=== PATIENT | female | born 1940 | race Caucasian/White ===

== ENCOUNTER 2019-08-31 16:30 | Emergency (ER) | payer MEDICARE, BC ==
[2019-08-31 16:39] VITALS: RESP 18
--- NOTE | 2019-08-31 17:15 | ED ---
General Adult HPI - General Chief complaint: Psychiatric Symptoms Stated complaint: Mental Health Time Seen by Provider: 08/31/19 16:44 Source: patient, family Mode of arrival: ambulatory Limitations: no limitations - History of Present Illness Initial comments: Patient presents the ED with her daughter for evaluation. Patient states that she has been having increasing problems with anxiety and depression of the past 2-3 months. Per daughter, the patient's primary care provider has been adjusting the patient's psychiatric medications and doses recently. Per daughter, the patient's primary care provider advised that the patient see a psychiatrist, but daughter states that "it takes too long to see a psychiatrist", so she has but the patient to the ED today. Patient denies suicidal ideations, homicidal ideations, hallucinations, medication or drug abuse, EtOH abuse, any pain, fever or chills, cough or cold symptoms, urinary symptoms, dyspnea, dizziness, nausea/vomiting/diarrhea, or any other symptoms or complaints. - Related Data Home Medications Medication Instructions Recorded Confirmed ARIPiprazole [Abilify] 2.5 mg PO HS 10/09/14 05/17/15 Aspirin 81 mg PO DAILY 10/09/14 05/17/15 LORazepam [Ativan] 2 mg PO DAILY@1400 10/09/14 05/17/15 Levothyroxine Sodium [Synthroid] 37.5 mcg PO HS 10/09/14 05/17/15 Metoprolol Tartrate 25 mg PO BID 10/09/14 05/17/15 Pentosan Polysulfate Sodium 100 mg PO MOWEFR 10/09/14 05/17/15 [Elmiron] Pravastatin Sodium [Pravachol] 80 mg PO HS 10/09/14 05/17/15 Sertraline [Zoloft] 100 mg PO BID 10/09/14 05/17/15 Calcium Carbonate/Vitamin D3 1 tab PO DAILY 10/19/14 05/17/15 [Calcium 600-Vit D3 400 Tablet] Multivitamins, Thera [Multivitamin 1 tab PO DAILY 10/19/14 05/17/15 (formulary)] [place]-3 Fatty Acids/Fish Oil [Fish 1 tab PO BID 10/19/14 05/17/15 Oil 1,000 mg Softgel] ALPRAZolam [Xanax] 1.5 mg PO HS 05/05/15 05/17/15 Clearlax 1 applicate PO HS 05/05/15 05/17/15 Cyanocobalamin [Vitamin B-12] 500 mcg PO DAILY 05/05/15 05/17/15 Previous Rx's Medication Instructions Recorded Rivaroxaban [Xarelto] 10 mg PO DAILY #12 tab 05/18/15 Acetaminophen-Codeine 300-30mg 1 tab PO Q6H PRN #60 tablet 05/19/15 [Tylenol w/codeine #3] Allergies Allergy/AdvReac Type Severity Reaction Status Date / Time cisapride monohydrate Allergy nasal Verified 08/31/19 16:39 [From Propulsid] congestion and cough methylphenidate HCl Allergy joint pain Verified 08/31/19 16:39 [From Ritalin] Sulfa (Sulfonamide Allergy Unknown Verified 08/31/19 16:39 Antibiotics) amitriptyline AdvReac causes Verified 08/31/19 16:39 nervousness and sleepiness amylase [From Viokase] AdvReac jim Verified 08/31/19 16:39 bladder aspirin AdvReac jim Verified 08/31/19 16:39 bladder but able to tolerate low dose asa atenolol [From Tenoretic 50] AdvReac dry Verified 08/31/19 16:39 burning eyes bupropion HCl AdvReac jim Verified 08/31/19 16:39 [From Wellbutrin] bladder chlordiazepoxide AdvReac bladder Verified 08/31/19 16:39 [From Librax (with jim clidinium)] chlordiazepoxide HCl AdvReac bladder Verified 08/31/19 16:39 [From Librax (with jim methscopolamine)] chlorthalidone AdvReac dry Verified 08/31/19 16:39 [From Tenoretic 50] burning eyes clidinium bromide AdvReac bladder Verified 08/31/19 16:39 [From Librax (with jim clidinium)] cyclobenzaprine HCl AdvReac causes Verified 08/31/19 16:39 [From Flexeril] sleepiness and nervousness dextroamphetamine sulfate AdvReac jim Verified 08/31/19 16:39 [From Dexedrine] stomach and bladder dicyclomine HCl [From Bentyl] AdvReac dry Verified 08/31/19 16:39 mouth,constipation,jim bladder fluoxetine HCl [From Prozac] AdvReac stays awake Verified 08/31/19 16:39 gabapentin [From Neurontin] AdvReac jim Verified 08/31/19 16:39 bladder hydrocodone AdvReac jim Verified 08/31/19 16:39 bladder hyoscyamine sulfate AdvReac mades eyes Verified 08/31/19 16:39 [From Levsinex] and mouth dry lipase [From Viokase] AdvReac jim Verified 08/31/19 16:39 bladder lithium AdvReac jim Verified 08/31/19 16:39 bladder loratadine [From Claritin] AdvReac jim Verified 08/31/19 16:39 stomach and bladder methylprednisolone AdvReac jim Verified 08/31/19 16:39 bladder methylscopolamine nitrate AdvReac bladder Verified 08/31/19 16:39 [From Librax (with jim methscopolamine)] metoclopramide HCl AdvReac causes Verified 08/31/19 16:39 [From Reglan] sleepiness and nervousness nortriptyline HCl AdvReac severe Verified 08/31/19 16:39 [From Pamelor] sleepiness pemoline [From Cylert] AdvReac jim Verified 08/31/19 16:39 stomach and bladder prednisone AdvReac jim Verified 08/31/19 16:39 bladder protease [From Viokase] AdvReac jim Verified 08/31/19 16:39 bladder sucralfate AdvReac constipatio Verified 08/31/19 16:39 n tolmetin sodium AdvReac Nausea & Verified 08/31/19 16:39 [From Tolectin] Vomiting tramadol HCl [From Ultram] AdvReac jim Verified 08/31/19 16:39 bladder venlafaxine HCl AdvReac jim Verified 08/31/19 16:39 [From Effexor] bladder clescin AdvReac Nausea & Uncoded 08/31/19 16:39 Vomiting ruepar AdvReac jim Uncoded 08/31/19 16:39 bladder Review of Systems ROS Statement: Those systems with pertinent positive or pertinent negative responses have been documented in the HPI. ROS Other: All systems not noted in ROS Statement are negative. Past Medical History Past Medical History: Hyperlipidemia, Hypertension, Osteoarthritis (OA), Thyroid Disorder Additional Past Medical History / Comment(s): interstitial cystitis,"borderline diabetes"- diet controlled NOT ON ANY MEDS AND MK [facility] WILL CHECK HER BS., constipation History of Any Multi-Drug Resistant Organisms: None Reported Past Surgical History: Heart Catheterization With Stent, Hysterectomy, Joint Replacement, Orthopedic Surgery Additional Past Surgical History / Comment(s): 10/19/14 Total L hip arthroplasty anterior approach. bladder suspension, cataracts, 05-17-15 TOTAL RT KNEE REPLACEMENT Past Anesthesia/Blood Transfusion Reactions: No Reported Reaction Date of Last Stent Placement:: 2010 Past Psychological History: Depression Smoking Status: Never smoker Past Alcohol Use History: None Reported Past Drug Use History: None Reported - Past Family History Mother Family Medical History: Cancer Additional Family Medical History / Comment(s): colon Father Family Medical History: Coronary Artery Disease (CAD), Musculoskeletal Disorder Additional Family Medical History / Comment(s): PARKINSONS AND HEART TROUBLE General Exam Limitations: no limitations General appearance: alert, in no apparent distress Head exam: Present: atraumatic, normocephalic Eye exam: Present: normal appearance, PERRL, EOMI ENT exam: Present: mucous membranes moist Neck exam: Present: other (Trachea is in midline). Absent: tenderness, meningismus Respiratory exam: Present: normal lung sounds bilaterally. Absent: respiratory distress, wheezes, rales, rhonchi Cardiovascular Exam: Present: regular rate, normal rhythm, normal heart sounds, other (Normal radial pulses bilaterally) GI/Abdominal exam: Present: soft. Absent: distended, tenderness, guarding Extremities exam: Absent: tenderness, pedal edema, calf tenderness Neurological exam: Present: alert, oriented X3, CN II-XII intact. Absent: motor sensory deficit Psychiatric exam: Present: depressed, anxious Skin exam: Present: warm, dry, intact, normal color Course Vital Signs 08/31/19 16:35 Temperature 98.4 F Pulse Rate 88 Respiratory 18 Rate Blood Pressure 142/84 O2 Sat by Pulse 99 Oximetry Medical Decision Making - Medical Decision Making Patient was evaluated by EPS nurse in the ED. EPS nurse states the patient will be discharged home with her daughter, and she has provided the patient with outpatient psychiatric referral information. Patient and daughter were counseled about depression and anxiety, and they feel comfortable with this plan. Patient was instructed to follow up closely with her primary care provider. Patient was instructed to return to the ED should she develop new or worsening symptoms. Disposition Clinical Impression: Anxiety, Depression Disposition: HOME SELF-CARE Condition: Stable Instructions (If sedation given, give patient instructions): Depression (ED), Anxiety (ED) Additional Instructions: Return to the ER immediately should you develop thoughts of hurting herself or others, hearing voices or seeing things, any significant pain, shortness of breath, feeling dizzy or faint, or new or worsening symptoms. Follow up closely with your primary care provider. Is patient prescribed a controlled substance at d/c from ED?: No Referrals: Nidia Angulo MD [Primary Care Provider] - 1-2 days Time of Disposition: 19:07
[2019-08-31 19:13] VITALS: BP 140/80; PULSE 85; TEMP 98.2
== END 2019-08-31 19:10 | disposition home or self-care (01) ==
LOC: EC 16:30
DX: F32.9 Major depressive disorder, single episode, unspecified (principal); F41.9 Anxiety disorder, unspecified; E78.5 Hyperlipidemia, unspecified; I10 Essential (primary) hypertension; M19.90 Unspecified osteoarthritis, unspecified site; E07.9 Disorder of thyroid, unspecified; N30.10 Interstitial cystitis (chronic) without hematuria; K59.00 Constipation, unspecified; Z88.1 Allergy status to other antibiotic agents; Z88.2 Allergy status to sulfonamides; Z88.5 Allergy status to narcotic agent; Z88.6 Allergy status to analgesic agent; Z88.8 Allergy status to other drugs, medicaments and biological substances; Z91.048 Other nonmedicinal substance allergy status; Z79.82 Long term (current) use of aspirin; Z79.890 Hormone replacement therapy; Z79.899 Other long term (current) drug therapy
CPT/HCPCS: 82075; 99284

== ENCOUNTER → 2020-06-21 | Outpatient (CLI) | payer MEDICARE, BC | END | disposition home or self-care (01) | LOC: LABPAT 11:37 | PROVIDERS: ATTEND Orthopaedic Surgery | DX: Z22.322 Carrier or suspected carrier of Methicillin resistant Staphylococcus aureus (principal) | CPT/HCPCS: 86850; 86900; 86901; 87070 ==

== ENCOUNTER 2020-06-28 06:28 | Day surgery (SDC) | payer MEDICARE, BC ==
[2020-06-23 14:58] VITALS: BMI 32.2
--- NOTE | 2020-06-27 11:22 | HP ---
HISTORY AND PHYSICAL REASON FOR ADMISSION: Surgery 06/28/2020. HISTORY OF PRESENT ILLNESS: Deepika Sharma is a 80-year-old patient seen with symptomatic right hip osteoarthritis. We discussed options. She elected to proceed with direct anterior right total hip arthroplasty. Consent was obtained. Medical clearance provided by Dr. Angulo. PAST MEDICAL HISTORY: [id number] diabetes, hypertension, hypothyroidism. PAST SURGICAL HISTORY: Right total knee arthroplasty, left total hip arthroplasty. MEDICATIONS: Abilify, aspirin, Elmiron. ALLERGIES: SULFA. SOCIAL HISTORY: She denies current tobacco use. PHYSICAL EXAMINATION: Evaluation of the right hip: there is limited range of motion with severe pain. Diffuse tenderness about the hip girdle. Positive hip impingement sign. Straight leg raise negative. Distal neurovascular exam intact. RADIOGRAPHS: Radiographs of the right hip reveals severe osteoarthritic changes. IMPRESSION: 1. Right hip osteoarthritis. 2. Hypertension. 3. Hypothyroidism. 4. Bqo-rgsbyyo-qsgtrxder diabetes. PLAN: Direct anterior right total hip arthroplasty. Surgery 06/28/2020. MMODL / IJN: [id number] /
[~2020-06-28 06:28] MED LIST: ACETAMINOPHEN TAB 500 MG TAB PO ONE; MELOXICAM 7.5 MG TAB PO ONE; MIDAZOLAM 2 MG/2 ML VIAL IV PRN; ONDANSETRON 4 MG/2 ML VIAL IVP ONE; ROPIVACAINE 246.25 MG, EPINEPHrine 0.5 MG, KETOROLAC 30 MG, cloNIDine HCL/PF 80 MCG, WA... MISCELLANE ONE; TRANEXAMIC ACID 1,000 MG in SODIUM CHLORIDE 0.9% 100 ML IVPB ONE; fentaNYL (PF) 50 MCG/ML 2 ML AMP IV PRN
[2020-06-28] MEDS ORDERED: LIDOCAINE 1% (10MG/ML) FOR IV START INTRADERMA ONE (07:00)
[2020-06-28] MEDS: LACTATED RINGERS 1,000 ML IV SCH (07:00)
[2020-06-28 07:22] LABS: Glucose,Whole Blood 112 mg/dL (75-99)
[2020-06-28] MEDS ORDERED: ROCURONIUM 10 MG/ML (10 ML VIAL) IV ONE (07:29)
[2020-06-28] MEDS ORDERED: PROPOFOL 10 MG/ML 20 ML VIAL IV ONE (07:29)
[2020-06-28] MEDS ORDERED: GLYCOPYRROLATE 0.2 MG/ML 2 ML VIAL ONE (07:29)
[2020-06-28] MEDS ORDERED: LIDOCAINE 1% INJ 10MG/ML (20 ML MDV) ONE (07:29)
[2020-06-28] MEDS ORDERED: fentaNYL (PF) 50 MCG/ML 2 ML AMP ONE (07:29)
[2020-06-28] MEDS ORDERED: NEOSTIGMINE 1 MG/ML 10 ML VIAL ONE (07:29)
[2020-06-28] MEDS ORDERED: SODIUM CHLORIDE 0.9% 100 ML BAG ONE (07:29)
[2020-06-28] MEDS ORDERED: TRANEXAMIC ACID 1,000 MG/10 ML VIAL ONE (07:29)
[2020-06-28] MEDS ORDERED: SUCCINYLCHOLINE CHLORIDE 100 MG/5 ML SYR IV ONE (07:29)
[2020-06-28] MEDS ORDERED: ePHEDrine SULFATE/0.9% NACL/PF 50 MG/5 ML SYRINGE IV ONE (07:29)
[2020-06-28] MEDS ORDERED: ceFAZolin 1,000 MG in SODIUM CHLORIDE 0.9% 1,000 ML IRRIGATION ONE (08:09)
--- NOTE | 2020-06-28 09:03 | XR ---
Fluoroscopy History: RIGHT HIP ARTHROPLASTY fluoro time 22 seconds, 1 film scanned.
[2020-06-28] MEDS ORDERED: HYDROcodone/APAP 5-325MG 1 EACH TAB PO PRN (09:09)
[2020-06-28] MEDS ORDERED: ONDANSETRON 4 MG/2 ML VIAL IVP PRN (09:09)
[2020-06-28] MEDS ORDERED: HYDROmorphone 0.5 MG/0.5 ML SYRINGE IVP PRN ×3 (09:09)
[2020-06-28] MEDS ORDERED: NALOXONE 0.4 MG/ML 1 ML VIAL IV PRN (09:09)
--- NOTE | 2020-06-28 09:09 | P.OP ---
Date of Procedure: 06/28/20 Preoperative Diagnosis: Right hip osteoarthritis Postoperative Diagnosis: Right hip osteoarthritis Procedure(s) Performed: Direct anterior right total hip arthroplasty Implants: 1. Depuy Corail KA size 13 with collar press-fit femoral stem 2. Depuy pinnacle 52 mm multi hole press-fit acetabular shell 3. Depuy pinnacle neutral polyethylene acetabular liner 36 mm ID 52 mm OD 4. Biolox delta ceramic femoral head +1.5 36 mm Anesthesia: GETA, local, spinal Surgeon: Chidi Parry Gate Shear Operator #1: Corbin Smith Estimated Blood Loss (ml): 100 Pathology: other (Femoral head) Condition: stable Disposition: PACU Indications for Procedure: 80-year-old patient seen with symptomatic right hip osteoarthritis. After treatment options were discussed, she elected to proceed with direct anterior right total hip arthroplasty. Operative Findings: see description of procedure Description of Procedure: The patient was taken to the operative suite. Patient underwent a spinal anesthetic by the department of anesthesia. Patient was then transferred to the [place] table. Patient was given preoperative IV antibiotics and TXA. Both lower extremities were placed in standard leg spars. At point did not appear that the spinal anesthetic was working and the department of anesthesia converted her to a general anesthetic. The hip was then prepped and draped in the normal sterile orthopedic fashion. A standard anterior incision was made beginning 3 cm lateral and 1 cm distal to the ASIS extending 10 cm. Dissection was then carried down through the subcutaneous soft tissues down to the fascia overlying the tensor fascia kirstin. An incision was now made through the fascia. Careful dissection was taken down exposing the tensor fascia kirstin muscle. A Cobra retractor was now placed along the medial femoral neck and a second one along the lateral femoral neck. The venous circumflex vessels were now identified, cauterized and clipped. We identified the anterior hip capsule. An incision was made through the hip capsule along the lateral border. I performed a partial anterior capsulectomy. Retractors were now placed around the femoral neck itself. A femoral neck cut was now made with a sagittal saw. It was completed with an osteotome at the lateral neck area. The femoral head was now removed without difficulty. The extremity was now rotated to 45 of external rotation. It was locked in position. Residual labrum was now debrided out. Serial reaming was performed of the acetabulum while Glenn ARAYA assisted holding an anterior retractor for exposure. Once we reached the appropriate size and a trial was position and fit nicely. The appropriate size was now chosen opened and made available. It was introduced into the acetabulum without difficulty. The C-arm/fluoroscopy was now brought into the operative field. We made sure we had a true AP pelvic view. We now under direct C-arm/fluoroscopy introduced into the acetabular component with appropriate version and inclination. I held the cup in appropriate position well Glenn ARAYA used a mallet to seat the acetabular component. I noted the component now to be well seated and stable. Acetabular cup introduce her was removed. The C-arm was pulled back. An appropriate liner was introduced and clicked into position. It was felt to be stable. At this point retractors were removed. The extremity was now placed into 120 external rotation with no traction. The leg was now dropped to the ground and adducted. Appropriate retractors were now positioned along the proximal femur. We also placed our femoral look into position. Additional capsular releasing was performed to gain access to the proximal femur. We now used a box osteotome. A canal finder was now utilized. Serial broaching was now performed with the assistance of Glenn RAAYA tapping the broaches down with a mallet while held the broach in appropriate rotation and position. This was done until we reached the appropriate size with good overall rotational stability. Appropriate calcar planing was performed. A trial head/neck was placed into position. The hip was now reduced. The C-arm/fluoroscopy was brought back into the operative field. I obtained an AP pelvis demonstrating reasonable alignment of the leg lengths. The trial components appeared well positioned. The C-arm/fluoroscopy was pulled back. Retractors were repositioned and the hip was dislocated. The leg was again taken down to the ground and adducted. Appropriate retractors were repositioned as well as the femoral hook. All trial components were removed. The femoral implant was opened along with the femoral head. The femoral implant was introduced on the appropriate handle into our pre-broached area. I held the c omponent position well Glenn ARAYA used a mallet to seat the femoral component. The femoral component was now noted to be well seated and stable.. The femoral head was introduced with good positioning and fixation noted. Retractors were now removed. The hip was now reduced. There appeared be good positioning of the hip confirmed on intraoperative fluoroscopy. Spot films were obtained to document this. A second gram of TXA was given. The deep and superficial soft tissues were infiltrated with local analgesic. Bipolar cautery had been utilized intermittently through the procedure for hemostasis. The wound was irrigated copiously with pulse lavage mechanical irrigation. The fascia was repaired with Vicryl suture. The subcutaneous soft tissues were repaired in layers with Vicryl suture. The skin was approximated with pernio/Dermabond. Sterile dressings were applied. Patient was then awakened, transferred to a bed and taken to recovery in stable condition. Glenn ARAYA assisted with the complex procedure.
[2020-06-28] MEDS ORDERED: LACTATED RINGERS 1,000 ML IV ONE (09:13)
[2020-06-28] MEDS ORDERED: HYDROmorphone 0.5 MG/0.5 ML SYRINGE IVP ONE (09:50)
[2020-06-28] MEDS: SODIUM CHLORIDE 0.9% 1,000 ML IV SCH (10:16)
[2020-06-28] MEDS: HYDROcodone/APAP 5-325MG 1 EACH TAB PO PRN ×2 (16:00→21:51)
[2020-06-28] MEDS ORDERED: SENNOSIDES-DOCUSATE SODIUM 1 EACH TAB PO SCH (21:00)
[2020-06-28] MEDS ORDERED: PRAVASTATIN SODIUM 40 MG TAB PO SCH (22:15)
[2020-06-28] MEDS ORDERED: ARIPiprazole 5 MG TAB PO SCH (22:15)
[2020-06-28] MEDS ORDERED: MIRTAZAPINE 45 MG TABLET PO SCH (22:15)
[2020-06-28] MEDS: METOPROLOL TARTRATE 25 MG TAB PO SCH (22:30)
[2020-06-29] MEDS: LACTATED RINGERS 1,000 ML IV SCH (01:54)
[2020-06-29] MEDS: SODIUM CHLORIDE 0.9% 1,000 ML IV SCH (01:54)
[2020-06-29] MEDS: HYDROcodone/APAP 5-325MG 1 EACH TAB PO PRN ×2 (06:16→13:33)
[2020-06-29 07:44] VITALS: BP 132/69; PULSE 80; RESP 12; TEMP 98.3
[2020-06-29 07:47] LABS: Basophils % (A) 0 %; Eosinophils # (A) 0.1 k/uL (0-0.7); Eosinophils % (A) 1 %; HCT 29.3 % (34.0-46.0); HGB 10.1 gm/dL (11.4-16.0); Lymphocytes # (A) 1.2 k/uL (1.0-4.8); Lymphocytes % (A) 16 %; MCH 32.8 pg (25.0-35.0); MCHC 34.5 g/dL (31.0-37.0); Monocytes # (A) 0.4 k/uL (0-1.0); Monocytes % (A) 6 %; Neutrophils # (A) 5.5 k/uL (1.3-7.7); Neutrophils % (A) 76 %; Platelet Count 114 k/uL (150-450); RBC 3.08 m/uL (3.80-5.40); RDW 12.7 % (11.5-15.5); WBC 7.2 k/uL (3.8-10.6)
[2020-06-29] MEDS ORDERED: ENOXAPARIN 40 MG/0.4 ML SYRINGE SQ SCH (09:00)
[2020-06-29] MEDS ORDERED: lisinopriL 10 MG TAB PO SCH (09:00)
[2020-06-29] MEDS ORDERED: SERTRALINE 100 MG TAB PO SCH (09:00)
[2020-06-29] MEDS ORDERED: NIFEdipine XL 30 MG TAB.ER.24 PO SCH (09:00)
[2020-06-29] MEDS ORDERED: FAMOTIDINE 20 MG TAB PO SCH (09:00)
[2020-06-29] MEDS ORDERED: LEVOTHYROXINE 75 MCG TAB PO SCH (09:00)
[2020-06-29] MEDS: SIMETHICONE 80 MG CHEWABLE PO SCH ×2 (10:08→13:22)
[2020-06-29] MEDS: METOPROLOL TARTRATE 25 MG TAB PO SCH (10:09)
--- NOTE | 2020-06-29 11:36 | P.PN ---
Subjective Progress Note Date: 06/29/20 Principal diagnosis: Status post direct anterior right total hip arthroplasty Patient is examined today at bedside, she is resting comfortably. She's having minimal pain at this time. She did very well physical therapy. She denies any headaches, lightheadedness, chest pain, shortness of breath. Objective - Vital Signs Vital signs: Vital Signs Temp 98.3 F 06/29/20 07:00 Pulse 80 06/29/20 07:00 Resp 12 06/29/20 07:00 BP 132/69 06/29/20 07:00 Pulse Ox 95 06/29/20 07:00 Intake & Output 06/28/20 06/29/20 06/29/20 18:59 06:59 18:59 Intake Total 2090 300 100 Output Total 100 Balance 1990 300 100 Weight 72.6 kg Intake: IV 1251 Intake, IV Titration 240 Amount Sodium Chloride 0.9% 1, 240 000 ml @ 60 mls/hr IV . [id number] CASTRO Rx#:[id number] Oral 600 300 100 Output: Estimated Blood Loss 100 Other: Voiding Method Toilet Toilet # Voids 2 - Exam Right lower extremity: Incision is clean, dry, and intact. The foam dressing is in good condition. There is minimal soft tissue swelling and ecchymosis surrounding the medial and lateral aspects of the incision. Calf is soft, no tenderness with palpation. Plantar flexion, dorsiflexion, EHL, FHL are intact. Sensory exam to light touch throughout the extremity is intact, dorsal pedis pulses 2+. - Labs CBC & Chem 7: 06/29/20 07:08 Labs: Abnormal Lab Results - Last 24 Hours (Table) 06/29/20 Range/Units 07:08 RBC 3.08 L (3.80-5.40) m/uL Hgb 10.1 L (11.4-16.0) gm/dL Hct 29.3 L (34.0-46.0) % Plt Count 114 L (150-450) k/uL Assessment and Plan Assessment: Status post direct anterior right total hip arthroplasty Plan: Pain control, plan for discharge home on Onward 5 mg/25 mg. Discussed with patient if she notices any bladder symptoms contact office and we will try a different medication DVT prophylaxis, Xarelto 10 mg Wound care instructions discussed Icing and elevating techniques discussed Home health care after discharge Plan for discharge home today Time with Patient: Less than 30
--- NOTE | 2020-06-29 11:39 | P.DS ---
Providers Date of admission: 06/28/2020 Expected date of discharge: 06/29/20 Attending physician: Chidi Parry Consults: 06/28/20 09:09 Consult Physician Routine Consulting Provider: Navjot Loja Reason/Comments: Medical management Do you want consulting provider notified?: Already Contacted Primary care physician: Nidia Angulo [facility] Course: Date of admission: 06/28/2020 Date of discharge: 06/29/2020 Admission diagnosis: Status post direct anterior right total hip arthroplasty Discharge diagnosis: Same Attending physician: Dr. Parry Surgical procedures: Direct anterior right total hip arthroplasty Brief history: Patient is a 80-year-old female with a history of progressive primary right hip osteoarthritis. At this point patient has failed conservative treatment measures and has opted to proceed with a elective direct anterior right total hip arthroplasty. Hospital course: Details of patient's surgery can be found in operative report. Patient tolerated the procedure well and was subsequently transported to orthopedic floor. Patient's orthopeidc and medical care was provided daily. Patient had daily laboratory tests performed for evaluation of overall blood counts. Patient had daily physical therapy to include strengthening range of motion as well as education with walker ambulation. Patient was treated with Lovenox for their postoperative DVT prophylaxis during their inpatient stay. Patient was noted to have a relatively uneventful postoperative course. Patient reported satisfactory pain control with oral pain medications by postoperative day 0. Patient showed satisfactory progress with physical therapy. Patient moved steadily through the program and had no difficulty meeting the goals by postoperative day 1. Given patient's otherwise satisfactory course and having met physical therapy goals, plan is to discharge patient home on postoperative day 1. Discharge condition/disposition: Patient will be discharged home in stable condition. Discharge medications: Instructions are given on resumption of patient's normal daily medications per primary care recommendation, in addition patient will be prescribed Foster 5 mg/225 mg, Xarelto 10 mg. Discharge instructions: 1. Wound care and infection precautions, keep incision dry and covered while showering, no lotions, creams, moisturizers. No soaking, tubs, pools, hottubs. Do not scrub over the incision. 2. Weight-bear as tolerated with walker / cane until follow-up. 3. Ice and elevate when necessary. Do not exceed 20 minutes per hour with ice pack. 4. Utilize compression sleeve until seen at first follow up appointment. 5. Visiting nursing care. 6. Home physical therapy. 7. Pain meds and anticoagulants per prescription. 8. Pain medication has potential to cause constipation. Increase oral fluid and fiber intake. Contact primary care provider if you have not had a bowel movement within 48 hours after discharge 9. No anti-inflammatory medication until discussed at first post operative visit, this including Motrin, Aleve, Mobic, Diclofenac. 10. Follow up in office at 2 weeks postop with Glenn Smith PA-C 11. Follow up with your primary care doctor 7-10 days after discharge. 12. Contact [facility] with any questions, . Procedures: direct anterior right total hip arthroplasty Patient Condition at Discharge: Good Plan - Discharge Summary Discharge Rx Participant: Yes New Discharge Prescriptions: New Hydrocodone/Acetaminophen [Foster 5-325] 1 - 2 each PO Q6HR PRN #40 tab PRN Reason: Pain Rivaroxaban [Xarelto] 10 mg PO DAILY #28 tab No Action Levothyroxine Sodium [Synthroid] 75 mcg PO DAILY Pravastatin Sodium [Pravachol] 40 mg PO HS ARIPiprazole [Abilify] 5 mg PO HS Metoprolol Tartrate 25 mg PO BID Sertraline [Zoloft] 200 mg PO DAILY Pentosan Polysulfate Sodium [Elmiron] 100 mg PO DAILY Aspirin 81 mg PO DAILY [place]-3 Fatty Acids/Fish Oil [Fish Oil 1,000 mg Softgel] 1 tab PO DAILY Cyanocobalamin [Vitamin B-12] 500 mcg PO DAILY polyethylene glycoL 3350 [Miralax] 17 gm PO DAILY Lisinopril [Zestril] 10 mg PO DAILY Famotidine [Pepcid] 40 mg PO BID PRN PRN Reason: Heartburn NIFEdipine [Procardia XL] 30 mg PO DAILY Diclofenac Sodium Gel [Voltaren Gel] 2 gm TOPICAL QID PRN PRN Reason: Pain Cholecalciferol [Vitamin D3 (25 Mcg = 1000 Iu)] 2,000 unit PO DAILY Mirtazapine [Remeron] 45 mg PO HS Calcium Carbonate [Calcium] 600 mg PO DAILY Discharge Medication List ARIPiprazole [Abilify] 5 mg PO HS 10/09/14 [History] Aspirin 81 mg PO DAILY 10/09/14 [History] Levothyroxine Sodium [Synthroid] 75 mcg PO DAILY 10/09/14 [History] Metoprolol Tartrate 25 mg PO BID 10/09/14 [History] Pentosan Polysulfate Sodium [Elmiron] 100 mg PO DAILY 10/09/14 [History] Pravastatin Sodium [Pravachol] 40 mg PO HS 10/09/14 [History] Sertraline [Zoloft] 200 mg PO DAILY 10/09/14 [History] [place]-3 Fatty Acids/Fish Oil [Fish Oil 1,000 mg Softgel] 1 tab PO DAILY 10/19/14 [History] Cyanocobalamin [Vitamin B-12] 500 mcg PO DAILY 05/05/15 [History] Calcium Carbonate [Calcium] 600 mg PO DAILY 06/23/20 [History] Cholecalciferol [Vitamin D3 (25 Mcg = 1000 Iu)] 2,000 unit PO DAILY 06/23/20 [ History] Diclofenac Sodium Gel [Voltaren Gel] 2 gm TOPICAL QID PRN 06/23/20 [History] Famotidine [Pepcid] 40 mg PO BID PRN 06/23/20 [History] Lisinopril [Zestril] 10 mg PO DAILY 06/23/20 [History] Mirtazapine [Remeron] 45 mg PO HS 06/23/20 [History] NIFEdipine [Procardia XL] 30 mg PO DAILY 06/23/20 [History] polyethylene glycoL 3350 [Miralax] 17 gm PO DAILY 06/23/20 [History] Hydrocodone/Acetaminophen [Foster 5-325] 1 - 2 each PO Q6HR PRN #40 tab 06/29/20 [Rx] Rivaroxaban [Xarelto] 10 mg PO DAILY #28 tab 06/29/20 [Rx] Follow up Appointment(s)/Referral(s): Corbin Smith PAC [PHYSICIAN [employer]] - 2 Weeks [facility] Visiting Nurse, [NON-STAFF] - As Needed Activity/Diet/Wound Care/Special Instructions: Orthopedic Discharge Instructions: 1. Wound care and infection precautions, keep incision dry and covered while showering, no lotions, creams, moisturizers. No soaking, pools, hot tubs. Do not scrub over incision. 2. Weight-bear as tolerated with walker / cane until follow-up. 3. Ice and elevate when necessary. Do not exceed 20 minutes per hour with ice pack. 4. Utilize compression sleeve until seen at first follow up appointment. 5. Pain meds and anticoagulants per prescription. 6. Pain medication has potential to cause constipation. Increase oral fluid and fiber intake. Contact primary care provider if you have not had a bowel movement within 48 hours after discharge. 7. No anti-inflammatory medication until discussed at first post operative visit, this including Motrin, Aleve, Mobic, Diclofenac. 8. Follow up in office at 2 weeks postop with Glenn Smith PA-C 9. Follow up with your primary care doctor 7-10 days after discharge. 10. Contact [facility] with any questions, . Discharge Disposition: HOME WITH HOME HEALTH SERVICES
== END 2020-06-29 13:37 | disposition home health service (06) ==
LOC: OR 06:28 → 4SSUR 09:35 → OR 06-29 13:37
PROVIDERS: ATTEND Orthopaedic Surgery
DX: M16.11 Unilateral primary osteoarthritis, right hip (principal); I10 Essential (primary) hypertension; E11.9 Type 2 diabetes mellitus without complications; E78.2 Mixed hyperlipidemia; E03.9 Hypothyroidism, unspecified; F32.9 Major depressive disorder, single episode, unspecified; K21.9 Gastro-esophageal reflux disease without esophagitis; F41.9 Anxiety disorder, unspecified; I25.10 Atherosclerotic heart disease of native coronary artery without angina pectoris; N30.10 Interstitial cystitis (chronic) without hematuria; Z96.642 Presence of left artificial hip joint; Z96.651 Presence of right artificial knee joint; Z88.2 Allergy status to sulfonamides; Z79.82 Long term (current) use of aspirin; Z95.5 Presence of coronary angioplasty implant and graft; Z79.899 Other long term (current) drug therapy; Z79.01 Long term (current) use of anticoagulants; Z79.84 Long term (current) use of oral hypoglycemic drugs; Z87.891 Personal history of nicotine dependence; Z88.0 Allergy status to penicillin; Z88.1 Allergy status to other antibiotic agents; Z88.6 Allergy status to analgesic agent; Z88.5 Allergy status to narcotic agent; Z88.8 Allergy status to other drugs, medicaments and biological substances; Z90.710 Acquired absence of both cervix and uterus; Z98.890 Other specified postprocedural states
CPT/HCPCS: 97116; 97110; 97161; 97535; 97166; 85025; 88300; 73501; 27130; C1776; J0171; J2710; J0690 ×3; J2405; J2001; J1650; J3010; J1885; J2795; J0330; J2704; J0735; J1170; 86850; 86900; 86901

== ENCOUNTER 2020-07-27 14:22 | Inpatient (IN) | payer MEDICARE, BC ==
[2020-07-27] MEDS ORDERED: SODIUM CHLORIDE 0.9% 500 ML 500 ML IV ONE (14:37)
[2020-07-27] MEDS ORDERED: VANCOMYCIN IV PER PHARMACY 1 EACH MISC MISCELLANE PRN (14:40)
--- NOTE | 2020-07-27 14:40 | ED ---
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 Patient states that she had a total hip replacement performed on June [address] Jamison. Patient states that she had some pain initially after. She states approximately a week later she noticed some redness to the area. Patient states the redness and swelling increased and worsened. Patient states she had an appointment today where the physician thought that the prosthesis was infected he aspirated the joint and sent patient was stable to the emergency department for admission for IV antibiotics. Patient denies fevers. She admits to chills. She denies any chest pain shortness of breath, calf pain or swelling. Patient denies additional complaints. Upon arrival pt ambulatory but appears uncomfortable with movement of right leg. She does not appear toxic nor in distress - Related Data Home Medications Medication Instructions Recorded Confirmed ARIPiprazole [Abilify] 5 mg PO HS 10/09/14 06/23/20 Aspirin 81 mg PO DAILY 10/09/14 06/23/20 Levothyroxine Sodium [Synthroid] 75 mcg PO DAILY 10/09/14 06/23/20 Metoprolol Tartrate 25 mg PO BID 10/09/14 06/23/20 Pentosan Polysulfate Sodium 100 mg PO DAILY 10/09/14 06/23/20 [Elmiron] Pravastatin Sodium [Pravachol] 40 mg PO HS 10/09/14 06/23/20 Sertraline [Zoloft] 200 mg PO DAILY 10/09/14 06/23/20 [place]-3 Fatty Acids/Fish Oil [Fish 1 tab PO DAILY 10/19/14 06/23/20 Oil 1,000 mg Softgel] Cyanocobalamin [Vitamin B-12] 500 mcg PO DAILY 05/05/15 06/23/20 Calcium Carbonate [Calcium] 600 mg PO DAILY 06/23/20 06/23/20 Cholecalciferol [Vitamin D3 (25 2,000 unit PO DAILY 06/23/20 06/23/20 Mcg = 1000 Iu)] Diclofenac Sodium Gel [Voltaren 2 gm TOPICAL QID PRN 06/23/20 06/23/20 Gel] Famotidine [Pepcid] 40 mg PO BID PRN 06/23/20 06/23/20 Lisinopril [Zestril] 10 mg PO DAILY 06/23/20 06/23/20 Mirtazapine [Remeron] 45 mg PO HS 06/23/20 06/23/20 NIFEdipine [Procardia XL] 30 mg PO DAILY 06/23/20 06/23/20 polyethylene glycoL 3350 [Miralax] 17 gm PO DAILY 06/23/20 06/23/20 Previous Rx's Medication Instructions Recorded Apixaban [Eliquis] 2.5 mg PO BID #60 tab 06/29/20 Hydrocodone/Acetaminophen [[place] 1 - 2 each PO Q6HR PRN #40 tab 06/29/20 5-325] Allergies Allergy/AdvReac Type Severity Reaction Status Date / Time cisapride monohydrate Allergy nasal Verified 07/27/20 14:30 [From Propulsid] congestion and cough methylphenidate HCl Allergy joint pain Verified 07/27/20 14:30 [From Ritalin] Sulfa (Sulfonamide Allergy Unknown Verified 07/27/20 14:30 Antibiotics) amitriptyline AdvReac causes Verified 07/27/20 14:30 nervousness and sleepiness amylase [From Viokase] AdvReac jim Verified 07/27/20 14:30 bladder aspirin AdvReac jim Verified 07/27/20 14:30 bladder but able to tolerate low dose asa atenolol [From Tenoretic 50] AdvReac dry Verified 07/27/20 14:30 burning eyes bupropion HCl AdvReac jim Verified 07/27/20 14:30 [From Wellbutrin] bladder chlordiazepoxide AdvReac bladder Verified 07/27/20 14:30 [From Librax (with jim clidinium)] chlordiazepoxide HCl AdvReac bladder Verified 07/27/20 14:30 [From Librax (with jim methscopolamine)] chlorthalidone AdvReac dry Verified 07/27/20 14:30 [From Tenoretic 50] burning eyes clidinium bromide AdvReac bladder Verified 07/27/20 14:30 [From Librax (with jim clidinium)] cyclobenzaprine HCl AdvReac causes Verified 07/27/20 14:30 [From Flexeril] sleepiness and nervousness dextroamphetamine sulfate AdvReac jim Verified 07/27/20 14:30 [From Dexedrine] stomach and bladder dicyclomine HCl [From Bentyl] AdvReac dry Verified 07/27/20 14:30 mouth,constipation,jim bladder fluoxetine HCl [From Prozac] AdvReac stays awake Verified 07/27/20 14:30 gabapentin [From Neurontin] AdvReac jim Verified 07/27/20 14:30 bladder hydrocodone AdvReac jim Verified 07/27/20 14:30 bladder hyoscyamine sulfate AdvReac mades eyes Verified 07/27/20 14:30 [From Levsinex] and mouth dry lipase [From Viokase] AdvReac jim Verified 07/27/20 14:30 bladder lithium AdvReac jim Verified 07/27/20 14:30 bladder loratadine [From Claritin] AdvReac jim Verified 07/27/20 14:30 stomach and bladder methylprednisolone AdvReac jim Verified 07/27/20 14:30 bladder methylscopolamine nitrate AdvReac bladder Verified 07/27/20 14:30 [From Librax (with jim methscopolamine)] metoclopramide HCl AdvReac causes Verified 07/27/20 14:30 [From Reglan] sleepiness and nervousness nortriptyline HCl AdvReac severe Verified 07/27/20 14:30 [From Pamelor] sleepiness pemoline [From Cylert] AdvReac jim Verified 07/27/20 14:30 stomach and bladder prednisone AdvReac jim Verified 07/27/20 14:30 bladder protease [From Viokase] AdvReac jim Verified 07/27/20 14:30 bladder sucralfate AdvReac constipatio Verified 07/27/20 14:30 n tolmetin sodium AdvReac Nausea & Verified 07/27/20 14:30 [From Tolectin] Vomiting tramadol HCl [From Ultram] AdvReac jim Verified 07/27/20 14:30 bladder venlafaxine HCl AdvReac jim Verified 07/27/20 14:30 [From Effexor] bladder clescin AdvReac Nausea & Uncoded 07/27/20 14:30 Vomiting ruepar AdvReac jim Uncoded 07/27/20 14:30 bladder Review of Systems ROS Statement: Those systems with pertinent positive or pertinent negative responses have been documented in the HPI. ROS Other: All systems not noted in ROS Statement are negative. Past Medical History Past Medical History: Hyperlipidemia, Hypertension, Osteoarthritis (OA), Thyroid Disorder Additional Past Medical History / Comment(s): interstitial cystitis,"borderline diabetes"- diet controlled NOT ON ANY MEDS AND MK [facility] WILL CHECK HER BS., constipation History of Any Multi-Drug Resistant Organisms: None Reported Past Surgical History: Heart Catheterization With Stent, Hysterectomy, Joint Replacement, Orthopedic Surgery Additional Past Surgical History / Comment(s): 10/19/14 Total L hip arthroplasty anterior approach. bladder suspension, cataracts, 05-17-15 TOTAL RT KNEE REPLACEMENT Past Anesthesia/Blood Transfusion Reactions: No Reported Reaction Date of Last Stent Placement:: 2010 Past Psychological History: Depression Smoking Status: Never smoker Past Alcohol Use History: None Reported Past Drug Use History: None Reported - Past Family History Mother Family Medical History: Cancer Additional Family Medical History / Comment(s): colon Father Family Medical History: Coronary Artery Disease (CAD), Musculoskeletal Disorder Additional Family Medical History / Comment(s): PARKINSONS AND HEART TROUBLE General Exam - General Exam Comments Initial Comments: General: The patient is awake and alert, in no distress Eye: Pupils are equal, round and reactive to light, extra-ocular movements are intact. No nystagmus. There is normal conjunctiva bilaterally. No signs of icterus. Ears, nose, mouth and throat: There are moist mucous membranes and no oral lesions. Neck: The neck is supple, there is no tenderness or JVD. Cardiovascular: There is a regular rate and rhythm. No murmur, rub or gallop is appreciated. Respiratory: Lungs are clear to auscultation, respirations are non-labored, breath sounds are equal. No wheezes, stridor, rales, or rhonchi. Musculoskeletal: Normal ROM of the hips b/l but right limited with significant pain. Strength 5/5. Sensation intact. Pulses equal bilaterally 2+. No calf pain or swelling. Neurological: A&O x 3. CN II-XII intact, There are no obvious motor or sensory deficits. Coordination appears grossly intact. Speech is normal. Skin: Skin is warm and dry and no rashes. Redness swelling at the right anterior thigh incision site. tenderness with any movement of the right hip. Psychiatric: Cooperative, appropriate mood & affect, normal judgment. Limitations: no limitations Course Vital Signs 07/27/20 14:27 Temperature 99.3 F Pulse Rate 83 Respiratory 20 Rate Blood Pressure 121/75 O2 Sat by Pulse 98 Oximetry Medical Decision Making - Medical Decision Making 80yo female presenting today for cc of right hip pain. outpatient arthrocentesis was performed. Pending studies. Patient has no leukocytosis. Lactic acid within normal limits patient does not appear toxic. Vital signs within acceptable limits. Patient is a by orthopedic and Hospital who recommended vancomycin. Patient was given broad-spectrum antibiotic as well as IV fluids. Patient given extra strength Tylenol which she states helps the pain. Patient agreeable to admission. Dr Singleton agreeable to care plan. Glenn Smith wanted infectious disease and IM on consult. - Lab Data Result diagrams: 07/27/20 15:09 07/27/20 15:09 Lab Results 07/27/20 07/27/20 07/27/20 Range/Units 15:09 15:09 15:09 WBC 9.4 (3.8-10.6) k/uL RBC 4.13 (3.80-5.40) m/uL Hgb 12.3 (11.4-16.0) gm/dL Hct 38.1 (34.0-46.0) % MCV 92.1 (80.0-100.0) fL MCH 29.9 (25.0-35.0) pg MCHC 32.4 (31.0-37.0) g/dL RDW 13.3 (11.5-15.5) % Plt Count 289 D (150-450) k/uL MPV 7.1 Neutrophils % 78 % Lymphocytes % 14 % Monocytes % 6 % Eosinophils % 1 % Basophils % 0 % Neutrophils # 7.3 (1.3-7.7) k/uL Lymphocytes # 1.3 (1.0-4.8) k/uL Monocytes # 0.5 (0-1.0) k/uL Eosinophils # 0.1 (0-0.7) k/uL Basophils # 0.0 (0-0.2) k/uL Sodium 137 (137-145) mmol/L Potassium 4.3 (3.5-5.1) mmol/L Chloride 105 (98-107) mmol/L Carbon Dioxide 25 (22-30) mmol/L Anion Gap 7 mmol/L BUN 18 H (7-17) mg/dL Creatinine 0.86 (0.52-1.04) mg/dL Est GFR (CKD-EPI)AfAm 75 (>60 ml/min/1.73 sqM) Est GFR (CKD-EPI)NonAf 65 (>60 ml/min/1.73 sqM) Glucose 105 H (74-99) mg/dL Plasma Lactic Acid Ariel 0.9 (0.7-2.0) mmol/L Calcium 8.8 (8.4-10.2) mg/dL Total Bilirubin 0.3 (0.2-1.3) mg/dL AST 24 (14-36) U/L ALT 19 (4-34) U/L Alkaline Phosphatase 120 (38-126) U/L Total Protein 6.8 (6.3-8.2) g/dL Albumin 3.4 L (3.5-5.0) g/dL Disposition Clinical Impression: Right hip pain, Surgical site infection Disposition: ADMITTED IP TO THIS [facility] Condition: Stable Is patient prescribed a controlled substance at d/c from ED?: No Referrals: Nidia Angulo MD [Primary Care Provider] - 1-2 days Time of Disposition: 16:20 Decision to Admit Reason: Admit from EC Decision Date: 07/27/20 Decision Time: 16:20
[2020-07-27] MEDS: SODIUM CHLORIDE 0.9% 1,000 ML IV SCH (15:24)
[2020-07-27] MEDS ORDERED: NALOXONE 0.4 MG/ML 1 ML VIAL IV PRN (15:26)
[2020-07-27] MEDS ORDERED: VANCOMYCIN 1,500 MG in SODIUM CHLORIDE 0.9% 250 ML IVPB ONE (15:30)
[2020-07-27 15:45] LABS: Basophils % (A) 0 %; Eosinophils # (A) 0.1 k/uL (0-0.7); Eosinophils % (A) 1 %; HCT 38.1 % (34.0-46.0); HGB 12.3 gm/dL (11.4-16.0); Lymphocytes # (A) 1.3 k/uL (1.0-4.8); Lymphocytes % (A) 14 %; MCH 29.9 pg (25.0-35.0); MCHC 32.4 g/dL (31.0-37.0); MCV 92.1 fL (80.0-100.0); Mean Platelet Volume 7.1; Monocytes # (A) 0.5 k/uL (0-1.0); Monocytes % (A) 6 %; Neutrophils # (A) 7.3 k/uL (1.3-7.7); Neutrophils % (A) 78 %; RBC 4.13 m/uL (3.80-5.40); RDW 13.3 % (11.5-15.5); WBC 9.4 k/uL (3.8-10.6)
[2020-07-27 15:50] LABS: Platelet Count 289 k/uL (150-450)
[2020-07-27 15:57] LABS: Albumin 3.4 g/dL (3.5-5.0); Calcium 8.8 mg/dL (8.4-10.2); Potassium 4.3 mmol/L (3.5-5.1); Total Bilirubin 0.3 mg/dL (0.2-1.3); Total Protein 6.8 g/dL (6.3-8.2)
--- NOTE | 2020-07-27 16:02 | P.HPOR ---
History of Present Illness H&P Date: 07/27/20 Chief Complaint: Right periprosthetic hip infection Patient is a 72-year-old female who was initially evaluated in the outpatient setting today by Dr. Parry with regards to her right hip. She initially underwent a direct anterior right total hip arthroplasty on 06/28/2020, she had been doing very well with that. I had actually seen the patient in the outpatient setting for her first follow-up 2 weeks ago when she was doing very well, there were no signs of infection. Patient presented to the office today with regards to pain, swelling and redness over the anterior thigh that has been present for about 5 days. She been evaluated by her primary care doctor and began on oral antibiotics. In the office, an aspiration was done by Dr. Parry which did reveal purulent material. He then directed the patient to come right to the emergency room with plan for direct admission to include IV antibiotics and workup for surgery. Patient was evaluated today in the emergency room by myself, she was resting comfortably. She notes discomfort in the right anterior hip region, this is mainly with movement. She denies any pain in the left lower extremity, bilater al upper extremities, cervical, thoracic or lumbar spine. She denies any fevers or chills at this time, she denies any headaches, lightheadedness, chest pain or shortness of breath. Review of Systems Constitutional: Reports as per HPI Past Medical History Past Medical History: Hyperlipidemia, Hypertension, Osteoarthritis (OA), Thyroid Disorder Additional Past Medical History / Comment(s): interstitial cystitis,"borderline diabetes"- diet controlled NOT ON ANY MEDS AND MK ACC WILL CHECK HER BS., constipation History of Any Multi-Drug Resistant Organisms: None Reported Past Surgical History: Heart Catheterization With Stent, Hysterectomy, Joint Replacement, Orthopedic Surgery Additional Past Surgical History / Comment(s): 10/19/14 Total L hip arthroplasty anterior approach. bladder suspension, cataracts, 05-17-15 TOTAL RT KNEE REPLACEMENT Past Anesthesia/Blood Transfusion Reactions: No Reported Reaction Date of Last Stent Placement:: 2010 Past Psychological History: Depression Smoking Status: Never smoker Past Alcohol Use History: None Reported Past Drug Use History: None Reported - Past Family History Mother Family Medical History: Cancer Additional Family Medical History / Comment(s): colon Father Family Medical History: Coronary Artery Disease (CAD), Musculoskeletal Disorder Additional Family Medical History / Comment(s): PARKINSONS AND HEART TROUBLE Medications and Allergies Home Medications Medication Instructions Recorded Confirmed Type ARIPiprazole [Abilify] 5 mg PO HS 10/09/14 06/23/20 History Aspirin 81 mg PO DAILY 10/09/14 06/23/20 History Levothyroxine Sodium [Synthroid] 75 mcg PO DAILY 10/09/14 06/23/20 History Metoprolol Tartrate 25 mg PO BID 10/09/14 06/23/20 History Pentosan Polysulfate Sodium 100 mg PO DAILY 10/09/14 06/23/20 History [Elmiron] Pravastatin Sodium [Pravachol] 40 mg PO HS 10/09/14 06/23/20 History Sertraline [Zoloft] 200 mg PO DAILY 10/09/14 06/23/20 History [place]-3 Fatty Acids/Fish Oil [Fish 1 tab PO DAILY 10/19/14 06/23/20 History Oil 1,000 mg Softgel] Cyanocobalamin [Vitamin B-12] 500 mcg PO DAILY 05/05/15 06/23/20 History Calcium Carbonate [Calcium] 600 mg PO DAILY 06/23/20 06/23/20 History Cholecalciferol [Vitamin D3 (25 2,000 unit PO DAILY 06/23/20 06/23/20 History Mcg = 1000 Iu)] Diclofenac Sodium Gel [Voltaren 2 gm TOPICAL QID PRN 06/23/20 06/23/20 History Gel] Famotidine [Pepcid] 40 mg PO BID PRN 06/23/20 06/23/20 History Lisinopril [Zestril] 10 mg PO DAILY 06/23/20 06/23/20 History Mirtazapine [Remeron] 45 mg PO HS 06/23/20 06/23/20 History NIFEdipine [Procardia XL] 30 mg PO DAILY 06/23/20 06/23/20 History polyethylene glycoL 3350 [Miralax] 17 gm PO DAILY 06/23/20 06/23/20 History Apixaban [Eliquis] 2.5 mg PO BID #60 tab 06/29/20 Rx Hydrocodone/Acetaminophen [[place] 1 - 2 each PO Q6HR PRN #40 tab 06/29/20 Rx 5-325] Allergies Allergy/AdvReac Type Severity Reaction Status Date / Time cisapride monohydrate Allergy nasal Verified 07/27/20 14:30 [From Propulsid] congestion and cough methylphenidate HCl Allergy joint pain Verified 07/27/20 14:30 [From Ritalin] Sulfa (Sulfonamide Allergy Unknown Verified 07/27/20 14:30 Antibiotics) amitriptyline AdvReac causes Verified 07/27/20 14:30 nervousness and sleepiness amylase [From Viokase] AdvReac jim Verified 07/27/20 14:30 bladder aspirin AdvReac jim Verified 07/27/20 14:30 bladder but able to tolerate low dose asa atenolol [From Tenoretic 50] AdvReac dry Verified 07/27/20 14:30 burning eyes bupropion HCl AdvReac jim Verified 07/27/20 14:30 [From Wellbutrin] bladder chlordiazepoxide AdvReac bladder Verified 07/27/20 14:30 [From Librax (with jim clidinium)] chlordiazepoxide HCl AdvReac bladder Verified 07/27/20 14:30 [From Librax (with jim methscopolamine)] chlorthalidone AdvReac dry Verified 07/27/20 14:30 [From Tenoretic 50] burning eyes clidinium bromide AdvReac bladder Verified 07/27/20 14:30 [From Librax (with jim clidinium)] cyclobenzaprine HCl AdvReac causes Verified 07/27/20 14:30 [From Flexeril] sleepiness and nervousness dextroamphetamine sulfate AdvReac jim Verified 07/27/20 14:30 [From Dexedrine] stomach and bladder dicyclomine HCl [From Bentyl] AdvReac dry Verified 07/27/20 14:30 mouth,constipation,jim bladder fluoxetine HCl [From Prozac] AdvReac stays awake Verified 07/27/20 14:30 gabapentin [From Neurontin] AdvReac jim Verified 07/27/20 14:30 bladder hydrocodone AdvReac jim Verified 07/27/20 14:30 bladder hyoscyamine sulfate AdvReac mades eyes Verified 07/27/20 14:30 [From Levsinex] and mouth dry lipase [From Viokase] AdvReac jim Verified 07/27/20 14:30 bladder lithium AdvReac jim Verified 07/27/20 14:30 bladder loratadine [From Claritin] AdvReac jim Verified 07/27/20 14:30 stomach and bladder methylprednisolone AdvReac jim Verified 07/27/20 14:30 bladder methylscopolamine nitrate AdvReac bladder Verified 07/27/20 14:30 [From Librax (with jim methscopolamine)] metoclopramide HCl AdvReac causes Verified 07/27/20 14:30 [From Reglan] sleepiness and nervousness nortriptyline HCl AdvReac severe Verified 07/27/20 14:30 [From Pamelor] sleepiness pemoline [From Cylert] AdvReac jim Verified 07/27/20 14:30 stomach and bladder prednisone AdvReac jim Verified 07/27/20 14:30 bladder protease [From Viokase] AdvReac jim Verified 07/27/20 14:30 bladder sucralfate AdvReac constipatio Verified 07/27/20 14:30 n tolmetin sodium AdvReac Nausea & Verified 07/27/20 14:30 [From Tolectin] Vomiting tramadol HCl [From Ultram] AdvReac jim Verified 07/27/20 14:30 bladder venlafaxine HCl AdvReac jim Verified 07/27/20 14:30 [From Effexor] bladder clescin AdvReac Nausea & Uncoded 07/27/20 14:30 Vomiting ruepar AdvReac jim Uncoded 07/27/20 14:30 bladder Physical Examination Right lower extremity: Well-healed incision over the anterior aspect of the upper thigh. There is obvious erythema and soft tissue swelling present midline to distal aspect of the incision. There is no obvious drainage appreciated. The erythema does trend down the leg. She's tender with palpation over the anterior thigh. Logroll maneuver does reproduce discomfort in the groin. She does have a difficult time with straight leg raise. There is no effusion present around the knee, there is no tenderness with palpation surrounding the knee. She is nontender distal to the knee, this including the foot and ankle. Plantar flexion, dorsiflexion, EHL, FHL are intact. The calf is soft, there is no tenderness with palpation. Dorsalis pedis pulses 2+. Results - Labs Labs: H & H 07/27/20 Range/Units 15:09 Hgb 12.3 (11.4-16.0) gm/dL Hct 38.1 (34.0-46.0) % Result Diagrams: 07/27/20 15:09 Assessment and Plan Assessment: Right hip periprosthetic infection Status post recent direct anterior right total hip arthroplasty Other medical comorbidities Plan: Patient will be directly admitted to [facility] with plan for IV antibiotics, she will be admitted under orthopedic group Consults we placed for both internal medicine and infectious disease Consent will be obtained for an incision and drainage with irrigation and debridement, polyethylene liner and femoral head exchange, antibiotic bead placement of the right hip Nothing by mouth after midnight We'll discuss with infectious disease possibility of patient received a PICC line before procedure tomorrow, surgery is scheduled for 5:00pm on 07/28/2020 Weight-bear as tolerated CRP and sed rate have been ordered to trend Pain control DVT prophylaxis, will likely begin subcu medication after surgery Further recommendations to follow Time with Patient: Less than 30
[2020-07-27] MEDS ORDERED: ACETAMINOPHEN TAB 325 MG TAB PO STA (16:17)
[2020-07-28] MEDS: MELATONIN 5 MG TABLET PO PRN ×2 (01:40→19:26)
[2020-07-28] MEDS: LORazepam 0.5 MG TAB PO SCH ×3 (01:40→19:27)
[2020-07-28] MEDS: ACETAMINOPHEN TAB 325 MG TAB PO PRN ×2 (01:53→15:54)
[2020-07-28] MEDS: SODIUM CHLORIDE 0.9% 1,000 ML IV SCH ×4 (01:54→17:16)
[2020-07-28] MEDS: VANCOMYCIN 1,250 MG in SODIUM CHLORIDE 0.9% 250 ML IVPB SCH ×2 (05:29→18:48)
[2020-07-28] MEDS ORDERED: PROPOFOL 10 MG/ML 20 ML VIAL IV ONE (11:52)
[2020-07-28] MEDS ORDERED: MIDAZOLAM 2 MG/2 ML VIAL ONE (11:52)
[2020-07-28] MEDS ORDERED: fentaNYL (PF) 50 MCG/ML 2 ML AMP ONE (11:52)
[2020-07-28] MEDS ORDERED: KETAMINE 10 MG/ML 20 ML VIAL ONE (11:52)
[2020-07-28] MEDS ORDERED: IV FLUID CONTINUATION 100 ML IV ONE (11:58)
[2020-07-28] MEDS ORDERED: VANCOMYCIN 1,000 MG VIAL MISCELLANE ONE (12:30)
[2020-07-28] MEDS ORDERED: LACTATED RINGERS 1,000 ML IV ONE (12:30)
[2020-07-28] MEDS ORDERED: ceFAZolin 3,000 MG in SODIUM CHLORIDE 0.9% IRRIGATIO 3,000 ML IRRIGATION ONE (12:30)
[2020-07-28] MEDS ORDERED: TOBRAMYCIN SULFATE 1.2 GM VIAL MISCELLANE ONE (12:30)
[2020-07-28] MEDS ORDERED: ONDANSETRON 4 MG/2 ML VIAL IVP PRN (13:30)
[2020-07-28] MEDS ORDERED: NALOXONE 0.4 MG/ML 1 ML VIAL IV PRN (13:30)
[2020-07-28] MEDS ORDERED: HYDROmorphone 0.2 MG/1 ML SYRINGE IVP PRN (13:30)
[2020-07-28] MEDS ORDERED: HYDROmorphone 0.5 MG/0.5 ML SYRINGE IVP PRN (13:30)
--- NOTE | 2020-07-28 13:30 | P.OP ---
Date of Procedure: 07/28/20 Preoperative Diagnosis: Infected right total hip arthroplasty Postoperative Diagnosis: Deep infection right total hip arthroplasty Procedure(s) Performed: Right hip open irrigation with polyethylene exchange, femoral head exchange and insertion dissolvable antibiotic beads Implants: Depuy pinnacle polyethylene acetabular liner neutral 36 mm ID 52 mm OD and Biolox delta ceramic femoral head revision 36 mm Anesthesia: spinal Surgeon: Chidi Parry Sr. Director Product Management #1: Corbin Smith Estimated Blood Loss (ml): 30 Pathology: other (Cultures) Condition: stable Disposition: PACU Indications for Procedure: 80-year-old patient seen with probable infected right total hip arthroplasty. I discussed irrigation with polyethylene and femoral head exchange as well as antibiotic bead placement. She was agreeable and consent was obtained. Operative Findings: See description of procedure Description of Procedure: Patient was taken to the operative suite. Patient underwent a spinal anesthetic by the department of anesthesia. She was transferred to the [place] table. Both legs were placed in a the right hip was prepped and draped in normal sterile orthopedic fashion. An incision was made over the previous cicatrix. Once we got subcutaneously there was an area of purulence. I obtained cultures this. The fascial repaired appeared intact. I incised the fascia. I dissected down to the hip. I again noted purulence deep in the actual hip joint. Cultures were obtained there. Retractors were positioned. The hip was placed into traction. I now removed the head without difficulty. The acetabular liner came out without difficulty. We removed any abnormal-appearing tissue. The components were well-seated appeared stable. We now irrigated the wound copiously with pulse lavage mechanical irrigation totaling 9000 mL. I now placed Irresept in the wound. I left the solution in the wound for greater than 23 minutes. I now irrigated the wound out again. All the remaining tissue appeared stable and normal. I now reinserted a acetabular liner interrupted into place in nature was secure. I now inserted a new ceramic femoral head in nature was stable. I now reduce the hip. The hip appeared stable. I now irrigated the wound again. I now placed the antibiotic beads deep in the wound. The fascia was repaired with #1 Vicryl. The subcu soft tissues were repaired in layers with 2-0 Vicryl. The skin is proximal skin malka. I applied sterile dressings. The patient was now awakened and transferred to recovery stable condition. Glenn ARAYA assisted with the procedure.
[2020-07-28 14:21] LABS: Glucose,Whole Blood 93 mg/dL (75-99)
[2020-07-28] MEDS: METOPROLOL TARTRATE 25 MG TAB PO SCH (19:25)
[2020-07-28] MEDS: SERTRALINE 100 MG TAB PO SCH (19:26)
[2020-07-28] MEDS: PRAVASTATIN SODIUM 40 MG TAB PO SCH (19:26)
[2020-07-28] MEDS: HYDROcodone/APAP 5-325MG 1 EACH TAB PO PRN (19:26)
[2020-07-28] MEDS: MIRTAZAPINE 45 MG TABLET PO SCH (19:26)
[2020-07-28] MEDS: ARIPiprazole 5 MG TAB PO SCH (19:26)
[2020-07-28] MEDS: HYDROmorphone 0.5 MG/0.5 ML SYRINGE IVP PRN (21:47)
--- NOTE | 2020-07-28 21:54 | P.CONS ---
History of Present Illness - Reason for Consult Consult date: 07/28/20 medical eval Requesting physician: Chidi Parry - Chief Complaint hip pain - History of Present Illness Deepika Sharma is a 80 yo F who recently had a R KIM 1 month ago and began to notice redness and swelling around the hip joint within the last week. She was seen by her surgeon in clinic and recommended to come to the ED with concern for septic joint. She denies any fever, chills or skin abrasions or cuts. She initially did well after her surgery and had been mobilizing more but in the past week had not been able to move as much due to pain. She additionally complains of poor sleep. On presentation vitals stable, Temp 99.3, WBC 9.4k, CRP 250. Review of Systems All systems: negative Constitutional: Denies chills, Denies fever Eyes: denies blurred vision, denies pain Ears, nose, mouth and throat: Denies headache, Denies sore throat Cardiovascular: Denies chest pain, Denies shortness of breath Respiratory: Denies cough Gastrointestinal: Denies abdominal pain, Denies diarrhea, Denies nausea, Denies vomiting Genitourinary: Denies dysuria, Denies hematuria Musculoskeletal: Reports as per HPI, Reports hot joints, Reports myalgias Musculoskeletal: left: hip pain Integumentary: Reports as per HPI, Reports color changes, Denies pruritus, Denies rash Neurological: Denies numbness, Denies weakness Psychiatric: Denies anxiety, Denies depression Endocrine: Denies fatigue, Denies weight change Past Medical History Past Medical History: Hyperlipidemia, Hypertension, Osteoarthritis (OA), Thyroid Disorder Additional Past Medical History / Comment(s): interstitial cystitis,"borderline diabetes"- diet controlled NOT ON ANY MEDS AND MK ACC WILL CHECK HER BS., constipation, bladder leakage uses pads History of Any Multi-Drug Resistant Organisms: None Reported Past Surgical History: Heart Catheterization With Stent, Hysterectomy, Joint Replacement, Orthopedic Surgery Additional Past Surgical History / Comment(s): 10/19/14 Total L hip arthroplasty anterior approach. bladder suspension, cataracts, 05-17-15 TOTAL RT KNEE REPLACEMENT 06/28/20 Past Anesthesia/Blood Transfusion Reactions: No Reported Reaction Date of Last Stent Placement:: 2010 Past Psychological History: Depression Additional Psychological History / Comment(s): lives athome by self Smoking Status: Never smoker Past Alcohol Use History: None Reported Past Drug Use History: None Reported - Past Family History Mother Family Medical History: Cancer Additional Family Medical History / Comment(s): colon Father Family Medical History: Coronary Artery Disease (CAD), Musculoskeletal Disorder Additional Family Medical History / Comment(s): PARKINSONS AND HEART TROUBLE Medications and Allergies Home Medications Medication Instructions Recorded Confirmed Type ARIPiprazole [Abilify] 5 mg PO HS 10/09/14 07/27/20 History Levothyroxine Sodium [Synthroid] 75 mcg PO DAILY 10/09/14 07/27/20 History Metoprolol Tartrate 25 mg PO BID 10/09/14 07/27/20 History Pentosan Polysulfate Sodium 100 mg PO Q48H 10/09/14 07/27/20 History [Elmiron] Sertraline [Zoloft] 100 mg PO BID 10/09/14 07/27/20 History [place]-3 Fatty Acids/Fish Oil [Fish 1 tab PO DAILY 10/19/14 07/27/20 History Oil 1,000 mg Softgel] Cyanocobalamin [Vitamin B-12] 500 mcg PO DAILY 05/05/15 07/27/20 History Calcium Carbonate [Calcium] 600 mg PO DAILY 06/23/20 07/27/20 History Cholecalciferol [Vitamin D3 (25 2,000 unit PO DAILY 06/23/20 07/27/20 History Mcg = 1000 Iu)] Famotidine [Pepcid] 40 mg PO DAILY 06/23/20 07/27/20 History Lisinopril [Zestril] 10 mg PO BID 06/23/20 07/27/20 History Mirtazapine [Remeron] 45 mg PO HS 06/23/20 07/27/20 History NIFEdipine [Procardia XL] 30 mg PO DAILY 06/23/20 07/27/20 History Apixaban [Eliquis] 2.5 mg PO BID #60 tab 06/29/20 07/27/20 Rx Amoxicillin 500 mg PO TID 07/27/20 07/27/20 History LORazepam [Ativan] 0.5 mg PO BID 07/27/20 07/27/20 History Loratadine [Claritin] 10 mg PO DAILY 07/27/20 07/27/20 History Oxybutynin Chloride 5 mg PO BID 07/27/20 07/27/20 History Pravastatin Sodium [Pravachol] 40 mg PO HS 07/27/20 07/27/20 History Allergies Allergy/AdvReac Type Severity Reaction Status Date / Time cisapride monohydrate Allergy nasal Verified 07/27/20 16:20 [From Propulsid] congestion and cough methylphenidate HCl Allergy joint pain Verified 07/27/20 16:20 [From Ritalin] Sulfa (Sulfonamide Allergy Unknown Verified 07/27/20 16:20 Antibiotics) amitriptyline AdvReac causes Verified 07/27/20 16:20 nervousness and sleepiness amylase [From Viokase] AdvReac jim Verified 07/27/20 16:20 bladder aspirin AdvReac jim Verified 07/27/20 16:20 bladder but able to tolerate low dose asa atenolol [From Tenoretic 50] AdvReac dry Verified 07/27/20 16:20 burning eyes bupropion HCl AdvReac jim Verified 07/27/20 16:20 [From Wellbutrin] bladder chlordiazepoxide AdvReac bladder Verified 07/27/20 16:20 [From Librax (with jim clidinium)] chlordiazepoxide HCl AdvReac bladder Verified 07/27/20 16:20 [From Librax (with jim methscopolamine)] chlorthalidone AdvReac dry Verified 07/27/20 16:20 [From Tenoretic 50] burning eyes clidinium bromide AdvReac bladder Verified 07/27/20 16:20 [From Librax (with jim clidinium)] cyclobenzaprine HCl AdvReac causes Verified 07/27/20 16:20 [From Flexeril] sleepiness and nervousness dextroamphetamine sulfate AdvReac jim Verified 07/27/20 16:20 [From Dexedrine] stomach and bladder dicyclomine HCl [From Bentyl] AdvReac dry Verified 07/27/20 16:20 mouth,constipation,jim bladder fluoxetine HCl [From Prozac] AdvReac stays awake Verified 07/27/20 16:20 gabapentin [From Neurontin] AdvReac jim Verified 07/27/20 16:20 bladder hydrocodone AdvReac jim Verified 07/27/20 16:20 bladder hyoscyamine sulfate AdvReac mades eyes Verified 07/27/20 16:20 [From Levsinex] and mouth dry lipase [From Viokase] AdvReac jim Verified 07/27/20 16:20 bladder lithium AdvReac jim Verified 07/27/20 16:20 bladder loratadine [From Claritin] AdvReac jim Verified 07/27/20 16:20 stomach and bladder methylprednisolone AdvReac jim Verified 07/27/20 16:20 bladder methylscopolamine nitrate AdvReac bladder Verified 07/27/20 16:20 [From Librax (with jim methscopolamine)] metoclopramide HCl AdvReac causes Verified 07/27/20 16:20 [From Reglan] sleepiness and nervousness nortriptyline HCl AdvReac severe Verified 07/27/20 16:20 [From Pamelor] sleepiness pemoline [From Cylert] AdvReac jim Verified 07/27/20 16:20 stomach and bladder prednisone AdvReac jim Verified 07/27/20 16:20 bladder protease [From Viokase] AdvReac jim Verified 07/27/20 16:20 bladder sucralfate AdvReac constipatio Verified 07/27/20 16:20 n tolmetin sodium AdvReac Nausea & Verified 07/27/20 16:20 [From Tolectin] Vomiting tramadol HCl [From Ultram] AdvReac jim Verified 07/27/20 16:20 bladder venlafaxine HCl AdvReac jim Verified 07/27/20 16:20 [From Effexor] bladder clescin AdvReac Nausea & Uncoded 07/27/20 14:30 Vomiting ruepar AdvReac jim Uncoded 07/27/20 14:30 bladder Physical Exam Vitals: Vital Signs Temp Pulse Pulse Pulse Pulse Resp BP 07/28/20 20:01 97.9 F 110 H 17 07/28/20 15:36 98.6 F 104 H 16 07/28/20 14:18 81 16 07/28/20 14:07 83 16 07/28/20 13:52 82 16 07/28/20 13:37 97.8 F 87 12 07/28/20 11:34 99 F 90 18 07/28/20 08:00 18 07/28/20 07:21 98.0 F 90 18 07/28/20 01:45 100.2 F H 103 H 18 07/28/20 00:27 98.7 F 101 H 20 07/27/20 22:15 99.2 F 99 18 155/72 BP Pulse Ox 07/28/20 20:01 123/60 98 07/28/20 15:36 150/71 100 07/28/20 14:18 141/63 97 07/28/20 14:07 145/61 97 07/28/20 13:52 119/55 100 07/28/20 13:37 110/53 100 07/28/20 11:34 158/71 97 07/28/20 08:00 07/28/20 07:21 157/69 97 07/28/20 01:45 131/68 95 07/28/20 00:27 157/73 98 07/27/20 22:15 96 Intake and Output 07/28/20 07/28/20 07/28/20 06:59 14:59 22:59 Intake Total 601 Output Total 30 Balance 571 Intake: IV 601 Output: Estimated Blood Loss 30 Other: Voiding Method Toilet # Voids 1 1 # Bowel Movements 1 Weight 73.482 kg 73.482 kg General: well nourished, well developed, NAD. Vitals reviewed Eyes: PERRL, EOMI, conjunctiva normal HENT: normocephalic, mucus membranes moist Neck: supple, no JVD Lungs: normal respiratory effort, no wheezes or rales CV: Regular rate and rhythm, no murmur. Peripheral pulses 2+ Abdomen: soft, nondistended, no organomegaly Lymph: no cervical or axillary LAD Skin: warm and dry. R hip incision with surrounding erythema and fluctuance Neuro: A&Ox3, normal mood and affect Results CBC & Chem 7: 07/27/20 15:09 07/27/20 15:09 Labs: Abnormal Lab Results - Last 24 Hours (Table) 07/27/20 Range/Units 15:09 C-Reactive Protein 263.8 H (<10.0) mg/L Microbiology - Last 24 Hours (Table) 07/27/20 15:09 Blood Culture - Preliminary Blood No Growth after 24 hours Assessment and Plan (1) Septic arthritis Current Visit: Yes Status: Acute Code(s): M00.9 - PYOGENIC ARTHRITIS, UNSPECIFIED SNOMED Code(s): 544392362 (2) Surgical site infection Current Visit: Yes Status: Acute Code(s): T81.49XA - INFECTION FOLLOWING A PROCEDURE, OTHER SURGICAL SITE, INIT SNOMED Code(s): 99651985 (3) Major depression Current Visit: Yes Status: Acute Code(s): F32.9 - MAJOR DEPRESSIVE DISORDER, SINGLE EPISODE, UNSPECIFIED SNOMED Code(s): 970995404 (4) Insomnia Current Visit: Yes Status: Acute Code(s): G47.00 - INSOMNIA, UNSPECIFIED SNOMED Code(s): 554076653 (5) Hyperlipidemia Current Visit: No Status: Acute Code(s): E78.5 - HYPERLIPIDEMIA, UNSPECIFIED SNOMED Code(s): 96642942 (6) Hypertension Current Visit: No Status: Acute Code(s): I10 - ESSENTIAL (PRIMARY) HYPERTENSION SNOMED Code(s): 91238358 Plan: 1. Septic arthritis of R hip. ID consulted, continue vancomycin. Plan for operative washout and deep culture. Pain control 2. Major depression. Continue zoloft and abilify. Continue ativan 3. Primary insomnia. Continue with remeron 4. HTN. Continue metoprolol DVT prophylaxis lovenox
--- NOTE | 2020-07-29 00:09 | P.CONS ---
History of Present Illness - Reason for Consult Consult date: 07/28/20 right hip infection Requesting physician: Chidi Parry - Chief Complaint right hip pain , sweling and redness x 5 days - History of Present Illness Patient is 80-year female in this patient who is status post right hip arthroplasty on June 28, 2020 patient was doing well however over the last 5 days patient has developed increasing pain swelling and redness over the right anterior thigh area patient denies having any history of any trauma patient has been evaluated in the outpatient setting by her surgeon and apparently the patient did have aspirate of this area with evidence of purulence patient subsequently has been advised to go to the hospital for admission surgery and IV antibiotic therapy patient on presentation to the hospital did have low-grade fever 100.2 F patient was tachycardic did have a normal white count kidney function has been normal CRP of 273 patient culture done in the outpatient setting on July 27 presumptive MRSA patient has been started on vancomycin infectious was consulted for further management patient be complaining of pain to the right hip area throbbing and aching with intensity almost 7-8 out of 10 no radiation with associated swelling redness but no drainage did have some chills and low-grade fever Review of Systems Positive point has been mentioned in HPI rest of the systems are negative Past Medical History Past Medical History: Hyperlipidemia, Hypertension, Osteoarthritis (OA), Thyroid Disorder Additional Past Medical History / Comment(s): interstitial cystitis,"borderline diabetes"- diet controlled NOT ON ANY MEDS AND MK [facility] WILL CHECK HER BS., constipation, bladder leakage uses pads History of Any Multi-Drug Resistant Organisms: None Reported Past Surgical History: Heart Catheterization With Stent, Hysterectomy, Joint Replacement, Orthopedic Surgery Additional Past Surgical History / Comment(s): 10/19/14 Total L hip arthroplasty anterior approach. bladder suspension, cataracts, 05-17-15 TOTAL RT KNEE REPLACEMENT 06/28/20 Past Anesthesia/Blood Transfusion Reactions: No Reported Reaction Date of Last Stent Placement:: 2010 Past Psychological History: Depression Additional Psychological History / Comment(s): lives athome by self Smoking Status: Never smoker Past Alcohol Use History: None Reported Past Drug Use History: None Reported - Past Family History Mother Family Medical History: Cancer Additional Family Medical History / Comment(s): colon Father Family Medical History: Coronary Artery Disease (CAD), Musculoskeletal Disorder Additional Family Medical History / Comment(s): PARKINSONS AND HEART TROUBLE Medications and Allergies Home Medications Medication Instructions Recorded Confirmed Type ARIPiprazole [Abilify] 5 mg PO HS 10/09/14 07/27/20 History Levothyroxine Sodium [Synthroid] 75 mcg PO DAILY 10/09/14 07/27/20 History Metoprolol Tartrate 25 mg PO BID 10/09/14 07/27/20 History Pentosan Polysulfate Sodium 100 mg PO Q48H 10/09/14 07/27/20 History [Elmiron] Sertraline [Zoloft] 100 mg PO BID 10/09/14 07/27/20 History [place]-3 Fatty Acids/Fish Oil [Fish 1 tab PO DAILY 10/19/14 07/27/20 History Oil 1,000 mg Softgel] Cyanocobalamin [Vitamin B-12] 500 mcg PO DAILY 05/05/15 07/27/20 History Calcium Carbonate [Calcium] 600 mg PO DAILY 06/23/20 07/27/20 History Cholecalciferol [Vitamin D3 (25 2,000 unit PO DAILY 06/23/20 07/27/20 History Mcg = 1000 Iu)] Famotidine [Pepcid] 40 mg PO DAILY 06/23/20 07/27/20 History Lisinopril [Zestril] 10 mg PO BID 06/23/20 07/27/20 History Mirtazapine [Remeron] 45 mg PO HS 06/23/20 07/27/20 History NIFEdipine [Procardia XL] 30 mg PO DAILY 06/23/20 07/27/20 History Apixaban [Eliquis] 2.5 mg PO BID #60 tab 06/29/20 07/27/20 Rx Amoxicillin 500 mg PO TID 07/27/20 07/27/20 History LORazepam [Ativan] 0.5 mg PO BID 07/27/20 07/27/20 History Loratadine [Claritin] 10 mg PO DAILY 07/27/20 07/27/20 History Oxybutynin Chloride 5 mg PO BID 07/27/20 07/27/20 History Pravastatin Sodium [Pravachol] 40 mg PO HS 07/27/20 07/27/20 History Allergies Allergy/AdvReac Type Severity Reaction Status Date / Time cisapride monohydrate Allergy nasal Verified 07/27/20 16:20 [From Propulsid] congestion and cough methylphenidate HCl Allergy joint pain Verified 07/27/20 16:20 [From Ritalin] Sulfa (Sulfonamide Allergy Unknown Verified 07/27/20 16:20 Antibiotics) amitriptyline AdvReac causes Verified 07/27/20 16:20 nervousness and sleepiness amylase [From Viokase] AdvReac jim Verified 07/27/20 16:20 bladder aspirin AdvReac jim Verified 07/27/20 16:20 bladder but able to tolerate low dose asa atenolol [From Tenoretic 50] AdvReac dry Verified 07/27/20 16:20 burning eyes bupropion HCl AdvReac jim Verified 07/27/20 16:20 [From Wellbutrin] bladder chlordiazepoxide AdvReac bladder Verified 07/27/20 16:20 [From Librax (with jim clidinium)] chlordiazepoxide HCl AdvReac bladder Verified 07/27/20 16:20 [From Librax (with jim methscopolamine)] chlorthalidone AdvReac dry Verified 07/27/20 16:20 [From Tenoretic 50] burning eyes clidinium bromide AdvReac bladder Verified 07/27/20 16:20 [From Librax (with jim clidinium)] cyclobenzaprine HCl AdvReac causes Verified 07/27/20 16:20 [From Flexeril] sleepiness and nervousness dextroamphetamine sulfate AdvReac jim Verified 07/27/20 16:20 [From Dexedrine] stomach and bladder dicyclomine HCl [From Bentyl] AdvReac dry Verified 07/27/20 16:20 mouth,constipation,jim bladder fluoxetine HCl [From Prozac] AdvReac stays awake Verified 07/27/20 16:20 gabapentin [From Neurontin] AdvReac jim Verified 07/27/20 16:20 bladder hydrocodone AdvReac jim Verified 07/27/20 16:20 bladder hyoscyamine sulfate AdvReac mades eyes Verified 07/27/20 16:20 [From Levsinex] and mouth dry lipase [From Viokase] AdvReac jim Verified 07/27/20 16:20 bladder lithium AdvReac jim Verified 07/27/20 16:20 bladder loratadine [From Claritin] AdvReac jim Verified 07/27/20 16:20 stomach and bladder methylprednisolone AdvReac jim Verified 07/27/20 16:20 bladder methylscopolamine nitrate AdvReac bladder Verified 07/27/20 16:20 [From Librax (with jim methscopolamine)] metoclopramide HCl AdvReac causes Verified 07/27/20 16:20 [From Reglan] sleepiness and nervousness nortriptyline HCl AdvReac severe Verified 07/27/20 16:20 [From Pamelor] sleepiness pemoline [From Cylert] AdvReac jim Verified 07/27/20 16:20 stomach and bladder prednisone AdvReac jim Verified 07/27/20 16:20 bladder protease [From Viokase] AdvReac jim Verified 07/27/20 16:20 bladder sucralfate AdvReac constipatio Verified 07/27/20 16:20 n tolmetin sodium AdvReac Nausea & Verified 07/27/20 16:20 [From Tolectin] Vomiting tramadol HCl [From Ultram] AdvReac jim Verified 07/27/20 16:20 bladder venlafaxine HCl AdvReac jim Verified 07/27/20 16:20 [From Effexor] bladder clescin AdvReac Nausea & Uncoded 07/27/20 14:30 Vomiting ruepar AdvReac jim Uncoded 07/27/20 14:30 bladder Physical Exam Vitals: Vital Signs Temp Pulse Pulse Pulse Resp BP Pulse Ox 07/28/20 20:01 97.9 F 110 H 17 123/60 98 07/28/20 15:36 98.6 F 104 H 16 150/71 100 07/28/20 14:18 81 16 141/63 97 07/28/20 14:07 83 16 145/61 97 07/28/20 13:52 82 16 119/55 100 07/28/20 13:37 97.8 F 87 12 110/53 100 07/28/20 11:34 99 F 90 18 158/71 97 07/28/20 08:00 18 07/28/20 07:21 98.0 F 90 18 157/69 97 07/28/20 01:45 100.2 F H 103 H 18 131/68 95 07/28/20 00:27 98.7 F 101 H 20 157/73 98 Intake and Output 07/28/20 07/28/20 07/29/20 14:59 22:59 06:59 Intake Total 601 Output Total 30 Balance 571 Intake: IV 601 Output: Estimated Blood Loss 30 Other: Voiding Method Toilet # Voids 1 1 # Bowel Movements 1 Weight 73.482 kg GENERAL DESCRIPTION: Elderly female lying in bed, no distress. No tachypnea or accessory muscle of respiration use. HEENT: Shows Pallor , no scleral icterus. Oral mucous membrane is dry. NECK: Trachea central, no thyromegaly. LUNGS: Unlabored breathing. Clear to auscultation anteriorly. No wheeze or crackle. HEART: S1, S2, regular rate and rhythm. ABDOMEN: Soft, no tenderness , guarding or rigidity EXTREMITIES: Right anterior thigh did have swelling redness mild fluctuance no drainage SKIN: No rash, no masses palpable. NEUROLOGICAL: The patient is awake, alert, oriented x3, mood and affect normal. Results CBC & Chem 7: 07/27/20 15:09 07/27/20 15:09 Labs: Microbiology - Last 24 Hours (Table) 07/28/20 12:57 Wound Culture - Preliminary Hip - Right 07/28/20 12:00 Wound Culture - Preliminary Hip - Right 07/28/20 12:00 Anaerobic Culture - Preliminary Hip - Right 07/28/20 12:57 Anaerobic Culture - Preliminary Hip - Right 07/27/20 15:09 Blood Culture - Preliminary Blood No Growth after 24 hours Assessment and Plan Assessment: -patient admitted to the hospital with her right knee infection in this patient who is status post right knee arthroplasty completed on 06/28/2020 subsequent developing swelling redness and drainage in the outpatient culture has been positive for presumptive MRSA likely infecting pathogen (1) Surgical site infection Current Visit: Yes Status: Acute Code(s): T81.49XA - INFECTION FOLLOWING A PROCEDURE, OTHER SURGICAL SITE, INIT SNOMED Code(s): 98295381 Plan: 1-blood cultures were requested to make sure patient was not bacteremic if blood culture negative patient should be able to go for PICC line placement 2-await surgical debridement and deep cultures 3-vancomycin pharmacy to dose her with a target trough of 15 while watching her kidney function and Vanco trough closely. We will follow on clinical condition and cultures to further adjust medication if needed Thank you for this consultation we will follow the patient along with you Time with Patient: Greater than 30
[2020-07-29] MEDS: HYDROmorphone 0.5 MG/0.5 ML SYRINGE IVP PRN (02:26)
[2020-07-29] MEDS: VANCOMYCIN 1,250 MG in SODIUM CHLORIDE 0.9% 250 ML IVPB SCH ×2 (05:33→17:36)
[2020-07-29 06:17] LABS: Basophils % (A) 0 %; Eosinophils # (A) 0.1 k/uL (0-0.7); Eosinophils % (A) 1 %; HCT 22.4 % (34.0-46.0); Lymphocytes # (A) 1.3 k/uL (1.0-4.8); Lymphocytes % (A) 12 %; MCH 30.4 pg (25.0-35.0); MCHC 32.5 g/dL (31.0-37.0); MCV 93.6 fL (80.0-100.0); Monocytes # (A) 0.5 k/uL (0-1.0); Monocytes % (A) 5 %; Neutrophils # (A) 8.4 k/uL (1.3-7.7); Neutrophils % (A) 81 %; Platelet Count 305 k/uL (150-450); RDW 13.6 % (11.5-15.5); WBC 10.3 k/uL (3.8-10.6)
[2020-07-29 06:38] LABS: HGB 7.3 gm/dL (11.4-16.0)
[2020-07-29] MEDS: HYDROcodone/APAP 5-325MG 1 EACH TAB PO PRN ×3 (08:51→23:23)
[2020-07-29] MEDS: LORazepam 0.5 MG TAB PO SCH ×2 (10:00→20:42)
[2020-07-29] MEDS: SODIUM CHLORIDE 0.9% 1,000 ML IV SCH (10:03)
[2020-07-29] MEDS: LEVOTHYROXINE 75 MCG TAB PO SCH (10:10)
[2020-07-29] MEDS: METOPROLOL TARTRATE 25 MG TAB PO SCH ×2 (10:10→20:42)
[2020-07-29] MEDS: SERTRALINE 100 MG TAB PO SCH ×2 (10:11→20:42)
[2020-07-29] MEDS: NIFEdipine XL 30 MG TAB.ER.24 PO SCH (10:11)
[2020-07-29] MEDS: ENOXAPARIN 40 MG/0.4 ML SYRINGE SQ SCH (10:12)
[2020-07-29 10:52] LABS: African American GFR (CKD) 81.8 (60.0-200.0); Non-African American GFR(CKD) 70.6 (60.0-200.0)
--- NOTE | 2020-07-29 13:17 | P.PN ---
Subjective Progress Note Date: 07/29/20 Principal diagnosis: Status post incision and drainage with irrigation and debridement, polyethylene liner and femoral head exchange, antibiotic bead placement right hip Patient was evaluated at bedside, she is resting in her hospital chair. She has been up ambulating. She has general discomfort of the right lower extremity. She denies any headaches, lightheadedness, chest pain, shortness of breath, fever chills, nausea or vomiting. Objective - Vital Signs Vital signs: Vital Signs Temp 98.8 F 07/29/20 10:58 Pulse 88 07/29/20 10:58 Resp 18 07/29/20 10:58 BP 114/64 07/29/20 10:58 Pulse Ox 97 07/29/20 10:58 Intake & Output 07/28/20 07/29/20 07/29/20 18:59 06:59 18:59 Intake Total 601 Output Total 30 Balance 571 Weight 73.482 kg Intake: IV 601 Output: Estimated Blood Loss 30 Other: Voiding Method Toilet Bedside Commode # Voids 1 1 # Bowel Movements 1 - Exam Right lower extremity: General swelling is appreciated throughout the right lower extremity, there is a mild amount of erythema at the distal and the incision. The operative foam dressing is in good position and condition, is no obvious drainage. Calf soft, no tenderness with palpation. Plantar flexion, dorsiflexion, EHL, FHL are intact. Sensory exam to light touch throughout the extremity is intact, dorsalis pedis pulses 2+ - Labs CBC & Chem 7: 07/29/20 05:26 07/29/20 05:26 Labs: Abnormal Lab Results - Last 24 Hours (Table) 07/29/20 Range/Units 05:26 RBC 2.40 L (3.80-5.40) m/uL Hgb 7.3 L D (11.4-16.0) gm/dL Hct 22.4 L (34.0-46.0) % Neutrophils # 8.4 H (1.3-7.7) k/uL Microbiology - Last 24 Hours (Table) 07/28/20 12:57 Gram Stain - Preliminary Hip - Right Wound Culture - Preliminary 07/28/20 12:00 Gram Stain - Preliminary Hip - Right Wound Culture - Preliminary 07/28/20 12:00 Anaerobic Culture - Preliminary Hip - Right 07/28/20 12:57 Anaerobic Culture - Preliminary Hip - Right 07/27/20 15:09 Blood Culture - Preliminary Blood No Growth after 24 hours Assessment and Plan Assessment: Status post incision and drainage with irrigation and debridement, polyethylene liner and femoral head exchange, antibiotic bead placement right hip Acute blood loss anemia expected surgical outcome Plan: Pain control, continue current medication regimen DVT prophylaxis, continue current medication regimen Dressing change tomorrow Continue icing and elevation of the right lower extremity Awaiting final cultures of both aspiration that was done in office on 07/27/2020 along with cultures were taken at surgery on 07/28/2020 Anticipate PICC line placement soon 2 units of packed RBCs has been ordered due to hemoglobin of 7.3 Other medical specialty recommendations Patient may need subacute rehab with the assistance of ADLs Will continue to follow during inpatient stay Time with Patient: Less than 30
[2020-07-29] MEDS ORDERED: VANCOMYCIN TROUGH DUE 1 EACH MISC MISCELLANE ONE (17:00)
[2020-07-29] MEDS: PRAVASTATIN SODIUM 40 MG TAB PO SCH (20:42)
[2020-07-29] MEDS: MIRTAZAPINE 45 MG TABLET PO SCH (20:42)
[2020-07-29] MEDS: ACETAMINOPHEN TAB 325 MG TAB PO PRN (20:42)
[2020-07-29] MEDS: ARIPiprazole 5 MG TAB PO SCH (20:42)
[2020-07-29] MEDS: MELATONIN 5 MG TABLET PO PRN (20:42)
--- NOTE | 2020-07-29 22:46 | P.PN ---
Subjective On-call hospitalist covering for Dr. Lozada starting from 07/29 this is a pleasant 80 years old female who was recently underwent right hip arthroplasty, presents with signs and symptoms of right hip arthroplasty prosthesis infection with swelling, redness and tenderness. She underwent hip open irrigation and femoral head exchange with insertion of dissolvable antibiotic beads on 07/28, culture is growing MRSA and she is being covered with IV vancomycin. Also patient with significant drop of hemoglobin down to 7 and she is receiving blood transfusion, mostly related to her surgery no other complaints. Objective - Vital Signs Vital signs: Vital Signs Temp 98.6 F 07/29/20 17:37 Pulse 86 07/29/20 17:37 Resp 16 07/29/20 17:37 BP 129/61 07/29/20 17:37 Pulse Ox 95 07/29/20 17:37 Intake & Output 07/28/20 07/29/20 07/29/20 18:59 06:59 18:59 Intake Total 601 0 Output Total 30 Balance 571 0 Weight 73.482 kg Intake: IV 601 Blood Product 0 Rc As-1 Unit 0 [id number] Output: Estimated Blood Loss 30 Other: Voiding Method Toilet Bedside Commode # Voids 1 1 2 # Bowel Movements 1 - Exam GENERAL: The patient is alert and oriented x3, not in any acute distress. Well developed, well nourished. HEENT: Pupils are round and equally reacting to light. EOMI. No scleral icterus. No conjunctival pallor. Normocephalic, atraumatic. No pharyngeal erythema. No thyromegaly. CARDIOVASCULAR: S1 and S2 present. No murmurs, rubs, or gallops. PULMONARY: Chest is clear to auscultation, no wheezing or crackles. ABDOMEN: Soft, nontender, nondistended, normoactive bowel sounds. No palpable organomegaly. MUSCULOSKELETAL: No joint swelling or deformity. -EXTREMITIES: No cyanosis, clubbing, or pedal edema. Right hip is with anterior wound which is swollen, tender and draped and painful to movement NEUROLOGICAL: Gross neurological examination did not reveal any focal deficits. SKIN: No rashes. no petechiae. - Labs CBC & Chem 7: 07/29/20 05:26 07/29/20 05:26 Labs: Abnormal Lab Results - Last 24 Hours (Table) 07/29/20 07/29/20 Range/Units 05:26 13:47 RBC 2.40 L (3.80-5.40) m/uL Hgb 7.3 L D (11.4-16.0) gm/dL Hct 22.4 L (34.0-46.0) % Neutrophils # 8.4 H (1.3-7.7) k/uL Crossmatch See Detail Microbiology - Last 24 Hours (Table) 07/27/20 15:09 Blood Culture - Preliminary Blood No Growth after 48 hours 07/28/20 12:57 Gram Stain - Preliminary Hip - Right Wound Culture - Preliminary 07/28/20 12:00 Gram Stain - Preliminary Hip - Right Wound Culture - Preliminary 07/28/20 12:00 Anaerobic Culture - Preliminary Hip - Right 07/28/20 12:57 Anaerobic Culture - Preliminary Hip - Right Assessment and Plan Assessment: Right hip arthroplasty infection status post right hip open irrigation and femoral head exchange on . CULTURE is growing MRSA Acute blood loss anemia related to surgery, status post 2 units of blood transfusion Plan: This is a pleasant 80 years old female who presents with right hip infected prosthesis, secondary to MRSA. Continue with IV vancomycin and based on her culture results Patient will need a PICC line and prolonged antibiotics as per ID team recommendation Labs and medication were reviewed.. Continue same treatment. Continue with s ymptomatic treatment. Resume home medication. Monitor lytes and vitals. DVT and GI prophylaxis. Further recommendationsas per clinical course of the patient DVT prophylaxis: Subcutaneous Lovenox PT/OT: Pending
--- NOTE | 2020-07-29 23:01 | PN ---
PROGRESS NOTE DATE OF SERVICE: 07/29/2020 REASON FOR FOLLOWUP: Right hip septic arthritis. INTERVAL HISTORY: The patient is currently afebrile. The patient is breathing comfortably. Complaining of pain to the right hip area. No chest pain, shortness of breath or cough. No abdominal pain or diarrhea. PHYSICAL EXAMINATION: Blood pressure 129/88 with a pulse of 90, temperature 98.9. She is 95% on room air. General description is an elderly female lying in bed in no distress. Respiratory system: Unlabored breathing, clear to auscultation anteriorly. Heart S1, S2. Regular rate and rhythm. Abdomen soft, no tenderness. Right hip wound is currently dressed. No obvious drainage on the dressing. LABS: Hemoglobin 7.3, white count 10.3. DIAGNOSTIC IMPRESSION AND PLAN: Patient with right hip septic arthritis. Culture positive for MRSA. Blood culture has been negative. The patient is status post I and D and change. PICC line will be ordered for outpatient antibiotic therapy for at least 6 weeks. Continue supportive care. MMODL / RADHAN: [id number] /
[2020-07-30] MEDS: SODIUM CHLORIDE 0.9% 1,000 ML IV SCH (05:38)
[2020-07-30] MEDS: LEVOTHYROXINE 75 MCG TAB PO SCH (05:44)
[2020-07-30] MEDS: VANCOMYCIN 1,250 MG in SODIUM CHLORIDE 0.9% 250 ML IVPB SCH ×2 (05:44→18:10)
[2020-07-30 08:33] LABS: Basophils % (A) 0 %; Eosinophils # (A) 0.2 k/uL (0-0.7); Eosinophils % (A) 2 %; HCT 29.3 % (34.0-46.0); Lymphocytes # (A) 1.2 k/uL (1.0-4.8); Lymphocytes % (A) 13 %; MCH 30.3 pg (25.0-35.0); MCHC 32.6 g/dL (31.0-37.0); Mean Platelet Volume 7.4; Monocytes # (A) 0.6 k/uL (0-1.0); Monocytes % (A) 7 %; Neutrophils # (A) 7.6 k/uL (1.3-7.7); Neutrophils % (A) 78 %; Platelet Count 309 k/uL (150-450); RBC 3.15 m/uL (3.80-5.40); RDW 13.7 % (11.5-15.5); WBC 9.7 k/uL (3.8-10.6)
[2020-07-30 08:36] LABS: HGB 9.5 gm/dL (11.4-16.0)
[2020-07-30] MEDS: ENOXAPARIN 40 MG/0.4 ML SYRINGE SQ SCH (08:47)
[2020-07-30] MEDS: LORazepam 0.5 MG TAB PO SCH ×2 (08:48→20:28)
[2020-07-30] MEDS: METOPROLOL TARTRATE 25 MG TAB PO SCH ×2 (08:48→20:29)
[2020-07-30] MEDS: NIFEdipine XL 30 MG TAB.ER.24 PO SCH (08:49)
[2020-07-30] MEDS: SERTRALINE 100 MG TAB PO SCH ×2 (08:49→20:28)
[2020-07-30] MEDS: HYDROcodone/APAP 5-325MG 1 EACH TAB PO PRN ×2 (08:57→18:10)
[2020-07-30 10:00] LABS: African American GFR (CKD) 96.2 (60.0-200.0)
--- NOTE | 2020-07-30 10:30 | P.PN ---
Subjective Progress Note Date: 07/30/20 Principal diagnosis: Status post incision and drainage with irrigation and debridement, polyethylene liner and femoral head exchange, antibiotic bead placement right hip Patient was evaluated at bedside, she is resting in her hospital chair. She has been up ambulating. She has general discomfort of the right lower extremity. She denies any headaches, lightheadedness, chest pain, shortness of breath, fever chills, nausea or vomiting. Objective - Vital Signs Vital signs: Vital Signs Temp 98.9 F 07/30/20 02:45 Pulse 84 07/30/20 02:45 Resp 16 07/30/20 02:45 BP 157/71 07/30/20 02:45 Pulse Ox 95 07/30/20 02:45 Intake & Output 07/29/20 07/30/20 07/30/20 18:59 06:59 18:59 Intake Total 0 620 Balance 0 620 Intake: Blood Product 0 620 Rc As-1 Unit 310 [id number] Rc As-1 Unit 0 310 [id number] Other: Voiding Method Bedside Commode Bedside Commode Toilet # Voids 2 1 - Exam Right lower extremity: General swelling is appreciated throughout the right lower extremity, there is a mild amount of erythema at the distal and the incision. The operative foam dressing is in good position and condition, is no obvious drainage. Calf soft, no tenderness with palpation. Plantar flexion, dorsiflexion, EHL, FHL are intact. Sensory exam to light touch throughout the extremity is intact, dorsalis pedis pulses 2+ - Labs CBC & Chem 7: 07/30/20 06:25 07/30/20 06:25 Labs: Abnormal Lab Results - Last 24 Hours (Table) 07/29/20 07/30/20 Range/Units 13:47 06:25 RBC 3.15 L (3.80-5.40) m/uL Hgb 9.5 L D (11.4-16.0) gm/dL Hct 29.3 L (34.0-46.0) % Crossmatch See Detail Microbiology - Last 24 Hours (Table) 07/28/20 12:00 Gram Stain - Preliminary Hip - Right Wound Culture - Preliminary Presumptive MRSA 07/28/20 12:57 Gram Stain - Preliminary Hip - Right Wound Culture - Preliminary Presumptive MRSA 07/27/20 15:09 Blood Culture - Preliminary Blood No Growth after 48 hours Assessment and Plan Assessment: Status post incision and drainage with irrigation and debridement, polyethylene liner and femoral head exchange, antibiotic bead placement right hip Acute blood loss anemia expected surgical outcome Plan: Pain control, continue current medication regimen DVT prophylaxis, continue current medication regimen New foam dressing was placed today, malka were all in good position. There is no obvious drainage. Continue icing and elevation of the right lower extremity Cultures from in office aspiration are showing MRSA, awaiting final cultures that were taken at surgery Anticipate PICC line placement today Hemoglobin is much improved after transfusion of 2 units, continue to monitor Other medical specialty recommendations Patient is intending to go home, we'll discuss this with case management to see if we can set up transportation and other needs for IV antibiotics. Time with Patient: Less than 30
--- NOTE | 2020-07-30 13:43 | P.PN ---
Subjective On-call hospitalist covering for Dr. Lozada starting from 07/29 this is a pleasant 80 years old female who was recently underwent right hip arthroplasty, presents with signs and symptoms of right hip arthroplasty prosthesis infection with swelling, redness and tenderness. She underwent hip open irrigation and femoral head exchange with insertion of dissolvable antibiotic beads on 07/28, culture is growing MRSA and she is being covered with IV vancomycin. Also patient with significant drop of hemoglobin down to 7 and she is receiving blood transfusion, mostly related to her surgery no other complaints. 07/30/2020 Patient is still complaining from pain, swelling and tenderness in his right hip area, dressing of the incision site is in place. Vitals are stable and patient is afebrile. Hemoglobin went up to 9.5 after 2 units of blood transfusion. Her creatinine is stable at 0.7. Wound culture is growing MRSA. Patient remains on IV vancomycin. Probably patient will need a PICC line and IV antibiotics upon discharge however infect ious disease team on the case Objective - Vital Signs Vital signs: Vital Signs Temp 98.8 F 07/30/20 10:51 Pulse 87 07/30/20 10:51 Resp 20 07/30/20 10:51 BP 136/73 07/30/20 10:51 Pulse Ox 95 07/30/20 10:51 Intake & Output 07/29/20 07/30/20 07/30/20 18:59 06:59 18:59 Intake Total 0 620 Balance 0 620 Intake: Blood Product 0 620 Rc As-1 Unit 310 [id number] Rc As-1 Unit 0 310 [id number] Other: Voiding Method Bedside Commode Bedside Commode Toilet # Voids 2 1 - Exam GENERAL: The patient is alert and oriented x3, not in any acute distress. Well developed, well nourished. HEENT: Pupils are round and equally reacting to light. EOMI. No scleral icterus. No conjunctival pallor. Normocephalic, atraumatic. No pharyngeal erythema. No thyromegaly. CARDIOVASCULAR: S1 and S2 present. No murmurs, rubs, or gallops. PULMONARY: Chest is clear to auscultation, no wheezing or crackles. ABDOMEN: Soft, nontender, nondistended, normoactive bowel sounds. No palpable organomegaly. MUSCULOSKELETAL: No joint swelling or deformity. -EXTREMITIES: No cyanosis, clubbing, or pedal edema. Right hip is with anterior wound which is swollen, tender and draped and painful to movement NEUROLOGICAL: Gross neurological examination did not reveal any focal deficits. SKIN: No rashes. no petechiae. - Labs CBC & Chem 7: 07/30/20 06:25 07/30/20 06:25 Labs: Abnormal Lab Results - Last 24 Hours (Table) 07/29/20 07/30/20 Range/Units 13:47 06:25 RBC 3.15 L (3.80-5.40) m/uL Hgb 9.5 L D (11.4-16.0) gm/dL Hct 29.3 L (34.0-46.0) % Crossmatch See Detail Microbiology - Last 24 Hours (Table) 07/28/20 12:00 Gram Stain - Preliminary Hip - Right Wound Culture - Preliminary Presumptive MRSA 07/28/20 12:57 Gram Stain - Preliminary Hip - Right Wound Culture - Preliminary Presumptive MRSA 07/27/20 15:09 Blood Culture - Preliminary Blood No Growth after 48 hours Assessment and Plan Assessment: Right hip arthroplasty infection status post right hip open irrigation and femoral head exchange on . CULTURE is growing MRSA Acute blood loss anemia related to surgery, status post 2 units of blood transfusion Plan: This is a pleasant 80 years old female who presents with right hip infected prosthesis, secondary to MRSA. Continue with IV vancomycin and based on her culture results Patient will need a PICC line and prolonged antibiotics as per ID team recommen dation Labs and medication were reviewed.. Continue same treatment. Continue with symptomatic treatment. Resume home medication. Monitor lytes and vitals. DVT and GI prophylaxis. Further recommendationsas per clinical course of the patient DVT prophylaxis: Subcutaneous Lovenox PT/OT: Pending
[2020-07-30] MEDS: FERROUS SULFATE 325 MG TAB PO SCH (18:10)
[2020-07-30] MEDS: ACETAMINOPHEN TAB 325 MG TAB PO PRN (20:26)
[2020-07-30] MEDS: ARIPiprazole 5 MG TAB PO SCH (20:27)
[2020-07-30] MEDS: MIRTAZAPINE 45 MG TABLET PO SCH (20:27)
[2020-07-30] MEDS: PRAVASTATIN SODIUM 40 MG TAB PO SCH (20:28)
[2020-07-31] MEDS: HYDROcodone/APAP 5-325MG 1 EACH TAB PO PRN ×4 (00:29→22:21)
--- NOTE | 2020-07-31 01:00 | PN ---
PROGRESS NOTE DATE OF SERVICE: 07/30/2020 REASON FOR FOLLOWUP: Right hip abscess MRSA. INTERVAL HISTORY: The patient is currently afebrile, has been breathing comfortably. Pain to the right hip is currently controlled. The patient denies having any chest pain or shortness of breath or cough. No abdominal pain or diarrhea. PHYSICAL EXAMINATION: Blood pressure 126/68 with a pulse of 82, temperature 97.7. She is 97% on room air. General description: The patient is an elderly female lying in bed in no distress. Respiratory system: Unlabored breathing. Clear to auscultation anteriorly. No wheeze or crackles. Heart S1, S2. Regular rate and rhythm. ABDOMEN: Soft, no tenderness. Right leg is currently dressed up. No obvious drainage on the dressing. LABS: Hemoglobin 9.5, white count 9.7, BUN of 8, creatinine 0.7. DIAGNOSTIC IMPRESSION AND PLAN: Patient with right hip septic arthritis and MRSA in this patient status post I and D and exchange. Patient is covered with vancomycin. Family was initially saying they wanted to go to the office and we did arrange for the daptomycin in the office. However, this is currently put on hold for placement of the PICC line and possible home antibiotic arrangement. Continue supportive care. MMODL / IJN: [id number] /
[2020-07-31] MEDS: SODIUM CHLORIDE 0.9% 1,000 ML IV SCH (02:38)
[2020-07-31] MEDS: VANCOMYCIN 1,250 MG in SODIUM CHLORIDE 0.9% 250 ML IVPB SCH ×2 (06:02→19:10)
[2020-07-31 07:25] LABS: Basophils % (A) 0 %; Eosinophils # (A) 0.2 k/uL (0-0.7); Eosinophils % (A) 2 %; HGB 9.8 gm/dL (11.4-16.0); Lymphocytes # (A) 1.1 k/uL (1.0-4.8); Lymphocytes % (A) 14 %; MCH 31.1 pg (25.0-35.0); MCHC 33.8 g/dL (31.0-37.0); MCV 91.9 fL (80.0-100.0); Mean Platelet Volume 7.1; Monocytes # (A) 0.5 k/uL (0-1.0); Monocytes % (A) 6 %; Neutrophils # (A) 6.3 k/uL (1.3-7.7); Neutrophils % (A) 77 %; Platelet Count 310 k/uL (150-450); RBC 3.15 m/uL (3.80-5.40); WBC 8.2 k/uL (3.8-10.6)
[2020-07-31] MEDS: LEVOTHYROXINE 75 MCG TAB PO SCH (08:41)
[2020-07-31] MEDS: METOPROLOL TARTRATE 25 MG TAB PO SCH ×2 (08:42→21:09)
[2020-07-31] MEDS: NIFEdipine XL 30 MG TAB.ER.24 PO SCH (08:42)
[2020-07-31] MEDS: LORazepam 0.5 MG TAB PO SCH ×2 (08:42→21:10)
[2020-07-31] MEDS: FERROUS SULFATE 325 MG TAB PO SCH ×2 (08:42→19:10)
[2020-07-31] MEDS: ENOXAPARIN 40 MG/0.4 ML SYRINGE SQ SCH (08:42)
[2020-07-31] MEDS: SERTRALINE 100 MG TAB PO SCH ×2 (08:43→21:08)
--- NOTE | 2020-07-31 09:51 | P.PN ---
Subjective Progress Note Date: 07/31/20 Principal diagnosis: Status post right anterior total hip arthroplasty, infection status post washout Patient was seen and examined this morning on coverage for Dr. Parry She is doing fairly well as morning. She finds the pain in her right hip. She complains of swelling as well as redness. This seems to be getting better however with ice at this time. She has been up to the bathroom several times and walking she states minimal pain when she is up and walking. She denies a numbness or tingling. She denies any fevers chills shortness of breath or chest pain at this time. Objective - Vital Signs Vital signs: Vital Signs Temp 98.2 F 07/31/20 08:00 Pulse 84 07/31/20 08:00 Resp 18 07/31/20 08:00 BP 149/70 07/31/20 08:00 Pulse Ox 96 07/31/20 08:00 Intake & Output 07/30/20 07/31/20 07/31/20 18:59 06:59 18:59 Intake Total 296 600 Balance 296 600 Intake: Intake, IV Titration 600 Amount Sodium Chloride 0.9% 1, 600 000 ml @ 50 mls/hr IV . Q20H [facility] Rx#:[id number] Oral 296 Other: Voiding Method Toilet Toilet Bedside Commode # Voids 1 6 # Bowel Movements 0 - Exam GEN: AOX3, NAD VSS Inspection: Erythema surrounding the incision of the right anterior thigh Palpation: Pain to palpation along with swelling of the anterior right total hip incision Motor: 5/5 shoulder abd/EF/EE/WF/intrinsics 5/5 DF/PF/EHL/FHL/HF/KE/KF Reflexes: 2/4 DTR all upper and LE Sensation intact to light touch in C5-T1 as well as L2-S1 distribution 2/4 distal pulses DP and PT all Incision: Clean dry and intact dressing intact no shadowing Dressing: Dry and intact Drain: no Drain - Labs CBC & Chem 7: 07/31/20 06:50 07/30/20 06:25 Labs: Abnormal Lab Results - Last 24 Hours (Table) 07/31/20 Range/Units 06:50 RBC 3.15 L (3.80-5.40) m/uL Hgb 9.8 L (11.4-16.0) gm/dL Hct 29.0 L (34.0-46.0) % Microbiology - Last 24 Hours (Table) 07/28/20 12:00 Gram Stain - Final Hip - Right Wound Culture - Final Methicillin resist S. aureus 07/28/20 12:57 Gram Stain - Final Hip - Right Wound Culture - Final Methicillin resist S. aureus 07/27/20 15:09 Blood Culture - Preliminary Blood No Growth after 72 hours Assessment and Plan Assessment: Status post incision and drainage with irrigation and debridement, polyethylene liner and femoral head exchange, antibiotic bead placement right hip Acute blood loss anemia expected surgical outcome Plan: Plan: Pain control, continue current medication regimen DVT prophylaxis, continue current medication regimen New foam dressing was placed today, malka were all in good position. There is no obvious drainage. Continue icing and elevation of the right lower extremity Cultures from in office aspiration are showing MRSA, awaiting final cultures that were taken at surgery Anticipate PICC line placement today Hemoglobin is much improved after transfusion of 2 units, continue to monitor Other medical specialty recommendations Patient is intending to go home, we'll discuss this with case management to see if we can set up transportation and other needs for IV antibiotics.
[2020-07-31 12:39] LABS: African American GFR (CKD) 96.2 (60.0-200.0)
[2020-07-31 14:54] LABS: Erythrocyte Sedimentation Rate 111 mm/hr (0-20)
--- NOTE | 2020-07-31 16:59 | P.PN ---
Subjective On-call hospitalist covering for Dr. Lozada starting from 07/29 this is a pleasant 80 years old female who was recently underwent right hip arthroplasty, presents with signs and symptoms of right hip arthroplasty prosthesis infection with swelling, redness and tenderness. She underwent hip open irrigation and femoral head exchange with insertion of dissolvable antibiotic beads on 07/28, culture is growing MRSA and she is being covered with IV vancomycin. Also patient with significant drop of hemoglobin down to 7 and she is receiving blood transfusion, mostly related to her surgery no other complaints. 07/30/2020 Patient is still complaining from pain, swelling and tenderness in his right hip area, dressing of the incision site is in place. Vitals are stable and patient is afebrile. Hemoglobin went up to 9.5 after 2 units of blood transfusion. Her creatinine is stable at 0.7. Wound culture is growing MRSA. Patient remains on IV vancomycin. Probably patient will need a PICC line and IV antibiotics upon discharge however infect ious disease team on the case 07/31/2020 Patient with persistent pain and swelling and tenderness in her right hip area with probably slight improvement. Patient hemodynamically is stable. Labs including hemoglobin is a stable, hemoglobin at 9.8 today. Creatinine is normal at 0.7 while patient is on IV Vanco Patient had low-grade temperature at 200.6 yesterday I discussed with the patient the recommendation of PT/OT regarding subacute rehab versus home health care, she wants to go home with home health care when she is medically ready Objective - Vital Signs Vital signs: Vital Signs Temp 98.8 F 07/31/20 14:10 Pulse 85 07/31/20 14:10 Resp 18 07/31/20 14:10 BP 162/72 07/31/20 14:10 Pulse Ox 98 07/31/20 14:10 Intake & Output 07/30/20 07/31/20 07/31/20 18:59 06:59 18:59 Intake Total 296 600 Balance 296 600 Intake: Intake, IV Titration 600 Amount Sodium Chloride 0.9% 1, 600 000 ml @ 50 mls/hr IV . Q20H [facility] Rx#:[id number] Oral 296 Other: Voiding Method Toilet Toilet Bedside Commode # Voids 1 6 # Bowel Movements 0 - Exam GENERAL: The patient is alert and oriented x3, not in any acute distress. Well developed, well nourished. HEENT: Pupils are round and equally reacting to light. EOMI. No scleral icterus. No conjunctival pallor. Normocephalic, atraumatic. No pharyngeal erythema. No thyromegaly. CARDIOVASCULAR: S1 and S2 present. No murmurs, rubs, or gallops. PULMONARY: Chest is clear to auscultation, no wheezing or crackles. ABDOMEN: Soft, nontender, nondistended, normoactive bowel sounds. No palpable organomegaly. MUSCULOSKELETAL: No joint swelling or deformity. -EXTREMITIES: No cyanosis, clubbing, or pedal edema. Right hip is with anterior wound which is swollen, tender and draped and painful to movement NEUROLOGICAL: Gross neurological examination did not reveal any focal deficits. SKIN: No rashes. no petechiae. - Labs CBC & Chem 7: 07/31/20 06:50 07/31/20 06:50 Labs: Abnormal Lab Results - Last 24 Hours (Table) 07/31/20 Range/Units 06:50 RBC 3.15 L (3.80-5.40) m/uL Hgb 9.8 L (11.4-16.0) gm/dL Hct 29.0 L (34.0-46.0) % ESR 111 H (0-20) mm/hr Microbiology - Last 24 Hours (Table) 07/28/20 12:00 Gram Stain - Final Hip - Right Wound Culture - Final Methicillin resist S. aureus 07/28/20 12:57 Gram Stain - Final Hip - Right Wound Culture - Final Methicillin resist S. aureus 07/27/20 15:09 Blood Culture - Preliminary Blood No Growth after 72 hours Assessment and Plan Assessment: Right hip arthroplasty infection status post right hip open irrigation and femoral head exchange on . CULTURE is growing MRSA Acute blood loss anemia related to surgery, status post 2 units of blood transfusion Plan: This is a pleasant 80 years old female who presents with right hip infected prosthesis, secondary to MRSA. Continue with IV vancomycin and based on her culture results Patient will need a PICC line and prolonged antibiotics as per ID team recommendation Labs and medication were reviewed.. Continue same treatment. Continue with symptomatic treatment. Resume home medication. Monitor lytes and vitals. DVT and GI prophylaxis. Further recommendationsas per clinical course of the patient DVT prophylaxis: Subcutaneous Lovenox PT/OT: Pending
[2020-07-31] MEDS: ARIPiprazole 5 MG TAB PO SCH (21:08)
[2020-07-31] MEDS: MIRTAZAPINE 45 MG TABLET PO SCH (21:09)
[2020-07-31] MEDS: PRAVASTATIN SODIUM 40 MG TAB PO SCH (21:09)
[2020-07-31] MEDS: polyethylene glycoL 3350 17 GM POWD.PACK PO SCH (21:10)
[2020-07-31] MEDS: ACETAMINOPHEN TAB 325 MG TAB PO PRN (23:35)
--- NOTE | 2020-07-31 23:54 | PN ---
PROGRESS NOTE DATE OF SERVICE: 07/31/2020 REASON FOR FOLLOWUP: Right hip septic arthritis and MRSA. INTERVAL COURSE: The patient is currently afebrile. The patient discharged put on hold as PICC line could not be placed on Sunday. The patient currently denies having any chest pain. No shortness of breath or cough. No nausea, vomiting, abdominal pain or diarrhea. PHYSICAL EXAMINATION: Blood pressure 149/78 with a pulse of 90, temperature is 10.9. She is 97% on room air. General description: The patient is an elderly female lying in bed in no distress. Respiratory system: Unlabored breathing, clear to auscultation anteriorly. Heart S1, S2. Regular rate and rhythm. Abdomen soft, no tenderness. LABS: Hemoglobin is 9.8, white count 8.2. DIAGNOSTIC IMPRESSION AND PLAN: Patient with right hip septic arthritis, status post I and D and exchange. Culture positive for MRSA. Blood culture has been negative. Patient is covered with vancomycin. Waiting for the PICC line placement for outpatient antibiotics. Continue supportive care. MMODL / IJN: [id number] /
[2020-08-01] MEDS: MELATONIN 5 MG TABLET PO PRN (02:04)
[2020-08-01] MEDS: SODIUM CHLORIDE 0.9% 1,000 ML IV SCH ×2 (02:37→17:53)
[2020-08-01] MEDS ORDERED: VANCOMYCIN TROUGH DUE 1 EACH MISC MISCELLANE ONE (05:00)
[2020-08-01] MEDS: VANCOMYCIN 1,250 MG in SODIUM CHLORIDE 0.9% 250 ML IVPB SCH (05:55)
[2020-08-01] MEDS: LEVOTHYROXINE 75 MCG TAB PO SCH (07:19)
[2020-08-01] MEDS: HYDROcodone/APAP 5-325MG 1 EACH TAB PO PRN ×2 (07:19→16:36)
[2020-08-01] MEDS: FERROUS SULFATE 325 MG TAB PO SCH ×2 (07:19→17:46)
[2020-08-01] MEDS: METOPROLOL TARTRATE 25 MG TAB PO SCH ×2 (08:53→21:38)
[2020-08-01] MEDS: ENOXAPARIN 40 MG/0.4 ML SYRINGE SQ SCH (08:53)
[2020-08-01] MEDS: LORazepam 0.5 MG TAB PO SCH ×2 (08:53→21:38)
[2020-08-01] MEDS: SERTRALINE 100 MG TAB PO SCH ×2 (08:54→21:39)
[2020-08-01] MEDS: NIFEdipine XL 30 MG TAB.ER.24 PO SCH (08:54)
--- NOTE | 2020-08-01 08:54 | P.PN ---
Subjective Progress Note Date: 08/01/20 Principal diagnosis: Status post right anterior total hip arthroplasty, infection status post washout Patient was seen and examined this morning on coverage for Dr. Parry She is doing better today. She does complain of some swelling over the anterior portion of her right thigh which is getting better. She denies any fevers chills foot breath or chest pain at this time. She denies any numbness or tingling she has been up to the bathroom to the hallway and walking around the room. She does state she slightly unsteady when she gets up but she is otherwise doing okay. Objective - Vital Signs Vital signs: Vital Signs Temp 98.7 F 08/01/20 08:00 Pulse 62 08/01/20 08:00 Resp 16 08/01/20 08:00 BP 156/73 08/01/20 08:00 Pulse Ox 94 L 08/01/20 08:00 Intake & Output 07/31/20 08/01/20 08/01/20 18:59 06:59 18:59 Intake Total 600 Balance 600 Intake: Intake, IV Titration 500 Amount Sodium Chloride 0.9% 1, 500 000 ml @ 50 mls/hr IV . Q20H [facility] Rx#:[id number] Oral 100 Other: Voiding Method Toilet # Voids 4 8 # Bowel Movements 0 - Exam Exam is stable today GEN: AOX3, NAD VSS Inspection: Erythema surrounding the incision of the right anterior thigh Palpation: Pain to palpation along with swelling of the anterior right total hip incision Motor: 5/5 shoulder abd/EF/EE/WF/intrinsics 5/5 DF/PF/EHL/FHL/HF/KE/KF Reflexes: 2/4 DTR all upper and LE Sensation intact to light touch in C5-T1 as well as L2-S1 distribution 2/4 distal pulses DP and PT all Incision: Clean dry and intact dressing intact no shadowing Dressing: Dry and intact Drain: no Drain - Labs CBC & Chem 7: 07/31/20 06:50 07/31/20 06:50 Labs: Abnormal Lab Results - Last 24 Hours (Table) 07/31/20 Range/Units 06:50 ESR 111 H (0-20) mm/hr Microbiology - Last 24 Hours (Table) 07/27/20 15:09 Blood Culture - Preliminary Blood No Growth after 96 hours Assessment and Plan Assessment: Status post incision and drainage with irrigation and debridement, polyethylene liner and femoral head exchange, antibiotic bead placement right hip Acute blood loss anemia expected surgical outcome Plan: Plan: Pain control, continue current medication regimen DVT prophylaxis, continue current medication regimen New foam dressing was placed today, malka were all in good position. There is no obvious drainage. Continue icing and elevation of the right lower extremity Cultures from in office aspiration are showing MRSA, awaiting final cultures that were taken at surgery Anticipate PICC line placement today Hemoglobin is much improved after transfusion of 2 units, continue to monitor Other medical specialty recommendations Patient is intending to go home tomorrow, we'll discuss this with case management to see if we can set up transportation and other needs for IV anti biotics.
[2020-08-01 09:49] LABS: African American GFR (CKD) 81.8 (60.0-200.0); Non-African American GFR(CKD) 70.6 (60.0-200.0)
--- NOTE | 2020-08-01 13:30 | US ---
EXAMINATION TYPE: US extremity nonvasc mass RT DATE OF EXAM: 08/01/2020 COMPARISON: NONE CLINICAL HISTORY: swelling to r hip area post surgical . Lump right hip post surgical. No fluid or abscess visualized. IMPRESSION: 1. No discrete abscess
[2020-08-01] MEDS: VANCOMYCIN 1,000 MG in SODIUM CHLORIDE 0.9% 250 ML IVPB SCH (17:51)
--- NOTE | 2020-08-01 20:55 | P.PN ---
Subjective On-call hospitalist covering for Dr. Lozada starting from 07/29 this is a pleasant 80 years old female who was recently underwent right hip arthroplasty, presents with signs and symptoms of right hip arthroplasty prosthesis infection with swelling, redness and tenderness. She underwent hip open irrigation and femoral head exchange with insertion of dissolvable antibiotic beads on 07/28, culture is growing MRSA and she is being covered with IV vancomycin. Also patient with significant drop of hemoglobin down to 7 and she is receiving blood transfusion, mostly related to her surgery no other complaints. 07/30/2020 Patient is still complaining from pain, swelling and tenderness in his right hip area, dressing of the incision site is in place. Vitals are stable and patient is afebrile. Hemoglobin went up to 9.5 after 2 units of blood transfusion. Her creatinine is stable at 0.7. Wound culture is growing MRSA. Patient remains on IV vancomycin. Probably patient will need a PICC line and IV antibiotics upon discharge however infect ious disease team on the case 07/31/2020 Patient with persistent pain and swelling and tenderness in her right hip area with probably slight improvement. Patient hemodynamically is stable. Labs including hemoglobin is a stable, hemoglobin at 9.8 today. Creatinine is normal at 0.7 while patient is on IV Vanco Patient had low-grade temperature at 200.6 yesterday I discussed with the patient the recommendation of PT/OT regarding subacute rehab versus home health care, she wants to go home with home health care when she is medically ready 08/01/2020 Patient right hip wound is more puffy and swollen today even the patient concerned it looks more lumpy. Soft tissue ultrasound showing no abscess. Her right lower extremity is significantly larger compared to the left side, most likely this is from inflammation and infection, patient is already on DVT prophylaxis however we can check also ultrasound to rule out DVT. Creatinine normal, hemodynamically stable Patient remains on IV vancomycin for MRSA septic right hip joint and infected prosthesis. Infectious disease input is appreciated, patient may need PICC line upon discharge per their recommendation Objective - Vital Signs Vital signs: Vital Signs Temp 99.4 F 08/01/20 14:00 Pulse 68 08/01/20 14:00 Resp 16 08/01/20 14:00 BP 111/69 08/01/20 14:00 Pulse Ox 97 08/01/20 14:00 Intake & Output 1208/01/20 08/01/20 18:59 06:59 18:59 Intake Total 600 Balance 600 Intake: Intake, IV Titration 500 Amount Sodium Chloride 0.9% 1, 500 000 ml @ 50 mls/hr IV . Q20H [facility] Rx#:[id number] Oral 100 Other: Voiding Method Toilet # Voids 4 8 # Bowel Movements 0 - Exam GENERAL: The patient is alert and oriented x3, not in any acute distress. Well developed, well nourished. HEENT: Pupils are round and equally reacting to light. EOMI. No scleral icterus. No conjunctival pallor. Normocephalic, atraumatic. No pharyngeal erythema. No thyromegaly. CARDIOVASCULAR: S1 and S2 present. No murmurs, rubs, or gallops. PULMONARY: Chest is clear to auscultation, no wheezing or crackles. ABDOMEN: Soft, nontender, nondistended, normoactive bowel sounds. No palpable organomegaly. MUSCULOSKELETAL: No joint swelling or deformity. -EXTREMITIES: No cyanosis, clubbing, or pedal edema. Right hip is with anterior wound which is swollen, tender and draped and painful to movement NEUROLOGICAL: Gross neurological examination did not reveal any focal deficits. SKIN: No rashes. no petechiae. - Labs CBC & Chem 7: 07/31/20 06:50 08/01/20 05:31 Labs: Microbiology - Last 24 Hours (Table) 07/27/20 15:09 Blood Culture - Preliminary Blood No Growth after 96 hours Assessment and Plan Assessment: Right hip arthroplasty infection status post right hip open irrigation and femoral head exchange on . CULTURE is growing MRSA Acute blood loss anemia related to surgery, status post 2 units of blood transfusion Plan: This is a pleasant 80 years old female who presents with right hip infected prosthesis, secondary to MRSA. Continue with IV vancomycin and based on her culture results Patient will need a PICC line and prolonged antibiotics as per ID team recommend ation Labs and medication were reviewed.. Continue same treatment. Continue with symptomatic treatment. Resume home medication. Monitor lytes and vitals. DVT and GI prophylaxis. Further recommendations as per clinical course of the patient DVT prophylaxis: Subcutaneous Lovenox PT/OT: Recommended subacute rehab versus home health care, patient is willing to go home with home care Dr. Loja will resume the care of the patient tomorrow
[2020-08-01] MEDS: ARIPiprazole 5 MG TAB PO SCH (21:38)
[2020-08-01] MEDS: PRAVASTATIN SODIUM 40 MG TAB PO SCH (21:38)
[2020-08-01] MEDS: MIRTAZAPINE 45 MG TABLET PO SCH (21:38)
[2020-08-01] MEDS: polyethylene glycoL 3350 17 GM POWD.PACK PO SCH (21:39)
--- NOTE | 2020-08-01 22:18 | US ---
EXAMINATION TYPE: US venous doppler duplex LE RT DATE OF EXAM: 08/01/2020 8:51 PM COMPARISON: NONE CLINICAL HISTORY: r/o dvt. Recent right hip replacement, patient on blood thinners. SIDE PERFORMED: Right TECHNIQUE: The lower extremity deep venous system is examined utilizing real time linear array sonog allison with graded compression, doppler sonography and color-flow sonography. VESSELS IMAGED: Common Femoral Vein Deep Femoral Vein Greater Saphenous Vein * Femoral Vein Popliteal Vein Small Saphenous Vein * Proximal Calf Veins (* superficial vessels) Right Leg: Appears negative for DVT IMPRESSION: No evidence of deep vein thrombosis in the right leg.
--- NOTE | 2020-08-02 01:18 | PN ---
PROGRESS NOTE DATE OF SERVICE: 08/01/2020 REASON FOR FOLLOWUP: Right hip MRSA septic arthritis. INTERVAL HISTORY: The patient is currently afebrile. Still complaining of pain to the right hip area especially with and weightbearing. No significant chest pain, shortness of breath or cough. No abdominal pain or diarrhea. PHYSICAL EXAMINATION: Blood pressure 119/73 with a pulse of 82, temperature 98.5. She is 97% on room air. General description is an elderly female up in the chair in no distress. RESPIRATORY SYSTEM: Unlabored breathing, clear to auscultation anteriorly. HEART: S1, S2. Regular rate and rhythm. ABDOMEN: Soft, no tenderness. Right hip is currently dressed up. EXTREMITIES: No edema of the feet. LABS: Creatinine 0.9. Vanco trough was 20.2. DIAGNOSTIC IMPRESSION AND PLAN: Patient with a right hip MRSA septic arthritis, status post I and D and polyethylene exchange. Blood culture negative. Vancomycin dose needs to be cut back to keep the trough around 15. Waiting for a PICC line placed for outpatient IV antibiotics. Continue supportive care. MMODL / IJN: [id number] /
[2020-08-02] MEDS: HYDROmorphone 0.5 MG/0.5 ML SYRINGE IVP PRN (03:11)
[2020-08-02 04:07] VITALS: RESP 16
[2020-08-02 05:11] LABS: Basophils % (A) 0 %; Eosinophils # (A) 0.3 k/uL (0-0.7); Eosinophils % (A) 2 %; HCT 29.9 % (34.0-46.0); HGB 10.1 gm/dL (11.4-16.0); Lymphocytes # (A) 1.6 k/uL (1.0-4.8); Lymphocytes % (A) 15 %; MCH 31.6 pg (25.0-35.0); MCHC 33.7 g/dL (31.0-37.0); MCV 93.6 fL (80.0-100.0); Mean Platelet Volume 7.5; Monocytes # (A) 0.9 k/uL (0-1.0); Monocytes % (A) 9 %; Neutrophils # (A) 7.6 k/uL (1.3-7.7); Neutrophils % (A) 72 %; Platelet Count 359 k/uL (150-450); RBC 3.19 m/uL (3.80-5.40); RDW 13.2 % (11.5-15.5); WBC 10.5 k/uL (3.8-10.6)
[2020-08-02] MEDS: VANCOMYCIN 1,000 MG in SODIUM CHLORIDE 0.9% 250 ML IVPB SCH (05:41)
[2020-08-02] MEDS: LEVOTHYROXINE 75 MCG TAB PO SCH (05:41)
[2020-08-02] MEDS: FERROUS SULFATE 325 MG TAB PO SCH (08:01)
[2020-08-02] MEDS: NIFEdipine XL 30 MG TAB.ER.24 PO SCH (08:02)
[2020-08-02] MEDS: LORazepam 0.5 MG TAB PO SCH (08:02)
[2020-08-02] MEDS: METOPROLOL TARTRATE 25 MG TAB PO SCH (08:03)
[2020-08-02] MEDS: SERTRALINE 100 MG TAB PO SCH (08:04)
[2020-08-02] MEDS: HYDROcodone/APAP 5-325MG 1 EACH TAB PO PRN ×2 (08:13→14:54)
[2020-08-02] MEDS: ENOXAPARIN 40 MG/0.4 ML SYRINGE SQ SCH (08:46)
[2020-08-02] MEDS ORDERED: LIDOCAINE 1% INJ 10MG/ML (20 ML MDV) SQ ONE (09:50)
--- NOTE | 2020-08-02 10:07 | IR ---
PICC LINE PLACEMENT: HISTORY: Infection requiring long-term antibiotic therapy PROCEDURE: Ultrasound and fluoroscopic guidance of PICC line placement. COMPLICATIONS: None ANESTHESIA: 1. 1% Lidocaine locally. FINDINGS/TECHNIQUE: The procedure was explained to the patient. The risks, complications, benefits and alternatives were discussed and any questions were answered. Informed consent was obtained. The patient was placed supine on the fluoroscopic table and prepped and draped in the usual sterile fash ion. Utilizing a 21 gauge needle and sonographic and fluoroscopic guidance, access in the left basi lic vein was achieved and there is placement of a 0.018 guidewire. The vein is patent. A 4-F sheath was placed over the guidewire. The guidewire and dilator were removed and a 4-F. PICC line was plac ed through the sheath with the tip at the level of the SVC. The sheath was removed, the catheter was flushed and sutured into position. The patient was stable throughout the procedure and remained sta ble upon discharge from the Department of Radiology. The vein puncture was patent under ultrasound. A ross scale image was obtained to document patency of the vein punctured. All elements of the maximal barrier technique were utilized. FLUOROSCOPY TIME: 0.1 minute and one image submitted IMPRESSION: Successful PICC line placement under ultrasound and fluoroscopic guidance.
[2020-08-02] MEDS ORDERED: DAPTOmycin 500 MG in SODIUM CHLORIDE 0.9% 50 ML IVPB SCH (12:00)
[2020-08-02 12:21] VITALS: BMI 26.9
--- NOTE | 2020-08-02 13:08 | P.PN ---
Subjective Progress Note Date: 08/02/20 Principal diagnosis: Status post incision and drainage with irrigation and debridement, polyethylene liner and femoral head exchange, antibiotic bead placement right hip Patient was evaluated at bedside, she is resting in her hospital chair. She has been up ambulating. She denies any headaches, lightheadedness, chest pain, shortness of breath, fever chills, nausea or vomiting. Objective - Vital Signs Vital signs: Vital Signs Temp 98.5 F 08/02/20 08:00 Pulse 16 L 08/02/20 08:00 Resp 16 08/02/20 08:00 BP 158/76 08/02/20 08:00 Pulse Ox 94 L 08/02/20 02:10 Intake & Output 08/01/20 08/02/20 08/02/20 18:59 06:59 18:59 Intake Total 400 Balance 400 Weight 73.482 kg Intake: Oral 400 Other: Voiding Method Toilet # Voids 3 - Exam Right lower extremity: General swelling is appreciated throughout the right lower extremity. The operative foam dressing is in good position and condition, is no obvious drain age. Calf soft, no tenderness with palpation. Plantar flexion, dorsiflexion, EHL, FHL are intact. Sensory exam to light touch throughout the extremity is intact, dorsalis pedis pulses 2+ - Labs CBC & Chem 7: 08/02/20 04:56 08/01/20 05:31 Labs: Abnormal Lab Results - Last 24 Hours (Table) 08/02/20 Range/Units 04:56 RBC 3.19 L (3.80-5.40) m/uL Hgb 10.1 L (11.4-16.0) gm/dL Hct 29.9 L (34.0-46.0) % Microbiology - Last 24 Hours (Table) 07/28/20 12:00 Anaerobic Culture - Final Hip - Right 07/28/20 12:57 Anaerobic Culture - Final Hip - Right 07/27/20 15:09 Blood Culture - Preliminary Blood No Growth after 120 hours Assessment and Plan Assessment: Status post incision and drainage with irrigation and debridement, polyethylene liner and femoral head exchange, antibiotic bead placement right hip Acute blood loss anemia expected surgical outcome Plan: Pain control, plan for discharge home on oral medication New foam dressing was placed today, malka were all in good position. There is no obvious drainage. Continue icing and elevation of the right lower extremity PICC line has been placed, case management has been working with setting up the antibiotics for the outpatient setting Other medical specialty recommendations Plan for discharge home today, follow-up in the outpatient setting Time with Patient: Less than 30
--- NOTE | 2020-08-02 13:12 | P.DS ---
Providers Date of admission: 07/27/20 15:26 Expected date of discharge: 08/02/20 Attending physician: Chidi Parry Consults: 07/27/20 15:27 Consult Physician Routine Consulting Provider: Navjot Loja Consult Reason/Comments: consult per branch, septic joint Do you want consulting provider notified?: Yes Consult Physician Routine Consulting Provider: Toby Goodman Consult Reason/Comments: septic joint, s/p total hip Do you want consulting provider notified?: Yes Primary care physician: Nidia [facility] Course: Date of admission: 07/27/2020 Date of discharge: 08/02/2020 Admission diagnosis: Periprosthetic right hip infection Discharge diagnosis: Status post incision and drainage with irrigation and debridement right hip, polyethylene liner and femoral head exchange, dissolvable antibiotic beads placement Attending physician: Dr. Parry Surgical procedures: Incision and drainage with irrigation and debridement right hip, polyethylene liner and femoral head exchange, dissolvable antibiotic bead placement Brief history: Patient is a 80-year-old female who had recently undergone a right total hip arthroplasty by Dr. Parry, she had been doing very well initially. She presented for second postop visit due to increasing redness, swelling and pain. It was determined that she had a periprosthetic infection involving her right hip. She was directly admitted to [facility] with plans for surgical intervention on 07/28/2020. Hospital course: Details of patient's surgery can be found in operative report. Patient tolerated the procedure well and was subsequently transported to orthopedic floor. Patient's orthopeidc and medical care was provided daily. Patient had daily laboratory tests performed for evaluation of overall blood counts. Patient had daily physical therapy to include strengthening range of motion as well as education with walker ambulation. Patient was treated with Lovenox for their postoperative DVT prophylaxis during their inpatient stay. Patient was noted to have a relatively uneventful postoperative course. Patient reported satisfactory pain control with oral pain medications by postoperative day 0. Patient showed satisfactory progress with physical therapy. Patient moved steadily through the program and had no difficulty meeting the goals by postoperative day 5. Given patient's otherwise satisfactory course and having met physical therapy goals, plan is to discharge patient home on postoperative day 5. Discharge condition/disposition: Patient will be discharged home in stable c ondition. Discharge medications: Instructions are given on resumption of patient's normal daily medications per primary care recommendation, in addition patient will be prescribed [place] 7.5 mg/325 mg, Colace 100 mg, MiraLAX 17 g. Discharge instructions: 1. Wound care and infection precautions, keep incision dry and covered while showering, no lotions, creams, moisturizers. No soaking, tubs, pools, hottubs. Do not scrub over the incision. 2. Weight-bear as tolerated with walker / cane until follow-up. 3. Ice and elevate when necessary. Do not exceed 20 minutes per hour with ice pack. 4. Utilize compression sleeve until seen at first follow up appointment. 5. Visiting nursing care. 6. Home physical therapy. 7. Pain meds and anticoagulants per prescription. 8. Pain medication has potential to cause constipation. Increase oral fluid and fiber intake. Contact primary care provider if you have not had a bowel movement within 48 hours after discharge 9. No anti-inflammatory medication until discussed at first post operative visit, this including Motrin, Aleve, Mobic, Diclofenac. 10. Follow up in office at 2 weeks postop with Glenn Smith PA-C 11. Follow up with your primary care doctor 7-10 days after discharge. 12. Contact [facility] with any questions, . Procedures: Incision and drainage with irrigation and debridement right hip, polyethylene liner and femoral head exchange, dissolvable antibiotic beads placement Patient Condition at Discharge: Stable Plan - Discharge Summary Discharge Rx Participant: Yes New Discharge Prescriptions: New Docusate [Colace] 100 mg PO DAILY #30 capsule polyethylene glycoL 3350 [Miralax] 17 gm PO DAILY PRN #20 packet PRN Reason: Constipation HYDROcodone/APAP 7.5-325MG [[place] 7.5] 1 each PO Q6HR PRN #28 tab PRN Reason: Pain No Action Levothyroxine Sodium [Synthroid] 75 mcg PO DAILY ARIPiprazole [Abilify] 5 mg PO HS Metoprolol Tartrate 25 mg PO BID Sertraline [Zoloft] 100 mg PO BID Pentosan Polysulfate Sodium [Elmiron] 100 mg PO Q48H [place]-3 Fatty Acids/Fish Oil [Fish Oil 1,000 mg Softgel] 1 tab PO DAILY Cyanocobalamin [Vitamin B-12] 500 mcg PO DAILY Lisinopril [Zestril] 10 mg PO BID Famotidine [Pepcid] 40 mg PO DAILY NIFEdipine [Procardia XL] 30 mg PO DAILY Cholecalciferol [Vitamin D3 (25 Mcg = 1000 Iu)] 2,000 unit PO DAILY Mirtazapine [Remeron] 45 mg PO HS Calcium Carbonate [Calcium] 600 mg PO DAILY Apixaban [Eliquis] 2.5 mg PO BID #60 tab Pravastatin Sodium [Pravachol] 40 mg PO HS Loratadine [Claritin] 10 mg PO DAILY Amoxicillin 500 mg PO TID Oxybutynin Chloride 5 mg PO BID LORazepam [Ativan] 0.5 mg PO BID Discharge Medication List ARIPiprazole [Abilify] 5 mg PO HS 10/09/14 [History] Levothyroxine Sodium [Synthroid] 75 mcg PO DAILY 10/09/14 [History] Metoprolol Tartrate 25 mg PO BID 10/09/14 [History] Pentosan Polysulfate Sodium [Elmiron] 100 mg PO Q48H 10/09/14 [History] Sertraline [Zoloft] 100 mg PO BID 10/09/14 [History] [place]-3 Fatty Acids/Fish Oil [Fish Oil 1,000 mg Softgel] 1 tab PO DAILY 10/19/14 [History] Cyanocobalamin [Vitamin B-12] 500 mcg PO DAILY 05/05/15 [History] Calcium Carbonate [Calcium] 600 mg PO DAILY 06/23/20 [History] Cholecalciferol [Vitamin D3 (25 Mcg = 1000 Iu)] 2,000 unit PO DAILY 06/23/20 [History] Famotidine [Pepcid] 40 mg PO DAILY 06/23/20 [History] Lisinopril [Zestril] 10 mg PO BID 06/23/20 [History] Mirtazapine [Remeron] 45 mg PO HS 06/23/20 [History] NIFEdipine [Procardia XL] 30 mg PO DAILY 06/23/20 [History] Apixaban [Eliquis] 2.5 mg PO BID #60 tab 06/29/20 [Rx] Amoxicillin 500 mg PO TID 07/27/20 [History] LORazepam [Ativan] 0.5 mg PO BID 07/27/20 [History] Loratadine [Claritin] 10 mg PO DAILY 07/27/20 [History] Oxybutynin Chloride 5 mg PO BID 07/27/20 [History] Pravastatin Sodium [Pravachol] 40 mg PO HS 07/27/20 [History] Docusate [Colace] 100 mg PO DAILY #30 capsule 08/02/20 [Rx] HYDROcodone/APAP 7.5-325MG [[place] 7.5] 1 each PO Q6HR PRN #28 tab 08/02/20 [Rx] polyethylene glycoL 3350 [Miralax] 17 gm PO DAILY PRN #20 packet 08/02/20 [Rx] Follow up Appointment(s)/Referral(s): [facility]Infusion [NON-STAFF] - Corbin Smith PAC [PHYSICIAN TEMPLATE REPRODUCTION TECHNICIAN] - 2 Weeks Nidia Angulo MD [Primary Care Provider] - 1-2 days [facility] Visiting Nurse, [NON-STAFF] - 1-2 Days Activity/Diet/Wound Care/Special Instructions: Orthopedic Discharge Instructions: 1. Wound care and infection precautions, keep incision dry and covered while showering, no lotions, creams, moisturizers. No soaking, pools, hot tubs. Do not scrub over incision. 2. Weight-bear as tolerated with walker / cane until follow-up. 3. Ice and elevate when necessary. Do not exceed 20 minutes per hour with ice pack. 4. Utilize compression sleeve until seen at first follow up appointment. 5. Pain meds and anticoagulants per prescription. 6. Pain medication has potential to cause constipation. Increase oral fluid and fiber intake. Contact primary care provider if you have not had a bowel movement within 48 hours after discharge. 7. No anti-inflammatory medication until discussed at first post operative visit, this including Motrin, Aleve, Mobic, Diclofenac. 8. Follow up in office at 2 weeks postop with Glenn Smith PA-C 9. Follow up with your primary care doctor 7-10 days after discharge. 10. Contact [facility] with any questions, . Discharge Disposition: HOME WITH HOME HEALTH SERVICES
--- NOTE | 2020-08-02 14:24 | P.PN ---
Subjective Progress Note Date: 08/02/20 HISTORY OF PRESENT ILLNESS This is a 80-year-old female who presented to the hospital due to rig ht hip MRSA septic arthritis. She has been receiving vancomycin and 1 dose of daptomycin will be ordered for today. She has had a PICC line placed and plan is to continue daptomycin in the outpatient setting. Patient has pain to the right hip area especially with weightbearing. She denies chest pain, shortness of breath or cough. No abdominal pain or diarrhea. PHYSICAL EXAMINATION Gen: This is a 80-year-old female. She is resting bed and appears to be comfortable and in no acute distress. HEENT: Head is atraumatic, normocephalic. Pupils equal, round. Sclerae is anicteric. NECK: Supple. No JVD. No lymphadenopathy. LUNGS: Clear to auscultation. No wheezes or rhonchi. No intercostal retractions. HEART: Regular rate and rhythm. No murmur. ABDOMEN: Soft. Bowel sounds are present. No masses. No tenderness. EXTREMITIES: No pedal edema. No calf tenderness. Dressing in place to the right hip. NEUROLOGICAL: Patient is awake, alert and oriented x3. ASSESSMENT Right hip MRSA septic arthritis, status post I&D and polyethylene exchange PLAN PICC line has been inserted Daptomycin 6 mg/kg for 1 dose today Continue daptomycin in the outpatient setting The above dictated assessment and findings were discussed with Dr. Goodman. The impression and plan of care have been directed as dictated. Cee Prieto nurse practitioner acting as scribe for Dr. Goodman. Objective - Vital Signs Vital signs: Vital Signs Temp 98.5 F 08/02/20 08:00 Pulse 16 L 08/02/20 08:00 Resp 16 08/02/20 08:00 BP 158/76 08/02/20 08:00 Pulse Ox 94 L 08/02/20 02:10 Intake & Output 08/01/20 08/02/20 08/02/20 18:59 06:59 18:59 Intake Total 400 Balance 400 Intake: Oral 400 Other: Voiding Method Toilet # Voids 3 - Labs CBC & Chem 7: 08/02/20 04:56 08/01/20 05:31 Labs: Abnormal Lab Results - Last 24 Hours (Table) 08/02/20 Range/Units 04:56 RBC 3.19 L (3.80-5.40) m/uL Hgb 10.1 L (11.4-16.0) gm/dL Hct 29.9 L (34.0-46.0) % Microbiology - Last 24 Hours (Table) 07/28/20 12:00 Anaerobic Culture - Final Hip - Right 07/28/20 12:57 Anaerobic Culture - Final Hip - Right 07/27/20 15:09 Blood Culture - Preliminary Blood No Growth after 120 hours
[2020-08-02] MEDS: SODIUM CHLORIDE 0.9% 1,000 ML IV SCH (14:41)
--- NOTE | 2020-08-02 15:05 | P.PN ---
Subjective Progress Note Date: 08/02/20 Deepika hSarma is a 80 yo F who recently had a R KIM 1 month ago and began to notice redness and swelling around the hip joint within the last week. She was seen by her surgeon in clinic and recommended to come to the ED with concern for septic joint. She denies any fever, chills or skin abrasions or cuts. She initially did well after her surgery and had been mobilizing more but in the past week had not been able to move as much due to pain. She additionally complains of poor sleep. On presentation vitals stable, Temp 99.3, WBC 9.4k, CRP 250. Status post I&D,receiving antibiotics as per infectious disease for MRSA septic arthritis. Scheduled for PICC line placement today. Complains of heat hip pain with exertion. Denies chest pain, palpitations or increasing shortness of breath. Objective - Vital Signs Vital signs: Vital Signs Temp 98.5 F 08/02/20 08:00 Pulse 16 L 08/02/20 08:00 Resp 16 08/02/20 08:00 BP 158/76 08/02/20 08:00 Pulse Ox 94 L 08/02/20 02:10 Intake & Output 08/01/20 08/02/20 08/02/20 18:59 06:59 18:59 Intake Total 400 Balance 400 Weight 73.482 kg Intake: Oral 400 Other: Voiding Method Toilet # Voids 3 - Exam General: Sitting up in chair, NAD. Vitals reviewed Eyes: PERRL, EOMI, conjunctiva normal HENT: normocephalic, mucus membranes moist Neck: supple, no JVD Lungs: normal respiratory effort, no wheezes or rales CV: Regular rate and rhythm, no murmur. Peripheral pulses 2+ Abdomen: soft, nondistended, no organomegaly Lymph: no cervical or axillary LAD Skin: warm and dry. R hip incision with mild tenderness ,mild redness. Neuro: A&Ox3, normal mood and affect - Labs CBC & Chem 7: 08/02/20 04:56 08/01/20 05:31 Labs: Abnormal Lab Results - Last 24 Hours (Table) 08/02/20 Range/Units 04:56 RBC 3.19 L (3.80-5.40) m/uL Hgb 10.1 L (11.4-16.0) gm/dL Hct 29.9 L (34.0-46.0) % Microbiology - Last 24 Hours (Table) 07/28/20 12:00 Anaerobic Culture - Final Hip - Right 07/28/20 12:57 Anaerobic Culture - Final Hip - Right 07/27/20 15:09 Blood Culture - Preliminary Blood No Growth after 120 hours Assessment and Plan Assessment: (1) Septic arthritis, MRSA Current Visit: Yes Status: Acute Code(s): M00.9 - PYOGENIC ARTHRITIS, UNSPECIFIED SNOMED Code(s): 793345395 (2) Surgical site infection, MRSA right hip Current Visit: Yes Status: Acute Code(s): T81.49XA - INFECTION FOLLOWING A PROCEDURE, OTHER SURGICAL SITE, INIT SNOMED Code(s): 43356348 (3) Major depression Current Visit: Yes Status: Acute Code(s): F32.9 - MAJOR DEPRESSIVE DISORDER, SINGLE EPISODE, UNSPECIFIED SNOMED Code(s): 839481089 (4) Insomnia Current Visit: Yes Status: Acute Code(s): G47.00 - INSOMNIA, UNSPECIFIED SNOMED Code(s): 369614442 (5) Hyperlipidemia Current Visit: No Status: Acute Code(s): E78.5 - HYPERLIPIDEMIA, UNSPECIFIED SNOMED Code(s): 52653097 (6) Hypertension Current Visit: No Status: Acute Code(s): I10 - ESSENTIAL (PRIMARY) HY PERTENSION SNOMED Code(s): 19839033 Plan: Continue on current medication regime ,monitoring and symptomatic treatment. Discharge planning in progress as per orthopedic surgery for today pending placement of PICC line. Antibiotics as per ID. aggressive pulmonary myriam leting with incentive spirometer reinforced .follow-up with PCP in 3 days. The impression and plan of care has been dictated as directed. : I performed a history and examination of this patient, discussed the same with the dictator. I agree with the dictator's note ,documented as a scribe. Any additional findings or plans will be noted.
[2020-08-02 15:12] VITALS: BP 154/67; PULSE 81; TEMP 98.1
== END 2020-08-02 15:55 | disposition home health service (06) | DRG 467 ==
LOC: EC 14:22 → 4SSUR 15:26 → 5NMEDONC 23:24
PROVIDERS: ADMIT Orthopaedic Surgery; ATTEND Orthopaedic Surgery
PROC: 30233N1 Transfusion of Nonautologous Red Blood Cells into Peripheral Vein, Percutaneous Approach (ICD-10-PCS; 2020-07-28)
PROC: 0SPR0JZ Removal of Synthetic Substitute from Right Hip Joint, Femoral Surface, Open Approach (ICD-10-PCS; principal; 2020-07-28 07:30)
PROC: 0SP909Z Removal of Liner from Right Hip Joint, Open Approach (ICD-10-PCS; principal; 2020-07-28 07:30)
PROC: 0SRR0JZ Replacement of Right Hip Joint, Femoral Surface with Synthetic Substitute, Open Approach (ICD-10-PCS; principal; 2020-07-28 07:30)
PROC: 3E0U029 Introduction of Other Anti-infective into Joints, Open Approach (ICD-10-PCS; principal; 2020-07-28 07:30)
PROC: 0SUA09Z Supplement Right Hip Joint, Acetabular Surface with Liner, Open Approach (ICD-10-PCS; principal; 2020-07-28 07:30)
PROC: 02HV33Z Insertion of Infusion Device into Superior Vena Cava, Percutaneous Approach (ICD-10-PCS; 2020-08-02)
DX: T84.51XA Infection and inflammatory reaction due to internal right hip prosthesis, initial encounter (principal); D62 Acute posthemorrhagic anemia; Y83.1 Surgical operation with implant of artificial internal device as the cause of abnormal reaction of the patient, or of later complication, without mention of misadventure at the time of the procedure; M19.90 Unspecified osteoarthritis, unspecified site; B95.62 Methicillin resistant Staphylococcus aureus infection as the cause of diseases classified elsewhere; E78.5 Hyperlipidemia, unspecified; I10 Essential (primary) hypertension; R73.03 Prediabetes; I25.10 Atherosclerotic heart disease of native coronary artery without angina pectoris; G47.00 Insomnia, unspecified; Z90.710 Acquired absence of both cervix and uterus; F32.9 Major depressive disorder, single episode, unspecified; Z96.643 Presence of artificial hip joint, bilateral; Z96.651 Presence of right artificial knee joint; Z95.5 Presence of coronary angioplasty implant and graft; Z98.49 Cataract extraction status, unspecified eye; Z88.6 Allergy status to analgesic agent; Z88.2 Allergy status to sulfonamides; Z88.8 Allergy status to other drugs, medicaments and biological substances; Z79.82 Long term (current) use of aspirin; Z79.890 Hormone replacement therapy; Z79.899 Other long term (current) drug therapy; Z79.01 Long term (current) use of anticoagulants; Z80.9 Family history of malignant neoplasm, unspecified; Z82.49 Family history of ischemic heart disease and other diseases of the circulatory system; Z82.0 Family history of epilepsy and other diseases of the nervous system
CPT/HCPCS: 36415; 36573; 80053; 80202; 82565; 83605; 85025; 85652; 86140; 86850; 86900; 86901; 86920; 87040; 87070; 87075; 87077; 87186; 87205; 94760

== ENCOUNTER 2020-08-09 17:28 | Emergency (ER) | payer MEDICARE, BC ==
[2020-08-09] MEDS ORDERED: HYDROcodone/APAP 7.5-325MG 1 EACH TAB PO ONE (17:54)
--- NOTE | 2020-08-09 18:08 | ED ---
Fall HPI - General Chief Complaint: Fall Stated Complaint: Fall Time Seen by Provider: 08/09/20 17:50 Source: patient Mode of arrival: wheelchair - History of Present Illness Initial Comments: Patient is a 80-year-old female presenting to the emergency Department with complaints of right hip pain 2 days. Patient easily undergone a right hip joint washout secondary to a septic joint a week and a half ago, she was discharged one week ago. Patient is currently on IV antibiotics. She had initial KIM performed on 06/28/20. She states 2 days ago she went to sit back on a chair which was not there and she without falling onto her butt, landing mostly on her right hip. Patient states she has had increased pain in her right groin ever since. Patient states she has been having a hard time walking on it since the fall as well. She denies any fever, chills, nausea or vomiting. The patient feels like the wound itself is been healing well. She has no further complaints at this time. - Related Data Home Medications Medication Instructions Recorded Confirmed ARIPiprazole [Abilify] 5 mg PO HS 10/09/14 07/27/20 Levothyroxine Sodium [Synthroid] 75 mcg PO DAILY 10/09/14 07/27/20 Metoprolol Tartrate 25 mg PO BID 10/09/14 07/27/20 Pentosan Polysulfate Sodium 100 mg PO Q48H 10/09/14 07/27/20 [Elmiron] Sertraline [Zoloft] 100 mg PO BID 10/09/14 07/27/20 [place]-3 Fatty Acids/Fish Oil [Fish 1 tab PO DAILY 10/19/14 07/27/20 Oil 1,000 mg Softgel] Cyanocobalamin [Vitamin B-12] 500 mcg PO DAILY 05/05/15 07/27/20 Calcium Carbonate [Calcium] 600 mg PO DAILY 06/23/20 07/27/20 Cholecalciferol [Vitamin D3 (25 2,000 unit PO DAILY 06/23/20 07/27/20 Mcg = 1000 Iu)] Famotidine [Pepcid] 40 mg PO DAILY 06/23/20 07/27/20 Lisinopril [Zestril] 10 mg PO BID 06/23/20 07/27/20 Mirtazapine [Remeron] 45 mg PO HS 06/23/20 07/27/20 NIFEdipine [Procardia XL] 30 mg PO DAILY 06/23/20 07/27/20 Amoxicillin 500 mg PO TID 07/27/20 07/27/20 LORazepam [Ativan] 0.5 mg PO BID 07/27/20 07/27/20 Loratadine [Claritin] 10 mg PO DAILY 07/27/20 07/27/20 Oxybutynin Chloride 5 mg PO BID 07/27/20 07/27/20 Pravastatin Sodium [Pravachol] 40 mg PO HS 07/27/20 07/27/20 Previous Rx's Medication Instructions Recorded Apixaban [Eliquis] 2.5 mg PO BID #60 tab 06/29/20 Docusate [Colace] 100 mg PO DAILY #30 capsule 08/02/20 HYDROcodone/APAP 7.5-325MG [[place] 1 each PO Q6HR PRN #28 tab 08/02/20 7.5] polyethylene glycoL 3350 [Miralax] 17 gm PO DAILY PRN #20 packet 08/02/20 HYDROcodone/APAP 7.5-325MG [[place] 1 tab PO Q6HR PRN 3 Days #12 tab 08/09/20 7.5-325] Allergies Allergy/AdvReac Type Severity Reaction Status Date / Time cisapride monohydrate Allergy nasal Verified 08/09/20 17:38 [From Propulsid] congestion and cough methylphenidate HCl Allergy joint pain Verified 08/09/20 17:38 [From Ritalin] Sulfa (Sulfonamide Allergy Unknown Verified 08/09/20 17:38 Antibiotics) amitriptyline AdvReac causes Verified 08/09/20 17:38 nervousness and sleepiness amylase [From Viokase] AdvReac jim Verified 08/09/20 17:38 bladder aspirin AdvReac jim Verified 08/09/20 17:38 bladder but able to tolerate low dose asa atenolol [From Tenoretic 50] AdvReac dry Verified 08/09/20 17:38 burning eyes bupropion HCl AdvReac jim Verified 08/09/20 17:38 [From Wellbutrin] bladder chlordiazepoxide AdvReac bladder Verified 08/09/20 17:38 [From Librax (with jim clidinium)] chlordiazepoxide HCl AdvReac bladder Verified 08/09/20 17:38 [From Librax (with jim methscopolamine)] chlorthalidone AdvReac dry Verified 08/09/20 17:38 [From Tenoretic 50] burning eyes clidinium bromide AdvReac bladder Verified 08/09/20 17:38 [From Librax (with jim clidinium)] cyclobenzaprine HCl AdvReac causes Verified 08/09/20 17:38 [From Flexeril] sleepiness and nervousness dextroamphetamine sulfate AdvReac jim Verified 08/09/20 17:38 [From Dexedrine] stomach and bladder dicyclomine HCl [From Bentyl] AdvReac dry Verified 08/09/20 17:38 mouth,constipation,jim bladder fluoxetine HCl [From Prozac] AdvReac stays awake Verified 08/09/20 17:38 gabapentin [From Neurontin] AdvReac jim Verified 08/09/20 17:38 bladder hydrocodone AdvReac jim Verified 08/09/20 17:38 bladder hyoscyamine sulfate AdvReac mades eyes Verified 08/09/20 17:38 [From Levsinex] and mouth dry lipase [From Viokase] AdvReac jim Verified 08/09/20 17:38 bladder lithium AdvReac jim Verified 08/09/20 17:38 bladder loratadine [From Claritin] AdvReac jim Verified 08/09/20 17:38 stomach and bladder methylprednisolone AdvReac jim Verified 08/09/20 17:38 bladder methylscopolamine nitrate AdvReac bladder Verified 08/09/20 17:38 [From Librax (with jim methscopolamine)] metoclopramide HCl AdvReac causes Verified 08/09/20 17:38 [From Reglan] sleepiness and nervousness nortriptyline HCl AdvReac severe Verified 08/09/20 17:38 [From Pamelor] sleepiness pemoline [From Cylert] AdvReac jim Verified 08/09/20 17:38 stomach and bladder prednisone AdvReac jim Verified 08/09/20 17:38 bladder protease [From Viokase] AdvReac jim Verified 08/09/20 17:38 bladder sucralfate AdvReac constipatio Verified 08/09/20 17:38 n tolmetin sodium AdvReac Nausea & Verified 08/09/20 17:38 [From Tolectin] Vomiting tramadol HCl [From Ultram] AdvReac jim Verified 08/09/20 17:38 bladder venlafaxine HCl AdvReac jim Verified 08/09/20 17:38 [From Effexor] bladder clescin AdvReac Nausea & Uncoded 08/09/20 17:38 Vomiting ruepar AdvReac jim Uncoded 08/09/20 17:38 bladder Review of Systems ROS Statement: Those systems with pertinent positive or pertinent negative responses have been documented in the HPI. ROS Other: All systems not noted in ROS Statement are negative. Past Medical History Past Medical History: Hyperlipidemia, Hypertension, Osteoarthritis (OA), Thyroid Disorder Additional Past Medical History / Comment(s): interstitial cystitis,"borderline diabetes"- diet controlled NOT ON ANY MEDS AND MK [facility] WILL CHECK HER BS., constipation History of Any Multi-Drug Resistant Organisms: None Reported Date of last positivie culture/infection: 07/28/20 MDRO Source:: Right Hip Past Surgical History: Heart Catheterization With Stent, Hysterectomy, Joint Replacement, Orthopedic Surgery Additional Past Surgical History / Comment(s): 10/19/14 Total L hip arthroplasty anterior approach. bladder suspension, cataracts, 05-17-15 TOTAL RT KNEE REPLACEMENT Past Anesthesia/Blood Transfusion Reactions: No Reported Reaction Date of Last Stent Placement:: 2010 Past Psychological History: Depression Smoking Status: Never smoker Past Alcohol Use History: None Reported Past Drug Use History: None Reported - Past Family History Mother Family Medical History: Cancer Additional Family Medical History / Comment(s): colon Father Family Medical History: Coronary Artery Disease (CAD), Musculoskeletal Disorder Additional Family Medical History / Comment(s): PARKINSONS AND HEART TROUBLE General Exam - General Exam Comments Initial Comments: GENERAL: Patient is well-developed and well-nourished. Patient is nontoxic and in mild distress. HEAD: Atraumatic, normocephalic. EYES: Pupils equal round and reactive to light, extraocular movements intact, sclera anicteric, conjunctiva are normal. Eyelids were unremarkable. ENT: TMs normal, nares patent, oropharynx clear without exudates. Moist mucous membranes. NECK: Normal range of motion, supple without lymphadenopathy or JVD. LUNGS: Unlabored respirations. Breath sounds clear to auscultation bilaterally and equal. No wheezes rales or rhonchi. HEART: Regular rate and rhythm without murmurs, rubs or gallops. ABDOMEN: Soft, nontender, normoactive bowel sounds. No guarding, no rebound. No masses appreciated. : Deferred MUSCULOSKELETAL: She has limited right hip range of motion secondary to pain and recent surgery. She is neurovascular intact, pain with palpation of the anterior right hip as well as into the groin. Rest of extremities have adequate strength and normal range of motion, no pitting or edema. No clubbing or cyanosis. NEUROLOGICAL: Patient is alert and oriented x 3. Motor and sensory are also intact. Cranial nerves II through XII grossly intact. Symmetrical smile. Normal speech. PSYCH: Normal mood, normal affect. SKIN: Warm, Dry, normal turgor. Patient has a healing incision on the anterior portion of the right hip with malka present, there is some erythema present which they state has been improving. Limitations: no limitations Course Vital Signs 08/09/20 08/09/20 17:39 19:05 Temperature 99.6 F 99.0 F Pulse Rate 85 81 Respiratory 18 16 Rate Blood Pressure 156/73 148/77 O2 Sat by Pulse 98 98 Oximetry Medical Decision Making - Medical Decision Making Patient is a 80-year-old female presenting for right hip pain after falling backwards onto her right hip 2 days ago. She's had recent right IKM with clean out 2 weeks ago, is currently on IV antibiotics. X-rays reveals no new fractures or dislocations. Patient states she is out of her prescribed [place] medications. We did give her 1 tablet here in the ER. I did recommend foll owing up with her surgeon in the next few days. I will also give her a short prescription for additional [place]'s. Patient is in agreement with this plan of care. She stable for discharge. Return parameters were discussed the patient's verbalized understanding. Case discussed Dr. Raygoza. Disposition Clinical Impression: Fall, Right hip pain Disposition: HOME SELF-CARE Condition: Stable Instructions (If sedation given, give patient instructions): Fall Prevention (ED) Additional Instructions: Please return to the Emergency Department if symptoms worsen or any other concerns. Walk with the walker. Follow-up with your orthopedic doctor as discussed. Prescriptions: HYDROcodone/APAP 7.5-325MG [[place] 7.5-325] 1 tab PO Q6HR PRN 3 Days #12 tab PRN Reason: Pain Is patient prescribed a controlled substance at d/c from ED?: Yes When asked, does pt state using other controlled substances?: No If prescribed controlled substance>3 days was MAPS reviewed?: Prescribed <3 Days If opioid is for acute pain is fill amount 7 days or less?: Yes If Rx opioid, was Start Talking consent form obtained?: Yes Referrals: Nidia Angulo MD [Primary Care Provider] - 1-2 days Chidi Parry DO [Doctor of Osteopathic Medicine] - 1-2 days
--- NOTE | 2020-08-09 18:39 | XR ---
EXAMINATION TYPE: XR Hip Complete RT DATE OF EXAM: 08/09/2020 COMPARISON: 07/27/2020 HISTORY: Pain. Fall. Recent hip surgery. TECHNIQUE: 2 views FINDINGS: There are lateral skin malka. There is right hip prosthesis. Components appear in anatomi c position. IMPRESSION: Hip prosthesis not changed in position compared to old exam. No fracture seen. There are new small densities around the prosthesis that could be calcifications or particles of bone cement th at appear new compared to old exam.
[2020-08-09 19:06] VITALS: BP 148/77; PULSE 81; RESP 16; TEMP 99
== END 2020-08-09 19:22 | disposition home or self-care (01) ==
LOC: EC 17:28
DX: M25.551 Pain in right hip (principal); I10 Essential (primary) hypertension; E07.9 Disorder of thyroid, unspecified; N30.10 Interstitial cystitis (chronic) without hematuria; E78.5 Hyperlipidemia, unspecified; F32.9 Major depressive disorder, single episode, unspecified; Z79.899 Other long term (current) drug therapy; Z79.890 Hormone replacement therapy; Z88.8 Allergy status to other drugs, medicaments and biological substances; Z88.2 Allergy status to sulfonamides; Z91.09 Other allergy status, other than to drugs and biological substances; Z88.6 Allergy status to analgesic agent; Z88.5 Allergy status to narcotic agent; Z91.048 Other nonmedicinal substance allergy status; Z96.651 Presence of right artificial knee joint; Z96.643 Presence of artificial hip joint, bilateral; Z90.710 Acquired absence of both cervix and uterus
CPT/HCPCS: 73502; 99283

== ENCOUNTER 2022-03-11 13:03 | Inpatient (IN) | payer MEDICARE, BC ==
[2022-03-11] MEDS ORDERED: SODIUM CHLORIDE 0.9% 1,000 ML IV STA (13:34)
[2022-03-11] MEDS ORDERED: MORPHINE SULFATE 2 MG/ML SYRINGE IVP STA (13:37)
[2022-03-11 13:59] LABS: Anisocytosis Moderate; MCH 39.9 pg (25.0-35.0); MCV 117.4 fL (80.0-100.0); Macrocytosis Marked; Mean Platelet Volume 10.3; Platelet Count 74 k/uL (150-450); RBC 1.35 m/uL (3.80-5.40); RDW 22.8 % (11.5-15.5)
[2022-03-11 14:06] LABS: HCT 15.8 % (34.0-46.0); HGB 5.4 gm/dL (11.4-16.0)
[2022-03-11 14:17] LABS: Albumin 3.3 g/dL (3.5-5.0); Calcium 8.1 mg/dL (8.4-10.2); INR 1.1 (<1.2); Magnesium 1.9 mg/dL (1.6-2.3); Potassium 4.1 mmol/L (3.5-5.1); Prothrombin Time 11.4 sec (9.0-12.0); Total Bilirubin 0.7 mg/dL (0.2-1.3); Total Protein 5.4 g/dL (6.3-8.2)
[2022-03-11 14:27] LABS: Band Neutrophils % 1 %; Eosinophils # (M) 0.15 k/uL (0-0.7); Neutrophils % (M) 73 %; Nucleated Red Blood Cells 3 /100 WBC (0-0); Total Cells Counted 200
[2022-03-11 14:28] LABS: Lymphocytes # (M) 1.26 k/uL (1.0-4.8); Monocytes # (M) 0.59 k/uL (0-1.0); WBC 7.4 k/uL (3.8-10.6)
[2022-03-11 14:29] LABS: Poikilocytosis (M) Present; Polychromasia Present
[2022-03-11 14:30] LABS: Tear Drop Cells Present
--- NOTE | 2022-03-11 15:27 | ED ---
ENT HPI - General Chief complaint: ENT Stated complaint: mouth pain, weakness Time Seen by Provider: 03/11/22 13:16 Source: patient, family Mode of arrival: ambulatory Limitations: no limitations - History of Present Illness Initial comments: Patient is a 81-year-old female presenting with chief complaint of "there are sores in my mouth". Patient states that for the last 8 weeks she has been dealing with painful ulcers to the inside of her lips, under the tongue, and now at the back of her throat. Patient states that she has been eating and drinkin g. Little secondary to the pain. Her ENT specialist has been treating her with steroids, antibiotics, and Magic mouthwash, however patient states that the source only been getting worse. Family at bedside states that over the last week or 2 she has had increased weakness, they're concerned because she has not been eating or drinking very much. At this time patient denies any chest pain, shortness of breath, fever, chills, nausea, vomiting, abdominal pain, melena, hematochezia, diarrhea, dysuria, hematuria, headache, vision or hearing changes, numbness, tingling. - Related Data Home Medications Medication Instructions Recorded Confirmed Levothyroxine Sodium [Synthroid] 37.5 mcg PO DAILY 10/09/14 03/11/22 Metoprolol Tartrate 25 mg PO BID 10/09/14 03/11/22 Pentosan Polysulfate Sodium 100 mg PO Q48H 10/09/14 03/11/22 [Elmiron] [place]-3 Fatty Acids/Fish Oil [Fish 1 cap PO DAILY 10/19/14 03/11/22 Oil 1,000 mg Softgel] Cyanocobalamin [Vitamin B-12] 500 mcg PO DAILY 05/05/15 03/11/22 Calcium Carbonate [Calcium] 600 mg PO DAILY 06/23/20 03/11/22 Cholecalciferol [Vitamin D3 (25 50 mcg PO DAILY 06/23/20 03/11/22 Mcg = 1000 Iu)] Pravastatin Sodium [Pravachol] 40 mg PO HS 07/27/20 03/11/22 ARIPiprazole [Abilify] 10 mg PO DAILY 03/11/22 03/11/22 Alpha Lipoic Acid 600 mg PO BID 03/11/22 03/11/22 Aspirin EC [Ecotrin Low Dose] 81 mg PO DAILY 03/11/22 03/11/22 LORazepam [Ativan] 1 mg PO BID 03/11/22 03/11/22 Magic 5 ml PO TID 03/11/22 03/11/22 Mouthwash(Lidocaine/Maalox/Benadryl) Melatonin 5 mg PO HS 03/11/22 03/11/22 Multivitamins, Thera [Multivitamin 1 tab PO DAILY 03/11/22 03/11/22 (formulary)] Omeprazole [PriLOSEC] 20 mg PO BID 03/11/22 03/11/22 Triamcinolone 0.1% Paste [Oralone 1 applic MUCOUS MEM DAILY 03/11/22 03/11/22 0.1% Paste] Vortioxetine Hydrobromide 10 mg PO DIRECTED@0900 03/11/22 03/11/22 [Trintellix] amLODIPine [Norvasc] 5 mg PO DAILY 03/11/22 03/11/22 traMADol HCL 50 mg PO HS PRN 03/11/22 03/11/22 Allergies Allergy/AdvReac Type Severity Reaction Status Date / Time cephalexin [From Keflex] Allergy Rash/Hives Verified 03/11/22 18:35 cisapride monohydrate Allergy nasal Verified 03/11/22 18:35 [From Propulsid] congestion and cough Sulfa (Sulfonamide Allergy Unknown Verified 03/11/22 18:35 Antibiotics) amitriptyline AdvReac causes Verified 03/11/22 18:35 nervousness and sleepiness amylase [From Viokase] AdvReac jim Verified 03/11/22 18:35 bladder aspirin AdvReac jim Verified 03/11/22 18:35 bladder but able to tolerate low dose asa atenolol [From Tenoretic 50] AdvReac dry Verified 03/11/22 18:35 burning eyes bupropion HCl AdvReac jim Verified 03/11/22 18:35 [From Wellbutrin] bladder chlordiazepoxide AdvReac bladder Verified 03/11/22 18:35 [From Librax (with jim clidinium)] chlordiazepoxide HCl AdvReac bladder Verified 03/11/22 18:35 [From Librax (with jim methscopolamine)] chlorthalidone AdvReac dry Verified 03/11/22 18:35 [From Tenoretic 50] burning eyes clidinium bromide AdvReac bladder Verified 03/11/22 18:35 [From Librax (with jim clidinium)] cyclobenzaprine HCl AdvReac causes Verified 03/11/22 18:35 [From Flexeril] sleepiness and nervousness dextroamphetamine sulfate AdvReac jim Verified 03/11/22 18:35 [From Dexedrine] stomach and bladder dicyclomine HCl [From Bentyl] AdvReac dry Verified 03/11/22 18:35 mouth,constipation,jim bladder fluoxetine HCl [From Prozac] AdvReac stays awake Verified 03/11/22 18:35 gabapentin [From Neurontin] AdvReac jim Verified 03/11/22 18:35 bladder hydrocodone AdvReac jim Verified 03/11/22 18:35 bladder hyoscyamine sulfate AdvReac mades eyes Verified 03/11/22 18:35 [From Levsinex] and mouth dry lipase [From Viokase] AdvReac jim Verified 03/11/22 18:35 bladder lithium AdvReac jim Verified 03/11/22 18:35 bladder loratadine [From Claritin] AdvReac jim Verified 03/11/22 18:35 stomach and bladder methylphenidate HCl AdvReac joint pain Verified 03/11/22 18:35 [From Ritalin] methylprednisolone AdvReac jim Verified 03/11/22 18:35 bladder methylscopolamine nitrate AdvReac bladder Verified 03/11/22 18:35 [From Librax (with jim methscopolamine)] metoclopramide HCl AdvReac causes Verified 03/11/22 18:35 [From Reglan] sleepiness and nervousness nortriptyline HCl AdvReac severe Verified 03/11/22 18:35 [From Pamelor] sleepiness pemoline [From Cylert] AdvReac jim Verified 03/11/22 18:35 stomach and bladder prednisone AdvReac jim Verified 03/11/22 18:35 bladder protease [From Viokase] AdvReac jim Verified 03/11/22 18:35 bladder sucralfate AdvReac constipatio Verified 03/11/22 18:35 n tolmetin sodium AdvReac Nausea & Verified 03/11/22 18:35 [From Tolectin] Vomiting tramadol HCl [From Ultram] AdvReac jim Verified 03/11/22 18:35 bladder venlafaxine HCl AdvReac jim Verified 03/11/22 18:35 [From Effexor] bladder clescin AdvReac Nausea & Uncoded 03/11/22 18:35 Vomiting ruepar AdvReac jim Uncoded 03/11/22 18:35 bladder Review of Systems ROS Statement: Those systems with pertinent positive or pertinent negative responses have been documented in the HPI. ROS Other: All systems not noted in ROS Statement are negative. Past Medical History Past Medical History: Hyperlipidemia, Hypertension, Osteoarthritis (OA), Thyroid Disorder Additional Past Medical History / Comment(s): interstitial cystitis,"borderline diabetes"- diet controlled NOT ON ANY MEDS AND MK [facility] WILL CHECK HER BS., constipation History of Any Multi-Drug Resistant Organisms: None Reported Date of last positivie culture/infection: 07/28/20 MDRO Source:: Right Hip Past Surgical History: Heart Catheterization With Stent, Hysterectomy, Joint Replacement, Orthopedic Surgery Additional Past Surgical History / Comment(s): 10/19/14 Total L hip arthroplasty anterior approach. bladder suspension, cataracts, 05-17-15 TOTAL RT KNEE REPLACEMENT Past Anesthesia/Blood Transfusion Reactions: No Reported Reaction Date of Last Stent Placement:: 2010 Past Psychological History: Depression Smoking Status: Never smoker Past Alcohol Use History: None Reported Past Drug Use History: None Reported - Past Family History Mother Family Medical History: Cancer Additional Family Medical History / Comment(s): colon Father Family Medical History: Coronary Artery Disease (CAD), Musculoskeletal Disorder Additional Family Medical History / Comment(s): PARKINSONS AND HEART TROUBLE General Exam Limitations: no limitations General appearance: alert, in no apparent distress Head exam: Present: atraumatic, normocephalic, normal inspection Eye exam: Present: normal appearance, EOMI. Absent: scleral icterus, periorbital swelling ENT exam: Present: mucous membranes moist Expanded Mouth exam: Present: tongue normal, other (Multiple aphthous ulcers, patient has a scab-like wound to the lower lip that she states is from biting it several weeks ago). Absent: drooling, trismus Neck exam: Present: normal inspection Respiratory exam: Present: normal lung sounds bilaterally. Absent: respiratory distress, wheezes, rales, rhonchi, stridor Cardiovascular Exam: Present: regular rate, normal rhythm, normal heart sounds. Absent: systolic murmur, diastolic murmur, rubs, gallop, clicks GI/Abdominal exam: Present: soft. Absent: distended, tenderness, guarding, rebound, rigid Rectal exam: Present: normal inspection, normal rectal tone, heme (-) stool. Absent: fecal impaction Neurological exam: Present: alert, oriented X3, CN II-XII intact Psychiatric exam: Present: normal affect, normal mood Skin exam: Present: warm, dry, intact, normal color. Absent: rash Course Vital Signs 03/11/22 03/11/22 03/11/22 13:05 15:00 17:03 Temperature 97.9 F Pulse Rate 82 91 85 Respiratory 18 16 18 Rate Blood Pressure 121/51 121/51 128/58 O2 Sat by Pulse 100 95 95 Oximetry 03/11/22 03/11/22 03/11/22 17:10 17:20 17:50 Temperature 98.4 F 98.3 F 98.2 F Pulse Rate 86 87 89 Respiratory 16 18 18 Rate Blood Pressure 122/62 130/55 119/57 O2 Sat by Pulse 98 96 96 Oximetry Medical Decision Making - Medical Decision Making Patient is a 81-year-old female presenting with chief complaint of sores to the mouth for the last 8 weeks. Patient has failed treatment with steroids, antibiotics, and viscous lidocaine. Patient has struggled to eat and drink over the last few weeks. On physical exam there are multiple aphthous ulcers on the inside of the lips, there is a scab-like wound to the lower lip the patient states is from biting her lip just prior to the ulcers starting. Patient has hemoglobin of 5.4, type and screen and 2 units of red blood cells were ordered. Occult blood stool was sent down for testing. Patient is currently on Eliquis. Stool occult blood is negative. Urine is pending at this time. While GI bleed is unlikely due to negative occult blood and lack of abdominal pain and other GI symptoms, patient is given 40 mg Protonix for prophylaxis. I spoke with Dr. Barker who agreed to admit the patient. Patient will be admitted for further evaluation and management of anemia. I educated the patient and her daughter on these findings and the plan, they conveyed verbal understanding and were agreeable. I discussed this case with my attending Dr. Vargas. - Lab Data Result diagrams: 03/11/22 13:40 03/11/22 13:40 Lab Results 03/11/22 03/11/22 03/11/22 Range/Units 13:40 13:40 13:40 WBC 7.4 (3.8-10.6) k/uL RBC 1.35 L (3.80-5.40) m/uL Hgb 5.4 L* (11.4-16.0) gm/dL Hct 15.8 L* (34.0-46.0) % MCV 117.4 H (80.0-100.0) fL MCH 39.9 H (25.0-35.0) pg MCHC 34.0 (31.0-37.0) g/dL RDW 22.8 H (11.5-15.5) % Plt Count 74 L (150-450) k/uL MPV 10.3 Neutrophils % (Manual) 73 % Band Neuts % (Manual) 1 % Lymphocytes % (Manual) 17 % Monocytes % (Manual) 8 % Eosinophils % (Manual) 2 % Other Cells % % Neutrophils # (Manual) 5.40 (1.3-7.7) k/uL Lymphocytes # (Manual) 1.26 (1.0-4.8) k/uL Monocytes # (Manual) 0.59 (0-1.0) k/uL Eosinophils # (Manual) 0.15 (0-0.7) k/uL Nucleated RBCs 3 H (0-0) /100 WBC Manual Slide Review Performed Polychromasia Present Poikilocytosis (manual Present Anisocytosis Moderate Macrocytosis Marked A Tear Drop Cells Present PT 11.4 (9.0-12.0) sec INR 1.1 (<1.2) Sodium 131 L (137-145) mmol/L Potassium 4.1 (3.5-5.1) mmol/L Chloride 104 (98-107) mmol/L Carbon Dioxide 23 (22-30) mmol/L Anion Gap 4 mmol/L BUN 17 (7-17) mg/dL Creatinine 0.79 (0.52-1.04) mg/dL Est GFR (CKD-EPI)AfAm 83 (>60 ml/min/1.73 sqM) Est GFR (CKD-EPI)NonAf 72 (>60 ml/min/1.73 sqM) Glucose 107 H (74-99) mg/dL Plasma Lactic Acid Ariel (0.7-2.0) mmol/L Calcium 8.1 L (8.4-10.2) mg/dL Phosphorus 3.0 (2.5-4.5) mg/dL Magnesium 1.9 (1.6-2.3) mg/dL Total Bilirubin 0.7 (0.2-1.3) mg/dL AST 23 (14-36) U/L ALT 30 (4-34) U/L Alkaline Phosphatase 62 (38-126) U/L Total Protein 5.4 L (6.3-8.2) g/dL Albumin 3.3 L (3.5-5.0) g/dL Urine Color Urine Appearance (Clear) Urine pH (5.0-8.0) Ur Specific [place] (1.001-1.035) Urine Protein (Negative) Urine Glucose (UA) (Negative) Urine Ketones (Negative) Urine Blood (Negative) Urine Nitrite (Negative) Urine Bilirubin (Negative) Urine Urobilinogen (<2.0) mg/dL Ur Leukocyte Esterase (Negative) Urine RBC (0-5) /hpf Urine WBC (0-5) /hpf Stool Occult Blood (Negative) Blood Type Blood Type Recheck Bld Type Recheck Status Antibody Screen Crossmatch Spec Expiration Date 03/11/22 03/11/22 03/11/22 Range/Units 14:20 14:20 16:17 WBC (3.8-10.6) k/uL RBC (3.80-5.40) m/uL Hgb (11.4-16.0) gm/dL Hct (34.0-46.0) % MCV (80.0-100.0) fL MCH (25.0-35.0) pg MCHC (31.0-37.0) g/dL RDW (11.5-15.5) % Plt Count (150-450) k/uL MPV Neutrophils % (Manual) % Band Neuts % (Manual) % Lymphocytes % (Manual) % Monocytes % (Manual) % Eosinophils % (Manual) % Other Cells % % Neutrophils # (Manual) (1.3-7.7) k/uL Lymphocytes # (Manual) (1.0-4.8) k/uL Monocytes # (Manual) (0-1.0) k/uL Eosinophils # (Manual) (0-0.7) k/uL Nucleated RBCs (0-0) /100 WBC Manual Slide Review Polychromasia Poikilocytosis (manual Anisocytosis Macrocytosis Tear Drop Cells PT (9.0-12.0) sec INR (<1.2) Sodium (137-145) mmol/L Potassium (3.5-5.1) mmol/L Chloride (98-107) mmol/L Carbon Dioxide (22-30) mmol/L Anion Gap mmol/L BUN (7-17) mg/dL Creatinine (0.52-1.04) mg/dL Est GFR (CKD-EPI)AfAm (>60 ml/min/1.73 sqM) Est GFR (CKD-EPI)NonAf (>60 ml/min/1.73 sqM) Glucose (74-99) mg/dL Plasma Lactic Acid Ariel 0.7 (0.7-2.0) mmol/L Calcium (8.4-10.2) mg/dL Phosphorus (2.5-4.5) mg/dL Magnesium (1.6-2.3) mg/dL Total Bilirubin (0.2-1.3) mg/dL AST (14-36) U/L ALT (4-34) U/L Alkaline Phosphatase (38-126) U/L Total Protein (6.3-8.2) g/dL Albumin (3.5-5.0) g/dL Urine Color Light Yellow Urine Appearance Clear (Clear) Urine pH 7.0 (5.0-8.0) Ur Specific [place] 1.006 (1.001-1.035) Urine Protein Negative (Negative) Urine Glucose (UA) Negative (Negative) Urine Ketones Negative (Negative) Urine Blood Negative (Negative) Urine Nitrite Negative (Negative) Urine Bilirubin Negative (Negative) Urine Urobilinogen <2.0 (<2.0) mg/dL Ur Leukocyte Esterase Large H (Negative) Urine RBC 1 (0-5) /hpf Urine WBC 38 H (0-5) /hpf Stool Occult Blood (Negative) Blood Type A Negative Blood Type Recheck A Neg Bld Type Recheck Status No Antibody Screen NEGATIVE Crossmatch See Detail Spec Expiration Date 03/14/2022 - 231903/11/22 Range/Units 16:17 WBC (3.8-10.6) k/uL RBC (3.80-5.40) m/uL Hgb (11.4-16.0) gm/dL Hct (34.0-46.0) % MCV (80.0-100.0) fL MCH (25.0-35.0) pg MCHC (31.0-37.0) g/dL RDW (11.5-15.5) % Plt Count (150-450) k/uL MPV Neutrophils % (Manual) % Band Neuts % (Manual) % Lymphocytes % (Manual) % Monocytes % (Manual) % Eosinophils % (Manual) % Other Cells % % Neutrophils # (Manual) (1.3-7.7) k/uL Lymphocytes # (Manual) (1.0-4.8) k/uL Monocytes # (Manual) (0-1.0) k/uL Eosinophils # (Manual) (0-0.7) k/uL Nucleated RBCs (0-0) /100 WBC Manual Slide Review Polychromasia Poikilocytosis (manual Anisocytosis Macrocytosis Tear Drop Cells PT (9.0-12.0) sec INR (<1.2) Sodium (137-145) mmol/L Potassium (3.5-5.1) mmol/L Chloride (98-107) mmol/L Carbon Dioxide (22-30) mmol/L Anion Gap mmol/L BUN (7-17) mg/dL Creatinine (0.52-1.04) mg/dL Est GFR (CKD-EPI)AfAm (>60 ml/min/1.73 sqM) Est GFR (CKD-EPI)NonAf (>60 ml/min/1.73 sqM) Glucose (74-99) mg/dL Plasma Lactic Acid Ariel (0.7-2.0) mmol/L Calcium (8.4-10.2) mg/dL Phosphorus (2.5-4.5) mg/dL Magnesium (1.6-2.3) mg/dL Total Bilirubin (0.2-1.3) mg/dL AST (14-36) U/L ALT (4-34) U/L Alkaline Phosphatase (38-126) U/L Total Protein (6.3-8.2) g/dL Albumin (3.5-5.0) g/dL Urine Color Urine Appearance (Clear) Urine pH (5.0-8.0) Ur Specific [place] (1.001-1.035) Urine Protein (Negative) Urine Glucose (UA) (Negative) Urine Ketones (Negative) Urine Blood (Negative) Urine Nitrite (Negative) Urine Bilirubin (Negative) Urine Urobilinogen (<2.0) mg/dL Ur Leukocyte Esterase (Negative) Urine RBC (0-5) /hpf Urine WBC (0-5) /hpf Stool Occult Blood Negative (Negative) Blood Type Blood Type Recheck Bld Type Recheck Status Antibody Screen Crossmatch Spec Expiration Date Disposition Clinical Impression: Anemia, Stomatitis Disposition: ADMITTED IP TO THIS [facility] Condition: Serious Time of Disposition: 17:52 Decision to Admit Reason: Admit from EC Decision Date: 03/11/22 Decision Time: 17:52
[2022-03-11 16:48] LABS: Appearance,Urine Clear (Clear); Bilirubin,Urine Negative (Negative); Blood,Urine Negative (Negative); Color,Urine Light Yellow; Glucose,Urine (UA) Negative (Negative); Ketones,Urine Negative (Negative); Leukocyte Esterase,Urine Large (Negative); Nitrite,Urine Negative (Negative); Protein,Urine Negative (Negative); RBC,Urine 1 /hpf (0-5); Specific Gravity,Urine 1.006 (1.001-1.035); Urobilinogen,Urine <2.0 mg/dL (<2.0); WBC,Urine 38 /hpf (0-5)
[2022-03-11] MEDS ORDERED: PANTOPRAZOLE 40 MG/10 ML VIAL IVP STA (17:46)
[2022-03-11] MEDS ORDERED: NALOXONE 0.4 MG/ML 1 ML VIAL IV PRN (17:52)
[2022-03-11] MEDS ORDERED: MAGIC MOUTHWASH PO SCH (22:00)
[2022-03-11] MEDS ORDERED: traMADol 50 MG TAB PO PRN (22:00)
[2022-03-11] MEDS: PRAVASTATIN SODIUM 40 MG TAB PO SCH (23:14)
[2022-03-11] MEDS: MAG HYDROX/AL HYDROX/SIMETH 30 ML, diphenhydrAMINE ELIXIR 75 MG, LIDOCAINE VISCOUS 2% 3... PO SCH ×3 (23:15)
[2022-03-11] MEDS: LORazepam 1 MG TAB PO PRN (23:23)
[2022-03-11] MEDS: MELATONIN 5 MG TABLET PO SCH (23:23)
[2022-03-11] MEDS: PANTOPRAZOLE 40 MG TABLET PO SCH (23:33)
[2022-03-11] MEDS: NON FORMULARY DRUG (Pentosan Polysulfate Sodium [Elmiron] 100 MG Capsule) PO SCH (23:54)
[2022-03-12] MEDS: SODIUM CHLORIDE 0.9% 1,000 ML IV SCH ×3 (04:00→19:00)
[2022-03-12] MEDS: LEVOTHYROXINE 25 MCG TAB PO SCH (06:22)
[2022-03-12] MEDS ORDERED: NON FORMULARY DRUG (Alpha Lipoic Acid [Alpha Lipoic Acid] 600 MG Tablet) PO SCH (09:00)
[2022-03-12] MEDS ORDERED: NON FORMULARY DRUG (Omega-3 Fatty Acids/Fish Oil [Fish Oil 1,000 Mg Softgel] 1 EACH Capsul PO SCH (09:00)
[2022-03-12 09:44] LABS: African American GFR (CKD) 86.3 (60.0-200.0); Albumin 3.5 g/dL (3.8-4.9); Albumin/Globulin Ratio 2.36 (1.60-3.17); Anion Gap 8.2 mmol/L (10.00-18.00); BUN/Creat Ratio 17.08 Ratio (12.00-20.00); Calcium 8.3 mg/dL (8.7-10.3); Carbon Dioxide 23.7 mmol/L (20.0-27.5); Globulin 1.5 g/dL (1.6-3.3); Non-African American GFR(CKD) 74.5 (60.0-200.0); Potassium 3.9 mmol/L (3.5-5.5)
[2022-03-12] MEDS: CYANOCOBALAMIN 500 MCG TAB PO SCH (10:23)
[2022-03-12] MEDS: CHOLECALCIFEROL 25 MCG (1000 IU) TABLET PO SCH (10:23)
[2022-03-12] MEDS: CALCIUM CARBONATE 500 MG CHEWABLE PO SCH (10:23)
[2022-03-12] MEDS: METOPROLOL TARTRATE 25 MG TAB PO SCH ×2 (10:23→20:11)
[2022-03-12] MEDS: amLODIPine 5 MG TAB PO SCH (10:24)
[2022-03-12] MEDS: PANTOPRAZOLE 40 MG TABLET PO SCH ×2 (10:24→20:10)
[2022-03-12] MEDS: MAG HYDROX/AL HYDROX/SIMETH 30 ML, diphenhydrAMINE ELIXIR 75 MG, LIDOCAINE VISCOUS 2% 3... PO SCH ×9 (10:24→21:31)
[2022-03-12] MEDS: MULTIVITAMINS, THERA 1 EACH TAB PO SCH (10:24)
[2022-03-12 10:27] LABS: Anisocytosis (M) 2+; Basophils # (A) 0.01 X 10*3/uL (0.00-0.10); Basophils % (A) 0.2 %; Eosinophils # (A) 0.38 X 10*3/uL (0.04-0.35); Eosinophils % (A) 6.3 %; HCT 23.5 % (37.2-46.3); HGB 7.6 g/dL (12.0-15.0); Immature Grans, Automated 1.8 %; Lymphocytes # (A) 0.81 X 10*3/uL (0.90-5.00); Lymphocytes % (A) 13.3 %; MCHC 32.3 g/dL (32.0-37.0); MCV 102.2 fL (80.0-97.0); Mean Platelet Volume 13.9 fL (9.5-12.2); Monocytes # (A) 0.51 X 10*3/uL (0.20-1.00); Monocytes % (A) 8.4 %; NRBC Per 100 WBC 1.8 /100 WBCS (0.0-0.0); Neutrophils # (A) 4.26 X 10*3/uL (1.80-7.70); Platelet Count 44 X 10*3/uL (140-440); RDW 25.3 % (11.5-14.5); WBC 6.08 X 10*3/uL (4.50-10.00)
[2022-03-12] MEDS: TRIAMCINOLONE ACET 0.1% ORAL PASTE 5 GM TUBE MUCOUS MEM SCH (10:28)
[2022-03-12] MEDS: ARIPiprazole 10 MG TAB PO SCH (12:20)
[2022-03-12] MEDS: VORTIOXETINE HYDROBROMIDE 10 MG TABLET PO SCH (12:20)
[2022-03-12] MEDS: traMADol 50 MG TAB PO PRN (16:58)
[2022-03-12] MEDS: MELATONIN 5 MG TABLET PO SCH (20:10)
[2022-03-12] MEDS: LORazepam 1 MG TAB PO PRN (20:11)
[2022-03-12] MEDS: PRAVASTATIN SODIUM 40 MG TAB PO SCH (20:11)
[2022-03-12 20:32] VITALS: RESP 16
--- NOTE | 2022-03-12 23:19 | P.HPIM ---
History of Present Illness H&P Date: 03/12/22 Chief Complaint: Chappell pain/weakness 81-year-old female presenting with chief complaint of "there are sores in my mouth". Patient states that for the last 8 weeks she has been dealing with painful ulcers to the inside of her lips, under the tongue, and now at the back of her throat. Patient states that she has been eating and drinking. Little secondary to the pain. Her ENT specialist has been treating her with steroids, antibiotics, and Magic mouthwash, however patient states that the source only been getting worse. Family at bedside states that over the last week or 2 she has had increased weakness, they're concerned because she has not been eating or drinking very much. At this time patient denies any chest pain, shortness of breath, fever, chills, nausea, vomiting, abdominal pain, melena, hematochezia, diarrhea, dysuria, hematuria, headache, vision or hearing changes, numbness, tingling. Workup in ED reveals WBC of 7.4, hemoglobin 5.4 and platelet count of 74; sodium 131, potassium 4.1, BUN/creatinine of 17/0.79 Patient received 2 units of packed RBCs in ED; stool occult blood was negative; patient is placed on Protonix and is admitted to hospital for further hematology evaluation Review of Systems REVIEW OF SYSTEMS: CONSTITUTIONAL: No fever, no malaise, no fatigue. HEENT: No recent visual problems or hearing problems. Denied any sore throat. CARDIOVASCULAR: No chest pain, orthopnea, PND, no palpitations, no syncope. PULMONARY: No shortness of breath, no cough, no hemoptysis. GASTROINTESTINAL: No diarrhea, no nausea, no vomiting, no abdominal pain. NEUROLOGICAL: No headaches, no weakness, no numbness. HEMATOLOGICAL: Denies any bleeding or petechiae. GENITOURINARY: Denies any burning micturition, frequency, or urgency. MUSCULOSKELETAL/RHEUMATOLOGICAL: Denies any joint pain, swelling, or any muscle pain. ENDOCRINE: Denies any polyuria or polydipsia. The rest of the 14-point review of systems is negative. Past Medical History Past Medical History: Hyperlipidemia, Hypertension, Osteoarthritis (OA), Thyroid Disorder Additional Past Medical History / Comment(s): interstitial cystitis,"borderline diabetes"- diet controlled NOT ON ANY MEDS AND MK ACC WILL CHECK HER BS., constipation History of Any Multi-Drug Resistant Organisms: None Reported Date of last positivie culture/infection: 07/28/20 MDRO Source:: Right Hip Past Surgical History: Heart Catheterization With Stent, Hysterectomy, Joint Replacement, Orthopedic Surgery Additional Past Surgical History / Comment(s): 10/19/14 Total L hip arthroplasty anterior approach. bladder suspension, cataracts, 05-17-15 TOTAL RT KNEE REPLACEMENT Past Anesthesia/Blood Transfusion Reactions: No Reported Reaction Date of Last Stent Placement:: 2010 Past Psychological History: Depression Smoking Status: Never smoker Past Alcohol Use History: None Reported Past Drug Use History: None Reported - Past Family History Mother Family Medical History: Cancer Additional Family Medical History / Comment(s): colon Father Family Medical History: Coronary Artery Disease (CAD), Musculoskeletal Disorder Additional Family Medical History / Comment(s): PARKINSONS AND HEART TROUBLE Medications and Allergies Home Medications Medication Instructions Recorded Confirmed Type Levothyroxine Sodium [Synthroid] 37.5 mcg PO DAILY 10/09/14 03/11/22 History Metoprolol Tartrate 25 mg PO BID 10/09/14 03/11/22 History Pentosan Polysulfate Sodium 100 mg PO Q48H 10/09/14 03/11/22 History [Elmiron] [place]-3 Fatty Acids/Fish Oil [Fish 1 cap PO DAILY 10/19/14 03/11/22 History Oil 1,000 mg Softgel] Cyanocobalamin [Vitamin B-12] 500 mcg PO DAILY 05/05/15 03/11/22 History Calcium Carbonate [Calcium] 600 mg PO DAILY 06/23/20 03/11/22 History Cholecalciferol [Vitamin D3 (25 50 mcg PO DAILY 06/23/20 03/11/22 History Mcg = 1000 Iu)] Pravastatin Sodium [Pravachol] 40 mg PO HS 07/27/20 03/11/22 History ARIPiprazole [Abilify] 10 mg PO DAILY 03/11/22 03/11/22 History Alpha Lipoic Acid 600 mg PO BID 03/11/22 03/11/22 History Aspirin EC [Ecotrin Low Dose] 81 mg PO DAILY 03/11/22 03/11/22 History LORazepam [Ativan] 1 mg PO BID 03/11/22 03/11/22 History Magic 5 ml PO TID 03/11/22 03/11/22 History Mouthwash(Lidocaine/Maalox/Benadryl) Melatonin 5 mg PO HS 03/11/22 03/11/22 History Multivitamins, Thera [Multivitamin 1 tab PO DAILY 03/11/22 03/11/22 History (formulary)] Omeprazole [PriLOSEC] 20 mg PO BID 03/11/22 03/11/22 History Triamcinolone 0.1% Paste [Oralone 1 applic MUCOUS MEM DAILY 03/11/22 03/11/22 History 0.1% Paste] Vortioxetine Hydrobromide 10 mg PO DIRECTED@0900 03/11/22 03/11/22 History [Trintellix] amLODIPine [Norvasc] 5 mg PO DAILY 03/11/22 03/11/22 History traMADol HCL 50 mg PO HS PRN 03/11/22 03/11/22 History Allergies Allergy/AdvReac Type Severity Reaction Status Date / Time cephalexin [From Keflex] Allergy Rash/Hives Verified 03/11/22 18:35 cisapride monohydrate Allergy nasal Verified 03/11/22 18:35 [From Propulsid] congestion and cough Sulfa (Sulfonamide Allergy Unknown Verified 03/11/22 18:35 Antibiotics) amitriptyline AdvReac causes Verified 03/11/22 18:35 nervousness and sleepiness amylase [From Viokase] AdvReac jim Verified 03/11/22 18:35 bladder aspirin AdvReac jim Verified 03/11/22 18:35 bladder but able to tolerate low dose asa atenolol [From Tenoretic 50] AdvReac dry Verified 03/11/22 18:35 burning eyes bupropion HCl AdvReac jim Verified 03/11/22 18:35 [From Wellbutrin] bladder chlordiazepoxide AdvReac bladder Verified 03/11/22 18:35 [From Librax (with jim clidinium)] chlordiazepoxide HCl AdvReac bladder Verified 03/11/22 18:35 [From Librax (with jim methscopolamine)] chlorthalidone AdvReac dry Verified 03/11/22 18:35 [From Tenoretic 50] burning eyes clidinium bromide AdvReac bladder Verified 03/11/22 18:35 [From Librax (with jim clidinium)] cyclobenzaprine HCl AdvReac causes Verified 03/11/22 18:35 [From Flexeril] sleepiness and nervousness dextroamphetamine sulfate AdvReac jim Verified 03/11/22 18:35 [From Dexedrine] stomach and bladder dicyclomine HCl [From Bentyl] AdvReac dry Verified 03/11/22 18:35 mouth,constipation,jim bladder fluoxetine HCl [From Prozac] AdvReac stays awake Verified 03/11/22 18:35 gabapentin [From Neurontin] AdvReac jim Verified 03/11/22 18:35 bladder hydrocodone AdvReac jim Verified 03/11/22 18:35 bladder hyoscyamine sulfate AdvReac mades eyes Verified 03/11/22 18:35 [From Levsinex] and mouth dry lipase [From Viokase] AdvReac jim Verified 03/11/22 18:35 bladder lithium AdvReac jim Verified 03/11/22 18:35 bladder loratadine [From Claritin] AdvReac jim Verified 03/11/22 18:35 stomach and bladder methylphenidate HCl AdvReac joint pain Verified 03/11/22 18:35 [From Ritalin] methylprednisolone AdvReac jim Verified 03/11/22 18:35 bladder methylscopolamine nitrate AdvReac bladder Verified 03/11/22 18:35 [From Librax (with jim methscopolamine)] metoclopramide HCl AdvReac causes Verified 03/11/22 18:35 [From Reglan] sleepiness and nervousness nortriptyline HCl AdvReac severe Verified 03/11/22 18:35 [From Pamelor] sleepiness pemoline [From Cylert] AdvReac jim Verified 03/11/22 18:35 stomach and bladder prednisone AdvReac jim Verified 03/11/22 18:35 bladder protease [From Viokase] AdvReac jim Verified 03/11/22 18:35 bladder sucralfate AdvReac constipatio Verified 03/11/22 18:35 n tolmetin sodium AdvReac Nausea & Verified 03/11/22 18:35 [From Tolectin] Vomiting tramadol HCl [From Ultram] AdvReac jim Verified 03/11/22 18:35 bladder venlafaxine HCl AdvReac jim Verified 03/11/22 18:35 [From Effexor] bladder clescin AdvReac Nausea & Uncoded 03/11/22 18:35 Vomiting ruepar AdvReac jim Uncoded 03/11/22 18:35 bladder Physical Exam Vitals: Vital Signs Temp Pulse Pulse Resp BP BP Pulse Ox 03/12/22 04:11 98.6 F 91 16 129/65 95 03/12/22 01:45 97.3 F L 92 15 116/61 95 03/12/22 01:03 99.6 F 87 18 124/62 94 L 03/12/22 00:53 98.6 F 92 16 126/61 93 L 03/11/22 20:00 98.9 F 83 18 109/61 98 03/11/22 19:44 98.9 F 83 18 109/61 03/11/22 17:50 98.2 F 89 18 119/57 96 03/11/22 17:20 98.3 F 87 18 130/55 96 03/11/22 17:10 98.4 F 86 16 122/62 98 03/11/22 17:03 85 18 128/58 95 03/11/22 15:00 91 16 121/51 95 03/11/22 13:05 97.9 F 82 18 121/51 100 Intake and Output 03/11/22 03/12/22 03/12/22 22:59 06:59 14:59 Intake Total 310 810 Balance 310 810 Intake: Oral 500 Blood Product 310 310 As-1 Unit 310 [id number] As-1 Unit 310 [id number] Other: Voiding Method Bedside Commode # Voids 3 Weight 70.307 kg General appearance: alert, in no apparent distress Head exam: Present: atraumatic, normocephalic, normal inspection Eye exam: Present: normal appearance, EOMI. Absent: scleral icterus, periorbital swelling ENT exam: Present: mucous membranes moist Mouth exam: Present: tongue normal, other (Multiple aphthous ulcers, patient has a scab-like wound to the lower lip that she states is from biting it several weeks ago). Absent: drooling, trismus Neck exam: Present: normal inspection Respiratory exam: Present: normal lung sounds bilaterally. Absent: respiratory distress, wheezes, rales, rhonchi, stridor Cardiovascular Exam: Present: regular rate, normal rhythm, normal heart sounds. Absent: systolic murmur, diastolic murmur, rubs, gallop, clicks GI/Abdominal exam: Present: soft. Absent: distended, tenderness, guarding, rebound, rigid Rectal exam: Present: normal inspection, normal rectal tone, heme (-) stool. Absent: fecal impaction Neurological exam: Present: alert, oriented X3, CN II-XII intact Psychiatric exam: Present: normal affect, normal mood Skin exam: Present: warm, dry, intact, normal color. Absent: rash Results CBC & Chem 7: 03/12/22 05:10 03/12/22 05:10 Labs: Abnormal Lab Results - Last 24 Hours (Table) 03/11/22 03/11/22 03/11/22 Range/Units 13:40 13:40 14:20 RBC 1.35 L (3.80-5.40) m/uL Hgb 5.4 L* (11.4-16.0) gm/dL Hct 15.8 L* (34.0-46.0) % MCV 117.4 H (80.0-100.0) fL MCH 39.9 H (25.0-35.0) pg RDW 22.8 H (11.5-15.5) % Plt Count 74 L (150-450) k/uL Plt Count Comment MPV (9.5-12.2) fL Absolute Nucleated RBC (0.00-0.00) X 10*3/uL Immature Gran # (0.00-0.04) X 10*3/uL Lymphocytes # (0.90-5.00) X 10*3/uL Eosinophils # (0.04-0.35) X 10*3/uL Nucleated RBCs 3 H (0-0) /100 WBC NRBC/100 WBC Diff (0.0-0.0) /100 WBCS Immature Plt Fraction (1.1-6.1) % Macrocytosis Marked A Sodium 131 L (137-145) mmol/L Anion Gap (10.00-18.00) mmol/L Glucose 107 H (74-99) mg/dL Calcium 8.1 L (8.4-10.2) mg/dL Total Protein 5.4 L (6.3-8.2) g/dL Albumin 3.3 L (3.5-5.0) g/dL Globulin (1.6-3.3) g/dL Ur Leukocyte Esterase (Negative) Urine WBC (0-5) /hpf Crossmatch See Detail 03/11/22 03/12/22 03/12/22 Range/Units 16:17 05:10 05:10 RBC 2.30 L (3.80-5.40) m/uL Hgb 7.6 L (11.4-16.0) gm/dL Hct 23.5 L (34.0-46.0) % MCV 102.2 H (80.0-100.0) fL MCH 33.0 H (25.0-35.0) pg RDW 25.3 H (11.5-15.5) % Plt Count 44 L (150-450) k/uL Plt Count Comment A MPV 13.9 H (9.5-12.2) fL Absolute Nucleated RBC 0.11 H (0.00-0.00) X 10*3/uL Immature Gran # 0.11 H (0.00-0.04) X 10*3/uL Lymphocytes # 0.81 L (0.90-5.00) X 10*3/uL Eosinophils # 0.38 H (0.04-0.35) X 10*3/uL Nucleated RBCs (0-0) /100 WBC NRBC/100 WBC Diff 1.8 H (0.0-0.0) /100 WBCS Immature Plt Fraction 8.0 H (1.1-6.1) % Macrocytosis Sodium (137-145) mmol/L Anion Gap 8.20 L (10.00-18.00) mmol/L Glucose (74-99) mg/dL Calcium 8.3 L (8.4-10.2) mg/dL Total Protein 5.0 L (6.3-8.2) g/dL Albumin 3.5 L (3.5-5.0) g/dL Globulin 1.5 L (1.6-3.3) g/dL Ur Leukocyte Esterase Large H (Negative) Urine WBC 38 H (0-5) /hpf Crossmatch Microbiology - Last 24 Hours (Table) 03/11/22 16:17 Urine Culture - Preliminary Urine,Voided Thrombosis Risk Factor Assmnt - Choose All That Apply Any of the Below Risk Factors Present?: Yes Each Factor Represents 1 point: Obesity (BMI >25), Swollen legs (current) Other Risk Factors: Yes Each Risk Factor Represents 3 Points: Age 75 years or older Thrombosis Risk Factor Assessment Total Risk Factor Score: 5 Thrombosis Risk Factor Assessment Level: High Risk Assessment and Plan Assessment: 1. Severe anemia - Patient received 2 units of packed RBCs in ED; we will monitor H&H closely; continue with Protonix 40 mg IV every 12 hours - We will order iron studies - Consult hematology for further evaluation 2. Severe stomatitis; patient has severe aphthous ulcers; patient has been treated by steroids by ENT; we will plan to continue with IV Solu-Medrol along with Magic mouthwash; consult ENT 3. Hypothyroidism 4. Hyperlipidemia; continue with home statin therapy 5. Hypertension; amlodipine 5 mg daily, metoprolol 25 mg twice a day DVT prophylaxis; SCDs CODE STATUS; full code
[2022-03-12] MEDS ORDERED: MAG HYDROX/AL HYDROX/SIMETH 30 ML, LIDOCAINE VISCOUS 2% 30 ML, diphenhydrAMINE ELIXIR 7... PO SCH ×4 (23:45)
[2022-03-13] MEDS: traMADol 50 MG TAB PO PRN ×2 (03:59→20:25)
[2022-03-13] MEDS: LEVOTHYROXINE 25 MCG TAB PO SCH (05:02)
[2022-03-13] MEDS: SODIUM CHLORIDE 0.9% 1,000 ML IV SCH ×2 (05:02→20:25)
[2022-03-13 09:31] LABS: % Iron Saturation 11.6 (12.00-45.00); African American GFR (CKD) 81.3 (60.0-200.0); Anion Gap 10.4 mmol/L (10.00-18.00); BUN/Creat Ratio 12.13 Ratio (12.00-20.00); Blood Urea Nitrogen 9.7 mg/dL (9.0-27.0); Calcium 8.3 mg/dL (8.7-10.3); Carbon Dioxide 22.6 mmol/L (20.0-27.5); Non-African American GFR(CKD) 70.1 (60.0-200.0); Potassium 3.7 mmol/L (3.5-5.5)
[2022-03-13] MEDS: METOPROLOL TARTRATE 25 MG TAB PO SCH ×2 (10:19→20:25)
[2022-03-13] MEDS: PANTOPRAZOLE 40 MG TABLET PO SCH ×2 (10:19→20:25)
[2022-03-13] MEDS: amLODIPine 5 MG TAB PO SCH (10:19)
[2022-03-13] MEDS: CALCIUM CARBONATE 500 MG CHEWABLE PO SCH (10:19)
[2022-03-13] MEDS: CHOLECALCIFEROL 25 MCG (1000 IU) TABLET PO SCH (10:19)
[2022-03-13] MEDS: MULTIVITAMINS, THERA 1 EACH TAB PO SCH (10:19)
[2022-03-13] MEDS: CYANOCOBALAMIN 500 MCG TAB PO SCH (10:19)
[2022-03-13] MEDS: methylPREDNISolone SOD SUCCI 40 MG/ML 1 ML VIAL IV SCH ×2 (10:20→20:25)
[2022-03-13] MEDS: ARIPiprazole 10 MG TAB PO SCH (10:20)
[2022-03-13] MEDS: VORTIOXETINE HYDROBROMIDE 10 MG TABLET PO SCH (10:21)
[2022-03-13] MEDS: MAG HYDROX/AL HYDROX/SIMETH 30 ML, LIDOCAINE VISCOUS 2% 30 ML, diphenhydrAMINE ELIXIR 7... PO SCH ×12 (10:22→21:09)
[2022-03-13] MEDS: TRIAMCINOLONE ACET 0.1% ORAL PASTE 5 GM TUBE MUCOUS MEM SCH (10:23)
[2022-03-13 10:35] LABS: Anisocytosis (M) 2+; Basophils # (A) 0.01 X 10*3/uL (0.00-0.10); Basophils % (A) 0.2 %; Eosinophils # (A) 0.36 X 10*3/uL (0.04-0.35); Eosinophils % (A) 7.5 %; HCT 26.2 % (37.2-46.3); Immature Grans, Automated 1.9 %; Lymphocytes # (A) 0.85 X 10*3/uL (0.90-5.00); Lymphocytes % (A) 17.7 %; MCH 32.5 pg (27.0-32.0); MCHC 30.5 g/dL (32.0-37.0); MCV 106.5 fL (80.0-97.0); Mean Platelet Volume 11.2 fL (9.5-12.2); Monocytes # (A) 0.61 X 10*3/uL (0.20-1.00); Monocytes % (A) 12.7 %; NRBC Per 100 WBC 0.6 /100 WBCS (0.0-0.0); Neutrophils # (A) 2.89 X 10*3/uL (1.80-7.70); Platelet Count 48 X 10*3/uL (140-440); Polychromasia 2+; RBC 2.46 X 10*6/uL (4.10-5.20); Rouleaux PRESENT; WBC 4.81 X 10*3/uL (4.50-10.00)
[2022-03-13 14:09] LABS: % Iron Saturation 14.83 (12.00-45.00)
--- NOTE | 2022-03-13 15:41 | P.CONS ---
History of Present Illness - Reason for Consult Consult date: 03/13/22 seere anemia Requesting physician: Schuyler Pedersen - Chief Complaint oral irritation - History of Present Illness Ms. Sharma is a very pleasant lady we have been asked to see in regards to severe anemia. Pt denied any history of anemia, no bleeding other then her mouth. Her mouth irritation started about 1mo ago as a canke sore and only progressed and worsened. She cannot tolerate solid oral intake and has been drinking supplemental drinks. Denies fevers, sweats, she is a never smoker, never drinker. No recent N,V, chest pain, SOB, cough, hemoptysis, abd pain, a cute changes in bowel or bladder, hematochezia, melena, hematuria, unusual bruising, rashes, she noted feet swelling for the last 2 weeks. Denies Hx of rheumatoid arthritis or treatment of autoimmune disease. Review of Systems 10 point ROS is neg except as stated in HPI Past Medical History Past Medical History: Hyperlipidemia, Hypertension, Osteoarthritis (OA), Thyroid Disorder Additional Past Medical History / Comment(s): interstitial cystitis,"borderline diabetes"- diet controlled NOT ON ANY MEDS AND MK ACC WILL CHECK HER BS., constipation History of Any Multi-Drug Resistant Organisms: None Reported Year Discovered:: 07/28/20 MDRO Source:: Right Hip Past Surgical History: Heart Catheterization With Stent, Hysterectomy, Joint Replacement, Orthopedic Surgery Additional Past Surgical History / Comment(s): 10/19/14 Total L hip arthroplasty anterior approach. bladder suspension, cataracts, 05-17-15 TOTAL RT KNEE REPLACEMENT Past Anesthesia/Blood Transfusion Reactions: No Reported Reaction Date of Last Stent Placement:: 2010 Past Psychological History: Depression Smoking Status: Never smoker Past Alcohol Use History: None Reported Past Drug Use History: None Reported - Past Family History Mother Family Medical History: Cancer Additional Family Medical History / Comment(s): colon Father Family Medical History: Coronary Artery Disease (CAD), Musculoskeletal Disorder Additional Family Medical History / Comment(s): PARKINSONS AND HEART TROUBLE Medications and Allergies Home Medications Medication Instructions Recorded Confirmed Type Levothyroxine Sodium [Synthroid] 37.5 mcg PO DAILY 10/09/14 03/11/22 History Metoprolol Tartrate 25 mg PO BID 10/09/14 03/11/22 History Pentosan Polysulfate Sodium 100 mg PO Q48H 10/09/14 03/11/22 History [Elmiron] [place]-3 Fatty Acids/Fish Oil [Fish 1 cap PO DAILY 10/19/14 03/11/22 History Oil 1,000 mg Softgel] Cyanocobalamin [Vitamin B-12] 500 mcg PO DAILY 05/05/15 03/11/22 History Calcium Carbonate [Calcium] 600 mg PO DAILY 06/23/20 03/11/22 History Cholecalciferol [Vitamin D3 (25 50 mcg PO DAILY 06/23/20 03/11/22 History Mcg = 1000 Iu)] Pravastatin Sodium [Pravachol] 40 mg PO HS 07/27/20 03/11/22 History ARIPiprazole [Abilify] 10 mg PO DAILY 03/11/22 03/11/22 History Alpha Lipoic Acid 600 mg PO BID 03/11/22 03/11/22 History Aspirin EC [Ecotrin Low Dose] 81 mg PO DAILY 03/11/22 03/11/22 History LORazepam [Ativan] 1 mg PO BID 03/11/22 03/11/22 History Magic 5 ml PO TID 03/11/22 03/11/22 History Mouthwash(Lidocaine/Maalox/Benadryl) Melatonin 5 mg PO HS 03/11/22 03/11/22 History Multivitamins, Thera [Multivitamin 1 tab PO DAILY 03/11/22 03/11/22 History (formulary)] Omeprazole [PriLOSEC] 20 mg PO BID 03/11/22 03/11/22 History Triamcinolone 0.1% Paste [Oralone 1 applic MUCOUS MEM DAILY 03/11/22 03/11/22 History 0.1% Paste] Vortioxetine Hydrobromide 10 mg PO DAILY 03/11/22 03/13/22 History [Trintellix] amLODIPine [Norvasc] 5 mg PO DAILY 03/11/22 03/11/22 History traMADol HCL 50 mg PO HS PRN 03/11/22 03/11/22 History Allergies Allergy/AdvReac Type Severity Reaction Status Date / Time cephalexin [From Keflex] Allergy Rash/Hives Verified 03/11/22 18:35 cisapride monohydrate Allergy nasal Verified 03/11/22 18:35 [From Propulsid] congestion and cough Sulfa (Sulfonamide Allergy Unknown Verified 03/11/22 18:35 Antibiotics) amitriptyline AdvReac causes Verified 03/11/22 18:35 nervousness and sleepiness amylase [From Viokase] AdvReac jim Verified 03/11/22 18:35 bladder aspirin AdvReac jim Verified 03/11/22 18:35 bladder but able to tolerate low dose asa atenolol [From Tenoretic 50] AdvReac dry Verified 03/11/22 18:35 burning eyes bupropion HCl AdvReac jim Verified 03/11/22 18:35 [From Wellbutrin] bladder chlordiazepoxide AdvReac bladder Verified 03/11/22 18:35 [From Librax (with jim clidinium)] chlordiazepoxide HCl AdvReac bladder Verified 03/11/22 18:35 [From Librax (with jim methscopolamine)] chlorthalidone AdvReac dry Verified 03/11/22 18:35 [From Tenoretic 50] burning eyes clidinium bromide AdvReac bladder Verified 03/11/22 18:35 [From Librax (with jim clidinium)] cyclobenzaprine HCl AdvReac causes Verified 03/11/22 18:35 [From Flexeril] sleepiness and nervousness dextroamphetamine sulfate AdvReac jim Verified 03/11/22 18:35 [From Dexedrine] stomach and bladder dicyclomine HCl [From Bentyl] AdvReac dry Verified 03/11/22 18:35 mouth,constipation,jim bladder fluoxetine HCl [From Prozac] AdvReac stays awake Verified 03/11/22 18:35 gabapentin [From Neurontin] AdvReac jim Verified 03/11/22 18:35 bladder hydrocodone AdvReac jim Verified 03/11/22 18:35 bladder hyoscyamine sulfate AdvReac mades eyes Verified 03/11/22 18:35 [From Levsinex] and mouth dry lipase [From Viokase] AdvReac jim Verified 03/11/22 18:35 bladder lithium AdvReac jim Verified 03/11/22 18:35 bladder loratadine [From Claritin] AdvReac jim Verified 03/11/22 18:35 stomach and bladder methylphenidate HCl AdvReac joint pain Verified 03/11/22 18:35 [From Ritalin] methylprednisolone AdvReac jim Verified 03/11/22 18:35 bladder methylscopolamine nitrate AdvReac bladder Verified 03/11/22 18:35 [From Librax (with jim methscopolamine)] metoclopramide HCl AdvReac causes Verified 03/11/22 18:35 [From Reglan] sleepiness and nervousness nortriptyline HCl AdvReac severe Verified 03/11/22 18:35 [From Pamelor] sleepiness pemoline [From Cylert] AdvReac jim Verified 03/11/22 18:35 stomach and bladder prednisone AdvReac jim Verified 03/11/22 18:35 bladder protease [From Viokase] AdvReac jim Verified 03/11/22 18:35 bladder sucralfate AdvReac constipatio Verified 03/11/22 18:35 n tolmetin sodium AdvReac Nausea & Verified 03/11/22 18:35 [From Tolectin] Vomiting tramadol HCl [From Ultram] AdvReac jim Verified 03/11/22 18:35 bladder venlafaxine HCl AdvReac jim Verified 03/11/22 18:35 [From Effexor] bladder clescin AdvReac Nausea & Uncoded 03/11/22 18:35 Vomiting ruepar AdvReac jim Uncoded 03/11/22 18:35 bladder Physical Exam Vitals: Vital Signs Temp Pulse Resp BP Pulse Ox 03/13/22 11:28 99.0 F 77 16 135/72 97 03/13/22 08:00 77 16 03/13/22 05:00 98.2 F 75 16 144/73 95 03/12/22 20:31 98.3 F 86 16 131/69 97 Intake and Output 03/13/22 03/13/22 03/13/22 06:59 14:59 22:59 Other: Voiding Method Bedside Commode # Voids 3 # Bowel Movements 1 - Constitutional General appearance: average body habitus, cooperative, no acute distress - EENT oral mucosa red, irritation, scabs and bleeding from the lips, tenderness Eyes: anicteric sclerae, EOMI ENT: hearing grossly normal - Neck Neck: no lymphadenopathy - Respiratory Respiratory: bilateral: CTA - Cardiovascular Rhythm: regular Heart sounds: normal: S1, S2 Abnormal Heart Sounds: no systolic murmur, no diastolic murmur, no rub, no S3 Gallop, no S4 Gallop, no click, no other leg Peripheral Edema: bilateral: Trace - Gastrointestinal General gastrointestinal: no absent bowel sounds, no decreased bowel sounds, no distended, no hepatomegaly, no hyperactive bowel sounds, normal bowel sounds, no organomegaly, no rigid, no scaphoid, soft, no splenomegaly, no tenderness, no umbilical hernia, no ventral hernia - Integumentary Integumentary: pale - Neurologic Neurologic: CNII-XII intact - Musculoskeletal Musculoskeletal: generalized weakness, strength equal bilaterally - Psychiatric Psychiatric: A&O x's 3, appropriate affect, intact judgment & insight Results CBC & Chem 7: 03/13/22 05:45 03/13/22 05:45 Labs: Abnormal Lab Results - Last 24 Hours (Table) 03/12/22 03/13/22 03/13/22 Range/Units 05:10 05:45 05:45 RBC 2.46 L (4.10-5.20) X 10*6/uL Hgb 8.0 L (12.0-15.0) g/dL Hct 26.2 L (37.2-46.3) % MCV 106.5 H (80.0-97.0) fL MCH 32.5 H (27.0-32.0) pg MCHC 30.5 L (32.0-37.0) g/dL RDW 27.0 H (11.5-14.5) % Plt Count 48 L (140-440) X 10*3/uL Plt Count Comment A Absolute Nucleated RBC 0.03 H (0.00-0.00) X 10*3/uL Immature Gran # 0.09 H (0.00-0.04) X 10*3/uL Lymphocytes # 0.85 L (0.90-5.00) X 10*3/uL Eosinophils # 0.36 H (0.04-0.35) X 10*3/uL NRBC/100 WBC Diff 0.6 H (0.0-0.0) /100 WBCS Immature Plt Fraction 8.0 H (1.1-6.1) % Calcium 8.3 L (8.7-10.3) mg/dL Iron 49 L 38 L (50-170) ug/dL % Saturation 11.60 L (12.00-45.00) Ferritin 330.0 H (10.0-291.0) ng/mL Vitamin B12 961.0 H (200.0-944.0) pg/mL Microbiology - Last 24 Hours (Table) 03/11/22 16:17 Urine Culture - Preliminary Urine,Voided Group D Enterococcus Assessment and Plan (1) Stomatitis Current Visit: Yes Status: Acute Priority: High Code(s): K12.1 - OTHER FORMS OF STOMATITIS SNOMED Code(s): 08344833 (2) Macrocytic anemia Current Visit: Yes Status: Acute Priority: High Code(s): D53.9 - NU TRITIONAL ANEMIA, UNSPECIFIED SNOMED Code(s): 59956065 (3) Thrombocytopenia Current Visit: Yes Status: Acute Priority: High Code(s): D69.6 - THROMBOC YTOPENIA, UNSPECIFIED SNOMED Code(s): 621290507 Plan: Mild anemia noted in chart as far back as 2014, persistent and progressive. Macrocytosis is new onset. Pt is s/p 2 units PRBCs with appropriate increase in Hgb. CBC daily. Transfuse for Hgb<7 unless symptomatic. Anemia work up ordered. Low Plt, down to 48,000, never been this low before. Stable count today, labs daily. Thrombocytopenia work up ordered. Reviewed medication list. Multiple medications have risks of bleeding, possible alterations in blood counts. Asked RN to check start date of elmiron-low dose being used QOD but HIT, low plt and gum bleeding is noted in side effect profile. Occult negative. We will cont to follow up Dr klein: I have seen pt, performed H&P, developed impression and plan of care. Discussed with dictator. Agree with dictation, documented as a scribe. Noted to have bicytopenia with macrocytic anemia and thrombocytopenia. In add ition, she has multiple diffuse ulcers of the buccal mucosa bilaterally of unclear etiology. Anemia and thrombocytopenia workup have been initiated as above. In addition, we will also recommend viral cultures of buccal ulcers.
[2022-03-13 15:44] VITALS: BMI 25.7
[2022-03-13 17:18] LABS: Reticulocyte % 10.3 % (0.5-2.0)
[2022-03-13] MEDS: MELATONIN 5 MG TABLET PO SCH (20:25)
[2022-03-13] MEDS: LORazepam 1 MG TAB PO PRN (20:25)
[2022-03-13] MEDS: NON FORMULARY DRUG (Pentosan Polysulfate Sodium [Elmiron] 100 MG Capsule) PO SCH (20:26)
[2022-03-13] MEDS: PRAVASTATIN SODIUM 40 MG TAB PO SCH (21:09)
--- NOTE | 2022-03-13 22:46 | P.PN ---
Subjective Progress Note Date: 03/13/22 Her Hgb is stable at 8.0 and plt up slightly to 48k. She continues to complain of diffusely bleeding oral sores that have been painful for weeks. No fever, chills. Objective - Vital Signs Vital signs: Vital Signs Temp 98.2 F 03/13/22 19:53 Pulse 85 03/13/22 19:53 Resp 16 03/13/22 19:53 BP 131/67 03/13/22 19:53 Pulse Ox 95 03/13/22 19:53 FiO2 Intake & Output 03/13/22 03/13/22 03/14/22 06:59 18:59 06:59 Intake Total 60 600 Balance 60 600 Weight 70.307 kg Intake: IV 600 Sodium Chloride 0.9% 1, 600 000 ml @ 75 mls/hr IV . [id number] [facility] Rx#:[id number] Oral 60 Other: Voiding Method Bedside Commode Bedside Commode # Voids 3 # Bowel Movements 1 - Exam Gen: elderly female in NAD HEENT: Multiple ulcerations to buccal mucosa and lips, scant blood CV: RRR Skin: warm and dry - Labs CBC & Chem 7: 03/13/22 05:45 03/13/22 05:45 Labs: Abnormal Lab Results - Last 24 Hours (Table) 03/12/22 03/13/22 03/13/22 Range/Units 05:10 05:45 05:45 RBC 2.46 L (4.10-5.20) X 10*6/uL Hgb 8.0 L (12.0-15.0) g/dL Hct 26.2 L (37.2-46.3) % MCV 106.5 H (80.0-97.0) fL MCH 32.5 H (27.0-32.0) pg MCHC 30.5 L (32.0-37.0) g/dL RDW 27.0 H (11.5-14.5) % Plt Count 48 L (140-440) X 10*3/uL Plt Count Comment A Absolute Nucleated RBC 0.03 H (0.00-0.00) X 10*3/uL Immature Gran # 0.09 H (0.00-0.04) X 10*3/uL Lymphocytes # 0.85 L (0.90-5.00) X 10*3/uL Eosinophils # 0.36 H (0.04-0.35) X 10*3/uL NRBC/100 WBC Diff 0.6 H (0.0-0.0) /100 WBCS Immature Plt Fraction 8.0 H (1.1-6.1) % Retic Count (0.5-2.0) % Calcium 8.3 L (8.7-10.3) mg/dL Iron 49 L 38 L (50-170) ug/dL % Saturation 11.60 L (12.00-45.00) Ferritin 330.0 H (10.0-291.0) ng/mL Lactate Dehydrogenase (120-246) U/L Vitamin B12 961.0 H (200.0-944.0) pg/mL 03/13/22 03/13/22 Range/Units 15:31 15:31 RBC (4.10-5.20) X 10*6/uL Hgb (12.0-15.0) g/dL Hct (37.2-46.3) % MCV (80.0-97.0) fL MCH (27.0-32.0) pg MCHC (32.0-37.0) g/dL RDW (11.5-14.5) % Plt Count (140-440) X 10*3/uL Plt Count Comment Absolute Nucleated RBC (0.00-0.00) X 10*3/uL Immature Gran # (0.00-0.04) X 10*3/uL Lymphocytes # (0.90-5.00) X 10*3/uL Eosinophils # (0.04-0.35) X 10*3/uL NRBC/100 WBC Diff (0.0-0.0) /100 WBCS Immature Plt Fraction (1.1-6.1) % Retic Count 10.3 H (0.5-2.0) % Calcium (8.7-10.3) mg/dL Iron (50-170) ug/dL % Saturation (12.00-45.00) Ferritin (10.0-291.0) ng/mL Lactate Dehydrogenase 533 H (120-246) U/L Vitamin B12 (200.0-944.0) pg/mL Microbiology - Last 24 Hours (Table) 03/11/22 16:17 Urine Culture - Preliminary Urine,Voided Group D Enterococcus Assessment and Plan Plan: Continue with IV steroids, continue bicytopenia workup per Hematology. Hold pentosan
[2022-03-14 01:27] LABS: Haptoglobin 10.1 mg/dL (31.2-198.0); Protein, Total 5.7 g/dL (6.2-8.2)
[2022-03-14] MEDS: LEVOTHYROXINE 25 MCG TAB PO SCH (04:38)
[2022-03-14] MEDS: traMADol 50 MG TAB PO PRN ×3 (08:20→20:57)
[2022-03-14] MEDS: CYANOCOBALAMIN 500 MCG TAB PO SCH (08:20)
[2022-03-14] MEDS: amLODIPine 5 MG TAB PO SCH (08:20)
[2022-03-14] MEDS: CALCIUM CARBONATE 500 MG CHEWABLE PO SCH (08:21)
[2022-03-14] MEDS: methylPREDNISolone SOD SUCCI 40 MG/ML 1 ML VIAL IV SCH ×2 (08:21→20:57)
[2022-03-14] MEDS: METOPROLOL TARTRATE 25 MG TAB PO SCH ×2 (08:21→20:57)
[2022-03-14] MEDS: MULTIVITAMINS, THERA 1 EACH TAB PO SCH (08:21)
[2022-03-14] MEDS: PANTOPRAZOLE 40 MG TABLET PO SCH ×2 (08:21→20:57)
[2022-03-14] MEDS: CHOLECALCIFEROL 25 MCG (1000 IU) TABLET PO SCH (08:21)
[2022-03-14] MEDS: ARIPiprazole 10 MG TAB PO SCH (08:24)
[2022-03-14] MEDS: TRIAMCINOLONE ACET 0.1% ORAL PASTE 5 GM TUBE MUCOUS MEM SCH (08:24)
[2022-03-14] MEDS: MAG HYDROX/AL HYDROX/SIMETH 30 ML, LIDOCAINE VISCOUS 2% 30 ML, diphenhydrAMINE ELIXIR 7... PO SCH ×12 (08:24→20:59)
[2022-03-14] MEDS: VORTIOXETINE HYDROBROMIDE 10 MG TABLET PO SCH (08:25)
[2022-03-14] MEDS: LEVOFLOXACIN 500MG-D5W PMX 500 MG in DEXTROSE/WATER 1 100ML.BAG IVPB SCH (10:40)
[2022-03-14] MEDS: SODIUM CHLORIDE 0.9% 1,000 ML IV SCH (12:24)
[2022-03-14] MEDS: LORazepam 1 MG TAB PO PRN ×2 (13:08→22:33)
[2022-03-14 14:05] LABS: Heparin Induced Plt Abs 0.068 OD (<0.4)
[2022-03-14 16:08] LABS: Methylmalonic Acid 0.3 umol/L (<0.40)
--- NOTE | 2022-03-14 18:29 | P.GSCN ---
History of Present Illness Consult date: 03/14/22 Reason for Consult: oral, Painful lesions Requesting physician: Navjot Loja History of present illness: This patient is a 81-year-old white female who complains of several months of persistent oral pain and oral lesions. She was admitted because of her dysphasia. Laboratory evaluation demonstrates severe anemia with other metabolic issues. Hematology has been consult an. She has difficulty eating because of the severe pain and can only drink ensure shakes. She has lost weight because of her dysphasia. She's been placed on mouth rinses another supportive treatment with minimal improvement. Review of Systems - Constitutional Reports as per HPI - EENT Ears, nose, mouth and throat: Reports as per HPI - Cardiovascular Reports as per HPI - Respiratory Reports as per HPI - Gastrointestinal Reports as per HPI - Genitourinary Genitourinary: Reports as per HPI Menstruation: Reports as per HPI - Musculoskeletal Reports as per HPI - Integumentary Reports as per HPI - Neurological Reports as per HPI - Psychiatric Reports as per HPI - Endocrine Reports as per HPI - Hematologic/Lymphatic Reports as per HPI - Allergic/Immunologic Reports as per HPI Past Medical History Past Medical History: Hyperlipidemia, Hypertension, Osteoarthritis (OA), Thyroid Disorder Additional Past Medical History / Comment(s): interstitial cystitis,"borderline diabetes"- diet controlled NOT ON ANY MEDS AND MK [facility] WILL CHECK HER BS., constipation History of Any Multi-Drug Resistant Organisms: None Reported Year Discovered:: 07/28/20 MDRO Source:: Right Hip Past Surgical History: Heart Catheterization With Stent, Hysterectomy, Joint Replacement, Orthopedic Surgery Additional Past Surgical History / Comment(s): 10/19/14 Total L hip arthroplasty anterior approach. bladder suspension, cataracts, 05-17-15 TOTAL RT KNEE RE PLACEMENT Past Anesthesia/Blood Transfusion Reactions: No Reported Reaction Date of Last Stent Placement:: 2010 Past Psychological History: Depression Smoking Status: Never smoker Past Alcohol Use History: None Reported Past Drug Use History: None Reported - Past Family History Mother Family Medical History: Cancer Additional Family Medical History / Comment(s): colon Father Family Medical History: Coronary Artery Disease (CAD), Musculoskeletal Disorder Additional Family Medical History / Comment(s): PARKINSONS AND HEART TROUBLE Medications and Allergies Home Medications Medication Instructions Recorded Confirmed Type Levothyroxine Sodium [Synthroid] 37.5 mcg PO DAILY 10/09/14 03/11/22 History Metoprolol Tartrate 25 mg PO BID 10/09/14 03/11/22 History Pentosan Polysulfate Sodium 100 mg PO Q48H 10/09/14 03/11/22 History [Elmiron] [place]-3 Fatty Acids/Fish Oil [Fish 1 cap PO DAILY 10/19/14 03/11/22 History Oil 1,000 mg Softgel] Cyanocobalamin [Vitamin B-12] 500 mcg PO DAILY 05/05/15 03/11/22 History Calcium Carbonate [Calcium] 600 mg PO DAILY 06/23/20 03/11/22 History Cholecalciferol [Vitamin D3 (25 50 mcg PO DAILY 06/23/20 03/11/22 History Mcg = 1000 Iu)] Pravastatin Sodium [Pravachol] 40 mg PO HS 07/27/20 03/11/22 History ARIPiprazole [Abilify] 10 mg PO DAILY 03/11/22 03/11/22 History Alpha Lipoic Acid 600 mg PO BID 03/11/22 03/11/22 History Aspirin EC [Ecotrin Low Dose] 81 mg PO DAILY 03/11/22 03/11/22 History LORazepam [Ativan] 1 mg PO BID 03/11/22 03/11/22 History Magic 5 ml PO TID 03/11/22 03/11/22 History Mouthwash(Lidocaine/Maalox/Benadryl) Melatonin 5 mg PO HS 03/11/22 03/11/22 History Multivitamins, Thera [Multivitamin 1 tab PO DAILY 03/11/22 03/11/22 History (formulary)] Omeprazole [PriLOSEC] 20 mg PO BID 03/11/22 03/11/22 History Triamcinolone 0.1% Paste [Oralone 1 applic MUCOUS MEM DAILY 03/11/22 03/11/22 History 0.1% Paste] Vortioxetine Hydrobromide 10 mg PO DAILY 03/11/22 03/13/22 History [Trintellix] amLODIPine [Norvasc] 5 mg PO DAILY 03/11/22 03/11/22 History traMADol HCL 50 mg PO HS PRN 03/11/22 03/11/22 History Allergies Allergy/AdvReac Type Severity Reaction Status Date / Time cephalexin [From Keflex] Allergy Rash/Hives Verified 03/11/22 18:35 cisapride monohydrate Allergy nasal Verified 03/11/22 18:35 [From Propulsid] congestion and cough Sulfa (Sulfonamide Allergy Unknown Verified 03/11/22 18:35 Antibiotics) amitriptyline AdvReac causes Verified 03/11/22 18:35 nervousness and sleepiness amylase [From Viokase] AdvReac jim Verified 03/11/22 18:35 bladder aspirin AdvReac jim Verified 03/11/22 18:35 bladder but able to tolerate low dose asa atenolol [From Tenoretic 50] AdvReac dry Verified 03/11/22 18:35 burning eyes bupropion HCl AdvReac jim Verified 03/11/22 18:35 [From Wellbutrin] bladder chlordiazepoxide AdvReac bladder Verified 03/11/22 18:35 [From Librax (with jim clidinium)] chlordiazepoxide HCl AdvReac bladder Verified 03/11/22 18:35 [From Librax (with jim methscopolamine)] chlorthalidone AdvReac dry Verified 03/11/22 18:35 [From Tenoretic 50] burning eyes clidinium bromide AdvReac bladder Verified 03/11/22 18:35 [From Librax (with jim clidinium)] cyclobenzaprine HCl AdvReac causes Verified 03/11/22 18:35 [From Flexeril] sleepiness and nervousness dextroamphetamine sulfate AdvReac jim Verified 03/11/22 18:35 [From Dexedrine] stomach and bladder dicyclomine HCl [From Bentyl] AdvReac dry Verified 03/11/22 18:35 mouth,constipation,jim bladder fluoxetine HCl [From Prozac] AdvReac stays awake Verified 03/11/22 18:35 gabapentin [From Neurontin] AdvReac jim Verified 03/11/22 18:35 bladder hydrocodone AdvReac jim Verified 03/11/22 18:35 bladder hyoscyamine sulfate AdvReac mades eyes Verified 03/11/22 18:35 [From Levsinex] and mouth dry lipase [From Viokase] AdvReac jim Verified 03/11/22 18:35 bladder lithium AdvReac jim Verified 03/11/22 18:35 bladder loratadine [From Claritin] AdvReac jim Verified 03/11/22 18:35 stomach and bladder methylphenidate HCl AdvReac joint pain Verified 03/11/22 18:35 [From Ritalin] methylprednisolone AdvReac jim Verified 03/11/22 18:35 bladder methylscopolamine nitrate AdvReac bladder Verified 03/11/22 18:35 [From Librax (with jim methscopolamine)] metoclopramide HCl AdvReac causes Verified 03/11/22 18:35 [From Reglan] sleepiness and nervousness nortriptyline HCl AdvReac severe Verified 03/11/22 18:35 [From Pamelor] sleepiness pemoline [From Cylert] AdvReac jim Verified 03/11/22 18:35 stomach and bladder prednisone AdvReac jim Verified 03/11/22 18:35 bladder protease [From Viokase] AdvReac jim Verified 03/11/22 18:35 bladder sucralfate AdvReac constipatio Verified 03/11/22 18:35 n tolmetin sodium AdvReac Nausea & Verified 03/11/22 18:35 [From Tolectin] Vomiting tramadol HCl [From Ultram] AdvReac jim Verified 03/11/22 18:35 bladder venlafaxine HCl AdvReac jim Verified 03/11/22 18:35 [From Effexor] bladder clescin AdvReac Nausea & Uncoded 03/11/22 18:35 Vomiting ruepar AdvReac jim Uncoded 03/11/22 18:35 bladder Surgical - Exam Osteopathic Statement: *. No significant issues noted on an osteopathic stru ctural exam other than those noted in the History and Physical/Consult. Vital Signs Temp Pulse Resp BP Pulse Ox 97.9 F 82 18 121/51 100 03/11/22 13:05 03/11/22 13:05 03/11/22 13:05 03/11/22 13:05 03/11/22 13:05 - General well developed, moderate pain, cachectic - Eyes PERRL, normal ocular movement - ENT Oral lesions are noted along the submucosa, vestibule and gingiva normal pinna, normal nares, normal mucosa, no hearing loss, no congestion - Neck no masses, no bruits, trachea midline, no lymphadectomy, no venous distension - Respiratory normal expansion - Integumentary no rash, no growths - Neurologic normal coordination, normal sensation - Musculoskeletal normal gait, normal posture - Psychiatric oriented to time, oriented to person, oriented to place, speech is normal, memory intact Results - Labs 03/13/22 05:45 03/13/22 05:45 Abnormal Lab Results - Last 24 Hours (Table) 03/13/22 03/13/22 Range/Units 15:31 15:31 Haptoglobin 10.1 L (31.2-198.0) mg/dL Lactate Dehydrogenase 533 H (120-246) U/L Total Protein (PEP) 5.7 L (6.2-8.2) g/dL Microbiology - Last 24 Hours (Table) 03/11/22 16:17 Urine Culture - Final Urine,Voided Enterococcus faecalis 03/13/22 16:00 - Preliminary Mouth Assessment and Plan (1) Mucositis Current Visit: Yes Status: Acute Code(s): K12.30 - ORAL MUCOSITIS (ULCERATIVE), UNSPECIFIED SNOMED Code(s): 57382696 Plan: This patient is a grade 3 mucositis and dietary change to pured diet is recommended. Etiology for this patient's mucositis may be from a blood dyscrasia or immunocompromised issue. Hematology has been consult for workup for these issues has been ordered. Medications for localized care is recommended. A low-dose prednisone has been ordered utilizing a 10 mg daily which can be quite helpful for mucositis. I'm recommending that the patient follow up with me in the office after discharge. Awaiting hematology consultation. Time with Patient: Greater than 30
[2022-03-14] MEDS: MELATONIN 5 MG TABLET PO SCH (20:57)
[2022-03-14] MEDS: PRAVASTATIN SODIUM 40 MG TAB PO SCH (21:06)
--- NOTE | 2022-03-14 22:36 | P.PN ---
Subjective Progress Note Date: 03/14/22 Principal diagnosis: bicytopenia In f/u today pt still reporting very sore mouth, bleeding lip, no other bleeding, she is very concerned about holding her elmeron as it help wiht bladder pain for he. She states she adjusted the dose to every other day. She currently denies any dysuria, bladder pain. Objective - Vital Signs Vital signs: Vital Signs Temp 98.3 F 03/14/22 20:23 Pulse 73 03/14/22 20:23 Resp 16 03/14/22 20:23 BP 131/69 03/14/22 20:23 Pulse Ox 97 03/14/22 20:23 FiO2 Intake & Output 03/14/22 03/14/22 03/15/22 06:59 18:59 06:59 Intake Total 120 900 Balance 120 900 Intake: IV 900 Sodium Chloride 0.9% 1, 900 000 ml @ 75 mls/hr IV . [id number] [facility] Rx#:[id number] Oral 120 Other: Voiding Method Bedside Commode Bedside Commode # Voids 3 1 # Bowel Movements 1 - Constitutional General appearance: Present: cooperative, mild distress, obese - EENT EENT Comment(s): buccal ulcerations, lip scabbed and bleeding, sides and tip of tongue have painful nodules on them Eyes: Present: anicteric sclerae, EOMI ENT: Present: hearing grossly normal - Respiratory Respiratory: bilateral: CTA - Cardiovascular Rhythm: regular Heart sounds: normal: S1, S2 - Gastrointestinal General gastrointestinal: Present: normal bowel sounds, soft - Neurologic Neurologic: Present: CNII-XII intact - Musculoskeletal Musculoskeletal: Present: generalized weakness - Psychiatric Psychiatric: Present: A&O x's 3, appropriate affect, intact judgment & insight - Labs CBC & Chem 7: 03/13/22 05:45 03/13/22 05:45 Labs: Abnormal Lab Results - Last 24 Hours (Table) 03/13/22 03/13/22 Range/Units 15:31 15:31 Haptoglobin 10.1 L (31.2-198.0) mg/dL Lactate Dehydrogenase 533 H (120-246) U/L Total Protein (PEP) 5.7 L (6.2-8.2) g/dL Microbiology - Last 24 Hours (Table) 03/11/22 16:17 Urine Culture - Final Urine,Voided Enterococcus faecalis 03/13/22 16:00 - Preliminary Mouth Assessment and Plan (1) Stomatitis Current Visit: Yes Status: Acute Priority: High Code(s): K12.1 - OTHER FORMS OF STOMATITIS SNOMED Code(s): 40787086 (2) Macrocytic anemia Current Visit: Yes Status: Acute Priority: High Code(s): D53.9 - NUTRITIONAL ANEMIA, UNSPECIFIED SNOMED Code(s): 40400119 (3) Thrombocytopenia Current Visit: Yes Status: Acute Priority: High Code(s): D69.6 - THROMBOCYTOPENIA, UNSPECIFIED SNOMED Code(s): 550843712 Plan: Mild anemia noted in chart as far back as 2014, persistent and progressive. Macrocytosis is new onset. Pt is s/p 2 units PRBCs with appropriate increase in Hgb. Transfuse for Hgb<7 unless symptomatic. Reticulocyte % is elevated appropriately in relation to degree of anemia so, bone marrow is functioning. Rouleaux present. Haptoglobin low and LDH high with normal bilirubin-not suspecting hemolysis. Pathologist review no suspicious findings. Low Plt, down to 48,000, never been this low before. Thrombocytopenia work up ordered, pending. Reviewed medication list. Multiple medications have risks of bleeding, possible alterations in blood counts. Some meds have been held. Will see how pt does We will cont to follow up. Oral culture ordered ENT consulted Dr lindsayests: I have seen pt, performed H&P, developed impression and plan of care. Discussed with dictator. Agree with dictation, documented as a scribe.
[2022-03-15] MEDS: SODIUM CHLORIDE 0.9% 1,000 ML IV SCH ×2 (01:19→18:05)
[2022-03-15] MEDS: LEVOTHYROXINE 25 MCG TAB PO SCH (05:23)
[2022-03-15] MEDS: traMADol 50 MG TAB PO PRN (05:24)
[2022-03-15 06:45] LABS: Anisocytosis Moderate; Basophils % (A) 0 %; Eosinophils % (A) 0 %; HCT 29.2 % (34.0-46.0); Hypochromasia Marked; Lymphocytes # (A) 0.8 k/uL (1.0-4.8); Lymphocytes % (A) 12 %; MCH 34.5 pg (25.0-35.0); MCHC 31.2 g/dL (31.0-37.0); Macrocytosis Marked; Mean Platelet Volume 10.2; Monocytes # (A) 0.2 k/uL (0-1.0); Monocytes % (A) 4 %; Neutrophils % (A) 81 %; Poikilocytosis Slight; RBC 2.64 m/uL (3.80-5.40); RDW 22.9 % (11.5-15.5); WBC 6.1 k/uL (3.8-10.6)
[2022-03-15 06:56] LABS: HGB 9.1 gm/dL (11.4-16.0); MCV 110.6 fL (80.0-100.0)
[2022-03-15 06:57] LABS: Platelet Count 154 k/uL (150-450)
[2022-03-15 07:01] LABS: ALT 18 U/L (4-34); AST 30 U/L (14-36); African American GFR (CKD) >90 (>60 ml/min/1.73 sqM); Albumin 3.3 g/dL (3.5-5.0); Albumin/Globulin Ratio 1.5; Alkaline Phosphatase 63 U/L (38-126); Anion Gap 5 mmol/L; Blood Urea Nitrogen 18 mg/dL (7-17); Calcium 8.2 mg/dL (8.4-10.2); Carbon Dioxide 21 mmol/L (22-30); Chloride 110 mmol/L (98-107); Globulin 2.2 g/dL; Glucose 127 mg/dL (74-99); Non-African American GFR(CKD) 84 (>60 ml/min/1.73 sqM); Potassium 4.3 mmol/L (3.5-5.1); Sodium 136 mmol/L (137-145); Total Bilirubin 0.8 mg/dL (0.2-1.3); Total Protein 5.5 g/dL (6.3-8.2)
--- NOTE | 2022-03-15 08:32 | P.PN ---
Subjective Progress Note Date: 03/14/22 She continues to complain of diffusely bleeding oral sores that have been painful for weeks. No real change. No fever, chills. Objective - Vital Signs Vital signs: Vital Signs Temp 98.4 F 03/15/22 05:00 Pulse 73 03/15/22 05:00 Resp 16 03/15/22 05:00 BP 129/67 03/15/22 05:00 Pulse Ox 97 03/15/22 05:00 FiO2 Intake & Output 03/14/22 03/15/22 03/15/22 18:59 06:59 18:59 Intake Total 900 1300 Balance 900 1300 Intake: IV 900 Sodium Chloride 0.9% 1, 900 000 ml @ 75 mls/hr IV . [id number] [facility] Rx#:[id number] Intake, IV Titration 900 Amount Sodium Chloride 0.9% 1, 900 000 ml @ 75 mls/hr IV . [id number] [facility] Rx#:[id number] Oral 400 Other: Voiding Method Bedside Commode Bedside Commode # Voids 1 3 - Exam Gen: elderly female in NAD HEENT: Multiple ulcerations to buccal mucosa and lips, scant blood CV: RRR Skin: warm and dry - Labs CBC & Chem 7: 03/15/22 05:26 03/15/22 05:26 Labs: Abnormal Lab Results - Last 24 Hours (Table) 03/15/22 03/15/22 Range/Units 05:26 05:26 RBC 2.64 L (3.80-5.40) m/uL Hgb 9.1 L D (11.4-16.0) gm/dL Hct 29.2 L (34.0-46.0) % MCV 110.6 H D (80.0-100.0) fL RDW 22.9 H (11.5-15.5) % Lymphocytes # 0.8 L (1.0-4.8) k/uL Macrocytosis Marked A Sodium 136 L (137-145) mmol/L Chloride 110 H (98-107) mmol/L Carbon Dioxide 21 L (22-30) mmol/L BUN 18 H (7-17) mg/dL Glucose 127 H (74-99) mg/dL Calcium 8.2 L (8.4-10.2) mg/dL Total Protein 5.5 L (6.3-8.2) g/dL Albumin 3.3 L (3.5-5.0) g/dL Assessment and Plan Plan: Continue with IV steroids, continue bicytopenia workup per Hematology. Hold pentosan. Start vit A+D ointment
[2022-03-15 09:29] LABS: Free Kappa Lt Chain Qnt, Serum 1.56 mg/dL (0.33-1.94); Free Lambda Lt Chain Qnt, Seru 1.06 mg/dL (0.57-2.63)
[2022-03-15] MEDS: ARIPiprazole 10 MG TAB PO SCH (09:45)
[2022-03-15] MEDS: CALCIUM CARBONATE 500 MG CHEWABLE PO SCH (09:45)
[2022-03-15] MEDS: amLODIPine 5 MG TAB PO SCH (09:45)
[2022-03-15] MEDS: METOPROLOL TARTRATE 25 MG TAB PO SCH ×2 (09:46→21:00)
[2022-03-15] MEDS: PANTOPRAZOLE 40 MG TABLET PO SCH ×2 (09:46→21:00)
[2022-03-15] MEDS: MULTIVITAMINS, THERA 1 EACH TAB PO SCH (09:46)
[2022-03-15] MEDS: predniSONE 10 MG TAB PO SCH (09:46)
[2022-03-15] MEDS: CYANOCOBALAMIN 500 MCG TAB PO SCH (09:46)
[2022-03-15] MEDS: CHOLECALCIFEROL 25 MCG (1000 IU) TABLET PO SCH (09:49)
[2022-03-15] MEDS: VITS A & D-WHITE PET-LANOLIN 5 GM OINT.PACK TOPICAL SCH ×3 (09:50→21:08)
[2022-03-15] MEDS: VORTIOXETINE HYDROBROMIDE 10 MG TABLET PO SCH (09:51)
[2022-03-15] MEDS: MAG HYDROX/AL HYDROX/SIMETH 30 ML, LIDOCAINE VISCOUS 2% 30 ML, diphenhydrAMINE ELIXIR 7... PO SCH ×12 (09:51→21:01)
[2022-03-15] MEDS: LEVOFLOXACIN 500MG-D5W PMX 500 MG in DEXTROSE/WATER 1 100ML.BAG IVPB SCH (09:52)
[2022-03-15] MEDS: TRIAMCINOLONE ACET 0.1% ORAL PASTE 5 GM TUBE MUCOUS MEM SCH (09:56)
[2022-03-15] MEDS: LORazepam 1 MG TAB PO PRN ×2 (10:37→21:06)
[2022-03-15 15:03] LABS: Albumin 3.48 g/dL (3.80-4.90); Gamma Globulin 0.53 g/dL (0.70-1.50)
--- NOTE | 2022-03-15 16:32 | P.PN ---
Subjective Progress Note Date: 03/15/22 Principal diagnosis: bicytopenia In f/u today pt smiling and reporting some improvements! Mouth is sore but better, she is tolerating oral intake, lip is not bleeding as much, denies any dysuria, bladder pain. Objective - Vital Signs Vital signs: Vital Signs Temp 98.0 F 03/15/22 11:45 Pulse 70 03/15/22 11:45 Resp 16 03/15/22 11:45 BP 133/58 03/15/22 11:45 Pulse Ox 97 03/15/22 11:45 FiO2 Intake & Output 03/14/22 03/15/22 03/15/22 18:59 06:59 18:59 Intake Total 900 1300 Balance 900 1300 Intake: IV 900 Sodium Chloride 0.9% 1, 900 000 ml @ 75 mls/hr IV . [id number] [facility] Rx#:[id number] Intake, IV Titration 900 Amount Sodium Chloride 0.9% 1, 900 000 ml @ 75 mls/hr IV . [id number] [facility] Rx#:[id number] Oral 400 Other: Voiding Method Bedside Commode Bedside Commode Bedside Commode # Voids 1 3 - Constitutional General appearance: Present: cooperative, no acute distress - EENT EENT Comment(s): buccal ulcers less red, smaller, painful nodules on tongue are nearly resolved Eyes: Present: anicteric sclerae, EOMI ENT: Present: hearing grossly normal - Respiratory Details: resp even and unlabored - Musculoskeletal Musculoskeletal: Present: generalized weakness - Psychiatric Psychiatric: Present: A&O x's 3, appropriate affect - Labs CBC & Chem 7: 03/15/22 05:26 03/15/22 05:26 Labs: Abnormal Lab Results - Last 24 Hours (Table) 03/13/22 03/15/22 03/15/22 Range/Units 15:31 05:26 05:26 RBC 2.64 L (3.80-5.40) m/uL Hgb 9.1 L D (11.4-16.0) gm/dL Hct 29.2 L (34.0-46.0) % MCV 110.6 H D (80.0-100.0) fL RDW 22.9 H (11.5-15.5) % Lymphocytes # 0.8 L (1.0-4.8) k/uL Macrocytosis Marked A Sodium 136 L (137-145) mmol/L Chloride 110 H (98-107) mmol/L Carbon Dioxide 21 L (22-30) mmol/L BUN 18 H (7-17) mg/dL Glucose 127 H (74-99) mg/dL Calcium 8.2 L (8.4-10.2) mg/dL Total Protein 5.5 L (6.3-8.2) g/dL Albumin 3.3 L (3.5-5.0) g/dL Albumin (PEP) 3.48 L (3.80-4.90) g/dL Gdbdl-9-Xlkqjhcuk 0.42 H (0.10-0.40) g/dL Slmqz-2-Exwzgmqlt 0.52 L (0.60-1.00) g/dL Gamma Globulins 0.53 L (0.70-1.50) g/dL Microbiology - Last 24 Hours (Table) 03/13/22 16:00 - Final Mouth Assessment and Plan (1) Stomatitis Current Visit: Yes Status: Acute Priority: High Code(s): K12.1 - OTHER FORMS OF STOMATITIS SNOMED Code(s): 25348133 (2) Macrocytic anemia Current Visit: Yes Status: Acute Priority: High Code(s): D53.9 - N UTRITIONAL ANEMIA, UNSPECIFIED SNOMED Code(s): 38573019 (3) Thrombocytopenia Current Visit: Yes Status: Acute Priority: High Code(s): D69.6 - THROMBO CYTOPENIA, UNSPECIFIED SNOMED Code(s): 451783733 Plan: Mild anemia noted in chart as far back as 2014, persistent and progressive. Macrocytosis is new onset. Pt is s/p 2 units PRBCs with appropriate increase in Hgb. Transfuse for Hgb<7 unless symptomatic. Ferritin high, iron normal, low saturation, most consistent with inflammation, no significant benefit giving iron at this time. Reticulocyte % is elevated appropriately in relation to degree of anemia so, bone marrow is functioning. Rouleaux present-inflammation. Haptoglobin low and LDH high with normal bilirubin-not suspecting hemolysis. Pathologist review no suspicious findings. Hgb is improved 03/15/22 Plt count normal today!! HIT ab neg. No paraproteinemia Suspect multiple factors contributed to pt condition-medications, infection. Pt is VERY anxious about stopping elmiron. She could be rechallenged with it after her acute condition is improved (counts back to baseline, mucositis resolved, UTI cleared). It would be up to her PCP. She could be monitored closely and see how she does, she did tolerate for "many years" previously. Oral culture pending ENT has seen pt Dr lindsayests: I have seen pt, performed H&P, developed impression and plan of care. Discussed with dictator. Agree with dictation, documented as a scribe.
--- NOTE | 2022-03-15 18:07 | P.PN ---
Subjective Progress Note Date: 03/15/22 Maintained on IV fluids. Denies shakiness, weakness or chills. Hemoglobin increased to 9.1, platelets normalized at 154,MCV 110.6. Renal function stable. Reports increased diet consumption with minimal pain eating. Continues on steroids. A & D ointment to oral lesions initiated yesterday with significant improvement, nearly resolved. Afebrile, normal WBC. Urine culture reporting enterococcus faecalis. Objective - Vital Signs Vital signs: Vital Signs Temp 98.0 F 03/15/22 11:45 Pulse 70 03/15/22 11:45 Resp 16 03/15/22 11:45 BP 133/58 03/15/22 11:45 Pulse Ox 97 03/15/22 11:45 FiO2 Intake & Output 03/14/22 03/15/22 03/15/22 18:59 06:59 18:59 Intake Total 900 1300 Balance 900 1300 Intake: IV 900 Sodium Chloride 0.9% 1, 900 000 ml @ 75 mls/hr IV . [id number] [facility] Rx#:[id number] Intake, IV Titration 900 Amount Sodium Chloride 0.9% 1, 900 000 ml @ 75 mls/hr IV . [id number] [facility] Rx#:[id number] Oral 400 Other: Voiding Method Bedside Commode Bedside Commode Bedside Commode # Voids 1 3 2 - Exam - Exam Gen: elderly female in NAD HEENT: Multiple ulcerations to buccal mucosa and lips significantly improved,crusty CV: RRR Skin: warm and dry - Labs CBC & Chem 7: 03/15/22 05:26 03/15/22 05:26 Labs: Abnormal Lab Results - Last 24 Hours (Table) 03/13/22 03/15/22 03/15/22 Range/Units 15:31 05:26 05:26 RBC 2.64 L (3.80-5.40) m/uL Hgb 9.1 L D (11.4-16.0) gm/dL Hct 29.2 L (34.0-46.0) % MCV 110.6 H D (80.0-100.0) fL RDW 22.9 H (11.5-15.5) % Lymphocytes # 0.8 L (1.0-4.8) k/uL Macrocytosis Marked A Sodium 136 L (137-145) mmol/L Chloride 110 H (98-107) mmol/L Carbon Dioxide 21 L (22-30) mmol/L BUN 18 H (7-17) mg/dL Glucose 127 H (74-99) mg/dL Calcium 8.2 L (8.4-10.2) mg/dL Total Protein 5.5 L (6.3-8.2) g/dL Albumin 3.3 L (3.5-5.0) g/dL Albumin (PEP) 3.48 L (3.80-4.90) g/dL Alojm-3-Irodigwlq 0.42 H (0.10-0.40) g/dL Vemar-2-Fileeebcj 0.52 L (0.60-1.00) g/dL Gamma Globulins 0.53 L (0.70-1.50) g/dL Microbiology - Last 24 Hours (Table) 03/13/22 16:00 - Final Mouth Assessment and Plan Assessment: Severe anemia, etiology unclear, status post 2 unit packed RBCs, hematology following Mucositis with ulcers reported present 1 month post Covid. Thrombocytopenia Acute UTI with enterococcus faecalis Hypertension Hyperlipidemia Hypothyroidism Plan: Continue on current medication regime ,monitoring and symptomatic treatment. Maintain IV fluids, steroids. Oral culture pending. Evaluated by ENT with recommendations noted and appreciated. Continues holding pentason. Discharge planning in progress for tomorrow pending final DC recommendations and clearance per hematology. The impression and plan of care has been dictated as directed. : I performed a history and examination of this patient, discussed the same with the dictator. I agree with the dictator's note ,documented as a scribe. Any additional findings or plans will be noted.
[2022-03-15] MEDS: MELATONIN 5 MG TABLET PO SCH (21:00)
[2022-03-15] MEDS: PRAVASTATIN SODIUM 40 MG TAB PO SCH (21:00)
[2022-03-16] MEDS: LEVOTHYROXINE 25 MCG TAB PO SCH (06:11)
[2022-03-16] MEDS: SODIUM CHLORIDE 0.9% 1,000 ML IV SCH (06:12)
[2022-03-16] MEDS: METOPROLOL TARTRATE 25 MG TAB PO SCH (08:42)
[2022-03-16] MEDS: PANTOPRAZOLE 40 MG TABLET PO SCH (08:42)
[2022-03-16] MEDS: CHOLECALCIFEROL 25 MCG (1000 IU) TABLET PO SCH (08:42)
[2022-03-16] MEDS: amLODIPine 5 MG TAB PO SCH (08:43)
[2022-03-16] MEDS: LEVOFLOXACIN 500MG-D5W PMX 500 MG in DEXTROSE/WATER 1 100ML.BAG IVPB SCH (08:43)
[2022-03-16] MEDS: CYANOCOBALAMIN 500 MCG TAB PO SCH (08:43)
[2022-03-16] MEDS: MULTIVITAMINS, THERA 1 EACH TAB PO SCH (08:43)
[2022-03-16] MEDS: CALCIUM CARBONATE 500 MG CHEWABLE PO SCH (08:43)
[2022-03-16] MEDS: predniSONE 10 MG TAB PO SCH (08:43)
[2022-03-16] MEDS: ARIPiprazole 10 MG TAB PO SCH (08:44)
[2022-03-16] MEDS: VORTIOXETINE HYDROBROMIDE 10 MG TABLET PO SCH (08:44)
[2022-03-16] MEDS: TRIAMCINOLONE ACET 0.1% ORAL PASTE 5 GM TUBE MUCOUS MEM SCH (08:52)
[2022-03-16] MEDS: MAG HYDROX/AL HYDROX/SIMETH 30 ML, LIDOCAINE VISCOUS 2% 30 ML, diphenhydrAMINE ELIXIR 7... PO SCH ×4 (08:53)
[2022-03-16] MEDS: VITS A & D-WHITE PET-LANOLIN 5 GM OINT.PACK TOPICAL SCH (11:21)
[2022-03-16 11:36] LABS: Anisocytosis Moderate; HCT 34.2 % (34.0-46.0); HGB 11.1 gm/dL (11.4-16.0); Hypochromasia Marked; MCH 35.5 pg (25.0-35.0); MCHC 32.4 g/dL (31.0-37.0); MCV 109.3 fL (80.0-100.0); Macrocytosis Marked; Mean Platelet Volume 9.8; Platelet Count 251 k/uL (150-450); Poikilocytosis Slight; RBC 3.13 m/uL (3.80-5.40); WBC 8.8 k/uL (3.8-10.6)
[2022-03-16 12:58] VITALS: BP 130/62; PULSE 74; TEMP 98
[2022-03-16 13:03] LABS: Eosinophils # (M) 0.18 k/uL (0-0.7); Lymphocytes # (M) 2.55 k/uL (1.0-4.8); Monocytes # (M) 0.97 k/uL (0-1.0); Neutrophils % (M) 58 %; Nucleated Red Blood Cells 0 /100 WBC (0-0); Total Cells Counted 100
[2022-03-16 13:04] LABS: Polychromasia Present
--- NOTE | 2022-03-16 13:31 | P.DS ---
Providers Date of admission: 03/11/22 17:03 Expected date of discharge: 03/16/22 Attending physician: Navjot Loja MD Consults: 03/12/22 23:19 Consult Physician Routine Consulting Provider: Edwin Campbell Consult Reason/Comments: Severe stomatitis Do you want consulting provider notified?: Yes, Notify in am 03/12/22 23:21 Consult Physician Routine Consulting Provider: Sergio Muniz Consult Reason/Comments: Severe anemia Do you want consulting provider notified?: Yes, Notify in am Primary care physician: Navjot Loja MD Hospital Course: Severe macrocytic anemia, etiology unclear, status post 2 unit packed RBCs, significantly improved, hematology workup completed-suspect medication and infection-induced. Mucositis with ulcers reported present 1 month post Covid, nearly resolved. Thrombocytopenia, resolved Acute UTI with enterococcus faecalis Hypertension Hyperlipidemia Hypothyroidism Hospital course: This is a pleasant 81-year-old female admitted with severe anemia, mucositis with ulcers 1 month and acute UTI with enterococcus faecalis . Evaluated by hematology, ENT .hematology workup completed -please refer to hematology PN for specifics. Pentason held.Maintained on IV fluids, steroids and antibiotics, with A and D ointment to oral lesions-nearly resolved . Good diet consumption with minimal pain. Denies shakiness, weakness or chills. Denies dysuria or frequency.Hemoglobin increased to 11.1, platelets 251, MCV 109.3 Renal function stable. Afebrile. Significant clinical improvement. Patient will be discharged home today in a stable condition with guarded prognosis pending final DC recommendations and clearance per hematology. Pentason will be resumed at discharge with close monitoring outpatient/weekly levels with PCP. The impression and plan of care has been dictated as directed. : I performed a history and examination of this patient, discussed the same with the dictator. I agree with the dictator's note ,documented as a scribe. Any additional findings or plans will be noted. Patient Condition at Discharge: Stable Plan - Discharge Summary New Discharge Prescriptions: New Nystatin 100,000 Unit/ml Susp [Mycostatin Oral Susp] 3,000,000 unit PO TID ml Mag Hydrox/Al Hydrox/Simeth [Maalox] 30 ml PO TID ml Lidocaine Viscous 2% [Xylocaine Viscous] 30 ml PO TID ml Levofloxacin [Levaquin] 500 mg PO DAILY 3 Days #3 tab predniSONE 10 mg PO DAILY #3 tab Continue Levothyroxine Sodium [Synthroid] 37.5 mcg PO DAILY Metoprolol Tartrate 25 mg PO BID Pentosan Polysulfate Sodium [Elmiron] 100 mg PO Q48H [place]-3 Fatty Acids/Fish Oil [Fish Oil 1,000 mg Softgel] 1 cap PO DAILY Cyanocobalamin [Vitamin B-12] 500 mcg PO DAILY Cholecalciferol [Vitamin D3 (25 Mcg = 1000 Iu)] 50 mcg PO DAILY Calcium Carbonate [Calcium] 600 mg PO DAILY Pravastatin Sodium [Pravachol] 40 mg PO HS LORazepam [Ativan] 1 mg PO BID Triamcinolone 0.1% Paste [Oralone 0.1% Paste] 1 applic MUCOUS MEM DAILY Alpha Lipoic Acid 600 mg PO BID Melatonin 5 mg PO HS amLODIPine [Norvasc] 5 mg PO DAILY Omeprazole [PriLOSEC] 20 mg PO BID Multivitamins, Thera [Multivitamin (formulary)] 1 tab PO DAILY ARIPiprazole [Abilify] 10 mg PO DAILY traMADol HCL 50 mg PO HS PRN PRN Reason: Pain Magic Mouthwash(Lidocaine/Maalox/Benadryl) 5 ml PO TID Vortioxetine Hydrobromide [Trintellix] 10 mg PO DAILY Discontinued Aspirin EC [Ecotrin Low Dose] 81 mg PO DAILY Discharge Medication List Levothyroxine Sodium [Synthroid] 37.5 mcg PO DAILY 10/09/14 [History] Metoprolol Tartrate 25 mg PO BID 10/09/14 [History] Pentosan Polysulfate Sodium [Elmiron] 100 mg PO Q48H 10/09/14 [History] [place]-3 Fatty Acids/Fish Oil [Fish Oil 1,000 mg Softgel] 1 cap PO DAILY 10/19/14 [History] Cyanocobalamin [Vitamin B-12] 500 mcg PO DAILY 05/05/15 [History] Calcium Carbonate [Calcium] 600 mg PO DAILY 06/23/20 [History] Cholecalciferol [Vitamin D3 (25 Mcg = 1000 Iu)] 50 mcg PO DAILY 06/23/20 [History] Pravastatin Sodium [Pravachol] 40 mg PO HS 07/27/20 [History] ARIPiprazole [Abilify] 10 mg PO DAILY 03/11/22 [History] Alpha Lipoic Acid 600 mg PO BID 03/11/22 [History] LORazepam [Ativan] 1 mg PO BID 03/11/22 [History] Magic Mouthwash(Lidocaine/Maalox/Benadryl) 5 ml PO TID 03/11/22 [History] Melatonin 5 mg PO HS 03/11/22 [History] Multivitamins, Thera [Multivitamin (formulary)] 1 tab PO DAILY 03/11/22 [History] Omeprazole [PriLOSEC] 20 mg PO BID 03/11/22 [History] Triamcinolone 0.1% Paste [Oralone 0.1% Paste] 1 applic MUCOUS MEM DAILY 03/11/22 [History] Vortioxetine Hydrobromide [Trintellix] 10 mg PO DAILY 03/11/22 [History] amLODIPine [Norvasc] 5 mg PO DAILY 03/11/22 [History] traMADol HCL 50 mg PO HS PRN 03/11/22 [History] Levofloxacin [Levaquin] 500 mg PO DAILY 3 Days #3 tab 03/16/22 [Rx] Lidocaine Viscous 2% [Xylocaine Viscous] 30 ml PO TID ml 03/16/22 [Rx] Mag Hydrox/Al Hydrox/Simeth [Maalox] 30 ml PO TID ml 03/16/22 [Rx] Nystatin 100,000 Unit/ml Susp [Mycostatin Oral Susp] 3,000,000 unit PO TID ml 03/16/22 [Rx] predniSONE 10 mg PO DAILY #3 tab 03/16/22 [Rx] Follow up Appointment(s)/Referral(s): Navjot Loja MD [Primary Care Provider] - 03/21/22 2:45 pm Yong Treadwell DO [Doctor of Osteopathic Medicine] - 03/24/22 10:00 am Yevgeniy Lopez [NON-STAFF] - 1 Week Activity/Diet/Wound Care/Special Instructions: Close outpatient monitoring with weekly levels of Pentosan. Discharge/Stand Alone Forms: Who Do I Call?, Community Resources, Help In The Home, Personal Wared[employer]er
--- NOTE | 2022-03-16 16:41 | P.PN ---
Subjective Progress Note Date: 03/16/22 Principal diagnosis: bicytopenia In f/u today pt cont to do well, mouth irritation persists and is slow to improve but she can tolerate oral intake. Denies any dysuria, bladder pain. Objective - Vital Signs Vital signs: Vital Signs Temp 98.0 F 03/16/22 11:43 Pulse 74 03/16/22 11:43 Resp 16 03/16/22 11:43 BP 130/62 03/16/22 11:43 Pulse Ox 97 03/16/22 11:43 FiO2 Intake & Output 03/15/22 03/16/22 03/16/22 18:59 06:59 18:59 Intake Total 360 Balance 360 Intake: Oral 360 Other: Voiding Method Bedside Commode Bedside Commode Bedside Commode # Voids 3 5 # Bowel Movements 5 2 - Constitutional General appearance: Present: no acute distress, obese - EENT EENT Comment(s): Oral mucosal redness, buccal ulcerations healing but persist, lower lip is healing as well. Eyes: Present: anicteric sclerae, EOMI ENT: Present: hearing grossly normal - Respiratory Details: resp even and unlabored - Neurologic Neurologic: Present: CNII-XII intact - Musculoskeletal Musculoskeletal: Present: generalized weakness - Psychiatric Psychiatric: Present: A&O x's 3, appropriate affect, intact judgment & insight - Labs CBC & Chem 7: 03/16/22 10:14 03/15/22 05:26 Labs: Abnormal Lab Results - Last 24 Hours (Table) 03/16/22 Range/Units 10:14 RBC 3.13 L (3.80-5.40) m/uL Hgb 11.1 L (11.4-16.0) gm/dL MCV 109.3 H (80.0-100.0) fL MCH 35.5 H (25.0-35.0) pg RDW 22.0 H (11.5-15.5) % Macrocytosis Marked A Assessment and Plan (1) Stomatitis Status: Acute Priority: High Code(s): K12.1 - OTHER FORMS OF STOMATITIS SNOMED Code(s): 18177710 (2) Macrocytic anemia Status: Acute Priority: High Code(s): D53.9 - NUTRITIONAL ANEMIA, UNSPECIFIED SNOMED Code(s): 75580034 (3) Thrombocytopenia Status: Acute Priority: High Code(s): D69.6 - THROMBOCYTOPENIA, UNSPECIFIED SNOMED Code(s): 295123487 Plan: Mild anemia noted in chart as far back as 2014, persistent and progressive. Significant improvement this admit. ? if medication related-exacerbated because of acute illness. PCP following closely. Iron studies most consistent with inflammation, no significant benefit giving iron. Plt count normal. HIT ab neg. No paraproteinemia Oral culture neg ENT has seen pt
[2022-03-17] MEDS ORDERED: LEVOFLOXACIN 500 MG TAB PO SCH (09:00)
--- NOTE | 2022-03-18 14:38 | CDI ---
Documentation Clarification Form Date: 03/18/2022 02:26:24 PM From: Melany Murray Phone: Admit Date: 03/11/2022 05:03:00 PM Patient Name: Deepika Sharma Visit Number: [id number] Discharge Date: 03/16/2022 02:51:00 PM ATTENTION: The Clinical Documentation Specialists (CDI) and [facility] Coding Staff appreciate your assistance in clarifying documentation. Please respond to the clarification below the line at the bottom and electronically sign. The CDI & [facility] Coding staff will review the response and follow-up if needed. Please note: Queries are made part of the Legal Health Record. If you have any questions, please contact the author of this message via ITS. Dr. Navjot Loja There is documentation of Mucositiswithulcersreported present 1 month postCOVID per DC Summary. Additional clarification is requested. History/risk factors: 81yo F, stomatitis, Macrocytic anemia, Thrombocytopenia, Macrocytosis sp 2 unit PRBCs, severe aphthous ulcers, Hypothyroidism, HLD, HTN, UTI w/Enterococcus faecalis Clinical Indicators: for the last 8 weeks she has been dealing withpainfululcersto the inside of her lips, under the tongue, and now at the back of her throat. Patient states that she has been eating and drinking little secondary to thepain. Her ENT specialist has been treating her with steroids, antibiotics, and Magic mouthwash, however patient states that the source only been getting worse. Treatment: Evaluated by hematology, ENT .hematology workup completed -please refer to hematology PN for specifics. Pentason held. Maintained on IV fluids, steroids and antibiotics, with A and D ointment to orallesions-nearlyresolved Please clarify if the Mucositiswithulcersare due to late effect of COVID? [ ] Mucositiswithulcersis due to late effect of COVID [ ] Mucositiswithulcersis not due to late effect of COVID [ ] Other, please specify [ ] unable to determine (Last Form Revision: February 2022) Mucositiswithulcersis due to late effect of COVID MTDD
--- NOTE | 2022-03-23 16:24 | CDI ---
Documentation Clarification Form Date: 03/23/2022 04:05:28 PM From: Melany Murray Phone: Admit Date: 03/11/2022 05:03:00 PM Patient Name: Deepika Sharma Visit Number: [id number] Discharge Date: 03/16/2022 02:51:00 PM ATTENTION: The Clinical Documentation Specialists (CDI) and [facility] Coding Staff appreciate your assistance in clarifying documentation. Please respond to the clarification below the line at the bottom and electronically sign. The CDI & [facility] Coding staff will review the response and follow-up if needed. Please note: Queries are made part of the Legal Health Record. If you have any questions, please contact the author of this message via ITS. Dr. 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 Based on this information and the findings below, is there an additional diagnosis that is clinically appropriate for this patient? History/Risk Factors: 81yo F,stomatitis,Macrocytic anemia,Thrombocytopenia, Macrocytosissp2 unit PRBCs, severeaphthous ulcers,Hypothyroidism,HLD,HTN, UTIw/Enterococcus faecalishe Clinical Indicators: She has difficulty eating because of the severe pain and can only drink ensure shakes Current BMI: 25 Loss of muscle mass: generalized weakness Treatment: This patient is a grade 3mucositisand dietary change to pured diet is recommended. Is there an additional diagnosis that is clinically appropriate for this patient? [ ] Underweight [ ] Mild Protein-Calorie Malnutrition [ ] Moderate Protein-Calorie Malnutrition [ ] Severe Protein-Calorie Malnutrition [ ] Other condition, please specify [ ] Unable to Determine (Template Last Revised: October 2020) Moderate Protein-Calorie Malnutrition MTDD
== END 2022-03-16 14:51 | disposition home health service (06) | DRG 158 ==
LOC: EC 13:03 → 5NMEDONC 17:03
PROVIDERS: ADMIT Family Medicine; ATTEND Family Medicine
PROC: 30233N1 Transfusion of Nonautologous Red Blood Cells into Peripheral Vein, Percutaneous Approach (ICD-10-PCS; principal; 2022-03-11)
DX: K12.30 Oral mucositis (ulcerative), unspecified (principal); E44.0 Moderate protein-calorie malnutrition; N39.0 Urinary tract infection, site not specified; D69.6 Thrombocytopenia, unspecified; D53.9 Nutritional anemia, unspecified; I10 Essential (primary) hypertension; F32.A Depression, unspecified; E66.9 Obesity, unspecified; E03.9 Hypothyroidism, unspecified; S01.551A Open bite of lip, initial encounter; B95.2 Enterococcus as the cause of diseases classified elsewhere; D75.89 Other specified diseases of blood and blood-forming organs; K12.1 Other forms of stomatitis; T50.905A Adverse effect of unspecified drugs, medicaments and biological substances, initial encounter; M19.90 Unspecified osteoarthritis, unspecified site; R73.03 Prediabetes; K12.0 Recurrent oral aphthae; R47.02 Dysphasia; E78.5 Hyperlipidemia, unspecified; R63.30 Feeding difficulties, unspecified; K06.8 Other specified disorders of gingiva and edentulous alveolar ridge; R58 Hemorrhage, not elsewhere classified; U09.9 Post COVID-19 condition, unspecified; Z96.642 Presence of left artificial hip joint; Z96.651 Presence of right artificial knee joint; Z79.890 Hormone replacement therapy; Z79.82 Long term (current) use of aspirin; Z79.01 Long term (current) use of anticoagulants; Z88.1 Allergy status to other antibiotic agents; Z79.899 Other long term (current) drug therapy; Z98.41 Cataract extraction status, right eye; Z98.42 Cataract extraction status, left eye; Z88.8 Allergy status to other drugs, medicaments and biological substances; Z88.2 Allergy status to sulfonamides; Z88.6 Allergy status to analgesic agent; Z88.5 Allergy status to narcotic agent; Z86.19 Personal history of other infectious and parasitic diseases; Z95.5 Presence of coronary angioplasty implant and graft; Z90.710 Acquired absence of both cervix and uterus; Z80.0 Family history of malignant neoplasm of digestive organs; Z82.0 Family history of epilepsy and other diseases of the nervous system; Z82.49 Family history of ischemic heart disease and other diseases of the circulatory system; Z68.25 Body mass index [BMI] 25.0-25.9, adult
CPT/HCPCS: 36415; 80048; 80053; 81001; 82272; 82607; 82728; 82746; 82747; 83010; 83540; 83550; 83605; 83615; 83735; 83883; 83921; 84100; 84165; 85025; 85045; 85610; 86022; 86334; 86850; 86900; 86901; 86920; 87070; 87077; 87086; 87186; 87205; 93005; 96361; 96374; 96375; 99285

== ENCOUNTER 2022-04-21 14:23 | Inpatient (IN) | payer MEDICARE, BC ==
[2022-04-21] MEDS ORDERED: IBUPROFEN 600 MG TAB PO STA (14:34)
[2022-04-21] MEDS ORDERED: ACETAMINOPHEN TAB 500 MG TAB PO STA (14:34)
--- NOTE | 2022-04-21 14:43 | ED ---
General Adult HPI - General Source: patient, EMS, RN notes reviewed, old records reviewed Mode of arrival: EMS Limitations: altered mental status, physical limitation <Oniel Singleton - Last Filed: 04/21/22 14:35> <Peri Jimenez - Last Filed: 04/21/22 17:50> - General Chief complaint: Weakness Stated complaint: Weakness Time Seen by Provider: 04/21/22 14:30 - History of Present Illness Initial comments: This is an 82-year-old female who presents to the emergency department with a past history of anemia. Patient was brought in by EMS because family stated that the patient was much weaker today than normal and she lives on her own. No further history was available no duration of the weakness was indicated and no mention of any fever however the patient had 103 fever orally in the emergency department. Patient herself did not complain of any pain she denied chest pain tonight difficulty breathing or shortness of breath she denied a cough. Patient denied abdominal pain patient states she wasn't having any vomiting or diarrhea. However she did seem somewhat altered and when I asked her why she was in the emergency department she did not know. (Oniel Singleton) - Related Data Home Medications Medication Instructions Recorded Confirmed Levothyroxine Sodium [Synthroid] 37.5 mcg PO DAILY 10/09/14 04/21/22 Metoprolol Tartrate 25 mg PO BID 10/09/14 04/21/22 Pentosan Polysulfate Sodium 100 mg PO Q48H 10/09/14 04/21/22 [Elmiron] [place]-3 Fatty Acids/Fish Oil [Fish 1 cap PO DAILY 10/19/14 04/21/22 Oil 1,000 mg Softgel] Cyanocobalamin [Vitamin B-12] 500 mcg PO DAILY 05/05/15 04/21/22 Calcium Carbonate [Calcium] 600 mg PO DAILY 06/23/20 04/21/22 Cholecalciferol [Vitamin D3 (25 50 mcg PO DAILY 06/23/20 04/21/22 Mcg = 1000 Iu)] Pravastatin Sodium [Pravachol] 40 mg PO HS 07/27/20 04/21/22 ARIPiprazole [Abilify] 10 mg PO DAILY 03/11/22 04/21/22 Alpha Lipoic Acid 600 mg PO BID 03/11/22 04/21/22 LORazepam [Ativan] 1 mg PO BID 03/11/22 04/21/22 Melatonin 5 mg PO HS 03/11/22 04/21/22 Multivitamins, Thera [Multivitamin 1 tab PO DAILY 03/11/22 04/21/22 (formulary)] Omeprazole [PriLOSEC] 20 mg PO BID 03/11/22 04/21/22 Triamcinolone 0.1% Paste [Oralone 1 applic MUCOUS MEM DAILY 03/11/22 04/21/22 0.1% Paste] Vortioxetine Hydrobromide 10 mg PO DAILY 03/11/22 04/21/22 [Trintellix] amLODIPine [Norvasc] 5 mg PO DAILY 03/11/22 04/21/22 traMADol HCL 50 mg PO HS PRN 03/11/22 04/21/22 Furosemide [Lasix] 20 mg PO DAILY 04/21/22 04/21/22 hydrOXYzine pamoate [hydrOXYzine 25 mg PO BID PRN 04/21/22 04/21/22 PAMOATE] Allergies Allergy/AdvReac Type Severity Reaction Status Date / Time cephalexin [From Keflex] Allergy Rash/Hives Verified 04/21/22 17:17 cisapride monohydrate Allergy nasal Verified 04/21/22 17:17 [From Propulsid] congestion and cough Sulfa (Sulfonamide Allergy Unknown Verified 04/21/22 17:17 Antibiotics) amitriptyline AdvReac causes Verified 04/21/22 17:17 nervousness and sleepiness amylase [From Viokase] AdvReac jim Verified 04/21/22 17:17 bladder aspirin AdvReac jim Verified 04/21/22 17:17 bladder but able to tolerate low dose asa atenolol [From Tenoretic 50] AdvReac dry Verified 04/21/22 17:17 burning eyes bupropion HCl AdvReac jim Verified 04/21/22 17:17 [From Wellbutrin] bladder chlordiazepoxide AdvReac bladder Verified 04/21/22 17:17 [From Librax (with jim clidinium)] chlordiazepoxide HCl AdvReac bladder Verified 04/21/22 17:17 [From Librax (with jim methscopolamine)] chlorthalidone AdvReac dry Verified 04/21/22 17:17 [From Tenoretic 50] burning eyes clidinium bromide AdvReac bladder Verified 04/21/22 17:17 [From Librax (with jim clidinium)] cyclobenzaprine HCl AdvReac causes Verified 04/21/22 17:17 [From Flexeril] sleepiness and nervousness dextroamphetamine sulfate AdvReac jim Verified 04/21/22 17:17 [From Dexedrine] stomach and bladder dicyclomine HCl [From Bentyl] AdvReac dry Verified 04/21/22 17:17 mouth,constipation,jim bladder fluoxetine HCl [From Prozac] AdvReac stays awake Verified 04/21/22 17:17 gabapentin [From Neurontin] AdvReac jim Verified 04/21/22 17:17 bladder hydrocodone AdvReac jim Verified 04/21/22 17:17 bladder hyoscyamine sulfate AdvReac mades eyes Verified 04/21/22 17:17 [From Levsinex] and mouth dry lipase [From Viokase] AdvReac jim Verified 04/21/22 17:17 bladder lithium AdvReac jim Verified 04/21/22 17:17 bladder loratadine [From Claritin] AdvReac jim Verified 04/21/22 17:17 stomach and bladder methylphenidate HCl AdvReac joint pain Verified 04/21/22 17:17 [From Ritalin] methylprednisolone AdvReac jim Verified 04/21/22 17:17 bladder methylscopolamine nitrate AdvReac bladder Verified 04/21/22 17:17 [From Librax (with jim methscopolamine)] metoclopramide HCl AdvReac causes Verified 04/21/22 17:17 [From Reglan] sleepiness and nervousness nortriptyline HCl AdvReac severe Verified 04/21/22 17:17 [From Pamelor] sleepiness pemoline [From Cylert] AdvReac jim Verified 04/21/22 17:17 stomach and bladder prednisone AdvReac jim Verified 04/21/22 17:17 bladder protease [From Viokase] AdvReac jim Verified 04/21/22 17:17 bladder sucralfate AdvReac constipatio Verified 04/21/22 17:17 n tolmetin sodium AdvReac Nausea & Verified 04/21/22 17:17 [From Tolectin] Vomiting tramadol HCl [From Ultram] AdvReac jim Verified 04/21/22 17:17 bladder venlafaxine HCl AdvReac jim Verified 04/21/22 17:17 [From Effexor] bladder clescin AdvReac Nausea & Uncoded 03/11/22 18:35 Vomiting ruepar AdvReac jim Uncoded 03/11/22 18:35 bladder Review of Systems ROS Other: All systems not noted in ROS Statement are negative. <Oniel Singleton - Last Filed: 04/21/22 14:35> ROS Other: All systems not noted in ROS Statement are negative. <Bijan Jimenezah Tata - Last Filed: 04/21/22 17:50> ROS Statement: Those systems with pertinent positive or pertinent negative responses have been documented in the HPI. Past Medical History Past Medical History: Hyperlipidemia, Hypertension, Osteoarthritis (OA), Thyroid Disorder Additional Past Medical History / Comment(s): interstitial cystitis,"borderline diabetes"- diet controlled NOT ON ANY MEDS AND MK [facility] WILL CHECK HER BS., constipation History of Any Multi-Drug Resistant Organisms: None Reported Date of last positivie culture/infection: 07/28/20 MDRO Source:: Right Hip Past Surgical History: Heart Catheterization With Stent, Hysterectomy, Joint Replacement, Orthopedic Surgery Additional Past Surgical History / Comment(s): 10/19/14 Total L hip arthroplasty anterior approach. bladder suspension, cataracts, 05-17-15 TOTAL RT KNEE REPLACEMENT Past Anesthesia/Blood Transfusion Reactions: No Reported Reaction Date of Last Stent Placement:: 2010 Past Psychological History: Depression Smoking Status: Never smoker Past Alcohol Use History: None Reported Past Drug Use History: None Reported - Past Family History Mother Family Medical History: Cancer Additional Family Medical History / Comment(s): colon Father Family Medical History: Coronary Artery Disease (CAD), Musculoskeletal Disorder Additional Family Medical History / Comment(s): PARKINSONS AND HEART TROUBLE <Oniel Singleton - Last Filed: 04/21/22 14:35> General Exam Limitations: physical limitation <Oniel Singleton - Last Filed: 04/21/22 14:35> - General Exam Comments Initial Comments: GENERAL: Patient is well-developed and well-nourished. Patient is nontoxic and well-hydr ated and is in no acute distress. ENT: Neck is soft and supple. No significant lymphadenopathy is noted. Oropharynx is clear. Moist mucous membranes. Neck has full range of motion without eliciting any pain. EYES: The sclera were anicteric and conjunctiva were pink and moist. Extraocular mov ements were intact and pupils were equal round and reactive to light. Eyelids were unremarkable. PULMONARY: Unlabored respirations. Good breath sounds bilaterally. No audible rales rhonchi or wheezing was noted. CARDIOVASCULAR: There is a regular rate and rhythm without any murmurs gallops or rubs. ABDOMEN: Soft and nontender with normal bowel sounds. SKIN: Skin is clear with no lesions or rashes and otherwise unremarkable. NEUROLOGIC: Patient is alert and oriented 2. Cranial nerves II through XII are grossly intact. Motor and sensory are also intact. Normal speech, volume and content. Symmetrical smile. MUSCULOSKELETAL: Normal extremities with adequate strength and full range of motion. LYMPHATICS: No significant lymphadenopathy is noted PSYCHIATRIC: Unable to assess (Oniel Singleton) Course Vital Signs 04/21/22 04/21/22 14:29 17:30 Temperature 103.4 F H 98.6 F Pulse Rate 98 80 Respiratory 18 18 Rate Blood Pressure 137/70 143/86 O2 Sat by Pulse 97 93 L Oximetry EKG Findings - EKG Comments: EKG Findings:: EKG demonstrates sinus rhythm with a rate of 95. TX interval 153. QRS 80. QTC of 337. No acute ST segment elevations or depressions <Peri Jimenez - Last Filed: 04/21/22 17:50> Medical Decision Making <Oniel Singleotn - Last Filed: 04/21/22 14:35> - Lab Data Result diagrams: 04/21/22 14:56 04/21/22 14:56 <Peri Jimenez - Last Filed: 04/21/22 17:50> - Medical Decision Making will be taking over the care of this patient at 3 PM (Oniel Singleton) I took over care of the patient from Dr. Singleton. I evaluated the patient and her daughter was in the room. Reports that she recently had a hospitalization for anemia and UTI. She finished her antibiotics. Was also placed on steroids for stomatitis and additionally finished these. Patient has been weak and confused over the past couple of days. Was complaining of suprapubic burning therefore concerned that her urinary tract infection was back. The stomatitis has also returned leading to a decrease in the amount that she is eating and drinking. I reviewed the patient's laboratory studies which reveal a hemoglobin of 9.5. Sodium 127. Lactic acid 2.5. Urinalysis was positive for nitrates and moderate bacteria. Review the patient's last sensitivities. She is started on Levaquin. Chest x-ray was performed which demonstrates a possible left lower lobe opacity and therefore I did add on azithromycin recommended admission for which the patient and her daughter were agreeable. Spoke with Dr. Wang who will admit the patient. (Peri Jimenez) - Lab Data Lab Results 04/21/22 04/21/22 04/21/22 Range/Units 14:56 14:56 14:56 WBC 9.8 (3.8-10.6) k/uL RBC 2.73 L (3.80-5.40) m/uL Hgb 9.5 L D (11.4-16.0) gm/dL Hct 28.0 L (34.0-46.0) % MCV 102.6 H D (80.0-100.0) fL MCH 34.9 (25.0-35.0) pg MCHC 34.1 (31.0-37.0) g/dL RDW 21.1 H (11.5-15.5) % Plt Count 85 L D (150-450) k/uL MPV 9.5 Neutrophils % (Manual) 55 % Band Neuts % (Manual) 1 % Lymphocytes % (Manual) 12 % Monocytes % (Manual) 17 % Eosinophils % (Manual) 15 % Neutrophils # (Manual) 5.40 (1.3-7.7) k/uL Lymphocytes # (Manual) 1.18 (1.0-4.8) k/uL Monocytes # (Manual) 1.67 H (0-1.0) k/uL Eosinophils # (Manual) 1.47 H (0-0.7) k/uL Nucleated RBCs 0 (0-0) /100 WBC Manual Slide Review Performed Hypersegmented Neuts Present Polychromasia Present Anisocytosis Moderate Macrocytosis Marked A Stomatocytes Present PT 10.5 (9.0-12.0) sec INR 1.0 (<1.2) APTT 18.0 L (22.0-30.0) sec Sodium 129 L (137-145) mmol/L Potassium 3.6 (3.5-5.1) mmol/L Chloride 92 L (98-107) mmol/L Carbon Dioxide 25 (22-30) mmol/L Anion Gap 12 mmol/L BUN 23 H (7-17) mg/dL Creatinine 0.91 (0.52-1.04) mg/dL Est GFR (CKD-EPI)AfAm 69 (>60 ml/min/1.73 sqM) Est GFR (CKD-EPI)NonAf 60 (>60 ml/min/1.73 sqM) Glucose 93 (74-99) mg/dL Lactic Ac Sepsis Rflx Plasma Lactic Acid Ariel (0.7-2.0) mmol/L Calcium 8.8 (8.4-10.2) mg/dL Total Bilirubin 0.4 (0.2-1.3) mg/dL AST 28 (14-36) U/L ALT 24 (4-34) U/L Alkaline Phosphatase 56 (38-126) U/L Total Protein 5.8 L (6.3-8.2) g/dL Albumin 3.5 (3.5-5.0) g/dL Coronavirus (PCR) (Not Detectd) 04/21/22 04/21/22 04/21/22 Range/Units 14:56 14:56 15:37 WBC (3.8-10.6) k/uL RBC (3.80-5.40) m/uL Hgb (11.4-16.0) gm/dL Hct (34.0-46.0) % MCV (80.0-100.0) fL MCH (25.0-35.0) pg MCHC (31.0-37.0) g/dL RDW (11.5-15.5) % Plt Count (150-450) k/uL MPV Neutrophils % (Manual) % Band Neuts % (Manual) % Lymphocytes % (Manual) % Monocytes % (Manual) % Eosinophils % (Manual) % Neutrophils # (Manual) (1.3-7.7) k/uL Lymphocytes # (Manual) (1.0-4.8) k/uL Monocytes # (Manual) (0-1.0) k/uL Eosinophils # (Manual) (0-0.7) k/uL Nucleated RBCs (0-0) /100 WBC Manual Slide Review Hypersegmented Neuts Polychromasia Anisocytosis Macrocytosis Stomatocytes PT (9.0-12.0) sec INR (<1.2) APTT (22.0-30.0) sec Sodium (137-145) mmol/L Potassium (3.5-5.1) mmol/L Chloride (98-107) mmol/L Carbon Dioxide (22-30) mmol/L Anion Gap mmol/L BUN (7-17) mg/dL Creatinine (0.52-1.04) mg/dL Est GFR (CKD-EPI)AfAm (>60 ml/min/1.73 sqM) Est GFR (CKD-EPI)NonAf (>60 ml/min/1.73 sqM) Glucose (74-99) mg/dL Lactic Ac Sepsis Rflx Y Plasma Lactic Acid Ariel 2.7 H* (0.7-2.0) mmol/L Calcium (8.4-10.2) mg/dL Total Bilirubin (0.2-1.3) mg/dL AST (14-36) U/L ALT (4-34) U/L Alkaline Phosphatase (38-126) U/L Total Protein (6.3-8.2) g/dL Albumin (3.5-5.0) g/dL Coronavirus (PCR) Not Detected (Not Detectd) Disposition <Oniel Singleton - Last Filed: 04/21/22 14:35> Is patient prescribed a controlled substance at d/c from ED?: No Time of Disposition: 16:57 Decision to Admit Reason: Admit from EC Decision Date: 04/21/22 Decision Time: 16:57 <Peri Jimenez - Last Filed: 04/21/22 17:50> Clinical Impression: Sepsis, UTI (urinary tract infection), Macrocytic anemia, Mucositis, Pyrexia, CAP (community acquired pneumonia) Disposition: ADMITTED IP TO THIS HOSP Condition: Stable
[2022-04-21] MEDS: SODIUM CHLORIDE 0.9% 500 ML 500 ML IV SCH ×2 (15:03→15:04)
[2022-04-21 15:23] LABS: Anisocytosis Moderate; MCH 34.9 pg (25.0-35.0); MCHC 34.1 g/dL (31.0-37.0); Macrocytosis Marked; Mean Platelet Volume 9.5; RBC 2.73 m/uL (3.80-5.40); RDW 21.1 % (11.5-15.5); WBC 9.8 k/uL (3.8-10.6)
[2022-04-21 15:27] LABS: Albumin 3.5 g/dL (3.5-5.0); Calcium 8.8 mg/dL (8.4-10.2); HGB 9.5 gm/dL (11.4-16.0); MCV 102.6 fL (80.0-100.0); Potassium 3.6 mmol/L (3.5-5.1); Total Bilirubin 0.4 mg/dL (0.2-1.3); Total Protein 5.8 g/dL (6.3-8.2)
[2022-04-21 15:35] LABS: Prothrombin Time 10.5 sec (9.0-12.0)
--- NOTE | 2022-04-21 15:39 | XR ---
EXAMINATION TYPE: XR chest 2V DATE OF EXAM: 04/21/2022 COMPARISON: NONE HISTORY: Fever and weakness. TECHNIQUE: Frontal and lateral views of the chest are obtained. FINDINGS: There is no focal posterior lateral left basilar opacity. Right lung is clear. No pleural effusion or pneumothorax seen bilaterally. The cardiac silhouette size is mildly enlarged with athero sclerotic change aortic knob. Underlying scoliotic curvature is present. IMPRESSION: Posterior-lateral left basilar acute infiltrate suspected.
[2022-04-21 15:53] LABS: Platelet Count 85 k/uL (150-450)
[2022-04-21 15:59] LABS: Band Neutrophils % 1 %; Eosinophils # (M) 1.47 k/uL (0-0.7); Lymphocytes # (M) 1.18 k/uL (1.0-4.8); Monocytes # (M) 1.67 k/uL (0-1.0); Neutrophils % (M) 55 %; Nucleated Red Blood Cells 0 /100 WBC (0-0); Total Cells Counted 100
[2022-04-21 16:01] LABS: Hypersegmented Neutrophils Present; Polychromasia Present; Stomatocytes Present
[2022-04-21 16:30] LABS: Appearance,Urine Clear (Clear); Bacteria,Urine Moderate /hpf; Bilirubin,Urine Negative (Negative); Blood,Urine Small (Negative); Color,Urine Light Yellow; Glucose,Urine (UA) Negative (Negative); Ketones,Urine Negative (Negative); Leukocyte Esterase,Urine Small (Negative); Mucus,Urine Rare /hpf; Nitrite,Urine Positive (Negative); PH, Urine 6.5 (5.0-8.0); Protein,Urine Negative (Negative); RBC,Urine 3 /hpf (0-5); Specific Gravity,Urine 1.008 (1.001-1.035); Urobilinogen,Urine <2.0 mg/dL (<2.0); WBC,Urine 8 /hpf (0-5)
[2022-04-21] MEDS ORDERED: AZITHROMYCIN 500 MG in SODIUM CHLORIDE 0.9% 250 ML IVPB STA (16:54)
[2022-04-21] MEDS ORDERED: NALOXONE 0.4 MG/ML 1 ML VIAL IV PRN (16:57)
[2022-04-21] MEDS: SODIUM CHLORIDE 0.9% 1,000 ML IV SCH ×2 (17:48→21:05)
[2022-04-21] MEDS ORDERED: MORPHINE SULFATE 4 MG/ML SYRINGE IVP STA (18:07)
--- NOTE | 2022-04-21 19:23 | US ---
EXAMINATION TYPE: US bladder DATE OF EXAM: 04/21/2022 COMPARISON: NONE CLINICAL HISTORY: recurrent uti, fistula?. multiple UTI's TECHNIQUE: Multiple sonographic images of the bladder are obtained. FINDINGS: EXAM MEASUREMENTS: PRODUCT SAFETY COMPLIANCE LEADER NOTES: No obvious signs of a fistula Color Doppler performed to assess ureteral jets. Bilateral Jets seen: yes IMPRESSION: There are bilateral ureteral jets. No evidence of a bladder mass. No sign of a bladder fistula.
[2022-04-22] MEDS: ACETAMINOPHEN TAB 325 MG TAB PO PRN ×2 (00:44→17:43)
[2022-04-22] MEDS: SODIUM CHLORIDE 0.9% 1,000 ML IV SCH ×2 (06:37→11:23)
[2022-04-22] MEDS: LEVOTHYROXINE 75 MCG TAB PO SCH (06:37)
[2022-04-22] MEDS: IBUPROFEN 400 MG TAB PO PRN (08:51)
[2022-04-22] MEDS: METOPROLOL TARTRATE 25 MG TAB PO SCH ×2 (08:51→20:20)
[2022-04-22] MEDS: LORazepam 1 MG TAB PO SCH ×2 (08:52→20:20)
[2022-04-22] MEDS: amLODIPine 5 MG TAB PO SCH (08:52)
[2022-04-22 10:50] LABS: Anisocytosis Slight; Basophils % (A) 0 %; Eosinophils # (A) 0.5 k/uL (0-0.7); Eosinophils % (A) 7 %; HCT 27.4 % (34.0-46.0); HGB 9.1 gm/dL (11.4-16.0); Lymphocytes # (A) 0.8 k/uL (1.0-4.8); Lymphocytes % (A) 10 %; MCH 33.7 pg (25.0-35.0); MCHC 33.2 g/dL (31.0-37.0); MCV 101.7 fL (80.0-100.0); Macrocytosis Moderate; Mean Platelet Volume 8.6; Monocytes # (A) 0.8 k/uL (0-1.0); Monocytes % (A) 11 %; Neutrophils # (A) 5.1 k/uL (1.3-7.7); Neutrophils % (A) 68 %; Platelet Count 117 k/uL (150-450); RBC 2.69 m/uL (3.80-5.40); RDW 19.9 % (11.5-15.5); WBC 7.5 k/uL (3.8-10.6)
[2022-04-22 11:08] LABS: African American GFR (CKD) >90 (>60 ml/min/1.73 sqM); Anion Gap 7 mmol/L; Blood Urea Nitrogen 16 mg/dL (7-17); Calcium 7.8 mg/dL (8.4-10.2); Carbon Dioxide 25 mmol/L (22-30); Chloride 97 mmol/L (98-107); Glucose 120 mg/dL (74-99); Non-African American GFR(CKD) 78 (>60 ml/min/1.73 sqM); Sodium 129 mmol/L (137-145)
[2022-04-22] MEDS: AZTREONAM 2 GM in SODIUM CHLORIDE 0.9% 100 ML IVPB SCH ×2 (11:23→21:03)
--- NOTE | 2022-04-22 12:21 | P.HPIM ---
History of Present Illness H&P Date: 04/21/22 Chief Complaint: Weakness 82-year-old female who presents to the emergency department with a past history of anemia. Patient was brought in by EMS because family stated that the patient was much weaker today than normal and she lives on her own. No further history was available no duration of the weakness was indicated and no mention of any fever however the patient had 103 fever orally in the emergency department. Patient herself did not complain of any pain she denied chest pain tonight difficulty breathing or shortness of breath she denied a cough. Patient denied abdominal pain patient states she wasn't having any vomiting or diarrhea. Patient wasn't able to verbalize her reason for being in the emergency room. Workup completed in the ER reveals EKG Findings:: EKG demonstrates sinus rhythm with a rate of 95. CA interval 153. QRS 80. QTC of 337. No acute ST segment elevations or depressions Patient's laboratory studies which reveal a hemoglobin of 9.5. Sodium 127. Lactic acid 2.5. Urinalysis was positive for nitrates and moderate bacteria. Review the patient's last sensitivities. She is started on Levaquin. Chest x-ray was performed which demonstrates a possible left lower lobe opacity and was started on azithromycin recommended admission for which the patient and her daughter were agreeable. Review of Systems REVIEW OF SYSTEMS: CONSTITUTIONAL: No fever, no malaise, no fatigue. HEENT: No recent visual problems or hearing problems. Denied any sore throat. CARDIOVASCULAR: No chest pain, orthopnea, PND, no palpitations, no syncope. PULMONARY: No shortness of breath, no cough, no hemoptysis. GASTROINTESTINAL: No diarrhea, no nausea, no vomiting, no abdominal pain. NEUROLOGICAL: No headaches, no weakness, no numbness. HEMATOLOGICAL: Denies any bleeding or petechiae. GENITOURINARY: Denies any burning micturition, frequency, or urgency. MUSCULOSKELETAL/RHEUMATOLOGICAL: Denies any joint pain, swelling, or any muscle pain. ENDOCRINE: Denies any polyuria or polydipsia. The rest of the 14-point review of systems is negative. Past Medical History Past Medical History: Hyperlipidemia, Hypertension, Osteoarthritis (OA), Thyroid Disorder Additional Past Medical History / Comment(s): interstitial cystitis,"borderline diabetes"- diet controlled NOT ON ANY MEDS AND MK [facility] WILL CHECK HER BS., constipation History of Any Multi-Drug Resistant Organisms: None Reported Date of last positivie culture/infection: 07/28/20 MDRO Source:: Right Hip Past Surgical History: Heart Catheterization With Stent, Hysterectomy, Joint Replacement, Orthopedic Surgery Additional Past Surgical History / Comment(s): 10/19/14 Total L hip arthroplasty anterior approach. bladder suspension, cataracts, 05-17-15 TOTAL RT KNEE REP LACEMENT Past Anesthesia/Blood Transfusion Reactions: No Reported Reaction Date of Last Stent Placement:: 2010 Past Psychological History: Depression Smoking Status: Never smoker Past Alcohol Use History: None Reported Past Drug Use History: None Reported - Past Family History Mother Family Medical History: Cancer Additional Family Medical History / Comment(s): colon Father Family Medical History: Coronary Artery Disease (CAD), Musculoskeletal Disorder Additional Family Medical History / Comment(s): PARKINSONS AND HEART TROUBLE Medications and Allergies Home Medications Medication Instructions Recorded Confirmed Type Levothyroxine Sodium [Synthroid] 37.5 mcg PO DAILY 10/09/14 04/21/22 History Metoprolol Tartrate 25 mg PO BID 10/09/14 04/21/22 History Pentosan Polysulfate Sodium 100 mg PO Q48H 10/09/14 04/21/22 History [Elmiron] Rampart-3 Fatty Acids/Fish Oil [Fish 1 cap PO DAILY 10/19/14 04/21/22 History Oil 1,000 mg Softgel] Cyanocobalamin [Vitamin B-12] 500 mcg PO DAILY 05/05/15 04/21/22 History Calcium Carbonate [Calcium] 600 mg PO DAILY 06/23/20 04/21/22 History Cholecalciferol [Vitamin D3 (25 50 mcg PO DAILY 06/23/20 04/21/22 History Mcg = 1000 Iu)] Pravastatin Sodium [Pravachol] 40 mg PO HS 07/27/20 04/21/22 History ARIPiprazole [Abilify] 10 mg PO DAILY 03/11/22 04/21/22 History Alpha Lipoic Acid 600 mg PO BID 03/11/22 04/21/22 History LORazepam [Ativan] 1 mg PO BID 03/11/22 04/21/22 History Melatonin 5 mg PO HS 03/11/22 04/21/22 History Multivitamins, Thera [Multivitamin 1 tab PO DAILY 03/11/22 04/21/22 History (formulary)] Omeprazole [PriLOSEC] 20 mg PO BID 03/11/22 04/21/22 History Triamcinolone 0.1% Paste [Oralone 1 applic MUCOUS MEM DAILY 03/11/22 04/21/22 History 0.1% Paste] Vortioxetine Hydrobromide 10 mg PO DAILY 03/11/22 04/21/22 History [Trintellix] amLODIPine [Norvasc] 5 mg PO DAILY 03/11/22 04/21/22 History traMADol HCL 50 mg PO HS PRN 03/11/22 04/21/22 History Furosemide [Lasix] 20 mg PO DAILY 04/21/22 04/21/22 History hydrOXYzine pamoate [hydrOXYzine 25 mg PO BID PRN 04/21/22 04/21/22 History PAMOATE] Allergies Allergy/AdvReac Type Severity Reaction Status Date / Time cephalexin [From Keflex] Allergy Rash/Hives Verified 04/21/22 17:17 cisapride monohydrate Allergy nasal Verified 04/21/22 17:17 [From Propulsid] congestion and cough Sulfa (Sulfonamide Allergy Unknown Verified 04/21/22 17:17 Antibiotics) amitriptyline AdvReac causes Verified 04/21/22 17:17 nervousness and sleepiness amylase [From Viokase] AdvReac jim Verified 04/21/22 17:17 bladder aspirin AdvReac jim Verified 04/21/22 17:17 bladder but able to tolerate low dose asa atenolol [From Tenoretic 50] AdvReac dry Verified 04/21/22 17:17 burning eyes bupropion HCl AdvReac jim Verified 04/21/22 17:17 [From Wellbutrin] bladder chlordiazepoxide AdvReac bladder Verified 04/21/22 17:17 [From Librax (with jim clidinium)] chlordiazepoxide HCl AdvReac bladder Verified 04/21/22 17:17 [From Librax (with jim methscopolamine)] chlorthalidone AdvReac dry Verified 04/21/22 17:17 [From Tenoretic 50] burning eyes clidinium bromide AdvReac bladder Verified 04/21/22 17:17 [From Librax (with jim clidinium)] cyclobenzaprine HCl AdvReac causes Verified 04/21/22 17:17 [From Flexeril] sleepiness and nervousness dextroamphetamine sulfate AdvReac jim Verified 04/21/22 17:17 [From Dexedrine] stomach and bladder dicyclomine HCl [From Bentyl] AdvReac dry Verified 04/21/22 17:17 mouth,constipation,jim bladder fluoxetine HCl [From Prozac] AdvReac stays awake Verified 04/21/22 17:17 gabapentin [From Neurontin] AdvReac jim Verified 04/21/22 17:17 bladder hydrocodone AdvReac jim Verified 04/21/22 17:17 bladder hyoscyamine sulfate AdvReac mades eyes Verified 04/21/22 17:17 [From Levsinex] and mouth dry lipase [From Viokase] AdvReac jim Verified 04/21/22 17:17 bladder lithium AdvReac jim Verified 04/21/22 17:17 bladder loratadine [From Claritin] AdvReac jim Verified 04/21/22 17:17 stomach and bladder methylphenidate HCl AdvReac joint pain Verified 04/21/22 17:17 [From Ritalin] methylprednisolone AdvReac jim Verified 04/21/22 17:17 bladder methylscopolamine nitrate AdvReac bladder Verified 04/21/22 17:17 [From Librax (with jim methscopolamine)] metoclopramide HCl AdvReac causes Verified 04/21/22 17:17 [From Reglan] sleepiness and nervousness nortriptyline HCl AdvReac severe Verified 04/21/22 17:17 [From Pamelor] sleepiness pemoline [From Cylert] AdvReac jim Verified 04/21/22 17:17 stomach and bladder prednisone AdvReac jim Verified 04/21/22 17:17 bladder protease [From Viokase] AdvReac jim Verified 04/21/22 17:17 bladder sucralfate AdvReac constipatio Verified 04/21/22 17:17 n tolmetin sodium AdvReac Nausea & Verified 04/21/22 17:17 [From Tolectin] Vomiting tramadol HCl [From Ultram] AdvReac jim Verified 04/21/22 17:17 bladder venlafaxine HCl AdvReac jim Verified 04/21/22 17:17 [From Effexor] bladder clescin AdvReac Nausea & Uncoded 03/11/22 18:35 Vomiting ruepar AdvReac jim Uncoded 03/11/22 18:35 bladder Physical Exam Vitals: Vital Signs Temp Pulse Resp BP Pulse Ox 04/21/22 17:30 98.6 F 80 18 143/86 93 L 04/21/22 14:29 103.4 F H 98 18 137/70 97 Intake and Output 04/21/22 04/21/22 04/21/22 06:59 14:59 22:59 Other: Weight 104.326 kg GENERAL: Patient is well-developed and well-nourished. Patient is nontoxic and well-hydrated and is in no acute distress. ENT: Neck is soft and supple. No significant lymphadenopathy is noted. O ropharynx is clear. Moist mucous membranes. Neck has full range of motion without eliciting any pain. EYES: The sclera were anicteric and conjunctiva were pink and moist. Extraocular movements were intact and pupils were equal round and reactive to light. Eyelids were unremarkable. PULMONARY: Unlabored respirations. Good breath sounds bilaterally. No audible rales rhonchi or wheezing was noted. CARDIOVASCULAR: There is a regular rate and rhythm without any murmurs gallops or rubs. ABDOMEN: Soft and nontender with normal bowel sounds. SKIN: Skin is clear with no lesions or rashes and otherwise unremarkable. NEUROLOGIC: Patient is alert and oriented 2. Cranial nerves II through XII are grossly intact. Motor and sensory are also intact. Normal speech, volume and content. Symmetrical smile. MUSCULOSKELETAL: Normal extremities with adequate strength and full range of mo tion. LYMPHATICS: No significant lymphadenopathy is noted Results CBC & Chem 7: 04/22/22 09:43 04/22/22 09:43 Labs: Abnormal Lab Results - Last 24 Hours (Table) 04/21/22 04/21/22 04/21/22 Range/Units 14:56 14:56 14:56 RBC 2.73 L (3.80-5.40) m/uL Hgb 9.5 L D (11.4-16.0) gm/dL Hct 28.0 L (34.0-46.0) % MCV 102.6 H D (80.0-100.0) fL RDW 21.1 H (11.5-15.5) % Plt Count 85 L D (150-450) k/uL Monocytes # (Manual) 1.67 H (0-1.0) k/uL Eosinophils # (Manual) 1.47 H (0-0.7) k/uL Macrocytosis Marked A APTT 18.0 L (22.0-30.0) sec Sodium 129 L (137-145) mmol/L Chloride 92 L (98-107) mmol/L BUN 23 H (7-17) mg/dL Plasma Lactic Acid Ariel (0.7-2.0) mmol/L Total Protein 5.8 L (6.3-8.2) g/dL Urine Blood (Negative) Urine Nitrite (Negative) Ur Leukocyte Esterase (Negative) Urine WBC (0-5) /hpf Urine Bacteria (None) /hpf Urine Mucus (None) /hpf 04/21/22 04/21/22 Range/Units 14:56 Unknown RBC (3.80-5.40) m/uL Hgb (11.4-16.0) gm/dL Hct (34.0-46.0) % MCV (80.0-100.0) fL RDW (11.5-15.5) % Plt Count (150-450) k/uL Monocytes # (Manual) (0-1.0) k/uL Eosinophils # (Manual) (0-0.7) k/uL Macrocytosis APTT (22.0-30.0) sec Sodium (137-145) mmol/L Chloride (98-107) mmol/L BUN (7-17) mg/dL Plasma Lactic Acid Ariel 2.7 H* (0.7-2.0) mmol/L Total Protein (6.3-8.2) g/dL Urine Blood Small H (Negative) Urine Nitrite Positive H (Negative) Ur Leukocyte Esterase Small H (Negative) Urine WBC 8 H (0-5) /hpf Urine Bacteria Moderate H (None) /hpf Urine Mucus Rare H (None) /hpf Assessment and Plan Assessment: 1. UTI/sepsis - Patient was found to have a temperature of 103.4, lactic acid is elevated at 2.7 - Based on previous sensitivities, patient was started on IV Levaquin - Blood culture and urine cultures obtained; we will adjust antibiotic therapy once culture results are available 2. Community-acquired pneumonia - Patient has been placed on IV Levaquin to cover UTI and pneumonia; azithromycin is added for atypical coverage - We will monitor blood and sputum cultures; monitor CBC, CRP and pro-calcitonin - Bronchodilator nebulizer treatments as needed 3. Mild AK I; likely related to poor oral intake; patient has been placed on IV fluid hydration; we will monitor strict TRAVIS's, daily weights, renal function and electrolytes; avoid nephrotoxins and hypotension 4. Stomatitis/ mucositis; patient was evaluated by ENT on last admission and was diagnosed with grade 3 mucositis; we will change the diet to pured; mucositis likely related to blood dyscrasia or immunocompromise; patient has been ruled out by hematology; patient was recommended to continue with low-dose prednisone at 10 mg daily; we will resume same and patient will follow-up with ENT as an outpatient 5. Hypertension; continue with amlodipine 5 mg daily; metoprolol 25 mg daily 6. Hyperlipidemia; home statin therapy in form of Pravachol 40 mg 2 daily at bedtime 7. Hypothyroidism; levothyroxine 75 MCG daily DVT prophylaxis; SCDs CODE STATUS; full code
[2022-04-22] MEDS ORDERED: POTASSIUM CHLORIDE 20 MEQ in WATER FOR INJECTION 1 100ML.BAG IVPB STA (12:22)
[2022-04-22] MEDS: NON FORMULARY DRUG (Pentosan Polysulfate Sodium [Elmiron] 100 MG Capsule) PO SCH (13:34)
[2022-04-22] MEDS: predniSONE 10 MG TAB PO SCH (13:39)
[2022-04-22] MEDS: PRAVASTATIN SODIUM 40 MG TAB PO SCH (20:20)
[2022-04-22] MEDS: MELATONIN 5 MG TABLET PO SCH (20:20)
--- NOTE | 2022-04-22 20:48 | P.CONS ---
History of Present Illness - Reason for Consult Consult date: 04/22/22 Bicytopenia - History of Present Illness The patient is an 82-year-old white female with multiple medical problems. She was recently seen in consult in late 03/10, when she was admitted with UTI with sepsis. During that admission her hemoglobin had fallen into the 5 range, and platelets into the 30-40 range. The patient had an extensive workup done, including testing for HIT, which was negative. Patient received 2 units of PRBC. With treatment of the UTI she then had rapid improvement in her hemoglobin into the 11 range, as well as normalization of platelet counts. Her labs had shown low haptoglobin and high reticulocyte count, but as these were done after blood transfusion, the significance was unclear. Patient was also noted to have high MCV. The patient actually had had anemia dating back to 2014. It was therefore felt that she may have some mild intrinsic bone marrow compromise (such as early MDS) and/or medication affect causing the same, with further exacerbation related to acute illness. The patient came back to the hospital because of progressive weakness. Apparently she was complaining of recurrent burning with urine and suprapubic discomfort. She was felt to have some alteration in mental status, and fever of 103, when examined in the ER and was therefore admitted for the management. Urinalysis was abnormal with positive nitrite and leukocyte esterase. CBC showed hemoglobin in the 9 range, and platelets of 85. Consult was therefore placed further evaluation and recommendations. On examination the patient was confused. Her recall appear to be quite poor. She was complaining of some leading from the mouth which appears to be a chronic, intermittent complaint Review of Systems Constitutional: Reports fever, Reports poor appetite, Reports weakness Eyes: denies blurred vision, denies pain Ears: bilateral: decreased hearing Ears, nose, mouth and throat: Denies headache, Denies sore throat Cardiovascular: Reports decreased exercise tolerance Respiratory: Denies cough Gastrointestinal: Denies abdominal pain, Denies diarrhea, Denies nausea, Denies vomiting Genitourinary: Reports as per HPI, Reports dysuria Menstruation: Reports postmenopausal Musculoskeletal: Reports muscle weakness Integumentary: Denies pruritus, Denies rash Neurological: Reports confusion, Reports memory loss, Reports weakness Psychiatric: Reports confusion, Reports memory loss Endocrine: Reports fatigue Hematologic/Lymphatic: Reports as per HPI Past Medical History Past Medical History: Hyperlipidemia, Hypertension, Osteoarthritis (OA), Thyroid Disorder Additional Past Medical History / Comment(s): interstitial cystitis, constipa tion History of Any Multi-Drug Resistant Organisms: None Reported Year Discovered:: 07/28/20 MDRO Source:: Right Hip Past Surgical History: Heart Catheterization With Stent, Hysterectomy, Joint Replacement, Orthopedic Surgery Additional Past Surgical History / Comment(s): bilateral hips replaced, bladder suspension, cataracts, 05-17-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 Pt is independent. Pt drives a car. Smoking Status: Never smoker Past Alcohol Use History: None Reported Past Drug Use History: None Reported - Past Family History Mother Family Medical History: Cancer Additional Family Medical History / Comment(s): colon Father Family Medical History: Coronary Artery Disease (CAD), Musculoskeletal Disorder Additional Family Medical History / Comment(s): PARKINSONS AND HEART TROUBLE Medications and Allergies Home Medications Medication Instructions Recorded Confirmed Type Levothyroxine Sodium [Synthroid] 37.5 mcg PO DAILY 10/09/14 04/21/22 History Metoprolol Tartrate 25 mg PO BID 10/09/14 04/21/22 History Pentosan Polysulfate Sodium 100 mg PO Q48H 10/09/14 04/21/22 History [Elmiron] [place]-3 Fatty Acids/Fish Oil [Fish 1 cap PO DAILY 10/19/14 04/21/22 History Oil 1,000 mg Softgel] Cyanocobalamin [Vitamin B-12] 500 mcg PO DAILY 05/05/15 04/21/22 History Calcium Carbonate [Calcium] 600 mg PO DAILY 06/23/20 04/21/22 History Cholecalciferol [Vitamin D3 (25 50 mcg PO DAILY 06/23/20 04/21/22 History Mcg = 1000 Iu)] Pravastatin Sodium [Pravachol] 40 mg PO HS 07/27/20 04/21/22 History ARIPiprazole [Abilify] 10 mg PO DAILY 03/11/22 04/21/22 History Alpha Lipoic Acid 600 mg PO BID 03/11/22 04/21/22 History LORazepam [Ativan] 1 mg PO BID 03/11/22 04/21/22 History Melatonin 5 mg PO HS 03/11/22 04/21/22 History Multivitamins, Thera [Multivitamin 1 tab PO DAILY 03/11/22 04/21/22 History (formulary)] Omeprazole [PriLOSEC] 20 mg PO BID 03/11/22 04/21/22 History Triamcinolone 0.1% Paste [Oralone 1 applic MUCOUS MEM DAILY 03/11/22 04/21/22 H istory 0.1% Paste] Vortioxetine Hydrobromide 10 mg PO DAILY 03/11/22 04/21/22 History [Trintellix] amLODIPine [Norvasc] 5 mg PO DAILY 03/11/22 04/21/22 History traMADol HCL 50 mg PO HS PRN 03/11/22 04/21/22 History Furosemide [Lasix] 20 mg PO DAILY 04/21/22 04/21/22 History hydrOXYzine pamoate [hydrOXYzine 25 mg PO BID PRN 04/21/22 04/21/22 History PAMOATE] Allergies Allergy/AdvReac Type Severity Reaction Status Date / Time cephalexin [From Keflex] Allergy Rash/Hives Verified 04/21/22 17:17 cisapride monohydrate Allergy nasal Verified 04/21/22 17:17 [From Propulsid] congestion and cough Sulfa (Sulfonamide Allergy Unknown Verified 04/21/22 17:17 Antibiotics) amitriptyline AdvReac causes Verified 04/21/22 17:17 nervousness and sleepiness amylase [From Viokase] AdvReac jim Verified 04/21/22 17:17 bladder aspirin AdvReac jim Verified 04/21/22 17:17 bladder but able to tolerate low dose asa atenolol [From Tenoretic 50] AdvReac dry Verified 04/21/22 17:17 burning eyes bupropion HCl AdvReac jim Verified 04/21/22 17:17 [From Wellbutrin] bladder chlordiazepoxide AdvReac bladder Verified 04/21/22 17:17 [From Librax (with jim clidinium)] chlordiazepoxide HCl AdvReac bladder Verified 04/21/22 17:17 [From Librax (with jim methscopolamine)] chlorthalidone AdvReac dry Verified 04/21/22 17:17 [From Tenoretic 50] burning eyes clidinium bromide AdvReac bladder Verified 04/21/22 17:17 [From Librax (with jim clidinium)] cyclobenzaprine HCl AdvReac causes Verified 04/21/22 17:17 [From Flexeril] sleepiness and nervousness dextroamphetamine sulfate AdvReac jim Verified 04/21/22 17:17 [From Dexedrine] stomach and bladder dicyclomine HCl [From Bentyl] AdvReac dry Verified 04/21/22 17:17 mouth,constipation,jim bladder fluoxetine HCl [From Prozac] AdvReac stays awake Verified 04/21/22 17:17 gabapentin [From Neurontin] AdvReac jim Verified 04/21/22 17:17 bladder hydrocodone AdvReac jim Verified 04/21/22 17:17 bladder hyoscyamine sulfate AdvReac mades eyes Verified 04/21/22 17:17 [From Levsinex] and mouth dry lipase [From Viokase] AdvReac jim Verified 04/21/22 17:17 bladder lithium AdvReac jim Verified 04/21/22 17:17 bladder loratadine [From Claritin] AdvReac jim Verified 04/21/22 17:17 stomach and bladder methylphenidate HCl AdvReac joint pain Verified 04/21/22 17:17 [From Ritalin] methylprednisolone AdvReac jim Verified 04/21/22 17:17 bladder methylscopolamine nitrate AdvReac bladder Verified 04/21/22 17:17 [From Librax (with jim methscopolamine)] metoclopramide HCl AdvReac causes Verified 04/21/22 17:17 [From Reglan] sleepiness and nervousness nortriptyline HCl AdvReac severe Verified 04/21/22 17:17 [From Pamelor] sleepiness pemoline [From Cylert] AdvReac jim Verified 04/21/22 17:17 stomach and bladder prednisone AdvReac jim Verified 04/21/22 17:17 bladder protease [From Viokase] AdvReac jim Verified 04/21/22 17:17 bladder sucralfate AdvReac constipatio Verified 04/21/22 17:17 n tolmetin sodium AdvReac Nausea & Verified 04/21/22 17:17 [From Tolectin] Vomiting tramadol HCl [From Ultram] AdvReac jim Verified 04/21/22 17:17 bladder venlafaxine HCl AdvReac jim Verified 04/21/22 17:17 [From Effexor] bladder clescin AdvReac Nausea & Uncoded 03/11/22 18:35 Vomiting ruepar AdvReac jim Uncoded 03/11/22 18:35 bladder Physical Exam Vitals: Vital Signs Temp Pulse Pulse Resp BP BP Pulse Ox 04/22/22 04:00 99.9 F H 98 16 154/67 96 04/22/22 01:08 108 H 04/22/22 01:05 102.2 F H 112 H 22 121/59 92 L 04/21/22 23:33 98.7 F 108 H 16 149/96 93 L 04/21/22 20:00 98.4 F 82 16 104/62 93 L 04/21/22 17:30 98.6 F 80 18 143/86 93 L 04/21/22 14:29 103.4 F H 98 18 137/70 97 Intake and Output 04/21/22 04/22/22 04/22/22 22:59 06:59 14:59 Intake Total 1350 Output Total 700 Balance 650 Intake: Intake, IV Titration 800 Amount Sodium Chloride 0.9% 1, 800 000 ml @ 130 mls/hr IV . Q7H42M [facility] Rx#:[id number] Oral 550 Output: Urine 700 Other: Voiding Method Bedside Commode External Catheter Weight 79.5 kg 76.5 kg - Constitutional General appearance: no acute distress - EENT Eyes: EOMI, PERRLA ENT: other (small amt of dried blood around lower gums) - Neck Neck: no lymphadenopathy Thyroid: bilateral: normal size - Respiratory Respiratory: bilateral: CTA - Cardiovascular Rhythm: regular Heart sounds: normal: S1, S2 - Gastrointestinal General gastrointestinal: normal bowel sounds, soft - Integumentary Integumentary: normal - Neurologic Neurologic: CNII-XII intact - Musculoskeletal Musculoskeletal: generalized weakness, strength equal bilaterally - Psychiatric confused, poor recall Results CBC & Chem 7: 04/22/22 09:43 04/22/22 09:43 Labs: Abnormal Lab Results - Last 24 Hours (Table) 04/21/22 04/21/22 04/21/22 Range/Units 14:56 14:56 14:56 RBC 2.73 L (3.80-5.40) m/uL Hgb 9.5 L D (11.4-16.0) gm/dL Hct 28.0 L (34.0-46.0) % MCV 102.6 H D (80.0-100.0) fL RDW 21.1 H (11.5-15.5) % Plt Count 85 L D (150-450) k/uL Monocytes # (Manual) 1.67 H (0-1.0) k/uL Eosinophils # (Manual) 1.47 H (0-0.7) k/uL Macrocytosis Marked A APTT 18.0 L (22.0-30.0) sec Sodium 129 L (137-145) mmol/L Chloride 92 L (98-107) mmol/L BUN 23 H (7-17) mg/dL Plasma Lactic Acid Ariel (0.7-2.0) mmol/L Total Protein 5.8 L (6.3-8.2) g/dL Urine Blood (Negative) Urine Nitrite (Negative) Ur Leukocyte Esterase (Negative) Urine WBC (0-5) /hpf Urine Bacteria (None) /hpf Urine Mucus (None) /hpf 22 04/21/22 Range/Units 14:56 Unknown RBC (3.80-5.40) m/uL Hgb (11.4-16.0) gm/dL Hct (34.0-46.0) % MCV (80.0-100.0) fL RDW (11.5-15.5) % Plt Count (150-450) k/uL Monocytes # (Manual) (0-1.0) k/uL Eosinophils # (Manual) (0-0.7) k/uL Macrocytosis APTT (22.0-30.0) sec Sodium (137-145) mmol/L Chloride (98-107) mmol/L BUN (7-17) mg/dL Plasma Lactic Acid Ariel 2.7 H* (0.7-2.0) mmol/L Total Protein (6.3-8.2) g/dL Urine Blood Small H (Negative) Urine Nitrite Positive H (Negative) Ur Leukocyte Esterase Small H (Negative) Urine WBC 8 H (0-5) /hpf Urine Bacteria Moderate H (None) /hpf Urine Mucus Rare H (None) /hpf Comments: EKG image reviewed Chest x-ray: report reviewed US - abdomen: report reviewed Assessment and Plan (1) Bicytopenia Narrative/Plan: the patient was recently seen in consult, when she presented with low platelets, and severe anemia. Workup was essentially negative. The patient had macrocytosis. It was therefore felt that she had an underlying bone marrow hypoproliferative condition , probably fairly mild, as her counts showed significant improvement during her hospitalization in 03/10, within a few days. It is felt that this is likely exacerbated by acute illness. - The patient is preventing with a similar picture with drop in hemoglobin and platelets in association with a febrile illness. The patient's urinalysis was abnormal, and chest x-ray raises the possibility of pneumonia. - Repeat hemolysis labs, as these were abnormal at her last visit. However they were not specific as they had been done posttransfusion. - Monitor counts and transfuse to keep hemoglobin greater than 7, and platelets greater than 10 - If significant cytopenias persist after resolution of acute illness, follow-up in the outpatient setting for further workup such as bone marrow aspiration and biopsy. Current Visit: Yes Status: Acute Code(s): D75.89 - OTHER SPECIFIED DISEASES OF BLOOD AND BLOOD-FORMING ORGANS SNOMED Code(s): 39254010 Plan: defer to the admitting service for management of her other medical problems, including acute febrile illness
[2022-04-22] MEDS ORDERED: NON FORMULARY DRUG (Alpha Lipoic Acid [Alpha Lipoic Acid] 600 MG Tablet) PO SCH (21:00)
[2022-04-23] MEDS: SODIUM CHLORIDE 0.9% 1,000 ML IV SCH ×3 (03:27→14:49)
[2022-04-23] MEDS: PANTOPRAZOLE 40 MG TABLET PO SCH (06:32)
[2022-04-23] MEDS: LEVOTHYROXINE 75 MCG TAB PO SCH (06:32)
[2022-04-23] MEDS: ARIPiprazole 10 MG TAB PO SCH (07:58)
[2022-04-23] MEDS: CYANOCOBALAMIN 500 MCG TAB PO SCH (07:58)
[2022-04-23] MEDS: FUROSEMIDE 20 MG TAB PO SCH (07:58)
[2022-04-23] MEDS: TRIAMCINOLONE ACET 0.1% ORAL PASTE 5 GM TUBE MUCOUS MEM SCH (07:58)
[2022-04-23] MEDS: METOPROLOL TARTRATE 25 MG TAB PO SCH ×2 (07:58→21:32)
[2022-04-23] MEDS: LORazepam 1 MG TAB PO SCH (07:59)
[2022-04-23] MEDS: AZTREONAM 2 GM in SODIUM CHLORIDE 0.9% 100 ML IVPB SCH ×2 (07:59→21:32)
[2022-04-23] MEDS: predniSONE 10 MG TAB PO SCH (07:59)
[2022-04-23] MEDS: VORTIOXETINE HYDROBROMIDE 10 MG TABLET PO SCH (07:59)
[2022-04-23] MEDS: amLODIPine 5 MG TAB PO SCH (07:59)
[2022-04-23 08:17] LABS: Reticulocyte % 7.4 % (0.5-2.0)
--- NOTE | 2022-04-23 08:41 | P.CONS ---
History of Present Illness - Reason for Consult Consult date: 04/22/22 - History of Present Illness Patient is a 82-year-old female with a past medical history significant for right hip MRSA infection back in July 2020 from with the patient seem to have recovered completely and the right hip incision remains to be healed patient also have a history of recurrent UTI and recently has been dealing with a work-up for anemia patient has been brought into the ER yesterday afternoon for evaluation of increased weakness that has been progressively getting worse for the last few days and no clear history of any fall or trauma patient denies having any headache no chest pain no shortness of breath or cough no nausea vomiting no abdominal pain no diarrhea patient on presentation the hospital did have a fever of 103.4 F patient was tachycardic no significant hypoxemia patient did have a normal white count with a left shift creatinine was normal lactic acid was elevated 2 exams are normal patient did have a positive UA COVID testing was negative patient did have a chest x-ray posterior lateral left basilar acute infiltrate suspected bladder ultrasound did not show any bladder mass patient was admitted to the hospital and infectious disease was consulted because of her multiple antibiotic allergies for recurrent UTI Past Medical History Past Medical History: Hyperlipidemia, Hypertension, Osteoarthritis (OA), Thyroid Disorder Additional Past Medical History / Comment(s): interstitial cystitis, constipati on History of Any Multi-Drug Resistant Organisms: None Reported Year Discovered:: 07/28/20 MDRO Source:: Right Hip Past Surgical History: Heart Catheterization With Stent, Hysterectomy, Joint Replacement, Orthopedic Surgery Additional Past Surgical History / Comment(s): bilateral hips replaced, bladder suspension, cataracts, 05-17-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 Pt is independent. Pt drives a car. Smoking Status: Never smoker Past Alcohol Use History: None Reported Past Drug Use History: None Reported - Past Family History Mother Family Medical History: Cancer Additional Family Medical History / Comment(s): colon Father Family Medical History: Coronary Artery Disease (CAD), Musculoskeletal Disorder Additional Family Medical History / Comment(s): PARKINSONS AND HEART TROUBLE Medications and Allergies Home Medications Medication Instructions Recorded Confirmed Type Levothyroxine Sodium [Synthroid] 37.5 mcg PO DAILY 10/09/14 04/21/22 History Metoprolol Tartrate 25 mg PO BID 10/09/14 04/21/22 History Pentosan Polysulfate Sodium 100 mg PO Q48H 10/09/14 04/21/22 History [Elmiron] [place]-3 Fatty Acids/Fish Oil [Fish 1 cap PO DAILY 10/19/14 04/21/22 History Oil 1,000 mg Softgel] Cyanocobalamin [Vitamin B-12] 500 mcg PO DAILY 05/05/15 04/21/22 History Calcium Carbonate [Calcium] 600 mg PO DAILY 06/23/20 04/21/22 History Cholecalciferol [Vitamin D3 (25 50 mcg PO DAILY 06/23/20 04/21/22 History Mcg = 1000 Iu)] Pravastatin Sodium [Pravachol] 40 mg PO HS 07/27/20 04/21/22 History ARIPiprazole [Abilify] 10 mg PO DAILY 03/11/22 04/21/22 History Alpha Lipoic Acid 600 mg PO BID 03/11/22 04/21/22 History LORazepam [Ativan] 1 mg PO BID 03/11/22 04/21/22 History Melatonin 5 mg PO HS 03/11/22 04/21/22 History Multivitamins, Thera [Multivitamin 1 tab PO DAILY 03/11/22 04/21/22 History (formulary)] Omeprazole [PriLOSEC] 20 mg PO BID 03/11/22 04/21/22 History Triamcinolone 0.1% Paste [Oralone 1 applic MUCOUS MEM DAILY 03/11/22 04/21/22 History 0.1% Paste] Vortioxetine Hydrobromide 10 mg PO DAILY 03/11/22 04/21/22 History [Trintellix] amLODIPine [Norvasc] 5 mg PO DAILY 03/11/22 04/21/22 History traMADol HCL 50 mg PO HS PRN 03/11/22 04/21/22 History Furosemide [Lasix] 20 mg PO DAILY 04/21/22 04/21/22 History hydrOXYzine pamoate [hydrOXYzine 25 mg PO BID PRN 04/21/22 04/21/22 History PAMOATE] Allergies Allergy/AdvReac Type Severity Reaction Status Date / Time cephalexin [From Keflex] Allergy Rash/Hives Verified 04/21/22 17:17 cisapride monohydrate Allergy nasal Verified 04/21/22 17:17 [From Propulsid] congestion and cough Sulfa (Sulfonamide Allergy Unknown Verified 04/21/22 17:17 Antibiotics) amitriptyline AdvReac causes Verified 04/21/22 17:17 nervousness and sleepiness amylase [From Viokase] AdvReac jim Verified 04/21/22 17:17 bladder aspirin AdvReac jim Verified 04/21/22 17:17 bladder but able to tolerate low dose asa atenolol [From Tenoretic 50] AdvReac dry Verified 04/21/22 17:17 burning eyes bupropion HCl AdvReac jim Verified 04/21/22 17:17 [From Wellbutrin] bladder chlordiazepoxide AdvReac bladder Verified 04/21/22 17:17 [From Librax (with jim clidinium)] chlordiazepoxide HCl AdvReac bladder Verified 04/21/22 17:17 [From Librax (with jim methscopolamine)] chlorthalidone AdvReac dry Verified 04/21/22 17:17 [From Tenoretic 50] burning eyes clidinium bromide AdvReac bladder Verified 04/21/22 17:17 [From Librax (with jim clidinium)] cyclobenzaprine HCl AdvReac causes Verified 04/21/22 17:17 [From Flexeril] sleepiness and nervousness dextroamphetamine sulfate AdvReac jim Verified 04/21/22 17:17 [From Dexedrine] stomach and bladder dicyclomine HCl [From Bentyl] AdvReac dry Verified 04/21/22 17:17 mouth,constipation,jim bladder fluoxetine HCl [From Prozac] AdvReac stays awake Verified 04/21/22 17:17 gabapentin [From Neurontin] AdvReac jim Verified 04/21/22 17:17 bladder hydrocodone AdvReac jim Verified 04/21/22 17:17 bladder hyoscyamine sulfate AdvReac mades eyes Verified 04/21/22 17:17 [From Levsinex] and mouth dry lipase [From Viokase] AdvReac jim Verified 04/21/22 17:17 bladder lithium AdvReac jim Verified 04/21/22 17:17 bladder loratadine [From Claritin] AdvReac jim Verified 04/21/22 17:17 stomach and bladder methylphenidate HCl AdvReac joint pain Verified 04/21/22 17:17 [From Ritalin] methylprednisolone AdvReac jim Verified 04/21/22 17:17 bladder methylscopolamine nitrate AdvReac bladder Verified 04/21/22 17:17 [From Librax (with jim methscopolamine)] metoclopramide HCl AdvReac causes Verified 04/21/22 17:17 [From Reglan] sleepiness and nervousness nortriptyline HCl AdvReac severe Verified 04/21/22 17:17 [From Pamelor] sleepiness pemoline [From Cylert] AdvReac jim Verified 04/21/22 17:17 stomach and bladder prednisone AdvReac jim Verified 04/21/22 17:17 bladder protease [From Viokase] AdvReac jim Verified 04/21/22 17:17 bladder sucralfate AdvReac constipatio Verified 04/21/22 17:17 n tolmetin sodium AdvReac Nausea & Verified 04/21/22 17:17 [From Tolectin] Vomiting tramadol HCl [From Ultram] AdvReac jim Verified 04/21/22 17:17 bladder venlafaxine HCl AdvReac jim Verified 04/21/22 17:17 [From Effexor] bladder clescin AdvReac Nausea & Uncoded 03/11/22 18:35 Vomiting ruepar AdvReac jim Uncoded 03/11/22 18:35 bladder Physical Exam Vitals: Vital Signs Temp Pulse Pulse Resp BP BP Pulse Ox 04/22/22 08:42 100.5 F H 114 H 20 142/83 96 04/22/22 04:00 99.9 F H 98 16 154/67 96 04/22/22 01:08 108 H 04/22/22 01:05 102.2 F H 112 H 22 121/59 92 L 04/21/22 23:33 98.7 F 108 H 16 149/96 93 L 04/21/22 20:00 98.4 F 82 16 104/62 93 L 04/21/22 17:30 98.6 F 80 18 143/86 93 L 04/21/22 14:29 103.4 F H 98 18 137/70 97 Intake and Output 04/21/22 04/22/22 04/22/22 22:59 06:59 14:59 Intake Total 1350 Output Total 700 700 Balance 650 -700 Intake: Intake, IV Titration 800 Amount Sodium Chloride 0.9% 1, 800 000 ml @ 130 mls/hr IV . Q7H42M [facility] Rx#:[id number] Oral 550 Output: Urine 700 700 Other: Voiding Method Bedside Commode External Catheter Bedside Commode External Catheter # Voids 1 Weight 79.5 kg 76.5 kg Results CBC & Chem 7: 04/22/22 09:43 04/22/22 09:43 Labs: Abnormal Lab Results - Last 24 Hours (Table) 04/21/22 04/21/22 04/21/22 Range/Units 14:56 14:56 14:56 RBC 2.73 L (3.80-5.40) m/uL Hgb 9.5 L D (11.4-16.0) gm/dL Hct 28.0 L (34.0-46.0) % MCV 102.6 H D (80.0-100.0) fL RDW 21.1 H (11.5-15.5) % Plt Count 85 L D (150-450) k/uL Monocytes # (Manual) 1.67 H (0-1.0) k/uL Eosinophils # (Manual) 1.47 H (0-0.7) k/uL Macrocytosis Marked A APTT 18.0 L (22.0-30.0) sec Sodium 129 L (137-145) mmol/L Chloride 92 L (98-107) mmol/L BUN 23 H (7-17) mg/dL Plasma Lactic Acid Ariel (0.7-2.0) mmol/L Total Protein 5.8 L (6.3-8.2) g/dL Urine Blood (Negative) Urine Nitrite (Negative) Ur Leukocyte Esterase (Negative) Urine WBC (0-5) /hpf Urine Bacteria (None) /hpf Urine Mucus (None) /hpf 04/21/22 04/21/22 Range/Units 14:56 Unknown RBC (3.80-5.40) m/uL Hgb (11.4-16.0) gm/dL Hct (34.0-46.0) % MCV (80.0-100.0) fL RDW (11.5-15.5) % Plt Count (150-450) k/uL Monocytes # (Manual) (0-1.0) k/uL Eosinophils # (Manual) (0-0.7) k/uL Macrocytosis APTT (22.0-30.0) sec Sodium (137-145) mmol/L Chloride (98-107) mmol/L BUN (7-17) mg/dL Plasma Lactic Acid Ariel 2.7 H* (0.7-2.0) mmol/L Total Protein (6.3-8.2) g/dL Urine Blood Small H (Negative) Urine Nitrite Positive H (Negative) Ur Leukocyte Esterase Small H (Negative) Urine WBC 8 H (0-5) /hpf Urine Bacteria Moderate H (None) /hpf Urine Mucus Rare H (None) /hpf Assessment and Plan Plan: 1patient presented to hospital with weakness this patient also have evidence of a fever on presentation to the hospital patient did have a positive UA with a history of recurrent UTI possible urinary source, patient also have acute infiltrate on the left lower lobe underlying pneumonia not entirely excluded however the patient was evaluated good historian did not mention any significant respiratory symptoms. 2patient with multiple antibiotic allergies that would limit the number of antibiotics safe to use. 3we will empirically add Azactam 2 g every 12 hours. 4we will check a CRP procalcitonin and wait for the urine cultures to be finalized. We will follow on clinical condition and cultures to further adjust medication if needed Thank you for this consultation will follow this patient along with you Time with Patient: Greater than 30
--- NOTE | 2022-04-23 09:48 | P.GSCN ---
History of Present Illness Consult date: 04/23/22 History of present illness: This is an 82-year-old female who was brought in the hospital by her family because of progressive weakness. Apparently she has been having some significant oral mucosal infections. In the ER she was found to have elevated temperature. She also is anemic. In the ER and on the floor although she seemed to be urinating appropriately a bladder scan identified over 300 mL urine. She is straight cath for over 500 mL of urine. The urine does not look infected although there is a history of infection. Her history is of questionable value as she has a completely positive review of systems. Review of Systems ROS unobtainable: due to mental status Past Medical History Past Medical History: Hyperlipidemia, Hypertension, Osteoarthritis (OA), Thyroid Disorder Additional Past Medical History / Comment(s): interstitial cystitis, cons tipation History of Any Multi-Drug Resistant Organisms: None Reported Year Discovered:: 07/28/20 MDRO Source:: Right Hip Past Surgical History: Heart Catheterization With Stent, Hysterectomy, Joint Rep lacement, Orthopedic Surgery Additional Past Surgical History / Comment(s): bilateral hips replaced, bladder suspension, cataracts, 05-17-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 Pt is independent. Pt drives a car. Smoking Status: Never smoker Past Alcohol Use History: None Reported Past Drug Use History: None Reported - Past Family History Mother Family Medical History: Cancer Additional Family Medical History / Comment(s): colon Father Family Medical History: Coronary Artery Disease (CAD), Musculoskeletal Disorder Additional Family Medical History / Comment(s): PARKINSONS AND HEART TROUBLE Medications and Allergies Home Medications Medication Instructions Recorded Confirmed Type Levothyroxine Sodium [Synthroid] 37.5 mcg PO DAILY 10/09/14 04/21/22 History Metoprolol Tartrate 25 mg PO BID 10/09/14 04/21/22 History Pentosan Polysulfate Sodium 100 mg PO Q48H 10/09/14 04/21/22 History [Elmiron] [place]-3 Fatty Acids/Fish Oil [Fish 1 cap PO DAILY 10/19/14 04/21/22 History Oil 1,000 mg Softgel] Cyanocobalamin [Vitamin B-12] 500 mcg PO DAILY 05/05/15 04/21/22 History Calcium Carbonate [Calcium] 600 mg PO DAILY 06/23/20 04/21/22 History Cholecalciferol [Vitamin D3 (25 50 mcg PO DAILY 06/23/20 04/21/22 History Mcg = 1000 Iu)] Pravastatin Sodium [Pravachol] 40 mg PO HS 07/27/20 04/21/22 History ARIPiprazole [Abilify] 10 mg PO DAILY 03/11/22 04/21/22 History Alpha Lipoic Acid 600 mg PO BID 03/11/22 04/21/22 History LORazepam [Ativan] 1 mg PO BID 03/11/22 04/21/22 History Melatonin 5 mg PO HS 03/11/22 04/21/22 History Multivitamins, Thera [Multivitamin 1 tab PO DAILY 03/11/22 04/21/22 History (formulary)] Omeprazole [PriLOSEC] 20 mg PO BID 03/11/22 04/21/22 History Triamcinolone 0.1% Paste [Oralone 1 applic MUCOUS MEM DAILY 03/11/22 04/21/22 History 0.1% Paste] Vortioxetine Hydrobromide 10 mg PO DAILY 03/11/22 04/21/22 History [Trintellix] amLODIPine [Norvasc] 5 mg PO DAILY 03/11/22 04/21/22 History traMADol HCL 50 mg PO HS PRN 03/11/22 04/21/22 History Furosemide [Lasix] 20 mg PO DAILY 04/21/22 04/21/22 History hydrOXYzine pamoate [hydrOXYzine 25 mg PO BID PRN 04/21/22 04/21/22 History PAMOATE] Allergies Allergy/AdvReac Type Severity Reaction Status Date / Time cephalexin [From Keflex] Allergy Rash/Hives Verified 04/21/22 17:17 cisapride monohydrate Allergy nasal Verified 04/21/22 17:17 [From Propulsid] congestion and cough Sulfa (Sulfonamide Allergy Unknown Verified 04/21/22 17:17 Antibiotics) amitriptyline AdvReac causes Verified 04/21/22 17:17 nervousness and sleepiness amylase [From Viokase] AdvReac jim Verified 04/21/22 17:17 bladder aspirin AdvReac jim Verified 04/21/22 17:17 bladder but able to tolerate low dose asa atenolol [From Tenoretic 50] AdvReac dry Verified 04/21/22 17:17 burning eyes bupropion HCl AdvReac jim Verified 04/21/22 17:17 [From Wellbutrin] bladder chlordiazepoxide AdvReac bladder Verified 04/21/22 17:17 [From Librax (with jim clidinium)] chlordiazepoxide HCl AdvReac bladder Verified 04/21/22 17:17 [From Librax (with jim methscopolamine)] chlorthalidone AdvReac dry Verified 04/21/22 17:17 [From Tenoretic 50] burning eyes clidinium bromide AdvReac bladder Verified 04/21/22 17:17 [From Librax (with jim clidinium)] cyclobenzaprine HCl AdvReac causes Verified 04/21/22 17:17 [From Flexeril] sleepiness and nervousness dextroamphetamine sulfate AdvReac jim Verified 04/21/22 17:17 [From Dexedrine] stomach and bladder dicyclomine HCl [From Bentyl] AdvReac dry Verified 04/21/22 17:17 mouth,constipation,jim bladder fluoxetine HCl [From Prozac] AdvReac stays awake Verified 04/21/22 17:17 gabapentin [From Neurontin] AdvReac jim Verified 04/21/22 17:17 bladder hydrocodone AdvReac jim Verified 04/21/22 17:17 bladder hyoscyamine sulfate AdvReac mades eyes Verified 04/21/22 17:17 [From Levsinex] and mouth dry lipase [From Viokase] AdvReac jim Verified 04/21/22 17:17 bladder lithium AdvReac jim Verified 04/21/22 17:17 bladder loratadine [From Claritin] AdvReac jim Verified 04/21/22 17:17 stomach and bladder methylphenidate HCl AdvReac joint pain Verified 04/21/22 17:17 [From Ritalin] methylprednisolone AdvReac jim Verified 04/21/22 17:17 bladder methylscopolamine nitrate AdvReac bladder Verified 04/21/22 17:17 [From Librax (with jim methscopolamine)] metoclopramide HCl AdvReac causes Verified 04/21/22 17:17 [From Reglan] sleepiness and nervousness nortriptyline HCl AdvReac severe Verified 04/21/22 17:17 [From Pamelor] sleepiness pemoline [From Cylert] AdvReac jim Verified 04/21/22 17:17 stomach and bladder prednisone AdvReac jim Verified 04/21/22 17:17 bladder protease [From Viokase] AdvReac jim Verified 04/21/22 17:17 bladder sucralfate AdvReac constipatio Verified 04/21/22 17:17 n tolmetin sodium AdvReac Nausea & Verified 04/21/22 17:17 [From Tolectin] Vomiting tramadol HCl [From Ultram] AdvReac jim Verified 04/21/22 17:17 bladder venlafaxine HCl AdvReac jim Verified 04/21/22 17:17 [From Effexor] bladder clescin AdvReac Nausea & Uncoded 03/11/22 18:35 Vomiting ruepar AdvReac jim Uncoded 03/11/22 18:35 bladder Surgical - Exam Vital Signs Temp Pulse Resp BP Pulse Ox 103.4 F H 98 18 137/70 97 04/21/22 14:29 04/21/22 14:29 04/21/22 14:29 04/21/22 14:29 04/21/22 14:29 - General Tremulous, frail well nourished - Eyes PERRL - ENT Poor dentition, inflamed mucosa - Respiratory normal respiratory effort - Cardiovascular Rhythm: regular - Abdomen Abdomen: soft, non tender - Genitourinary No obvious cystocele or vaginal mass - Integumentary no growths - Neurologic confused Results - Labs 04/22/22 09:43 04/22/22 09:43 Abnormal Lab Results - Last 24 Hours (Table) 04/22/22 04/22/22 04/23/22 Range/Units 09:43 09:43 07:05 RBC 2.69 L (3.80-5.40) m/uL Hgb 9.1 L (11.4-16.0) gm/dL Hct 27.4 L (34.0-46.0) % MCV 101.7 H (80.0-100.0) fL RDW 19.9 H (11.5-15.5) % Plt Count 117 L (150-450) k/uL Lymphocytes # 0.8 L (1.0-4.8) k/uL Retic Count 7.4 H (0.5-2.0) % Sodium 129 L (137-145) mmol/L Potassium 3.0 L (3.5-5.1) mmol/L Chloride 97 L (98-107) mmol/L Glucose 120 H (74-99) mg/dL Calcium 7.8 L (8.4-10.2) mg/dL C-Reactive Protein (<1.0) mg/dL 04/23/22 Range/Units 07:05 RBC (3.80-5.40) m/uL Hgb (11.4-16.0) gm/dL Hct (34.0-46.0) % MCV (80.0-100.0) fL RDW (11.5-15.5) % Plt Count (150-450) k/uL Lymphocytes # (1.0-4.8) k/uL Retic Count (0.5-2.0) % Sodium (137-145) mmol/L Potassium (3.5-5.1) mmol/L Chloride (98-107) mmol/L Glucose (74-99) mg/dL Calcium (8.4-10.2) mg/dL C-Reactive Protein 16.3 H (<1.0) mg/dL Microbiology - Last 24 Hours (Table) 04/21/22 16:25 Blood Culture - Preliminary Blood No Growth after 24 hours 04/21/22 16:10 Blood Culture - Preliminary Blood No Growth after 24 hours Diabetes panel 04/22/22 Range/Units 09:43 Sodium 129 L (137-145) mmol/L Potassium 3.0 L (3.5-5.1) mmol/L Chloride 97 L (98-107) mmol/L Carbon Dioxide 25 (22-30) mmol/L BUN 16 (7-17) mg/dL Creatinine 0.73 (0.52-1.04) mg/dL Glucose 120 H (74-99) mg/dL Calcium 7.8 L (8.4-10.2) mg/dL Calcium panel 04/22/22 Range/Units 09:43 Calcium 7.8 L (8.4-10.2) mg/dL Pituitary panel 04/22/22 Range/Units 09:43 Sodium 129 L (137-145) mmol/L Potassium 3.0 L (3.5-5.1) mmol/L Chloride 97 L (98-107) mmol/L Carbon Dioxide 25 (22-30) mmol/L BUN 16 (7-17) mg/dL Creatinine 0.73 (0.52-1.04) mg/dL Glucose 120 H (74-99) mg/dL Calcium 7.8 L (8.4-10.2) mg/dL Adrenal panel 04/22/22 Range/Units 09:43 Sodium 129 L (137-145) mmol/L Potassium 3.0 L (3.5-5.1) mmol/L Chloride 97 L (98-107) mmol/L Carbon Dioxide 25 (22-30) mmol/L BUN 16 (7-17) mg/dL Creatinine 0.73 (0.52-1.04) mg/dL Glucose 120 H (74-99) mg/dL Calcium 7.8 L (8.4-10.2) mg/dL Assessment and Plan Assessment: Impression: Fever of unknown origin, incomplete bladder emptying acute versus chronic. Oral stomatitis. Recommendations: Based on her urinalysis the urine does not look infected. Incomplete bladder emptying can be both acute and chronic in this situation. There apparently is a history of recurring infections. This would be consistent with incomplete bladder emptying that is chronic. I recommend leaving the indwelling catheter until she is more stable mentally and physically and then pull it out for a voiding trial. Please contact us if further urologic evaluation is necessary.
--- NOTE | 2022-04-23 10:51 | P.PN ---
Subjective Progress Note Date: 04/22/22 82-year-old female who presents to the emergency department with a past history of anemia. Patient was brought in by EMS because family stated that the patient was much weaker today than normal and she lives on her own. No further history was available no duration of the weakness was indicated and no mention of any fever however the patient had 103 fever orally in the emergency department. Patient herself did not complain of any pain she denied chest pain tonight difficulty breathing or shortness of breath she denied a cough. Patient denied abdominal pain patient states she wasn't having any vomiting or diarrhea. Patient wasn't able to verbalize her reason for being in the emergency room. Workup completed in the ER reveals EKG Findings:: EKG demonstrates sinus rhythm with a rate of 95. IL interval 153. QRS 80. QTC of 337. No acute ST segment elevations or depressions Patient's laboratory studies which reveal a hemoglobin of 9.5. Sodium 127. Lac tic acid 2.5. Urinalysis was positive for nitrates and moderate bacteria. Review the patient's last sensitivities. She is started on Levaquin. Chest x-ray was performed which demonstrates a possible left lower lobe opacity and was started on azithromycin recommended admission for which the patient and her daughter were agreeable. Objective - Vital Signs Vital signs: Vital Signs Temp 99.2 F 04/22/22 11:00 Pulse 84 04/22/22 11:00 Resp 20 04/22/22 11:00 BP 129/59 04/22/22 11:00 Pulse Ox 95 04/22/22 11:00 FiO2 Intake & Output 04/21/22 04/22/22 04/22/22 18:59 06:59 18:59 Intake Total 1350 Output Total 700 700 Balance 650 -700 Weight 104.326 kg 76.5 kg Intake: Intake, IV Titration 800 Amount Sodium Chloride 0.9% 1, 800 000 ml @ 130 mls/hr IV . Q7H42M [facility] Rx#:[id number] Oral 550 Output: Urine 700 700 Other: Voiding Method External Catheter Bedside Commode External Catheter # Voids 1 - Exam GENERAL: Patient is well-developed and well-nourished. Patient is nontoxic and well-hydrated and is in no acute distress. ENT: Neck is soft and supple. No significant lymphadenopathy is noted. Oropharynx is clear. Moist mucous membranes. Neck has full range of motion without eliciting any pain. EYES: The sclera were anicteric and conjunctiva were pink and moist. Extraocular movements were intact and pupils were equal round and reactive to light. Eyelids were unremarkable. PULMONARY: Unlabored respirations. Good breath sounds bilaterally. No audible rales rhonchi or wheezing was noted. CARDIOVASCULAR: There is a regular rate and rhythm without any murmurs gallops or rubs. ABDOMEN: Soft and nontender with normal bowel sounds. SKIN: Skin is clear with no lesions or rashes and otherwise unremarkable. NEUROLOGIC: Patient is alert and oriented 2. Cranial nerves II through XII are grossly intact. Motor and sensory are also intact. Normal speech, volume and content. Symmetrical smile. MUSCULOSKELETAL: Normal extremities with adequate strength and full range of motion. LYMPHATICS: No significant lymphadenopathy is noted - Labs CBC & Chem 7: 04/22/22 09:43 04/22/22 09:43 Labs: Abnormal Lab Results - Last 24 Hours (Table) 04/21/22 04/21/22 04/21/22 Range/Units 14:56 14:56 14:56 RBC 2.73 L (3.80-5.40) m/uL Hgb 9.5 L D (11.4-16.0) gm/dL Hct 28.0 L (34.0-46.0) % MCV 102.6 H D (80.0-100.0) fL RDW 21.1 H (11.5-15.5) % Plt Count 85 L D (150-450) k/uL Lymphocytes # (1.0-4.8) k/uL Monocytes # (Manual) 1.67 H (0-1.0) k/uL Eosinophils # (Manual) 1.47 H (0-0.7) k/uL Macrocytosis Marked A APTT 18.0 L (22.0-30.0) sec Sodium 129 L (137-145) mmol/L Potassium (3.5-5.1) mmol/L Chloride 92 L (98-107) mmol/L BUN 23 H (7-17) mg/dL Glucose (74-99) mg/dL Plasma Lactic Acid Ariel (0.7-2.0) mmol/L Calcium (8.4-10.2) mg/dL Total Protein 5.8 L (6.3-8.2) g/dL Urine Blood (Negative) Urine Nitrite (Negative) Ur Leukocyte Esterase (Negative) Urine WBC (0-5) /hpf Urine Bacteria (None) /hpf Urine Mucus (None) /hpf 04/21/22 04/21/22 04/22/22 Range/Units 14:56 Unknown 09:43 RBC 2.69 L (3.80-5.40) m/uL Hgb 9.1 L (11.4-16.0) gm/dL Hct 27.4 L (34.0-46.0) % MCV 101.7 H (80.0-100.0) fL RDW 19.9 H (11.5-15.5) % Plt Count 117 L (150-450) k/uL Lymphocytes # 0.8 L (1.0-4.8) k/uL Monocytes # (Manual) (0-1.0) k/uL Eosinophils # (Manual) (0-0.7) k/uL Macrocytosis APTT (22.0-30.0) sec Sodium (137-145) mmol/L Potassium (3.5-5.1) mmol/L Chloride (98-107) mmol/L BUN (7-17) mg/dL Glucose (74-99) mg/dL Plasma Lactic Acid Ariel 2.7 H* (0.7-2.0) mmol/L Calcium (8.4-10.2) mg/dL Total Protein (6.3-8.2) g/dL Urine Blood Small H (Negative) Urine Nitrite Positive H (Negative) Ur Leukocyte Esterase Small H (Negative) Urine WBC 8 H (0-5) /hpf Urine Bacteria Moderate H (None) /hpf Urine Mucus Rare H (None) /hpf 04/22/22 Range/Units 09:43 RBC (3.80-5.40) m/uL Hgb (11.4-16.0) gm/dL Hct (34.0-46.0) % MCV (80.0-100.0) fL RDW (11.5-15.5) % Plt Count (150-450) k/uL Lymphocytes # (1.0-4.8) k/uL Monocytes # (Manual) (0-1.0) k/uL Eosinophils # (Manual) (0-0.7) k/uL Macrocytosis APTT (22.0-30.0) sec Sodium 129 L (137-145) mmol/L Potassium 3.0 L (3.5-5.1) mmol/L Chloride 97 L (98-107) mmol/L BUN (7-17) mg/dL Glucose 120 H (74-99) mg/dL Plasma Lactic Acid Ariel (0.7-2.0) mmol/L Calcium 7.8 L (8.4-10.2) mg/dL Total Protein (6.3-8.2) g/dL Urine Blood (Negative) Urine Nitrite (Negative) Ur Leukocyte Esterase (Negative) Urine WBC (0-5) /hpf Urine Bacteria (None) /hpf Urine Mucus (None) /hpf Assessment and Plan Assessment: 1. UTI/sepsis - Patient was found to have a temperature of 103.4, lactic acid is elevated at 2.7 - Based on previous sensitivities, patient was started on IV Levaquin - Blood culture and urine cultures obtained; we will adjust antibiotic therapy once culture results are available 2. Community-acquired pneumonia - Patient has been placed on IV Levaquin to cover UTI and pneumonia; azithromycin is added for atypical coverage - We will monitor blood and sputum cultures; monitor CBC, CRP and pro-calcitonin - Bronchodilator nebulizer treatments as needed 3. Mild AK I; likely related to poor oral intake; patient has been placed on IV fluid hydration; we will monitor strict TRAVIS's, daily weights, renal function and electrolytes; avoid nephrotoxins and hypotension 4. Stomatitis/ mucositis; patient was evaluated by ENT on last admission and was diagnosed with grade 3 mucositis; we will change the diet to pured; mucos itis likely related to blood dyscrasia or immunocompromise; patient has been ruled out by hematology; patient was recommended to continue with low-dose prednisone at 10 mg daily; we will resume same and patient will follow-up with ENT as an outpatient 5. Hypertension; continue with amlodipine 5 mg daily; metoprolol 25 mg daily 6. Hyperlipidemia; home statin therapy in form of Pravachol 40 mg 2 daily at bedtime 7. Hypothyroidism; levothyroxine 75 MCG daily DVT prophylaxis; SCDs CODE STATUS; full code
[2022-04-23] MEDS: ACETAMINOPHEN TAB 325 MG TAB PO PRN (11:13)
--- NOTE | 2022-04-23 13:57 | CT ---
EXAMINATION TYPE: CT brain wo con CT DLP: 1180.4 mGycm, Automated exposure control for dose reduction was used. DATE OF EXAM: 04/23/2022 1:51 PM COMPARISON: None. CLINICAL INDICATION:Female, 82 years old with history of Confusion, choking on food., confusion and c hoking on food TECHNIQUE: Brain: Multiple axial CT images of the brain were obtained without IV contrast. Coronal and sagittal reformats reviewed. FINDINGS: Brain: Extra-axial spaces: No abnormal extra-axial fluid collections. Ventricular system: Within normal limits Cerebral parenchyma: No acute intraparenchymal hemorrhage or mass effect. The ross-white junction is well differentiated. Scattered hypoattenuating areas are seen within the white matter. Cerebral vol ume loss. Cerebellum: Unremarkable. Mass effect: No evidence of midline shift. Intracranial vasculature: Atherosclerotic calcifications of the intracranial vessels. Soft tissues: Normal. Calvarium/osseous structures: No depressed skull fracture. Paranasal sinuses and mastoid air cells: Mild scattered paranasal sinus disease. Visualized orbits: Bilateral aphakia IMPRESSION: 1. No acute intracranial process. 2. Nonspecific white matter changes, likely secondary to chronic small vessel ischemic disease.
[2022-04-23] MEDS ORDERED: VANCOMYCIN IV PER PHARMACY 1 EACH MISC MISCELLANE PRN (15:03)
[2022-04-23] MEDS ORDERED: AMPICILLIN 2,000 MG in SODIUM CHLORIDE 0.9% 100 ML IVPB STA (15:09)
[2022-04-23] MEDS: ACYCLOVIR SODIUM 1,000 MG in SODIUM CHLORIDE 0.9% 250 ML IVPB SCH (16:08)
--- NOTE | 2022-04-23 16:26 | P.PN ---
Subjective Progress Note Date: 04/23/22 Principal diagnosis: Altered mental status Urinary retention Mucositis/stomatitis Sepsis/UTI/community-acquired pneumonia 82-year-old female who presents to the emergency department with a past history of anemia. Patient was brought in by EMS because family stated that the patient was much weaker today than normal and she lives on her own. No further history was available no duration of the weakness was indicated and no mention of any fever however the patient had 103 fever orally in the emergency department. Patient herself did not complain of any pain she denied chest pain tonight difficulty breathing or shortness of breath she denied a cough. Patient denied abdominal pain patient states she wasn't having any vomiting or diarrhea. Luli gunn wasn't able to verbalize her reason for being in the emergency room. Workup completed in the ER reveals EKG Findings:: EKG demonstrates sinus rhythm with a rate of 95. DC interval 153. QRS 80. QTC of 337. No acute ST segment elevations or depressions Patient's laboratory studies which reveal a hemoglobin of 9.5. Sodium 127. Lactic acid 2.5. Urinalysis was positive for nitrates and moderate bacteria. Review the patient's last sensitivities. She is started on Levaquin. Chest x-ray was performed which demonstrates a possible left lower lobe opacity and was started on azithromycin recommended admission for which the patient and her daughter were agreeable. 04/23/2022 Patient is seen and evaluated today In bed with daughter at bedside; daughter is concerned about persistent confusion Vital signs are reviewed and remained stable Patient is currently on IV Levaquin for UTI/pneumonia along with azithromycin added for atypical coverage for pneumonia Altered mental status might be multifactorial related to UTI/pneumonia/renal injury-- toxic/metabolic encephalopathy; we will order CT of the head; consult neurology; decrease prednisone down to 5 mg daily Objective - Vital Signs Vital signs: Vital Signs Temp 100.1 F H 04/23/22 07:52 Pulse 103 H 04/23/22 07:52 Resp 20 04/23/22 07:52 BP 139/78 04/23/22 07:52 Pulse Ox 94 L 04/23/22 07:52 FiO2 Intake & Output 04/22/22 04/23/22 04/23/22 18:59 06:59 18:59 Intake Total 1300 Output Total 1200 2250 Balance -1200 -950 Intake: Intake, IV Titration 1300 Amount Aztreonam 2 gm In Sodium 100 Chloride 0.9% 100 ml @ 33 .3 mls/hr IVPB Q12HR [facility] Rx#:[id number] Sodium Chloride 0.9% 1, 1200 000 ml @ 130 mls/hr IV . Q7H42M [facility] Rx#:[id number] Output: Urine 1200 2250 Other: Voiding Method Bedside Commode Indwelling Catheter Indwelling Catheter External Catheter # Voids 1 - Exam GENERAL: Patient is well-developed and well-nourished. Patient is nontoxic and well-hydrated and is in no acute distress. ENT: Neck is soft and supple. No significant lymphadenopathy is noted. Oropharynx is clear. Moist mucous membranes. Neck has full range of motion without eliciting any pain. EYES: The sclera were anicteric and conjunctiva were pink and moist. Extraocular movements were intact and pupils were equal round and reactive to l ight. Eyelids were unremarkable. PULMONARY: Unlabored respirations. Good breath sounds bilaterally. No audible rales rhonchi or wheezing was noted. CARDIOVASCULAR: There is a regular rate and rhythm without any murmurs gallops or rubs. ABDOMEN: Soft and nontender with normal bowel sounds. SKIN: Skin is clear with no lesions or rashes and otherwise unremarkable. NEUROLOGIC: Patient is alert and oriented 2. Cranial nerves II through XII are grossly intact. Motor and sensory are also intact. Normal speech, volume and content. Symmetrical smile. MUSCULOSKELETAL: Normal extremities with adequate strength and full range of motion. LYMPHATICS: No significant lymphadenopathy is noted - Labs CBC & Chem 7: 04/22/22 09:43 04/22/22 09:43 Labs: Abnormal Lab Results - Last 24 Hours (Table) 04/22/22 04/22/22 04/23/22 Range/Units 09:43 09:43 07:05 RBC 2.69 L (3.80-5.40) m/uL Hgb 9.1 L (11.4-16.0) gm/dL Hct 27.4 L (34.0-46.0) % MCV 101.7 H (80.0-100.0) fL RDW 19.9 H (11.5-15.5) % Plt Count 117 L (150-450) k/uL Lymphocytes # 0.8 L (1.0-4.8) k/uL Retic Count 7.4 H (0.5-2.0) % Sodium 129 L (137-145) mmol/L Potassium 3.0 L (3.5-5.1) mmol/L Chloride 97 L (98-107) mmol/L Glucose 120 H (74-99) mg/dL Calcium 7.8 L (8.4-10.2) mg/dL C-Reactive Protein (<1.0) mg/dL 04/23/22 Range/Units 07:05 RBC (3.80-5.40) m/uL Hgb (11.4-16.0) gm/dL Hct (34.0-46.0) % MCV (80.0-100.0) fL RDW (11.5-15.5) % Plt Count (150-450) k/uL Lymphocytes # (1.0-4.8) k/uL Retic Count (0.5-2.0) % Sodium (137-145) mmol/L Potassium (3.5-5.1) mmol/L Chloride (98-107) mmol/L Glucose (74-99) mg/dL Calcium (8.4-10.2) mg/dL C-Reactive Protein 16.3 H (<1.0) mg/dL Microbiology - Last 24 Hours (Table) 04/21/22 16:25 Blood Culture - Preliminary Blood No Growth after 24 hours 04/21/22 16:10 Blood Culture - Preliminary Blood No Growth after 24 hours Assessment and Plan Assessment: 1. UTI/sepsis - Patient was found to have a temperature of 103.4, lactic acid is elevated at 2.7 - Based on previous sensitivities, patient was started on IV Levaquin - Blood culture and urine cultures obtained; we will adjust antibiotic therapy once culture results are available 2. Community-acquired pneumonia - Patient has been placed on IV Levaquin to cover UTI and pneumonia; azithromycin is added for atypical coverage - We will monitor blood and sputum cultures; monitor CBC, CRP and pro-calcitonin - Bronchodilator nebulizer treatments as needed 3. Mild AK I; likely related to poor oral intake; patient has been placed on IV fluid hydration; we will monitor strict TRAVIS's, daily weights, renal function and electrolytes; avoid nephrotoxins and hypotension 4. Stomatitis/ mucositis; patient was evaluated by ENT on last admission and was diagnosed with grade 3 mucositis; we will change the diet to pured; mucositis likely related to blood dyscrasia or immunocompromise; patient has been ruled out by hematology; patient was recommended to continue with low-dose prednisone at 10 mg daily; we will resume same and patient will follow-up with ENT as an outpatient 5. Hypertension; continue with amlodipine 5 mg daily; metoprolol 25 mg daily 6. Hyperlipidemia; home statin therapy in form of Pravachol 40 mg 2 daily at bedtime 7. Hypothyroidism; levothyroxine 75 MCG daily DVT prophylaxis; SCDs CODE STATUS; full code
[2022-04-23 17:02] LABS: Glucose,Whole Blood 224 mg/dL (70-110)
[2022-04-23] MEDS: VANCOMYCIN 1,500 MG in SODIUM CHLORIDE 0.9% 250 ML IVPB SCH (17:18)
--- NOTE | 2022-04-23 17:21 | P.PN ---
Subjective Progress Note Date: 04/23/22 Principal diagnosis: Fever Patient is a 82-year-old female with a past medical history significant for recurrent urinary tract infection has been brought into the hospital for evaluation of weakness and concern for another episode of UTI on today's evaluation that is 04/23/2022, the patient overall fever pattern has improved and did have a low-grade fever of 100.6 this morning compared to 103 on admission, the patient mentioned she is feeling better patient know that she is at [facility] and denies having any headache. Denies having any chest pain or shortness with occasional cough no abdominal pain and no diarrhea Objective - Vital Signs Vital signs: Vital Signs Temp 100.6 F H 04/23/22 11:10 Pulse 92 04/23/22 13:31 Resp 20 04/23/22 11:10 BP 133/70 04/23/22 11:10 Pulse Ox 95 04/23/22 11:10 FiO2 Intake & Output 04/22/22 04/23/22 04/23/22 18:59 06:59 18:59 Intake Total 1300 Output Total 1200 2250 1500 Balance -1200 -950 -1500 Intake: Intake, IV Titration 1300 Amount Aztreonam 2 gm In Sodium 100 Chloride 0.9% 100 ml @ 33 .3 mls/hr IVPB Q12HR [facility] Rx#:[id number] Sodium Chloride 0.9% 1, 1200 000 ml @ 130 mls/hr IV . Q7H42M [facility] Rx#:[id number] Output: Urine 1200 2250 1500 Other: Voiding Method Bedside Commode Indwelling Catheter Indwelling Catheter External Catheter # Voids 1 - Exam GENERAL DESCRIPTION: An elderly female lying in bed in no distress RESPIRATORY SYSTEM: Unlabored breathing , decreased breath sounds at bases HEART: S1 S2 regular rate and rhythm , ABDOMEN: Soft , no tenderness EXTREMITIES: No edema feet - Labs CBC & Chem 7: 04/22/22 09:43 04/22/22 09:43 Labs: Abnormal Lab Results - Last 24 Hours (Table) 04/23/22 04/23/22 Range/Units 07:05 07:05 Retic Count 7.4 H (0.5-2.0) % C-Reactive Protein 16.3 H (<1.0) mg/dL Microbiology - Last 24 Hours (Table) 04/21/22 16:25 Blood Culture - Preliminary Blood No Growth after 24 hours 04/21/22 16:10 Blood Culture - Preliminary Blood No Growth after 24 hours Assessment and Plan (1) Pyrexia Current Visit: Yes Status: Acute Code(s): R50.9 - FEVER, UNSPECIFIED SNOME D Code(s): 064106070 Plan: 1patient presented to hospital with weakness this patient also have evidence of a fever on presentation to the hospital patient did have a positive UA with a history of recurrent UTI possible urinary source, patient also have acute infiltrate on the left lower lobe underlying pneumonia not entirely excluded however the patient was evaluated good historian did not mention any significant respiratory symptoms. 2patient with multiple antibiotic allergies that would limit the number of antibiotics safe to use. 3patient to continue with Azactam 2 g every 12 hours. 4patient did have elevated CRP however procalcitonin is still not reported We will repeat her UA culture as well as repeat chest x-ray PA and lateral and monitor clinical course closely
[2022-04-23 17:42] LABS: Appearance,Urine Clear (Clear); Bacteria,Urine Rare /hpf; Bilirubin,Urine Negative (Negative); Blood,Urine Negative (Negative); Color,Urine Colorless; Glucose,Urine (UA) Negative (Negative); Ketones,Urine Negative (Negative); Leukocyte Esterase,Urine Moderate (Negative); Nitrite,Urine Negative (Negative); Protein,Urine Negative (Negative); RBC,Urine 1 /hpf (0-5); Specific Gravity,Urine 1.004 (1.001-1.035); Urobilinogen,Urine <2.0 mg/dL (<2.0); WBC,Urine 10 /hpf (0-5)
--- NOTE | 2022-04-23 19:31 | P.PCN ---
Date of Procedure: 04/23/22 Procedure(s) Performed: Preoperative diagnosis: Meningoencephalitis Post operative diagnoses: Meningoencephalitis Procedure= lumbar puncture Anesthesia= local infiltration with lidocaine 1% 2 mL. Condition: Guarded Complication: none. Description of the procedure procedure risk and benefits discussed with the patient and family, consent signed. Patient and the procedure area placed in sitting position, back prepped with chlorhexidine 3 times been local infiltration of the skin and subcutaneous tissue with lidocaine 1% 2 mL for skin and subcu interstitial frustrations at L4 5 levels then 22-gauge Quincke-type needle advanced slowly at L4- 5 interlaminar space there was positive cerebrospinal fluid which was clear, no heme, no paresthesia ,total of 8 ML of clear cerebrospinal fluid collected in 4 different tubes 2 mL in each, then the needle removed and a Band-Aid applied and patient tolerated the procedure well without any complications.
[2022-04-23 19:38] LABS: Appearance,CSF Clear; CSF Tube Number 4; CSF Tube Volume 2.5
[2022-04-23 19:39] LABS: Nucleated Cells, CSF 0 u/L (0-5); Red Blood Cell,CSF 0 u/L (0-10)
[2022-04-23 19:58] LABS: Glucose,CSF 95 mg/dL (40-70); Total Protein,CSF 60 mg/dL (12-60)
[2022-04-23] MEDS: MELATONIN 5 MG TABLET PO SCH (21:33)
[2022-04-23] MEDS: LORazepam 0.5 MG TAB PO SCH (21:33)
[2022-04-23] MEDS: PRAVASTATIN SODIUM 40 MG TAB PO SCH (21:33)
[2022-04-24] MEDS: traMADol 50 MG TAB PO PRN (01:21)
[2022-04-24] MEDS: ACYCLOVIR SODIUM 1,000 MG in SODIUM CHLORIDE 0.9% 250 ML IVPB SCH ×2 (01:21→11:48)
[2022-04-24] MEDS: IBUPROFEN 400 MG TAB PO PRN ×3 (01:44→23:27)
[2022-04-24] MEDS: LEVOTHYROXINE 75 MCG TAB PO SCH (06:32)
[2022-04-24] MEDS: SODIUM CHLORIDE 0.9% 1,000 ML IV SCH ×3 (06:33→20:55)
[2022-04-24] MEDS: PANTOPRAZOLE 40 MG TABLET PO SCH (06:33)
--- NOTE | 2022-04-24 07:26 | XR ---
EXAMINATION TYPE: XR chest 2V DATE OF EXAM: 04/24/2022 6:54 AM COMPARISON: Chest radiographs from 04/21/2022. TECHNIQUE: XR chest 2V Frontal and lateral views of the chest. CLINICAL INDICATION:Female, 82 years old with history of Pneumonia; FINDINGS: Lungs/Pleura: No pneumothorax. Small left pleural effusion. Interval worsening of patchy airspace dis ease throughout the left lung and right lower lung. Pulmonary vascularity: Unremarkable. Heart/mediastinum: Cardiomediastinal silhouette is prominent in size. Atherosclerotic calcifications are seen in the aorta. Musculoskeletal: No acute osseous pathology. IMPRESSION: Worsening of patchy airspace disease throughout the left lung and right lower lung with small left pl eural effusion concerning for pneumonia.
[2022-04-24] MEDS: METOPROLOL TARTRATE 25 MG TAB PO SCH ×2 (08:14→20:55)
[2022-04-24] MEDS: VANCOMYCIN 1,500 MG in SODIUM CHLORIDE 0.9% 250 ML IVPB SCH (08:15)
[2022-04-24] MEDS: LORazepam 0.5 MG TAB PO SCH ×2 (08:15→20:55)
[2022-04-24] MEDS: ARIPiprazole 10 MG TAB PO SCH (08:15)
[2022-04-24] MEDS: amLODIPine 5 MG TAB PO SCH (08:15)
[2022-04-24] MEDS: FUROSEMIDE 20 MG TAB PO SCH (08:15)
[2022-04-24] MEDS: VORTIOXETINE HYDROBROMIDE 10 MG TABLET PO SCH (08:15)
[2022-04-24] MEDS: CYANOCOBALAMIN 500 MCG TAB PO SCH (08:15)
[2022-04-24] MEDS: predniSONE 5 MG TAB PO SCH (08:15)
[2022-04-24 08:21] LABS: African American GFR (CKD) >90 (>60 ml/min/1.73 sqM); Non-African American GFR(CKD) 81 (>60 ml/min/1.73 sqM)
[2022-04-24] MEDS: HYDROcodone/APAP 5-325MG 1 EACH TAB PO PRN ×2 (10:21→22:22)
[2022-04-24 11:15] LABS: Anisocytosis Slight; HCT 26.4 % (34.0-46.0); HGB 8.6 gm/dL (11.4-16.0); Hypochromasia Slight; MCH 33.8 pg (25.0-35.0); MCHC 32.4 g/dL (31.0-37.0); MCV 104.1 fL (80.0-100.0); Macrocytosis Moderate; RBC 2.54 m/uL (3.80-5.40); RDW 19.5 % (11.5-15.5); WBC 8.2 k/uL (3.8-10.6)
[2022-04-24 11:17] LABS: Anion Gap 7 mmol/L; Blood Urea Nitrogen 17 mg/dL (7-17); Carbon Dioxide 25 mmol/L (22-30); Chloride 101 mmol/L (98-107); Glucose 89 mg/dL (74-99); Sodium 133 mmol/L (137-145)
[2022-04-24 11:23] LABS: Platelet Count 187 k/uL (150-450)
[2022-04-24] MEDS ORDERED: Potassium Replacement Protocol 1 EACH MISC MISCELLANE PRN (11:44)
[2022-04-24] MEDS: POTASSIUM CHLORIDE ER 20 MEQ TAB.ER PO SCH ×2 (11:56→13:05)
[2022-04-24] MEDS: NON FORMULARY DRUG (Pentosan Polysulfate Sodium [Elmiron] 100 MG Capsule) PO SCH (11:58)
--- NOTE | 2022-04-24 13:52 | P.CNNES ---
History of Present Illness Consult date: 04/24/22 Requesting physician: Schuyler Pedersen Reason for Consult: Confusion, choking with food. History of Present Illness: Patient is a 82-year-old female came to the hospital by ambulance on 04/21/2022 at 2:23 PM. EMS flow sheet not available in the chart. Patient not able to provide any history. She is complaining of low back hurting, rating 8/10. Patient states that it is because she is in laying in the bed for long time. Patient says that she cannot get out of hospital. Patient's daughter came while I was evaluating the patient, who provided history. Patient lives by herself. Her son lives next door to her. Patient has been going downhill for last 1-2 days prior to arrival. Patient's daughter went to check on her and she was confused, not got out of her pajamas, not taking care of herself. Patient was r ecently admitted to the hospital for mouth pain, mouth ulcers and weakness on 03/11/2022. Patient was diagnosed with severe macrocytic anemia, unclear etiology, status post 2 units of packed RBC transfusion. Hematology saw the patient, and suspected medication and infection related. Patient also had developed mucositis with ulcers for one month post Covid infection which she suffered in December 2021. Patient was placed on steroids burst and taper dose. After she was discharged home, she was getting better, the mouth sores were gone 90%. She even went [place] [facility] [place] her family at her [place] and stayed there for 3-4 days and was doing well. However lately her fevers have reappeared, she has rash/itching all over, and the mouth sores have come back. Therefore patient's daughter called the ambulance. Patient's daughter states that up until 2 days prior to arrival to the hospital, she was able to do everything by herself. The patient's daughter only checks on her medication make sure she takes it regularly. Patient's blood test shows WBC is 7.5 hemoglobin 9.1, platelets 117. MCV is elevated 102.6 PTT PTT is normal. Sodium 129 potassium 3.0, normal renal functions. Lactate was 2.7, which has come down to 1.3. Hepatic panel is normal. UA shows positive nitrite small amount of leukocyte esterase and moderate bacteria. 8 WBC. G[place]a virus PCR negative. Patient's B12 checked last admission was 961, methylmalonic acid 0.30 which is normal. Folate 10.8, RBC folate 283 (280-791). Immunofixation electrophoresis negative for monoclonal proteins. Serum protein electrophoresis negative. Calcium normal to mildly decreased 8.0. No history of diabetes. Patient does have hypertension. No tobacco or alcohol use. Patient's altered mental status was felt to be related to UTI. She has been on treatment. However patient was still confused. This prompted neurology consultation. Dr. Ross Catalan recommended lumbar puncture, which was performed last night. Patient was placed on vancomycin, ampicillin and acyclovir were by Dr. Catalan. CSF is normal shows WBC 0, RBC 0, glucose 95, protein 60. CT head showed no acute intracranial process. Nonspecific white matter changes, likely secondary to chronic small vessel ischemic disease. I personally review CT head , agree with the findings. Mild paranasal sinus disease particularly involving the left maxillary sinus. Patient denies any headache. She is complaining of low back pain "bothering really bad" since this morning. She denies any numbness or tingling in the legs, or any weakness in the legs. She has been retained on Nuñez's catheter since yesterday. Review of Systems Constitutional: Reports fever, Reports poor appetite, Denies chills Eyes: denies blurred vision, denies pain Ears, nose, mouth and throat: Reports mouth pain, Denies headache, Denies vertigo Cardiovascular: Denies chest pain, Denies shortness of breath Respiratory: Denies cough Gastrointestinal: Denies abdominal pain, Denies diarrhea, Denies nausea, Denies vomiting Genitourinary: Denies dysuria, Denies hematuria Musculoskeletal: Reports low back pain, Reports muscle weakness, Denies neck pain Integumentary: Reports rash, Denies pruritus Neurological: Reports as per HPI Psychiatric: Reports anxiety, Denies depression Endocrine: Reports fatigue Hematologic/Lymphatic: Reports easy bleeding Allergic/Immunologic: Denies wheezing Past Medical History Past Medical History: Hyperlipidemia, Hypertension, Osteoarthritis (OA), Thyroid Disorder Additional Past Medical History / Comment(s): interstitial cystitis, constipation History of Any Multi-Drug Resistant Organisms: None Reported Date of last positivie culture/infection: 07/28/20 MDRO Source:: Right Hip Past Surgical History: Heart Catheterization With Stent, Hysterectomy, Joint Replacement, Orthopedic Surgery Additional Past Surgical History / Comment(s): bilateral hips replaced, bladder suspension, cataracts, 05-17-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 Pt is independent. Pt drives a car. Smoking Status: Never smoker Past Alcohol Use History: None Reported Past Drug Use History: None Reported - Past Family History Mother Family Medical History: Cancer Additional Family Medical History / Comment(s): colon Father Family Medical History: Coronary Artery Disease (CAD), Musculoskeletal Disorder Additional Family Medical History / Comment(s): PARKINSONS AND HEART TROUBLE Medications and Allergies Home Medications Medication Instructions Recorded Confirmed Type Levothyroxine Sodium [Synthroid] 37.5 mcg PO DAILY 10/09/14 04/21/22 History Metoprolol Tartrate 25 mg PO BID 10/09/14 04/21/22 History Pentosan Polysulfate Sodium 100 mg PO Q48H 10/09/14 04/21/22 History [Elmiron] [place]-3 Fatty Acids/Fish Oil [Fish 1 cap PO DAILY 10/19/14 04/21/22 History Oil 1,000 mg Softgel] Cyanocobalamin [Vitamin B-12] 500 mcg PO DAILY 05/05/15 04/21/22 History Calcium Carbonate [Calcium] 600 mg PO DAILY 06/23/20 04/21/22 History Cholecalciferol [Vitamin D3 (25 50 mcg PO DAILY 06/23/20 04/21/22 History Mcg = 1000 Iu)] Pravastatin Sodium [Pravachol] 40 mg PO HS 07/27/20 04/21/22 History ARIPiprazole [Abilify] 10 mg PO DAILY 03/11/22 04/21/22 History Alpha Lipoic Acid 600 mg PO BID 03/11/22 04/21/22 History LORazepam [Ativan] 1 mg PO BID 03/11/22 04/21/22 History Melatonin 5 mg PO HS 03/11/22 04/21/22 History Multivitamins, Thera [Multivitamin 1 tab PO DAILY 03/11/22 04/21/22 History (formulary)] Omeprazole [PriLOSEC] 20 mg PO BID 03/11/22 04/21/22 History Triamcinolone 0.1% Paste [Oralone 1 applic MUCOUS MEM DAILY 03/11/22 04/21/22 History 0.1% Paste] Vortioxetine Hydrobromide 10 mg PO DAILY 03/11/22 04/21/22 History [Trintellix] amLODIPine [Norvasc] 5 mg PO DAILY 03/11/22 04/21/22 History traMADol HCL 50 mg PO HS PRN 03/11/22 04/21/22 History Furosemide [Lasix] 20 mg PO DAILY 04/21/22 04/21/22 History hydrOXYzine pamoate [hydrOXYzine 25 mg PO BID PRN 04/21/22 04/21/22 History PAMOATE] Allergies Allergy/AdvReac Type Severity Reaction Status Date / Time cephalexin [From Keflex] Allergy Rash/Hives Verified 04/21/22 17:17 cisapride monohydrate Allergy nasal Verified 04/21/22 17:17 [From Propulsid] congestion and cough Sulfa (Sulfonamide Allergy Unknown Verified 04/21/22 17:17 Antibiotics) amitriptyline AdvReac causes Verified 04/21/22 17:17 nervousness and sleepiness amylase [From Viokase] AdvReac jim Verified 04/21/22 17:17 bladder aspirin AdvReac jim Verified 04/21/22 17:17 bladder but able to tolerate low dose asa atenolol [From Tenoretic 50] AdvReac dry Verified 04/21/22 17:17 burning eyes bupropion HCl AdvReac jim Verified 04/21/22 17:17 [From Wellbutrin] bladder chlordiazepoxide AdvReac bladder Verified 04/21/22 17:17 [From Librax (with jim clidinium)] chlordiazepoxide HCl AdvReac bladder Verified 04/21/22 17:17 [From Librax (with jim methscopolamine)] chlorthalidone AdvReac dry Verified 04/21/22 17:17 [From Tenoretic 50] burning eyes clidinium bromide AdvReac bladder Verified 04/21/22 17:17 [From Librax (with jim clidinium)] cyclobenzaprine HCl AdvReac causes Verified 04/21/22 17:17 [From Flexeril] sleepiness and nervousness dextroamphetamine sulfate AdvReac jmi Verified 04/21/22 17:17 [From Dexedrine] stomach and bladder dicyclomine HCl [From Bentyl] AdvReac dry Verified 04/21/22 17:17 mouth,constipation,jim bladder fluoxetine HCl [From Prozac] AdvReac stays awake Verified 04/21/22 17:17 gabapentin [From Neurontin] AdvReac jim Verified 04/21/22 17:17 bladder hydrocodone AdvReac jim Verified 04/21/22 17:17 bladder hyoscyamine sulfate AdvReac mades eyes Verified 04/21/22 17:17 [From Levsinex] and mouth dry lipase [From Viokase] AdvReac jim Verified 04/21/22 17:17 bladder lithium AdvReac jim Verified 04/21/22 17:17 bladder loratadine [From Claritin] AdvReac jim Verified 04/21/22 17:17 stomach and bladder methylphenidate HCl AdvReac joint pain Verified 04/21/22 17:17 [From Ritalin] methylprednisolone AdvReac jim Verified 04/21/22 17:17 bladder methylscopolamine nitrate AdvReac bladder Verified 04/21/22 17:17 [From Librax (with jim methscopolamine)] metoclopramide HCl AdvReac causes Verified 04/21/22 17:17 [From Reglan] sleepiness and nervousness nortriptyline HCl AdvReac severe Verified 04/21/22 17:17 [From Pamelor] sleepiness pemoline [From Cylert] AdvReac jim Verified 04/21/22 17:17 stomach and bladder prednisone AdvReac jim Verified 04/21/22 17:17 bladder protease [From Viokase] AdvReac jim Verified 04/21/22 17:17 bladder sucralfate AdvReac constipatio Verified 04/21/22 17:17 n tolmetin sodium AdvReac Nausea & Verified 04/21/22 17:17 [From Tolectin] Vomiting tramadol HCl [From Ultram] AdvReac jim Verified 04/21/22 17:17 bladder venlafaxine HCl AdvReac jim Verified 04/21/22 17:17 [From Effexor] bladder clescin AdvReac Nausea & Uncoded 03/11/22 18:35 Vomiting ruepar AdvReac jim Uncoded 03/11/22 18:35 bladder Physical Examination - Vital Signs Vital Signs: Vital Signs Temp Pulse Pulse Resp BP Pulse Ox 04/24/22 08:10 98.9 F 101 H 20 153/72 93 L 04/24/22 04:00 98.6 F 90 16 115/65 94 L 04/24/22 00:00 98.3 F 80 16 139/75 94 L 04/23/22 20:00 97.5 F L 77 21 119/65 95 04/23/22 15:05 98.0 F 75 20 121/56 95 04/23/22 13:31 92 04/23/22 11:10 100.6 F H 92 20 133/70 95 Intake and Output 04/23/22 04/24/22 04/24/22 22:59 06:59 14:59 Intake Total 1650 118 Output Total 1900 1125 225 Balance -1900 525 -107 Intake: Intake, IV Titration 1650 Amount Acyclovir Sodium 1,000 mg 100 In Sodium Chloride 0.9% 250 ml @ 270 mls/hr IVPB Q8HR CASTRO Rx#:[id number] Aztreonam 2 gm In Sodium 100 Chloride 0.9% 100 ml @ 33 .3 mls/hr IVPB Q12HR CASTRO Rx#:[id number] Sodium Chloride 0.9% 1, 1200 000 ml @ 130 mls/hr IV . Q7H42M CASTRO Rx#:[id number] Vancomycin 1,500 mg In 250 Sodium Chloride 0.9% 250 ml @ 125 mls/hr IVPB Q16H CASTRO Rx#:[id number] Oral 118 Output: Urine 1900 1125 225 Other: Voiding Method Indwelling Catheter Indwelling Catheter Patient is an elderly female, in no acute respiratory distress. Patient is alert awake, appears somewhat delirious, confused, trying to call "Karla", her sister although she is not there. She said "my leg is stuck to my leg". Patient knows her name and her date of . She could not tell what building she is in (said was in her home), although later on she said that she is in [facility] in [facility]. She could not tell the name, but when I gave her multiple choices, she did state was Volodymyr. Patient could not tell the current month (June or July) and year she knew . Patient could not tell name of the current president, stating "I cannot think". When I gave her multiple choices, she was able to say Biden. Speech and language functions are normal. No aphasia or dysarthria. Attention, concentration and fund of knowledge is very limited. On cranial nerve examination, pupils are equal, round and reacting to light, visual summers are full on confrontation, with no neglect on double simultaneous depression. Extraocular muscles are intact with no nystagmus. Face is symmetric, tongue protrudes to the midline. Palatal elevation and sensation normal, hearing and shoulder shrug normal, facial sensation normal. On muscle strength testing, there is no pronator drift and the strength is normal in arms and legs distally and proximally except hip flexion which is 4- bilaterally. Deep tendon reflexes are (right/left) biceps 2/2, brachioradialis 2/2, knee 3/2+, ankles 1/1 and plantars downgoing bilaterally Sensory to touch is equal with no neglect on double simultaneous stimulation. Cerebellar function showed no ataxia for [id number] testing. Tone and bulk of muscles normal. Very mild tremors of outstretched hands. Gait deferred.. On general examination, there is no carotid bruit or murmur, S1-S2 audible. Chest is clear on consultation. Abdomen is soft nontender. No organomegaly, bowel sounds present. Peripheral pulses are present. Patient has mild to moderate positive peripheral edema. Results - Laboratory Findings CBC and BMP: 04/24/22 07:00 04/24/22 07:00 Abnormal Lab Findings: Abnormal Labs 04/21/22 04/21/22 04/21/22 14:56 14:56 14:56 RBC 2.73 L Hgb 9.5 L D Hct 28.0 L MCV 102.6 H D RDW 21.1 H Plt Count 85 L D Lymphocytes # Monocytes # (Manual) 1.67 H Eosinophils # (Manual) 1.47 H Macrocytosis Marked A Retic Count APTT 18.0 L Sodium 129 L Potassium Chloride 92 L BUN 23 H Glucose POC Glucose (mg/dL) Plasma Lactic Acid Ariel Calcium C-Reactive Protein Total Protein 5.8 L Procalcitonin Urine Blood Urine Nitrite Ur Leukocyte Esterase Urine WBC Urine Bacteria Urine Mucus CSF Glucose 04/21/22 04/21/22 04/22/22 14:56 Unknown 09:43 RBC 2.69 L Hgb 9.1 L Hct 27.4 L MCV 101.7 H RDW 19.9 H Plt Count 117 L Lymphocytes # 0.8 L Monocytes # (Manual) Eosinophils # (Manual) Macrocytosis Retic Count APTT Sodium Potassium Chloride BUN Glucose POC Glucose (mg/dL) Plasma Lactic Acid Ariel 2.7 H* Calcium C-Reactive Protein Total Protein Procalcitonin Urine Blood Small H Urine Nitrite Positive H Ur Leukocyte Esterase Small H Urine WBC 8 H Urine Bacteria Moderate H Urine Mucus Rare H CSF Glucose 04/22/22 04/23/22 04/23/22 09:43 07:05 07:05 RBC Hgb Hct MCV RDW Plt Count Lymphocytes # Monocytes # (Manual) Eosinophils # (Manual) Macrocytosis Retic Count 7.4 H APTT Sodium 129 L Potassium 3.0 L Chloride 97 L BUN Glucose 120 H POC Glucose (mg/dL) Plasma Lactic Acid Ariel Calcium 7.8 L C-Reactive Protein 16.3 H Total Protein Procalcitonin Urine Blood Urine Nitrite Ur Leukocyte Esterase Urine WBC Urine Bacteria Urine Mucus CSF Glucose 04/23/22 04/23/22 04/23/22 07:05 16:44 17:24 RBC Hgb Hct MCV RDW Plt Count Lymphocytes # Monocytes # (Manual) Eosinophils # (Manual) Macrocytosis Retic Count APTT Sodium Potassium Chloride BUN Glucose POC Glucose (mg/dL) 224 H Plasma Lactic Acid Ariel Calcium C-Reactive Protein Total Protein Procalcitonin 0.25 H Urine Blood Urine Nitrite Ur Leukocyte Esterase Moderate H Urine WBC 10 H Urine Bacteria Rare H Urine Mucus CSF Glucose 04/23/22 19:25 RBC Hgb Hct MCV RDW Plt Count Lymphocytes # Monocytes # (Manual) Eosinophils # (Manual) Macrocytosis Retic Count APTT Sodium Potassium Chloride BUN Glucose POC Glucose (mg/dL) Plasma Lactic Acid Ariel Calcium C-Reactive Protein Total Protein Procalcitonin Urine Blood Urine Nitrite Ur Leukocyte Esterase Urine WBC Urine Bacteria Urine Mucus CSF Glucose 95 H Assessment and Plan Assessment: * Altered mental status, probable acute delirium. * Recurrent high fevers, unclear cause. Possible UTI. Possible pulmonary infiltrate/pneumonia. No evidence of intracranial infection. CSF completely benign. * Mucositis * Folate deficiency * Anemia * Thrombocytopenia Plan: * We will stop acyclovir, as there is no evidence of encephalitis. * Ampicillin has been discontinued. * May discontinue vancomycin, if okay with ID. As per ID note, patient needs to be only on Azactam. We will stop vancomycin (started by Dr. Ross Catalan). * Patient has borderline folate. We will start folate replacement. Continue B12 500 g orally daily. * Patient is complaining of low back pain since this morning. Patient had undergone lumbar puncture yesterday. There is concern for epidural hematoma. After patient was repositioned, her back pain got better. Patient's daughter was informed that if the pain gets worse, or if patient develops any numbness of the legs or any weakness, then patient may need a stat MRI of the lumbar spine rule out epidural hematoma. * Neurology will follow clinically. ID on board. * Thank you for the consult. Time with Patient: Greater than 30
[2022-04-24] MEDS: AZTREONAM 2 GM in SODIUM CHLORIDE 0.9% 100 ML IVPB SCH ×2 (14:07→20:55)
[2022-04-24] MEDS: TRIAMCINOLONE ACET 0.1% ORAL PASTE 5 GM TUBE MUCOUS MEM SCH (16:56)
[2022-04-24] MEDS: FOLIC ACID 1 MG TAB PO SCH (17:18)
[2022-04-24] MEDS: MELATONIN 5 MG TABLET PO SCH (20:55)
[2022-04-24] MEDS: PRAVASTATIN SODIUM 40 MG TAB PO SCH (20:55)
--- NOTE | 2022-04-24 21:47 | P.PN ---
Subjective Progress Note Date: 04/24/22 She is s/p lumbar puncture yesterday, complains of severe low back pain currently. Neurology evaluated pt and started folate supplementation and no evidence of viral meningitis. CSF gram stain and culture without any growth. Objective - Vital Signs Vital signs: Vital Signs Temp 98.0 F 04/24/22 20:00 Pulse 92 04/24/22 20:00 Resp 20 04/24/22 20:00 BP 147/74 04/24/22 20:00 Pulse Ox 93 L 04/24/22 20:00 FiO2 Intake & Output 04/24/22 04/24/22 04/25/22 06:59 18:59 06:59 Intake Total 1650 354 Output Total 1125 825 Balance 525 -471 Intake: Intake, IV Titration 1650 Amount Acyclovir Sodium 1,000 mg 100 In Sodium Chloride 0.9% 250 ml @ 270 mls/hr IVPB Q8HR CASTRO Rx#:[id number] Aztreonam 2 gm In Sodium 100 Chloride 0.9% 100 ml @ 33 .3 mls/hr IVPB Q12HR CASTRO Rx#:[id number] Sodium Chloride 0.9% 1, 1200 000 ml @ 130 mls/hr IV . Q7H42M CASTRO Rx#:[id number] Vancomycin 1,500 mg In 250 Sodium Chloride 0.9% 250 ml @ 125 mls/hr IVPB Q16H CASTRO Rx#:[id number] Oral 354 Output: Urine 1125 825 Other: Voiding Method Indwelling Catheter Indwelling Catheter - Exam gen: elderly female in NAD CV: RRR, no murmur Lungs: normal effort, clear throughout Neuro: alert, oriented to self, place. No focal deficit - Labs CBC & Chem 7: 04/24/22 07:00 04/24/22 07:00 Labs: Abnormal Lab Results - Last 24 Hours (Table) 04/23/22 04/24/22 04/24/22 Range/Units 07:05 07:00 07:00 RBC 2.54 L (3.80-5.40) m/uL Hgb 8.6 L (11.4-16.0) gm/dL Hct 26.4 L (34.0-46.0) % MCV 104.1 H (80.0-100.0) fL RDW 19.5 H (11.5-15.5) % Sodium 133 L (137-145) mmol/L Potassium 3.0 L (3.5-5.1) mmol/L Calcium 8.0 L (8.4-10.2) mg/dL Procalcitonin 0.25 H (0.02-0.09) ng/mL Microbiology - Last 24 Hours (Table) 04/21/22 16:25 Blood Culture - Preliminary Blood No Growth after 72 hours 04/21/22 16:10 Blood Culture - Preliminary Blood No Growth after 72 hours 04/23/22 19:25 CSF Gram Stain - Preliminary Cerebral Spinal Fluid CSF Culture - Preliminary Assessment and Plan Plan: Continue with aztreonam, stop vancomycin and acyclovir per neurology. Pain control. Continue to monitor. daily labs
[2022-04-24] MEDS: ACETAMINOPHEN TAB 325 MG TAB PO PRN (22:22)
[2022-04-24] MEDS ORDERED: QUEtiapine 50 MG TAB PO STA (22:35)
[2022-04-25 06:14] LABS: Glucose,Whole Blood 106 mg/dL (70-110)
[2022-04-25] MEDS: PANTOPRAZOLE 40 MG TABLET PO SCH (06:18)
[2022-04-25] MEDS: LEVOTHYROXINE 75 MCG TAB PO SCH (06:18)
--- NOTE | 2022-04-25 08:19 | P.PN ---
Subjective Progress Note Date: 04/24/22 Principal diagnosis: Fever Patient is a 82-year-old female with a past medical history significant for recurrent urinary tract infection has been brought into the hospital for evaluation of weakness and concern for another episode of UTI on today's evaluation that is 04/24/2022, the patient did spike another fever of 101F this morning, the patient was afebrile this afternoon has been complaining of mostly lower back pain patient denies having any chest pain or sh ortness with occasional cough no vomiting or diarrhea has been reported Objective - Vital Signs Vital signs: Vital Signs Temp 98.0 F 04/24/22 20:00 Pulse 92 04/24/22 20:00 Resp 20 04/24/22 20:00 BP 147/74 04/24/22 20:00 Pulse Ox 93 L 04/24/22 20:00 FiO2 Intake & Output 04/24/22 04/24/22 04/25/22 06:59 18:59 06:59 Intake Total 1650 354 Output Total 1125 825 Balance 525 -471 Intake: Intake, IV Titration 1650 Amount Acyclovir Sodium 1,000 mg 100 In Sodium Chloride 0.9% 250 ml @ 270 mls/hr IVPB Q8HR CASTRO Rx#:[id number] Aztreonam 2 gm In Sodium 100 Chloride 0.9% 100 ml @ 33 .3 mls/hr IVPB Q12HR CASTRO Rx#:[id number] Sodium Chloride 0.9% 1, 1200 000 ml @ 130 mls/hr IV . Q7H42M CASTRO Rx#:[id number] Vancomycin 1,500 mg In 250 Sodium Chloride 0.9% 250 ml @ 125 mls/hr IVPB Q16H CASTRO Rx#:[id number] Oral 354 Output: Urine 1125 825 Other: Voiding Method Indwelling Catheter Indwelling Catheter - Exam GENERAL DESCRIPTION: An elderly female lying in bed in no distress RESPIRATORY SYSTEM: Unlabored breathing , decreased breath sounds at bases HEART: S1 S2 regular rate and rhythm , ABDOMEN: Soft , no tenderness EXTREMITIES: No edema feet - Labs CBC & Chem 7: 04/24/22 07:00 04/24/22 07:00 Labs: Abnormal Lab Results - Last 24 Hours (Table) 04/23/22 04/24/22 04/24/22 Range/Units 07:05 07:00 07:00 RBC 2.54 L (3.80-5.40) m/uL Hgb 8.6 L (11.4-16.0) gm/dL Hct 26.4 L (34.0-46.0) % MCV 104.1 H (80.0-100.0) fL RDW 19.5 H (11.5-15.5) % Sodium 133 L (137-145) mmol/L Potassium 3.0 L (3.5-5.1) mmol/L Calcium 8.0 L (8.4-10.2) mg/dL Procalcitonin 0.25 H (0.02-0.09) ng/mL Microbiology - Last 24 Hours (Table) 04/21/22 16:25 Blood Culture - Preliminary Blood No Growth after 72 hours 04/21/22 16:10 Blood Culture - Preliminary Blood No Growth after 72 hours 04/23/22 19:25 CSF Gram Stain - Preliminary Cerebral Spinal Fluid CSF Culture - Preliminary Assessment and Plan (1) Pyrexia Current Visit: Yes Status: Acute Code(s): R50.9 - FEVER, UNSPECIFIED SNOMED Code(s): 913935742 Plan: 1patient presented to hospital with weakness this patient also have evidence of a fever on presentation to the hospital patient did have a positive UA with a history of recurrent UTI possible urinary source, patient also have acute infiltrate on the left lower lobe underlying pneumonia not entirely excluded however the patient is not good historian did not mention any significant respiratory symptoms. 2patient with multiple antibiotic allergies that would limit the number of antibiotics safe to use. 3patient to continue with Azactam 2 g every 12 hours while waiting for the cultures to finalize and monitor clinical course closely Time with Patient: Less than 30
[2022-04-25 09:15] LABS: African American GFR (CKD) >90 (>60 ml/min/1.73 sqM); Non-African American GFR(CKD) 80 (>60 ml/min/1.73 sqM)
[2022-04-25 09:16] LABS: Anisocytosis Slight; Basophils % (A) 0 %; Eosinophils # (A) 0.3 k/uL (0-0.7); Eosinophils % (A) 3 %; HGB 10.2 gm/dL (11.4-16.0); Hypochromasia Moderate; Lymphocytes # (A) 1.6 k/uL (1.0-4.8); Lymphocytes % (A) 16 %; MCH 33.9 pg (25.0-35.0); MCHC 32.9 g/dL (31.0-37.0); MCV 103.1 fL (80.0-100.0); Macrocytosis Moderate; Mean Platelet Volume 8.2; Monocytes # (A) 0.5 k/uL (0-1.0); Monocytes % (A) 6 %; Neutrophils # (A) 7.2 k/uL (1.3-7.7); Neutrophils % (A) 73 %; Platelet Count 263 k/uL (150-450); Poikilocytosis Slight; RBC 3.01 m/uL (3.80-5.40); RDW 19.2 % (11.5-15.5); WBC 9.8 k/uL (3.8-10.6)
--- NOTE | 2022-04-25 09:30 | XR ---
EXAMINATION TYPE: XR chest 1V portable DATE OF EXAM: 04/25/2022 CLINICAL HISTORY: Difficulty breathing progress study. TECHNIQUE: Single AP portable upright view of the chest is obtained. COMPARISON: Chest x-ray from one day earlier and older studies. FINDINGS: Persistent multifocal left lung opacity. Increasing central right lung multifocal opacity. Cardiac silhouette size stable and within normal limits. Underlying scoliosis is redemonstrated. IMPRESSION: Worsening bilateral opacities consistent with worsening edema and/or infiltrates. Correla te to exclude covid-19 infection.
[2022-04-25 09:33] LABS: C Reactive Protein 15.7 mg/dL (<1.0)
[2022-04-25] MEDS: MEROPENEM 1 GM in SODIUM CHLORIDE 0.9% 100 ML IVPB SCH ×3 (10:02→23:28)
[2022-04-25] MEDS: FUROSEMIDE 10 MG/ML 4 ML VIAL IV SCH (10:02)
[2022-04-25] MEDS: ARIPiprazole 10 MG TAB PO SCH (12:38)
[2022-04-25] MEDS: VORTIOXETINE HYDROBROMIDE 10 MG TABLET PO SCH (12:38)
[2022-04-25] MEDS: amLODIPine 5 MG TAB PO SCH (12:39)
[2022-04-25] MEDS: predniSONE 5 MG TAB PO SCH (12:39)
[2022-04-25] MEDS: HYDROcodone/APAP 5-325MG 1 EACH TAB PO PRN ×2 (12:39→23:44)
[2022-04-25] MEDS: LORazepam 0.5 MG TAB PO SCH ×2 (12:39→21:40)
[2022-04-25] MEDS: CYANOCOBALAMIN 500 MCG TAB PO SCH (12:39)
[2022-04-25] MEDS: FOLIC ACID 1 MG TAB PO SCH (12:39)
[2022-04-25] MEDS: METOPROLOL TARTRATE 25 MG TAB PO SCH ×2 (12:39→21:40)
[2022-04-25] MEDS: SODIUM CHLORIDE 0.9% 1,000 ML IV SCH ×2 (21:10→23:29)
[2022-04-25] MEDS: TRIAMCINOLONE ACET 0.1% ORAL PASTE 5 GM TUBE MUCOUS MEM SCH (21:10)
[2022-04-25] MEDS: PRAVASTATIN SODIUM 40 MG TAB PO SCH (21:40)
[2022-04-25] MEDS: MELATONIN 5 MG TABLET PO SCH (21:40)
--- NOTE | 2022-04-26 01:01 | EEG ---
ELECTROENCEPHALOGRAM REPORT PREAMBLE: This is an 82-year-old female with acute altered mental status. This study is performed to evaluate for any epileptiform activity. EEG FINDINGS: This is a 21-channel digital EEG recorded with video component, utilizing 10/20 international system with referential and bipolar montages. Background consists of moderately well-developed and regulated, mixed frequencies of [id number] amplitude 2-3 hertz delta, intermixed with some moderate amplitude, 4 to 6 hertz theta activity seen in bihemispheric region. Background does not seem to be clearly reactive to eye opening or closing. Photic stimulation was not performed. Some triphasic waves were seen frequently during the study. No focal or generalized epileptiform activity was seen. Different stages of sleep were not seen. IMPRESSION: This is an abnormal EEG due to presence of background slowing of moderate degree and presence of triphasic waves. This is suggestive of generalized cerebral dysfunction as can be seen with toxic metabolic encephalopathy. Clinical correlation recommended. No epileptiform activity was seen. Triphasic waves can be seen in hepatic encephalopathy. Clinical correlation is recommended. MMODL / IJN: [id number] /
[2022-04-26] MEDS: PANTOPRAZOLE 40 MG TABLET PO SCH (04:43)
[2022-04-26] MEDS: traMADol 50 MG TAB PO PRN (04:43)
[2022-04-26] MEDS: LEVOTHYROXINE 75 MCG TAB PO SCH (04:43)
[2022-04-26] MEDS: SODIUM CHLORIDE 0.9% 1,000 ML IV SCH ×3 (04:47→11:17)
[2022-04-26] MEDS ORDERED: FUROSEMIDE 10 MG/ML 4 ML VIAL IV STA (05:07)
--- NOTE | 2022-04-26 07:46 | XR ---
EXAM: XR Chest, 1 View CLINICAL HISTORY: ITS.REASON XR Reason: SOB TECHNIQUE: Frontal view of the chest. COMPARISON: No relevant prior studies available. FINDINGS/IMPRESSION: Patchy bilateral airspace consolidations, consistent with diffuse multifocal pneumonia. This preferentially involves the upper lung field and left lung base. No pneumothorax. Cardiomegaly. Calcified aorta.
--- NOTE | 2022-04-26 08:35 | P.PN ---
Subjective Progress Note Date: 04/25/22 She is requiring NRB O2 this morning, nursing staff reports she became hypoxic early in the morning and has been coughing more. She feels her back pain remains severe. She continues to spike fevers. Remains on aztreonam per ID. Blood cultures with no growth. Blood counts stable. Objective - Vital Signs Vital signs: Vital Signs Temp 101 F H 04/26/22 08:00 Pulse 92 04/26/22 08:00 Resp 20 04/26/22 04:00 BP 167/72 04/26/22 08:00 Pulse Ox 97 04/26/22 08:00 FiO2 94 04/26/22 05:20 Intake & Output 04/25/22 04/26/22 04/26/22 18:59 06:59 18:59 Intake Total 60 100 Output Total 1800 2500 Balance -1740 -2400 Intake: Intake, IV Titration 100 Amount Meropenem 1 gm In Sodium 100 Chloride 0.9% 100 ml @ 33 .3 mls/hr IVPB Q8HR [facility] Rx#:[id number] Oral 60 Output: Urine 1800 2500 Uretheral (Nuñez) 400 Other: Voiding Method Indwelling Catheter - Exam gen: elderly female in NAD CV: RRR, no murmur Lungs: normal effort, clear throughout Neuro: alert, oriented to self, place. No focal deficit - Labs CBC & Chem 7: 04/25/22 08:39 04/25/22 08:39 Labs: Abnormal Lab Results - Last 24 Hours (Table) 04/25/22 04/25/22 04/25/22 Range/Units 08:39 08:39 08:39 RBC 3.01 L (3.80-5.40) m/uL Hgb 10.2 L (11.4-16.0) gm/dL Hct 31.0 L (34.0-46.0) % MCV 103.1 H (80.0-100.0) fL RDW 19.2 H (11.5-15.5) % C-Reactive Protein 15.7 H (<1.0) mg/dL Procalcitonin 0.32 H (0.02-0.09) ng/mL Microbiology - Last 24 Hours (Table) 04/21/22 16:25 Blood Culture - Preliminary Blood No Growth after 96 hours 04/21/22 16:10 Blood Culture - Preliminary Blood No Growth after 96 hours 04/23/22 19:25 CSF Gram Stain - Preliminary Cerebral Spinal Fluid CSF Culture - Preliminary Assessment and Plan Plan: Aztreonam swiched to meropenem per ID. IV lasix one time dose today. Portable CXR. Supplemental O2 as required. Pain control.
[2022-04-26] MEDS: MEROPENEM 1 GM in SODIUM CHLORIDE 0.9% 100 ML IVPB SCH ×2 (08:50→15:53)
[2022-04-26] MEDS: VORTIOXETINE HYDROBROMIDE 10 MG TABLET PO SCH (08:51)
[2022-04-26] MEDS: ARIPiprazole 10 MG TAB PO SCH (08:51)
[2022-04-26] MEDS: FOLIC ACID 1 MG TAB PO SCH (08:51)
[2022-04-26] MEDS: METOPROLOL TARTRATE 25 MG TAB PO SCH ×2 (08:51→21:02)
[2022-04-26] MEDS: CYANOCOBALAMIN 500 MCG TAB PO SCH (08:51)
[2022-04-26] MEDS: predniSONE 5 MG TAB PO SCH (08:51)
[2022-04-26] MEDS: amLODIPine 5 MG TAB PO SCH (08:51)
[2022-04-26] MEDS: LORazepam 0.5 MG TAB PO SCH ×2 (08:51→21:02)
[2022-04-26] MEDS ORDERED: ACETAMINOPHEN IV (For NPO) 1,000 MG in EMPTY BAG 1 BAG IVPB PRN (08:55)
[2022-04-26] MEDS: FUROSEMIDE 10 MG/ML 4 ML VIAL IV SCH (09:06)
[2022-04-26] MEDS: ACETAMINOPHEN TAB 325 MG TAB PO PRN (09:06)
[2022-04-26] MEDS: TRIAMCINOLONE ACET 0.1% ORAL PASTE 5 GM TUBE MUCOUS MEM SCH (09:07)
[2022-04-26] MEDS: FUROSEMIDE 20 MG TAB PO SCH (09:08)
[2022-04-26] MEDS: NON FORMULARY DRUG (Pentosan Polysulfate Sodium [Elmiron] 100 MG Capsule) PO SCH (11:17)
--- NOTE | 2022-04-26 13:54 | P.CNPUL ---
History of Present Illness Consult date: 04/26/22 Requesting physician: Navjot Loja Reason for consult: pneumonia Chief complaint: Weakness and fever. History of present illness: This is an 82-year-old female who was admitted back on 04/21/22, patient is known to have history of anemia, history of COVID-19 pneumonia back in December of 2021, patient was admitted and treated at [facility]. Apparently since she was discharged until now, the patient has had multiple symptoms over the last few months including recurrent episodes of mucositis, weakness, intermittent episodes of confusion and altered mental status. Patient has been on multiple courses of antibiotics on outpatient basis, she also received steroids. And she was seen by ENT for her severe mucositis involving her whole oral mucosa. In February of 2022, patient was admitted to the hospital with UTI and sepsis. During that admission her hemoglobin was down to 5 and platelets were in the range of 50,000. Patient was seen by hematology/oncology on consultation, and she was tested for heparin-induced thrombocytopenia and his testing was negative. Patient received 2 units of packed RBCs, and she was treated for her UTI with rapid improvement of her hemoglobin. And her platelets normalized. Hematology felt that the patient may have had some component of myelodysplastic syndrome with worsening of her pancytopenia from medications. Add from her infections. On 04/21, patient was readmitted to the hospital with progressive weakness suprapubic discomfort, and she had significant mental status changes/confusion with fever as high as 103. Since admission 5 days ago, patient was seen by many consultants including hematology/oncology infectious disease, and neurology. During her initial admission, patient had a temp of 103.4. She was tachycardic, and she had normal white count but she had a left shift. Tested negative for COVID-19 infection. Chest x-ray showed posterior lateral left basilar infiltrate. Patient was seen by infectious disease and was treated for presumptive urinary tract infection and pneumonia. Patient has been receiving medical mostly because of her multiple ALLERGIES to different antibiotics including ALLERGIES to sulfa, cephalexin, and her list of ALLERGY is quite long. Please refer to the chart for list of ALLERGIES. Since admission her chest x-ray has been getting worse and she is now developing bilateral infiltrates consistent with aspiration pneumonia patient was seen by speech therapist for swallow evaluation, and I don't see a final report on the chart at any rate the patient seems to be eating at present without any difficulty however according to her daughter when she came in she was having difficulty wit h swallowing and she was choking on liquids and certain foods. I witnessed the patient eating and she was not choking whatsoever. But remind you the patient's mental status has improved significantly in the last 5 days. And according to the daughter today is her best day, she seems to be more appropriate than she has been in the last 5 days. Review of Systems CONSTITUTIONAL: Fever weakness and malaise on admission, none at present. HEENT: Recent history of mucositis, resolved CARDIOVASCULAR: Negative.. PULMONARY: Denies cough but she is short of breath and she is presently on airvo. GASTROINTESTINAL: Negative.. NEUROLOGICAL: Mental status change on presentation however her mental status change has improved significantly in the last few days. HEMATOLOGICAL: Pancytopenia and possible MDS. GENITOURINARY: Recurrent symptoms of urinary tract infection MUSCULOSKELETAL/RHEUMATOLOGICAL: Negative. ENDOCRINE: Negative Past Medical History Past Medical History: Hyperlipidemia, Hypertension, Osteoarthritis (OA), Thyroid Disorder Additional Past Medical History / Comment(s): interstitial cystitis, constipation History of Any Multi-Drug Resistant Organisms: None Reported Date of last positivie culture/infection: 07/28/20 MDRO Source:: Right Hip Past Surgical History: Heart Catheterization With Stent, Hysterectomy, Joint Replacement, Orthopedic Surgery Additional Past Surgical History / Comment(s): bilateral hips replaced, bladder suspension, cataracts, 05-17-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 Pt is independent. Pt drives a car. Smoking Status: Never smoker Past Alcohol Use History: None Reported Past Drug Use History: None Reported - Past Family History Mother Family Medical History: Cancer Additional Family Medical History / Comment(s): colon Father Family Medical History: Coronary Artery Disease (CAD), Musculoskeletal Disorder Additional Family Medical History / Comment(s): PARKINSONS AND HEART TROUBLE Medications and Allergies Home Medications Medication Instructions Recorded Confirmed Type Levothyroxine Sodium [Synthroid] 37.5 mcg PO DAILY 10/09/14 04/21/22 History Metoprolol Tartrate 25 mg PO BID 10/09/14 04/21/22 History Pentosan Polysulfate Sodium 100 mg PO Q48H 10/09/14 04/21/22 History [Elmiron] [place]-3 Fatty Acids/Fish Oil [Fish 1 cap PO DAILY 10/19/14 04/21/22 History Oil 1,000 mg Softgel] Cyanocobalamin [Vitamin B-12] 500 mcg PO DAILY 05/05/15 04/21/22 History Calcium Carbonate [Calcium] 600 mg PO DAILY 06/23/20 04/21/22 History Cholecalciferol [Vitamin D3 (25 50 mcg PO DAILY 06/23/20 04/21/22 History Mcg = 1000 Iu)] Pravastatin Sodium [Pravachol] 40 mg PO HS 07/27/20 04/21/22 History ARIPiprazole [Abilify] 10 mg PO DAILY 03/11/22 04/21/22 History Alpha Lipoic Acid 600 mg PO BID 03/11/22 04/21/22 History LORazepam [Ativan] 1 mg PO BID 03/11/22 04/21/22 History Melatonin 5 mg PO HS 03/11/22 04/21/22 History Multivitamins, Thera [Multivitamin 1 tab PO DAILY 03/11/22 04/21/22 History (formulary)] Omeprazole [PriLOSEC] 20 mg PO BID 03/11/22 04/21/22 History Triamcinolone 0.1% Paste [Oralone 1 applic MUCOUS MEM DAILY 03/11/22 04/21/22 History 0.1% Paste] Vortioxetine Hydrobromide 10 mg PO DAILY 03/11/22 04/21/22 History [Trintellix] amLODIPine [Norvasc] 5 mg PO DAILY 03/11/22 04/21/22 History traMADol HCL 50 mg PO HS PRN 03/11/22 04/21/22 History Furosemide [Lasix] 20 mg PO DAILY 04/21/22 04/21/22 History hydrOXYzine pamoate [hydrOXYzine 25 mg PO BID PRN 04/21/22 04/21/22 History PAMOATE] Allergies Allergy/AdvReac Type Severity Reaction Status Date / Time cephalexin [From Keflex] Allergy Rash/Hives Verified 04/21/22 17:17 cisapride monohydrate Allergy nasal Verified 04/21/22 17:17 [From Propulsid] congestion and cough Sulfa (Sulfonamide Allergy Unknown Verified 04/21/22 17:17 Antibiotics) amitriptyline AdvReac causes Verified 04/21/22 17:17 nervousness and sleepiness amylase [From Viokase] AdvReac jim Verified 04/21/22 17:17 bladder aspirin AdvReac jim Verified 04/21/22 17:17 bladder but able to tolerate low dose asa atenolol [From Tenoretic 50] AdvReac dry Verified 04/21/22 17:17 burning eyes bupropion HCl AdvReac jim Verified 04/21/22 17:17 [From Wellbutrin] bladder chlordiazepoxide AdvReac bladder Verified 04/21/22 17:17 [From Librax (with jim clidinium)] chlordiazepoxide HCl AdvReac bladder Verified 04/21/22 17:17 [From Librax (with jim methscopolamine)] chlorthalidone AdvReac dry Verified 04/21/22 17:17 [From Tenoretic 50] burning eyes clidinium bromide AdvReac bladder Verified 04/21/22 17:17 [From Librax (with jim clidinium)] cyclobenzaprine HCl AdvReac causes Verified 04/21/22 17:17 [From Flexeril] sleepiness and nervousness dextroamphetamine sulfate AdvReac jim Verified 04/21/22 17:17 [From Dexedrine] stomach and bladder dicyclomine HCl [From Bentyl] AdvReac dry Verified 04/21/22 17:17 mouth,constipation,jim bladder fluoxetine HCl [From Prozac] AdvReac stays awake Verified 04/21/22 17:17 gabapentin [From Neurontin] AdvReac jim Verified 04/21/22 17:17 bladder hydrocodone AdvReac jim Verified 04/21/22 17:17 bladder hyoscyamine sulfate AdvReac mades eyes Verified 04/21/22 17:17 [From Levsinex] and mouth dry lipase [From Viokase] AdvReac jim Verified 04/21/22 17:17 bladder lithium AdvReac jim Verified 04/21/22 17:17 bladder loratadine [From Claritin] AdvReac jim Verified 04/21/22 17:17 stomach and bladder methylphenidate HCl AdvReac joint pain Verified 04/21/22 17:17 [From Ritalin] methylprednisolone AdvReac jim Verified 04/21/22 17:17 bladder methylscopolamine nitrate AdvReac bladder Verified 04/21/22 17:17 [From Librax (with jim methscopolamine)] metoclopramide HCl AdvReac causes Verified 04/21/22 17:17 [From Reglan] sleepiness and nervousness nortriptyline HCl AdvReac severe Verified 04/21/22 17:17 [From Pamelor] sleepiness pemoline [From Cylert] AdvReac jim Verified 04/21/22 17:17 stomach and bladder prednisone AdvReac jim Verified 04/21/22 17:17 bladder protease [From Viokase] AdvReac jim Verified 04/21/22 17:17 bladder sucralfate AdvReac constipatio Verified 04/21/22 17:17 n tolmetin sodium AdvReac Nausea & Verified 04/21/22 17:17 [From Tolectin] Vomiting tramadol HCl [From Ultram] AdvReac jim Verified 04/21/22 17:17 bladder venlafaxine HCl AdvReac jim Verified 04/21/22 17:17 [From Effexor] bladder clescin AdvReac Nausea & Uncoded 03/11/22 18:35 Vomiting ruepar AdvReac jim Uncoded 03/11/22 18:35 bladder Physical Exam Vitals: Vital Signs Temp Pulse Pulse Resp BP Pulse Ox FiO2 04/26/22 13:06 94 L 90 04/26/22 11:25 98.5 F 79 20 131/62 94 L 04/26/22 11:18 20 04/26/22 08:48 98 90 04/26/22 08:00 101 F H 92 20 167/72 97 04/26/22 05:20 93 L 94 04/26/22 04:00 99.8 F H 98 20 189/83 94 L 04/26/22 02:00 82 20 04/26/22 00:00 98.9 F 82 22 156/60 96 04/25/22 20:00 98.3 F 82 87 24 151/68 99 Intake and Output 04/25/22 04/26/22 04/26/22 22:59 06:59 14:59 Intake Total 100 Output Total 800 1700 1950 Balance -700 -1700 -1950 Intake: Intake, IV Titration 100 Amount Meropenem 1 gm In Sodium 100 Chloride 0.9% 100 ml @ 33 .3 mls/hr IVPB Q8HR [facility] Rx#:[id number] Output: Urine 800 1700 1950 Uretheral (Nuñez) 400 400 Other: Voiding Method Indwelling Catheter Indwelling Catheter Indwelling Catheter Physical Exam: Revealed 82-year-old female in no distress, on airvo, high FiO2 and high flow. Head: Atraumatic, normocephalic. HEENT:[Neck is supple.] [No neck masses.] [No thyromegaly.] [No JVD.] Chest: [Symmetrical chest expansion, crackles at the bases no rhonchi and no wheezes] Cardiac Exam: [Normal S1 and S2, no S3 gallop, no murmur.] Abdomen: [Soft, nontender, no megaly, no rebound, no guarding, normal bowel s ounds.] Extremities: [No clubbing, no edema, no cyanosis.] Neurological Exam: Alert and oriented 3. [No focal neurologic deficit.] Psychiatric: Normal mood affect and normal mental status examination. Skin: No rashes. Results - Laboratory Findings CBC and BMP: 04/25/22 08:39 04/25/22 08:39 PT/INR, D-dimer PT 10.5 sec (9.0-12.0) 04/21/22 14:56 INR 1.0 (<1.2) 04/21/22 14:56 Abnormal lab findings: Abnormal Labs 04/21/22 04/21/22 04/21/22 14:56 14:56 14:56 RBC 2.73 L Hgb 9.5 L D Hct 28.0 L MCV 102.6 H D RDW 21.1 H Plt Count 85 L D Lymphocytes # Monocytes # (Manual) 1.67 H Eosinophils # (Manual) 1.47 H Macrocytosis Marked A Retic Count APTT 18.0 L Sodium 129 L Potassium Chloride 92 L BUN 23 H Glucose POC Glucose (mg/dL) Plasma Lactic Acid Ariel Calcium C-Reactive Protein Total Protein 5.8 L Procalcitonin Urine Blood Urine Nitrite Ur Leukocyte Esterase Urine WBC Urine Bacteria Urine Mucus CSF Glucose 04/21/22 04/21/22 04/22/22 14:56 Unknown 09:43 RBC 2.69 L Hgb 9.1 L Hct 27.4 L MCV 101.7 H RDW 19.9 H Plt Count 117 L Lymphocytes # 0.8 L Monocytes # (Manual) Eosinophils # (Manual) Macrocytosis Retic Count APTT Sodium Potassium Chloride BUN Glucose POC Glucose (mg/dL) Plasma Lactic Acid Ariel 2.7 H* Calcium C-Reactive Protein Total Protein Procalcitonin Urine Blood Small H Urine Nitrite Positive H Ur Leukocyte Esterase Small H Urine WBC 8 H Urine Bacteria Moderate H Urine Mucus Rare H CSF Glucose 04/22/22 04/23/22 04/23/22 09:43 07:05 07:05 RBC Hgb Hct MCV RDW Plt Count Lymphocytes # Monocytes # (Manual) Eosinophils # (Manual) Macrocytosis Retic Count 7.4 H APTT Sodium 129 L Potassium 3.0 L Chloride 97 L BUN Glucose 120 H POC Glucose (mg/dL) Plasma Lactic Acid Ariel Calcium 7.8 L C-Reactive Protein 16.3 H Total Protein Procalcitonin Urine Blood Urine Nitrite Ur Leukocyte Esterase Urine WBC Urine Bacteria Urine Mucus CSF Glucose 04/23/22 04/23/22 04/23/22 07:05 16:44 17:24 RBC Hgb Hct MCV RDW Plt Count Lymphocytes # Monocytes # (Manual) Eosinophils # (Manual) Macrocytosis Retic Count APTT Sodium Potassium Chloride BUN Glucose POC Glucose (mg/dL) 224 H Plasma Lactic Acid Ariel Calcium C-Reactive Protein Total Protein Procalcitonin 0.25 H Urine Blood Urine Nitrite Ur Leukocyte Esterase Moderate H Urine WBC 10 H Urine Bacteria Rare H Urine Mucus CSF Glucose 04/23/22 04/24/22 04/24/22 19:25 07:00 07:00 RBC 2.54 L Hgb 8.6 L Hct 26.4 L MCV 104.1 H RDW 19.5 H Plt Count Lymphocytes # Monocytes # (Manual) Eosinophils # (Manual) Macrocytosis Retic Count APTT Sodium 133 L Potassium 3.0 L Chloride BUN Glucose POC Glucose (mg/dL) Plasma Lactic Acid Ariel Calcium 8.0 L C-Reactive Protein Total Protein Procalcitonin Urine Blood Urine Nitrite Ur Leukocyte Esterase Urine WBC Urine Bacteria Urine Mucus CSF Glucose 95 H 04/25/22 04/25/22 04/25/22 08:39 08:39 08:39 RBC 3.01 L Hgb 10.2 L Hct 31.0 L MCV 103.1 H RDW 19.2 H Plt Count Lymphocytes # Monocytes # (Manual) Eosinophils # (Manual) Macrocytosis Retic Count APTT Sodium Potassium Chloride BUN Glucose POC Glucose (mg/dL) Plasma Lactic Acid Ariel Calcium C-Reactive Protein 15.7 H Total Protein Procalcitonin 0.32 H Urine Blood Urine Nitrite Ur Leukocyte Esterase Urine WBC Urine Bacteria Urine Mucus CSF Glucose - Diagnostic Findings Chest x-ray: image reviewed (Chest x-ray from yesterday showed worsening bilateral opacities consistent with bilateral infiltrates or pneumonia even COVID-19 infection is not entirely ruled out) Assessment and Plan Assessment: Impression: Acute hypoxic respiratory failure secondary to pneumonia, I strongly suspect that we may be dealing with aspiration pneumonia. Recent history of COVID-19 pneumonia, patient was diagnosed back in December treated at [facility]. And symptoms have resolved. Recurrent urinary tract infections Hypothyroidism Benign essential hypertension GERD without esophagitis Chronic anemia and thrombocytopenia Recommendation: Continue present course of antibiotics, patient is now on Merrem, and according to the daughter this is the best she has been today, and she seems to be much better compared to her clinical status few days ago. Try to retrieve the swallow evaluation report. Aspiration precautions. Check pro calcitonin level, patient had negative PCR for COVID-19 infection, no need to repeat. Check BNP level Continue airvo and titrate FiO2 accordingly Bronchodilators in the form of DuoNeb 4 times a day and when necessary Incentive spirometry We will continue to follow and repeat chest x-ray in the next 2-3 days. Discussed CODE STATUS with the daughter, wishes DO NOT RESUSCITATE CODE STATUS Time with Patient: Greater than 30
--- NOTE | 2022-04-26 16:10 | P.PN ---
Subjective Progress Note Date: 04/25/22 Patient was seen for a follow-up. Patient denies any headache, any visual disturbance. No dizziness. She feels tired. Patient is hard of hearing. Patient's daughter was also present. Objective - Vital Signs Vital signs: Vital Signs Temp 98.3 F 04/25/22 20:00 Pulse 87 04/25/22 20:00 Resp 24 04/25/22 20:00 BP 151/68 04/25/22 20:00 Pulse Ox 99 04/25/22 20:00 FiO2 Intake & Output 04/25/22 04/25/22 04/26/22 06:59 18:59 06:59 Intake Total 2300 60 100 Output Total 1250 1800 800 Balance 1050 -1740 -700 Intake: Intake, IV Titration 1700 100 Amount Aztreonam 2 gm In Sodium 250 Chloride 0.9% 100 ml @ 33 .3 mls/hr IVPB Q12HR [facility] Rx#:[id number] Meropenem 1 gm In Sodium 100 Chloride 0.9% 100 ml @ 33 .3 mls/hr IVPB Q8HR [facility] Rx#:[id number] Sodium Chloride 0.9% 1, 1200 000 ml @ 130 mls/hr IV . Q7H42M [facility] Rx#:[id number] Vancomycin 1,500 mg In 250 Sodium Chloride 0.9% 250 ml @ 125 mls/hr IVPB Q16H [facility] Rx#:[id number] Oral 600 60 Output: Urine 1250 1800 800 Uretheral (Nuñez) 400 Other: Voiding Method Indwelling Catheter Indwelling Catheter - Exam Patient is alert and awake. Patient is using nonrebreather mask. Patient appears slightly short of breath. She knows that she is in [place]. She states that she lives in [place]. Patient could not tell the current month although she knows it is 2021. She denies any strokelike symptoms. Rest of the examination is unchanged. - Labs CBC & Chem 7: 04/25/22 08:39 04/25/22 08:39 Labs: Abnormal Lab Results - Last 24 Hours (Table) 04/25/22 04/25/22 04/25/22 Range/Units 08:39 08:39 08:39 RBC 3.01 L (3.80-5.40) m/uL Hgb 10.2 L (11.4-16.0) gm/dL Hct 31.0 L (34.0-46.0) % MCV 103.1 H (80.0-100.0) fL RDW 19.2 H (11.5-15.5) % C-Reactive Protein 15.7 H (<1.0) mg/dL Procalcitonin 0.32 H (0.02-0.09) ng/mL Microbiology - Last 24 Hours (Table) 04/21/22 16:25 Blood Culture - Preliminary Blood No Growth after 96 hours 04/21/22 16:10 Blood Culture - Preliminary Blood No Growth after 96 hours 04/23/22 19:25 CSF Gram Stain - Preliminary Cerebral Spinal Fluid CSF Culture - Preliminary Assessment and Plan Assessment: * Altered mental status, probable acute delirium. * Recurrent high fevers, unclear cause. Probable pneumonia. Possible UTI. No evidence of intracranial infection. CSF completely benign. * Mucositis * Folate deficiency * Anemia * Thrombocytopenia Plan: * Patient's mentation has improved. Patient still encephalopathic. * Patient being treated for pneumonia with meropenem. ID following. Pulmonary consulted. * Patient has borderline folate. We will start folate replacement. Continue B12 500 g orally daily. * CSF viral cultures negative. HSV-1 and HSV 2 PCR negative. * Patient denies any low back pain, or neck pain. Patient is moving her legs equally. * Neurologically, no other workup indicated.
[2022-04-26] MEDS: PRAVASTATIN SODIUM 40 MG TAB PO SCH (21:01)
[2022-04-26] MEDS: HYDROcodone/APAP 5-325MG 1 EACH TAB PO PRN (21:01)
[2022-04-26] MEDS: MELATONIN 5 MG TABLET PO SCH (21:02)
--- NOTE | 2022-04-26 22:21 | P.PN ---
Subjective Progress Note Date: 04/26/22 Pt continues to spike fevers overnight and remains on NRB at 15 LPM. She has continued on meropenem and thickened liquids. Objective - Vital Signs Vital signs: Vital Signs Temp 98.2 F 04/26/22 16:00 Pulse 78 04/26/22 16:00 Resp 18 04/26/22 16:00 BP 125/59 04/26/22 16:00 Pulse Ox 95 04/26/22 20:31 FiO2 90 04/26/22 20:31 Intake & Output 04/26/22 04/26/22 04/27/22 06:59 18:59 06:59 Intake Total 100 Output Total 2500 2300 Balance -2400 -2300 Intake: Intake, IV Titration 100 Amount Meropenem 1 gm In Sodium 100 Chloride 0.9% 100 ml @ 33 .3 mls/hr IVPB Q8HR [facility] Rx#:[id number] Output: Urine 2500 2300 Uretheral (Nuñez) 400 400 Other: Voiding Method Indwelling Catheter Indwelling Catheter - Exam gen: elderly female in NAD CV: RRR, no murmur Lungs: increased effort. crackles at bases. no wheezing Neuro: alert, oriented to self, place. No focal deficit - Labs CBC & Chem 7: 04/25/22 08:39 04/25/22 08:39 Labs: Microbiology - Last 24 Hours (Table) 04/21/22 16:25 Blood Culture - Preliminary Blood No Growth after 120 hours 04/21/22 16:10 Blood Culture - Preliminary Blood No Growth after 120 hours Assessment and Plan Plan: Continue with meropenem, suspect aspiration pneumonia. Consult to pulmonology and ID following. Supplemental O2 as required. Pain control.
[2022-04-27] MEDS: MEROPENEM 1 GM in SODIUM CHLORIDE 0.9% 100 ML IVPB SCH ×3 (00:15→17:05)
[2022-04-27] MEDS: traMADol 50 MG TAB PO PRN (02:29)
[2022-04-27] MEDS: PANTOPRAZOLE 40 MG TABLET PO SCH (06:26)
[2022-04-27] MEDS: LEVOTHYROXINE 75 MCG TAB PO SCH (06:27)
[2022-04-27 07:26] LABS: Anisocytosis Slight; Basophils % (A) 0 %; Eosinophils # (A) 0.1 k/uL (0-0.7); Eosinophils % (A) 1 %; HCT 26.8 % (34.0-46.0); HGB 8.8 gm/dL (11.4-16.0); Hypochromasia Slight; Lymphocytes # (A) 1.1 k/uL (1.0-4.8); Lymphocytes % (A) 11 %; MCH 32.8 pg (25.0-35.0); MCHC 32.9 g/dL (31.0-37.0); MCV 99.8 fL (80.0-100.0); Macrocytosis Moderate; Mean Platelet Volume 8.1; Monocytes # (A) 0.6 k/uL (0-1.0); Monocytes % (A) 6 %; Neutrophils # (A) 7.7 k/uL (1.3-7.7); Neutrophils % (A) 81 %; Platelet Count 294 k/uL (150-450); Poikilocytosis Slight; RBC 2.68 m/uL (3.80-5.40); RDW 19.2 % (11.5-15.5); WBC 9.5 k/uL (3.8-10.6)
--- NOTE | 2022-04-27 08:17 | P.PN ---
Subjective Progress Note Date: 04/26/22 Patient was seen for a follow-up. Patient is using nonrebreather mask. She appears in slight respiratory distress. Patient denies any neck pain, no back pain. Patient denies any headache, any visual disturbance. No dizziness. Patient is hard of hearing. Family members were not present. Objective - Vital Signs Vital signs: Vital Signs Temp 98.2 F 04/26/22 16:00 Pulse 78 04/26/22 16:00 Resp 18 04/26/22 16:00 BP 125/59 04/26/22 16:00 Pulse Ox 94 L 04/26/22 16:59 FiO2 90 04/26/22 16:59 Intake & Output 04/25/22 04/26/22 04/26/22 18:59 06:59 18:59 Intake Total 60 100 Output Total 1800 2500 2300 Balance -1740 -2400 -2300 Intake: Intake, IV Titration 100 Amount Meropenem 1 gm In Sodium 100 Chloride 0.9% 100 ml @ 33 .3 mls/hr IVPB Q8HR [facility]–1983 Rx#:[id number] Oral 60 Output: Urine 1800 2500 2300 Uretheral (Nuñez) 400 400 Other: Voiding Method Indwelling Catheter Indwelling Catheter - Exam Patient is alert and awake. Patient is using nonrebreather mask. Patient appears slightly short of breath. She knows that she is in [place]. She states that she lives in [place]. Patient could not tell the current month although she knows it is 2021. Patient's muscle strength appears normal. Straight leg raising test on the right produced no pain at all. Straight leg raising test on the left produced some pain in the left groin region anteriorly. No back pain. Patient denies any numbness of her arms or legs. Neck is supple. - Labs CBC & Chem 7: 04/27/22 06:45 04/25/22 08:39 Labs: Abnormal Lab Results - Last 24 Hours (Table) 04/25/22 Range/Units 08:39 Procalcitonin 0.32 H (0.02-0.09) ng/mL Microbiology - Last 24 Hours (Table) 04/21/22 16:25 Blood Culture - Preliminary Blood No Growth after 120 hours 04/21/22 16:10 Blood Culture - Preliminary Blood No Growth after 120 hours Assessment and Plan Assessment: * Altered mental status, probable acute delirium. * Acute pneumonia. Patient has recurrent high fevers. No evidence of intracranial infection. CSF completely benign. * Mucositis * Folate deficiency * Anemia * Thrombocytopenia Plan: * Patient's mentation has improved. She still has some degree of metabolic encephalopathy due to pneumonia. * Patient being treated for pneumonia with meropenem. ID following. Pulmonary consult report noted. * Patient has borderline folate. We will start folate replacement. Continue B12 500 g orally daily. * CSF viral cultures negative. HSV-1 and HSV 2 PCR negative. * Patient denies any low back pain, or neck pain. Patient is moving her legs equally. * Neurologically, no other workup indicated. Neurology will sign off. Please reconsult neurology if any concerns.
[2022-04-27] MEDS: CYANOCOBALAMIN 500 MCG TAB PO SCH (09:10)
[2022-04-27] MEDS: ARIPiprazole 10 MG TAB PO SCH (09:10)
[2022-04-27] MEDS: FOLIC ACID 1 MG TAB PO SCH (09:10)
[2022-04-27] MEDS: FUROSEMIDE 10 MG/ML 4 ML VIAL IV SCH (09:10)
[2022-04-27] MEDS: VORTIOXETINE HYDROBROMIDE 10 MG TABLET PO SCH (09:10)
[2022-04-27] MEDS: amLODIPine 5 MG TAB PO SCH (09:10)
[2022-04-27] MEDS: predniSONE 5 MG TAB PO SCH (09:10)
[2022-04-27] MEDS: LORazepam 0.5 MG TAB PO SCH ×2 (09:10→21:10)
[2022-04-27] MEDS: SODIUM CHLORIDE 0.9% 1,000 ML IV SCH ×3 (09:11→21:08)
[2022-04-27] MEDS: METOPROLOL TARTRATE 25 MG TAB PO SCH ×2 (09:23→21:10)
[2022-04-27] MEDS ORDERED: VANCOMYCIN IV PER PHARMACY 1 EACH MISC MISCELLANE PRN (10:29)
[2022-04-27] MEDS ORDERED: QUEtiapine 25 MG TAB PO STA (10:59)
--- NOTE | 2022-04-27 11:00 | CA ---
Transthoracic Echo Report Name: Deepika Sharma Age: 82 Gender: F : 1940 Exam Date: 04/27/2022 08:07 Exam Location: [facility] Ht (in): 65 Wt (lb): 168 Ordering Physician: Jacky Hood MD Attending/Referring Phys: Tap Grinder Merly Mendez RDCS Procedure CPT: Indications: chf Cardiac Hx: Technical Quality: Fair Contrast 1: Total Dose (mL): Contrast 2: Total Dose (mL): MEASUREMENTS (Male / Female) Normal Values 2D ECHO LV Diastolic Diameter PLAX 3.7 cm 4.2 - 5.9 / 3.9 - 5.3 cm LV Systolic Diameter PLAX 2.5 cm IVS Diastolic Thickness 1.3 cm 0.6 - 1.0 / 0.6 - 0.9 cm LVPW Diastolic Thickness 1.3 cm 0.6 - 1.0 / 0.6 - 0.9 cm LV Relative Wall Thickness 0.7 RV Internal Dim ED PLAX 2.3 cm LA Volume 45.6 cm??? 18 - 58 / 22 - 52 cm??? M-MODE Aortic Root Diameter MM 2.9 cm LA Systolic Diameter MM 3.4 cm LA Ao Ratio MM 1.2 AV Cusp Separation MM 1.4 cm DOPPLER AV Peak Velocity 154.7 cm/s AV Peak Gradient 9.6 mmHg AI Peak Velocity 324.3 cm/s AI Peak Gradient 42.1 mmHg AI Pressure Half Time 459.8 ms LVOT Peak Velocity 76.6 cm/s LVOT Peak Gradient 2.3 mmHg MV Area PHT 4.2 cm??? Mitral E Point Velocity 56.8 cm/s Mitral A Point Velocity 92.2 cm/s Mitral E to A Ratio 0.6 MV Deceleration Time 181.7 ms TR Peak Velocity 232.4 cm/s TR Peak Gradient 21.6 mmHg Right Ventricular Systolic Press 26.6 mmHg FINDINGS Left Ventricle Mildly increased left ventricular wall thickness. Normal left ventricular systolic function with no obvious regional wall motion abnormalities. Left ventricular ejection fraction is estimated at 55-60 %. Right Ventricle Normal right ventricular size and function. Right ventricular systolic pressure within normal limits. Right Atrium Normal right atrial size. Left Atrium Normal left atrial size. No evidence for an atrial septal defect. Mitral Valve Structurally normal mitral valve. Mitral valve thickened. Moderate mitral annular calcification. Mild mitral regurgitation. Aortic Valve Aortic valve sclerosis. Mild aortic regurgitation. Tricuspid Valve Structurally normal tricuspid valve. Mild tricuspid regurgitation. Pulmonic Valve Trace pulmonic regurgitation. Pericardium Minimal pericardial effusion (normal variant). Probable fat pad Aorta Normal size aortic root and proximal ascending aorta. CONCLUSIONS Normal LV size and systolic function. Mild mitral aortic and tricuspid insufficiency without significant pulmonary hypertension. Small echo free space anteriorly probably a fat pad no significant effusion Previewed by: Dr. Liza Yoon MD (Electronically Signed) Final Date: 27 April 2022 10:59
[2022-04-27] MEDS: TRIAMCINOLONE ACET 0.1% ORAL PASTE 5 GM TUBE MUCOUS MEM SCH (11:15)
[2022-04-27] MEDS: HYDROcodone/APAP 5-325MG 1 EACH TAB PO PRN (12:27)
[2022-04-27] MEDS: VANCOMYCIN 1,500 MG in SODIUM CHLORIDE 0.9% 250 ML IVPB SCH (12:27)
--- NOTE | 2022-04-27 13:18 | P.PN ---
Subjective Progress Note Date: 04/27/22 This is an 82-year-old female who was admitted back on 04/21/22, patient is known to have history of anemia, history of COVID-19 pneumonia back in December of 2021, patient was admitted and treated at [facility]. Apparently since she was discharged until now, the patient has had multiple symptoms over the last few months including recurrent episodes of mucositis, weakness, intermittent episodes of confusion and altered mental status. Patient has been on multiple courses of antibiotics on outpatient basis, she also received steroids. And she was seen by ENT for her severe mucositis involving her whole oral mucosa. In February of 2022, patient was admitted to the hospital with UTI and sepsis. During that admission her hemoglobin was down to 5 and platelets were in the range of 50,000. Patient was seen by hematology/oncology on consultation, and she was tested for heparin-induced thrombocytopenia and his testing was negative. Patient received 2 units of packed RBCs, and she was treated for her UTI with rapid improvement of her hemoglobin. And her platelets normalized. Hematology felt that the patient may have had some component of myelodysplastic syndrome with worsening of her pancytopenia from medications. Add from her infections. On 04/21, patient was readmitted to the hospital with progressive weakness suprapubic discomfort, and she had significant mental status changes/confusion with fever as high as 103. Since admission 5 days ago, patient was seen by many consultants including hematology/oncology infectious disease, and neurology. During her initial admission, patient had a temp of 103.4. She was tachycardic, and she had normal white count but she had a left shift. Tested negative for COVID-19 infection. Chest x-ray showed posterior lateral left basilar infiltrate. Patient was seen by infectious disease and was treated for presumptive urinary tract infection and pneumonia. Patient has been receiving medical mostly because of her multiple ALLERGIES to different antibiotics including ALLERGIES to sulfa, cephalexin, and her list of ALLERGY is quite long. Please refer to the chart for list of ALLERGIES. Since admission her chest x-ray has been getting worse and she is now developing bilateral infiltrates consistent with aspiration pneumonia patient was seen by speech therapist for swallow evaluation, and I don't see a final report on the chart at any rate the patient seems to be eating at present without any difficulty however according to her daughter when she came in she was having difficulty with swallowing and she was choking on liquids and certain foods. I witnessed the patient eating and she was not choking whatsoever. But remind you the patient's mental status has improved significantly in the last 5 days. And according to the daughter today is her best day, she seems to be more appropriate than she has been in the last 5 days. The patient is seen today 04/27/2022 in follow-up on the selective care unit. She is currently resting in bed. Confused at times. Currently on AirVo high flow oxygen at 60 L and 90% FiO2 with O2 saturation 93%. Cerebral spinal fluid is reported as presumptive staph aureus with final culture pending. Possibly contamination. She's been initiated on vancomycin in addition to the Invanz. W ani count 9.5. Hemoglobin 8.8. Platelets 294. Pro-calcitonin 0.38. ProBNP 2017. Remains on Lasix 40 mg IV daily. Currently in a -1.2 L balance. Objective - Vital Signs Vital signs: Vital Signs Temp 98.1 F 04/27/22 08:45 Pulse 89 04/27/22 08:45 Resp 18 04/27/22 08:45 BP 121/56 04/27/22 08:45 Pulse Ox 93 L 04/27/22 09:00 FiO2 90 04/27/22 12:09 Intake & Output 04/26/22 04/27/22 04/27/22 18:59 06:59 18:59 Intake Total 50 Output Total 2300 700 1275 Balance -2300 -700 -1225 Weight 76.5 kg Intake: Oral 50 Output: Urine 2300 700 1275 Uretheral (Nuñez) 400 Other: Voiding Method Indwelling Catheter Indwelling Catheter Indwelling Catheter - Exam GENERAL EXAM: Alert, confused at times, 82-year-old female patient, and AirVo high flow oxygen at 60 L and 90% FiO2, comfortable in no apparent distress. HEAD: Normocephalic. EYES: Normal reaction of pupils, equal size. NOSE: Clear with pink turbinates. THROAT: No erythema or exudates. NECK: No masses, no JVD. CHEST: No chest wall deformity. LUNGS: Equal air entry with bilateral scattered rhonchi. CVS: S1 and S2 normal with no audible murmur, regular rhythm. ABDOMEN: No hepatosplenomegaly, normal bowel sounds, no guarding or rigidity. SPINE: No scoliosis or deformity SKIN: No rashes CENTRAL NERVOUS SYSTEM: No focal deficits, tone is normal in all 4 extremities. EXTREMITIES: There is 1+ peripheral edema. No clubbing, no cyanosis. Peripheral pulses are intact. - Labs CBC & Chem 7: 04/27/22 06:45 04/25/22 08:39 Labs: Abnormal Lab Results - Last 24 Hours (Table) 04/26/22 04/27/22 Range/Units 14:57 06:45 RBC 2.68 L (3.80-5.40) m/uL Hgb 8.8 L (11.4-16.0) gm/dL Hct 26.8 L (34.0-46.0) % RDW 19.2 H (11.5-15.5) % Procalcitonin 0.38 H (0.02-0.09) ng/mL Microbiology - Last 24 Hours (Table) 04/23/22 19:25 CSF Gram Stain - Preliminary Cerebral Spinal Fluid CSF Culture - Preliminary Presumptive Staph aureus 04/21/22 16:25 Blood Culture - Preliminary Blood No Growth after 120 hours 04/21/22 16:10 Blood Culture - Preliminary Blood No Growth after 120 hours Assessment and Plan Assessment: Acute hypoxic respiratory failure secondary to pneumonia, suspect aspiration pneumonia currently on Invanz Altered mental status status post spinal tap 04/23/2022 with cerebrospinal fluid revealing presumptive staph aureus, possible contaminant, vancomycin added to Invanz Recurrent urinary tract infections Recent history of COVID-19 pneumonia diagnosed in December 2021 at [facility] Hypothyroidism Hypertension Gastroesophageal reflux disease. Chronic anemia and thrombocytopenia Plan: The patient was seen and evaluated Labs and medications reviewed Presumptive staph aureus in CSF Suspect contaminant but initiated on vancomycin Continue meropenem Remains on IV diuretics Currently on AirVo high flow oxygen 60 L and 90% FiO2 Titrate down the FiO2 as tolerated Continue bronchodilators Follow-up chest x-ray in a.m. Prognosis is guarded We will continue to follow I have personally seen and examined the patient, performed the documentation and the assessment and plan as written. Number of minutes spent on the visit: 10.
[2022-04-27 14:32] VITALS: BMI 28.0
--- NOTE | 2022-04-27 15:23 | P.PN ---
Subjective Progress Note Date: 04/27/22 Maintained on aspiration precautions, Merrem . Pain controlled .Continues on Lasix IV push, diuresing well with 24-hour I&O reflecting a negative fluid balance .Maintaining O2 sats in the low 90s on 60L/min high flow cannula .vancomycin added to antibiotic regimen in addition to Invanz .T-max 101, WBC 9.5, hemoglobin 8.8, platelets 294. ProBNP 2070, pro-calcitonin 0.38. CSF reporting presumptive staph aureus, benign per neurology review. Denies chest pain, palpitations. Mild agitation, confusion, delirium, received a dose of Seroquel. Objective - Vital Signs Vital signs: Vital Signs Temp 98.1 F 04/27/22 08:45 Pulse 89 04/27/22 08:45 Resp 18 04/27/22 08:45 BP 121/56 04/27/22 08:45 Pulse Ox 93 L 04/27/22 09:00 FiO2 90 04/27/22 09:00 Intake & Output 04/26/22 04/27/22 04/27/22 18:59 06:59 18:59 Output Total 2300 700 Balance -2300 -700 Weight 76.5 kg Output: Urine 2300 700 Uretheral (Nuñez) 400 Other: Voiding Method Indwelling Catheter Indwelling Catheter Indwelling Catheter - Exam gen: Sitting up in bed,NAD, wearing airvo/highflow, confused CV: RRR, no murmur Lungs: increased effort. crackles at bases. scattered rhonchi Neuro: alert, oriented to self, place. No focal deficit Microbiology 04/23/22 19:25 Cerebral Spinal Fluid CSF Gram Stain - Preliminary 04/23/22 19:25 Cerebral Spinal Fluid CSF Culture - Preliminary Presumptive Staph aureus 04/21/22 16:25 Blood Blood Culture - Preliminary No Growth after 120 hours 04/21/22 16:10 Blood Blood Culture - Preliminary No Growth after 120 hours - Labs CBC & Chem 7: 04/27/22 06:45 04/25/22 08:39 Labs: Abnormal Lab Results - Last 24 Hours (Table) 04/26/22 04/27/22 Range/Units 14:57 06:45 RBC 2.68 L (3.80-5.40) m/uL Hgb 8.8 L (11.4-16.0) gm/dL Hct 26.8 L (34.0-46.0) % RDW 19.2 H (11.5-15.5) % Procalcitonin 0.38 H (0.02-0.09) ng/mL Microbiology - Last 24 Hours (Table) 04/23/22 19:25 CSF Gram Stain - Preliminary Cerebral Spinal Fluid CSF Culture - Preliminary Presumptive Staph aureus 04/21/22 16:25 Blood Culture - Preliminary Blood No Growth after 120 hours 04/21/22 16:10 Blood Culture - Preliminary Blood No Growth after 120 hours Assessment and Plan Assessment: Sepsis secondary to Aspiration pneumonia, possible acute UTI Acute hypoxic respiratory failure secondary to the above Acute metabolic encephalopathy, secondary to all the above Recent COVID-19 pneumonia December 2021 Acute renal failure Myeloproliferative disorder, Mucositis prior admission History of Severe macrocytic anemia, hematology workup completed last admission suspecting medication and infection-induced Hypertension Hyperlipidemia Hypothyroidism Plan: Continue on current medication regime ,monitoring and symptomatic treatment. Antibiotics as per infectious disease. Close monitoring of renal function, electrolytes with repeat labs ordered for am. Aggressive pulmonary toileting with nebulized bronchodilators, incentive spirometer reinforced. Aspiration precautions. Yesterday he per pulmonary's discussion regarding CODE STATUS with the daughter, daughter chose no code but per staff, the son was not yet willing to proceed with code status change. The impression and plan of care has been dictated as directed. : I performed a history and examination of this patient, discussed the same with the dictator. I agree with the dictator's note ,documented as a scribe. Any additional findings or plans will be noted.
[2022-04-27] MEDS: IPRATROPIUM-ALBUTEROL 3 ML NEB INHALATION SCH ×2 (15:51→20:20)
--- NOTE | 2022-04-27 17:27 | P.PN ---
Subjective Progress Note Date: 04/25/22 Principal diagnosis: Fever Patient is a 82-year-old female with a past medical history significant for recurrent urinary tract infection has been brought into the hospital for evaluation of weakness and concern for another episode of UTI on today's evaluation that is 04/25/2022, The patient did have a fever of 102 F around midnight, Patient was also noticed to have an worsening of respiratory status and choking on her food patient is currently on a nonrebreather slightly lethargic and unable provide any history no vomiting or diarrhea was reported by the nursing staff Objective - Vital Signs Vital signs: Vital Signs Temp 97.7 F 04/25/22 08:00 Pulse 98 04/25/22 08:00 Resp 26 H 04/25/22 08:00 BP 150/70 04/25/22 08:00 Pulse Ox 97 04/25/22 09:02 FiO2 Intake & Output 04/25/22 04/25/22 04/26/22 06:59 18:59 06:59 Intake Total 2300 60 Output Total 1250 1800 Balance 1050 -1740 Intake: Intake, IV Titration 1700 Amount Aztreonam 2 gm In Sodium 250 Chloride 0.9% 100 ml @ 33 .3 mls/hr IVPB Q12HR [facility] Rx#:[id number] Sodium Chloride 0.9% 1, 1200 000 ml @ 130 mls/hr IV . Q7H42M [facility] Rx#:[id number] Vancomycin 1,500 mg In 250 Sodium Chloride 0.9% 250 ml @ 125 mls/hr IVPB Q16H [facility] Rx#:[id number] Oral 600 60 Output: Urine 1250 1800 Other: Voiding Method Indwelling Catheter - Exam GENERAL DESCRIPTION: An elderly female lying in bed in no distress RESPIRATORY SYSTEM: Unlabored breathing , decreased breath sounds at bases HEART: S1 S2 regular rate and rhythm , ABDOMEN: Soft , no tenderness EXTREMITIES: No edema feet - Labs CBC & Chem 7: 04/27/22 06:45 04/25/22 08:39 Labs: Abnormal Lab Results - Last 24 Hours (Table) 04/25/22 04/25/22 04/25/22 Range/Units 08:39 08:39 08:39 RBC 3.01 L (3.80-5.40) m/uL Hgb 10.2 L (11.4-16.0) gm/dL Hct 31.0 L (34.0-46.0) % MCV 103.1 H (80.0-100.0) fL RDW 19.2 H (11.5-15.5) % C-Reactive Protein 15.7 H (<1.0) mg/dL Procalcitonin 0.32 H (0.02-0.09) ng/mL Microbiology - Last 24 Hours (Table) 04/21/22 16:25 Blood Culture - Preliminary Blood No Growth after 96 hours 04/21/22 16:10 Blood Culture - Preliminary Blood No Growth after 96 hours 04/23/22 19:25 CSF Gram Stain - Preliminary Cerebral Spinal Fluid CSF Culture - Preliminary Assessment and Plan (1) Pyrexia Current Visit: Yes Status: Acute Code(s): R50.9 - FEVER, UNSPECIFIED SNOMED Code(s): 234051723 Plan: 1patient presented to hospital with weakness this patient also have evidence of a fever on presentation to the hospital patient did have a positive UA with a history of recurrent UTI possible urinary source, patient also have acute infiltrate on the left lower lobe underlying pneumonia not entirely excluded however the patient is not good historian did not mention any significant respiratory symptoms. 2patient with multiple antibiotic allergies that would limit the number of antibiotics safe to use. 3Patient with persistent fever and concern for aspiration pneumonia, swallow has been consulted for aspiration precautions antibiotic has been switched to meropenem because of her multiple allergies and will monitor clinical course seamus sely Time with Patient: Less than 30
--- NOTE | 2022-04-27 17:30 | P.PN ---
Subjective Progress Note Date: 04/26/22 Principal diagnosis: Fever Patient is a 82-year-old female with a past medical history significant for recurrent urinary tract infection has been brought into the hospital for evaluation of weakness and concern for another episode of UTI on today's evaluation that is 04/26/2022, The patient did spike another fever this morning of 101 F, the patient however seem to be breathing more comfortably and is off the nonrebreather, patient has been complaining of feeling thirsty would like to drink patient denies having any chest pain she did have a cough not bring up any sputum no vomiting or diarrhea has been reported by the nursing staff Objective - Vital Signs Vital signs: Vital Signs Temp 98.5 F 04/26/22 11:25 Pulse 79 04/26/22 11:25 Resp 20 04/26/22 11:25 BP 131/62 04/26/22 11:25 Pulse Ox 94 L 04/26/22 13:06 FiO2 90 04/26/22 13:06 Intake & Output 04/25/22 04/26/22 04/26/22 18:59 06:59 18:59 Intake Total 60 100 Output Total 1800 2500 1950 Balance -3116 239 Intake: Intake, IV Titration 100 Amount Meropenem 1 gm In Sodium 100 Chloride 0.9% 100 ml @ 33 .3 mls/hr IVPB Q8HR [facility] Rx#:[id number] Oral 60 Output: Urine 1800 2500 1950 Uretheral (Nuñez) 400 400 Other: Voiding Method Indwelling Catheter Indwelling Catheter - Exam GENERAL DESCRIPTION: An elderly female lying in bed in no distress RESPIRATORY SYSTEM: Unlabored breathing , Coarse breath sounds HEART: S1 S2 regular rate and rhythm , ABDOMEN: Soft , no tenderness EXTREMITIES: No edema feet - Labs CBC & Chem 7: 04/27/22 06:45 04/25/22 08:39 Labs: Abnormal Lab Results - Last 24 Hours (Table) 04/25/22 Range/Units 08:39 Procalcitonin 0.32 H (0.02-0.09) ng/mL Microbiology - Last 24 Hours (Table) 04/21/22 16:25 Blood Culture - Preliminary Blood No Growth after 96 hours 04/21/22 16:10 Blood Culture - Preliminary Blood No Growth after 96 hours Assessment and Plan (1) Pyrexia Current Visit: Yes Status: Acute Code(s): R50.9 - FEVER, UNSPECIFIED SNOMED Code(s): 154628869 Plan: 1Patient with persistent fever with initial concern for UTI this patient with a history of recurrent UTIs did have mildly positive UA however culture has been negative patient now with worsening of respiratory status and concern for aspiration pneumonia patient is currently on meropenem will be continued along with aspiration precaution try to obtain a sputum to narrow antibiotics Time with Patient: Less than 30
--- NOTE | 2022-04-27 17:32 | P.PN ---
Subjective Progress Note Date: 04/27/22 Principal diagnosis: Fever Patient is a 82-year-old female with a past medical history significant for recurrent urinary tract infection has been brought into the hospital for evaluation of weakness and concern for another episode of UTI on today's evaluation that is 04/27/2022, The patient is afebrile over the last 24 hours patient seem to be breathing comfortably on a high flow nasal cannula oxygen denies having any chest pain she did have a cough intermittently sputum no abdominal pain and no diarrhea has been reported by the nursing staff, the patient denies having any headache Objective - Vital Signs Vital signs: Vital Signs Temp 99.4 F 04/27/22 12:30 Pulse 91 04/27/22 12:30 Resp 18 04/27/22 12:30 BP 148/65 04/27/22 12:30 Pulse Ox 92 L 04/27/22 12:30 FiO2 90 04/27/22 12:09 Intake & Output 04/26/22 04/27/22 04/27/22 18:59 06:59 18:59 Intake Total 50 Output Total 2300 700 1275 Balance -2300 -700 -1225 Weight 76.5 kg Intake: Oral 50 Output: Urine 2300 700 1275 Uretheral (Nuñez) 400 Other: Voiding Method Indwelling Catheter Indwelling Catheter Indwelling Catheter - Exam GENERAL DESCRIPTION: An elderly female lying in bed in no distress RESPIRATORY SYSTEM: Unlabored breathing , Coarse breath sounds HEART: S1 S2 regular rate and rhythm , ABDOMEN: Soft , no tenderness EXTREMITIES: No edema feet - Labs CBC & Chem 7: 04/27/22 06:45 04/25/22 08:39 Labs: Abnormal Lab Results - Last 24 Hours (Table) 04/26/22 04/27/22 Range/Units 14:57 06:45 RBC 2.68 L (3.80-5.40) m/uL Hgb 8.8 L (11.4-16.0) gm/dL Hct 26.8 L (34.0-46.0) % RDW 19.2 H (11.5-15.5) % Procalcitonin 0.38 H (0.02-0.09) ng/mL Microbiology - Last 24 Hours (Table) 04/23/22 19:25 CSF Gram Stain - Preliminary Cerebral Spinal Fluid CSF Culture - Preliminary Presumptive Staph aureus 04/21/22 16:25 Blood Culture - Preliminary Blood No Growth after 120 hours 04/21/22 16:10 Blood Culture - Preliminary Blood No Growth after 120 hours Assessment and Plan (1) Pyrexia Current Visit: Yes Status: Acute Code(s): R50.9 - FEVER, UNSPECIFIED SNOMED Code(s): 435125380 Plan: 1Patient with persistent fever with initial concern for UTI this patient with a history of recurrent UTIs did have mildly positive UA however culture has been negative patient now with worsening of respiratory status and concern for aspiration pneumonia patient is currently on meropenem will be continued along with aspiration precaution try to obtain a sputum to narrow antibiotics 2patient did have a positive CSF culture with staph aureus in this patient with otherwise normal CSF examination with normal protein and normal white count question of contamination as the patient currently do not have any headache however Staphylococcus usually not a contaminant we will empirically add vancomycin while waiting for the culture to finalize and will ask for repeat cultures on the CSF if the lab still have the sample Time with Patient: Less than 30
[2022-04-27] MEDS: MELATONIN 5 MG TABLET PO SCH (21:10)
[2022-04-27] MEDS: PRAVASTATIN SODIUM 40 MG TAB PO SCH (21:10)
[2022-04-28] MEDS: HYDROcodone/APAP 5-325MG 1 EACH TAB PO PRN ×3 (00:24→22:48)
[2022-04-28] MEDS: MEROPENEM 1 GM in SODIUM CHLORIDE 0.9% 100 ML IVPB SCH ×4 (00:26→23:47)
[2022-04-28] MEDS ORDERED: LORazepam 2 MG/ML INJ IV PRN (01:55)
[2022-04-28] MEDS: SODIUM CHLORIDE 0.9% 1,000 ML IV SCH ×3 (04:16→23:49)
[2022-04-28] MEDS: VANCOMYCIN 1,500 MG in SODIUM CHLORIDE 0.9% 250 ML IVPB SCH ×2 (04:17→19:49)
[2022-04-28] MEDS: traMADol 50 MG TAB PO PRN (04:35)
[2022-04-28] MEDS ORDERED: FUROSEMIDE 10 MG/ML 4 ML VIAL IV STA (05:00)
[2022-04-28] MEDS: LORazepam 1 MG/0.5 ML VIAL IV PRN (06:01)
[2022-04-28] MEDS: PANTOPRAZOLE 40 MG TABLET PO SCH (06:31)
[2022-04-28] MEDS: LEVOTHYROXINE 75 MCG TAB PO SCH (06:31)
[2022-04-28 07:51] LABS: Anisocytosis Slight; Basophils # (A) 0.1 k/uL (0-0.2); Basophils % (A) 1 %; Eosinophils # (A) 0.2 k/uL (0-0.7); Eosinophils % (A) 2 %; HCT 29.7 % (34.0-46.0); HGB 9.6 gm/dL (11.4-16.0); Hypochromasia Slight; Lymphocytes # (A) 1.1 k/uL (1.0-4.8); Lymphocytes % (A) 11 %; MCH 31.5 pg (25.0-35.0); MCHC 32.2 g/dL (31.0-37.0); MCV 97.9 fL (80.0-100.0); Macrocytosis Slight; Monocytes # (A) 0.9 k/uL (0-1.0); Monocytes % (A) 9 %; Neutrophils # (A) 7.6 k/uL (1.3-7.7); Neutrophils % (A) 76 %; Platelet Count 293 k/uL (150-450); RBC 3.04 m/uL (3.80-5.40); RDW 18.1 % (11.5-15.5); WBC 9.9 k/uL (3.8-10.6)
[2022-04-28] MEDS: FUROSEMIDE 10 MG/ML 4 ML VIAL IV SCH (08:10)
[2022-04-28] MEDS: amLODIPine 5 MG TAB PO SCH (08:10)
[2022-04-28] MEDS: CYANOCOBALAMIN 500 MCG TAB PO SCH (08:10)
[2022-04-28] MEDS: LORazepam 0.5 MG TAB PO SCH ×2 (08:10→21:07)
[2022-04-28] MEDS: METOPROLOL TARTRATE 25 MG TAB PO SCH ×2 (08:10→21:09)
[2022-04-28] MEDS: FOLIC ACID 1 MG TAB PO SCH (08:10)
[2022-04-28] MEDS: ARIPiprazole 10 MG TAB PO SCH (08:14)
[2022-04-28] MEDS: VORTIOXETINE HYDROBROMIDE 10 MG TABLET PO SCH (08:14)
[2022-04-28] MEDS: predniSONE 5 MG TAB PO SCH (08:14)
[2022-04-28] MEDS: TRIAMCINOLONE ACET 0.1% ORAL PASTE 5 GM TUBE MUCOUS MEM SCH (08:15)
[2022-04-28 08:22] LABS: Calcium 8.6 mg/dL (8.4-10.2)
[2022-04-28] MEDS: IPRATROPIUM-ALBUTEROL 3 ML NEB INHALATION SCH ×4 (08:29→21:23)
[2022-04-28 08:36] LABS: Potassium 2.6 mmol/L (3.5-5.1)
[2022-04-28] MEDS ORDERED: Potassium Replacement Protocol 1 EACH MISC MISCELLANE PRN ×2 (08:40→19:11)
--- NOTE | 2022-04-28 09:10 | XR ---
EXAMINATION TYPE: XR chest 1V portable DATE OF EXAM: 04/28/2022 HISTORY: Shortness of breath. COMPARISON: 04/26/2022 TECHNIQUE: Single view of the chest is submitted. FINDINGS: Demonstrated are scattered senescent parenchymal change. Diffuse mixed interstitial and alveolar infiltrates persist with slight improvement suggested within the left upper lobe. The heart is stable. Hilar and mediastinal structures are within normal limits. Degenerative changes are seen of the dorsal spine. IMPRESSION: 1. Diffuse mixed interstitial and alveolar infiltrates persist with slight improvement suggested wit hin the left upper lobe.
[2022-04-28] MEDS: POTASSIUM CHLORIDE ER 20 MEQ TAB.ER PO SCH ×5 (10:00→22:20)
[2022-04-28 10:57] LABS: VDRL, Qualitative CSF Nonreactive (Nonreactive)
[2022-04-28] MEDS: NON FORMULARY DRUG (Pentosan Polysulfate Sodium [Elmiron] 100 MG Capsule) PO SCH (11:33)
--- NOTE | 2022-04-28 13:47 | P.PN ---
Subjective Progress Note Date: 04/28/22 This is an 82-year-old female who was admitted back on 04/21/22, patient is known to have history of anemia, history of COVID-19 pneumonia back in December of 2021, patient was admitted and treated at [facility]. Apparently since she was discharged until now, the patient has had multiple symptoms over the last few months including recurrent episodes of mucositis, weakness, intermittent episodes of confusion and altered mental status. Patient has been on multiple courses of antibiotics on outpatient basis, she also received steroids. And she was seen by ENT for her severe mucositis involving her whole oral mucosa. In February of 2022, patient was admitted to the hospital with UTI and sepsis. During that admission her hemoglobin was down to 5 and platelets were in the range of 50,000. Patient was seen by hematology/oncology on consultation, and she was tested for heparin-induced thrombocytopenia and his testing was negative. Patient received 2 units of packed RBCs, and she was treated for her UTI with rapid improvement of her hemoglobin. And her platelets normalized. Hematology felt that the patient may have had some component of myelodysplastic syndrome with worsening of her pancytopenia from medications. Add from her infections. On 04/21, patient was readmitted to the hospital with progressive weakness suprapubic discomfort, and she had significant mental status changes/confusion with fever as high as 103. Since admission 5 days ago, patient was seen by many consultants including hematology/oncology infectious disease, and neurology. During her initial admission, patient had a temp of 103.4. She was tachycardic, and she had normal white count but she had a left shift. Tested negative for COVID-19 infection. Chest x-ray showed posterior lateral left basilar infiltrate. Patient was seen by infectious disease and was treated for presumptive urinary tract infection and pneumonia. Patient has been receiving medical mostly because of her multiple ALLERGIES to different antibiotics including ALLERGIES to sulfa, cephalexin, and her list of ALLERGY is quite long. Please refer to the chart for list of ALLERGIES. Since admission her chest x-ray has been getting worse and she is now developing bilateral infiltrates consistent with aspiration pneumonia patient was seen by speech therapist for swallow evaluation, and I don't see a final report on the chart at any rate the patient seems to be eating at present without any difficulty however according to her daughter when she came in she was having difficulty with swallowing and she was choking on liquids and certain foods. I witnessed the patient eating and she was not choking whatsoever. But remind you the patient's mental status has improved significantly in the last 5 days. And according to the daughter today is her best day, she seems to be more appropriate than she has been in the last 5 days. The patient is seen today 04/27/2022 in follow-up on the selective care unit. She is currently resting in bed. Confused at times. Currently on AirVo high flow oxygen at 60 L and 90% FiO2 with O2 saturation 93%. Cerebral spinal fluid is reported as presumptive staph aureus with final culture pending. Possibly contamination. She's been initiated on vancomycin in addition to the Invanz. W ani count 9.5. Hemoglobin 8.8. Platelets 294. Pro-calcitonin 0.38. ProBNP 2017. Remains on Lasix 40 mg IV daily. Currently in a -1.2 L balance. The patient is seen today 04/28/2022 in follow-up on the selective care unit. She is currently resting in bed. She remains on AirVo high flow oxygen at 60 L and 90% FiO2 in addition to a nonrebreather mask with saturations at 97%. She did receive additional Lasix today. Chest x-ray had revealed diffuse mixed interstitial and alveolar infiltrates persistent was slight improvement within the left upper lobe. Serial spinal fluid cultures are still pending. Blood cultures reveal no growth. White count 9.9. Hemoglobin 9.6. Platelet count 293. Sodium 134. Potassium 2.6. Chloride 87. Bicarb 38. BUN 24. Creatinine 0.82. She remains on DuoNeb inhalations, IV diuretics, antibiotics in the form of vancomycin and meropenem. Objective - Vital Signs Vital signs: Vital Signs Temp 98.6 F 04/28/22 11:55 Pulse 75 04/28/22 11:55 Resp 22 04/28/22 11:55 BP 114/66 04/28/22 11:55 Pulse Ox 98 04/28/22 11:55 FiO2 90 04/28/22 11:21 Intake & Output 04/27/22 04/28/22 04/28/22 18:59 06:59 18:59 Intake Total 150 Output Total 6521 9850 2300 Balance -6866 -2627 -2300 Weight 76.5 kg 72.5 kg Intake: Oral 150 Output: Urine 1275 1450 2300 Other: Voiding Method Indwelling Catheter Indwelling Catheter Indwelling Catheter - Exam GENERAL EXAM: Alert, confused at times, 82-year-old female patient, and AirVo high flow oxygen at 60 L and 90% FiO2 plus a nonrebreather mask, comfortable in no apparent distress. HEAD: Normocephalic. EYES: Normal reaction of pupils, equal size. NOSE: Clear with pink turbinates. THROAT: No erythema or exudates. NECK: No masses, no JVD. CHEST: No chest wall deformity. LUNGS: Equal air entry with bilateral scattered rhonchi. CVS: S1 and S2 normal with no audible murmur, regular rhythm. ABDOMEN: No hepatosplenomegaly, normal bowel sounds, no guarding or rigidity. SPINE: No scoliosis or deformity SKIN: No rashes CENTRAL NERVOUS SYSTEM: No focal deficits, tone is normal in all 4 extremities. EXTREMITIES: There is 1+ peripheral edema. No clubbing, no cyanosis. Peripheral pulses are intact. - Labs CBC & Chem 7: 04/28/22 07:03 04/28/22 07:03 Labs: Abnormal Lab Results - Last 24 Hours (Table) 04/28/22 04/28/22 Range/Units 07:03 07:03 RBC 3.04 L (3.80-5.40) m/uL Hgb 9.6 L (11.4-16.0) gm/dL Hct 29.7 L (34.0-46.0) % RDW 18.1 H (11.5-15.5) % Sodium 134 L (137-145) mmol/L Potassium 2.6 L* (3.5-5.1) mmol/L Chloride 87 L (98-107) mmol/L Carbon Dioxide 38 H (22-30) mmol/L BUN 24 H (7-17) mg/dL Microbiology - Last 24 Hours (Table) 04/21/22 16:10 Blood Culture - Final Blood No Growth after 144 hours 04/21/22 16:25 Blood Culture - Final Blood No Growth after 144 hours 04/23/22 19:25 CSF Gram Stain - Preliminary Cerebral Spinal Fluid CSF Culture - Preliminary Presumptive Staph aureus Assessment and Plan Assessment: Acute hypoxic respiratory failure secondary to pneumonia, suspect aspiration pneumonia currently on meropenem and vancomycin Altered mental status status post spinal tap 04/23/2022 with cerebrospinal fluid revealing presumptive staph aureus, possible contaminant, vancomycin added to meropenem Recurrent urinary tract infections Recent history of COVID-19 pneumonia diagnosed in December 2021 at [facility] Hypothyroidism Hypertension Gastroesophageal reflux disease. Chronic anemia and thrombocytopenia Plan: The patient was seen and evaluated Chest x-ray, labs and medications reviewed Additional Lasix given today Continue meropenem and vancomycin for now AirVo high flow oxygen 60 L and 90% FiO2 Discontinue nonrebreather mask Titrate down the FiO2 as tolerated Continue bronchodilators Prognosis is guarded We will continue to follow I have personally seen and examined the patient, performed the documentation and the assessment and plan as written. Number of minutes spent on the visit: 10.
--- NOTE | 2022-04-28 16:20 | P.PN ---
Subjective Progress Note Date: 04/28/22 Maintained on aspiration precautions, Merrem . Pain controlled .Continues on Lasix IV push, diuresing well with 24-hour I&O reflecting a negative fluid balance .Maintaining O2 sats in the low 90s on 60L/min high flow cannula .vancomycin added to antibiotic regimen in addition to Invanz .T-max 101, WBC 9.5, hemoglobin 8.8, platelets 294. ProBNP 2070, pro-calcitonin 0.38. CSF reporting presumptive staph aureus, benign per neurology review. Denies chest pain, palpitations. Mild agitation, confusion, delirium, received a dose of Seroquel. 04/28/2022 sensorium improved, currently on 60 L airvo high flow/90% FiO2 in addition to nonrebreather mask, maintaining O2 sats in the high 90s. Reports " increased shortness of breath." Chest x-ray reporting persistent diffuse mixed interstitial and alveolar infiltrates with slight improvement of the left upper lobe. Maintained on vancomycin, Merrem. T-max 99.4, normal WBC. Receiving IV push diuretics with additional dose of Lasix; IV fluids pivl'd. Renal function stable. Bicarb 38. Potassium 2.6, receiving supplementation. Objective - Vital Signs Vital signs: Vital Signs Temp 98.6 F 04/28/22 11:55 Pulse 75 04/28/22 11:55 Resp 22 04/28/22 14:00 BP 114/66 04/28/22 11:55 Pulse Ox 98 04/28/22 11:55 FiO2 90 04/28/22 11:21 Intake & Output 04/27/22 04/28/22 04/28/22 18:59 06:59 18:59 Intake Total 150 120 Output Total 1275 1450 2300 Balance -4402 -2305 -5605 Weight 76.5 kg 72.5 kg Intake: Oral 150 120 Output: Urine 1275 1450 2300 Other: Voiding Method Indwelling Catheter Indwelling Catheter Indwelling Catheter - Exam gen: Sitting up in bed,NAD, wearing airvo/highflow and nonrebreather mask, mucositis -lips improved CV: RRR, no murmur, positive edema Lungs: increased effort. scattered rhonchi Neuro: alert, oriented to self, place. No focal deficit - Labs CBC & Chem 7: 04/28/22 07:03 04/28/22 07:03 Labs: Abnormal Lab Results - Last 24 Hours (Table) 04/28/22 04/28/22 Range/Units 07:03 07:03 RBC 3.04 L (3.80-5.40) m/uL Hgb 9.6 L (11.4-16.0) gm/dL Hct 29.7 L (34.0-46.0) % RDW 18.1 H (11.5-15.5) % Sodium 134 L (137-145) mmol/L Potassium 2.6 L* (3.5-5.1) mmol/L Chloride 87 L (98-107) mmol/L Carbon Dioxide 38 H (22-30) mmol/L BUN 24 H (7-17) mg/dL Microbiology - Last 24 Hours (Table) 04/21/22 16:10 Blood Culture - Final Blood No Growth after 144 hours 04/21/22 16:25 Blood Culture - Final Blood No Growth after 144 hours Assessment and Plan Assessment: Sepsis secondary to Aspiration pneumonia, possible acute UTI Acute hypoxic respiratory failure secondary to the above Acute metabolic encephalopathy, secondary to all the above Recent COVID-19 pneumonia December 2021 Acute renal failure Myeloproliferative disorder, Mucositis prior admission History of Severe macrocytic anemia, hematology workup completed last admission suspecting medication and infection-induced Hypertension Hyperlipidemia Hypothyroidism No code, no CPR, no intubation; does want BiPAP. Plan: Continue on current medication regime ,monitoring and symptomatic t reatment. Maintain diuretics. Antibiotics as per infectious disease. Close monitoring of renal function, electrolytes with repeat labs ordered for am. Aggressive pulmonary toileting with nebulized bronchodilators. Maintain Aspiration precautions. Family has chosen to proceed with no code, no CPR, no intubation with instructions. Hospice consult placed. Prognosis guarded given multiple complex medical issues. The impression and plan of care has been dictated as directed. : I performed a history and examination of this patient, discussed the same with the dictator. I agree with the dictator's note ,documented as a scribe. Any additional findings or plans will be noted.
--- NOTE | 2022-04-28 16:31 | P.PN ---
Subjective Progress Note Date: 04/28/22 Principal diagnosis: Fever Patient is a 82-year-old female with a past medical history significant for recurrent urinary tract infection has been brought into the hospital for evaluation of weakness and concern for another episode of UTI on today's evaluation that is 04/28/2022, The patient remains to be afebrile, the patient is breathing comfortably on a high flow nasal cannula oxygen, the patient denies having any chest pain she did have a cough intermittently sputum no abdominal pain and no diarrhea has been reported by the nursing staff, the patient denies having any headache Objective - Vital Signs Vital signs: Vital Signs Temp 98.6 F 04/28/22 11:55 Pulse 75 04/28/22 11:55 Resp 22 04/28/22 11:55 BP 114/66 04/28/22 11:55 Pulse Ox 98 04/28/22 11:55 FiO2 90 04/28/22 11:21 Intake & Output 04/27/22 04/28/22 04/28/22 18:59 06:59 18:59 Intake Total 150 Output Total 1275 1450 2300 Balance -1125 -1450 -2300 Weight 76.5 kg 72.5 kg Intake: Oral 150 Output: Urine 1275 1450 2300 Other: Voiding Method Indwelling Catheter Indwelling Catheter Indwelling Catheter - Exam GENERAL DESCRIPTION: An elderly female lying in bed in no distress RESPIRATORY SYSTEM: Unlabored breathing , Coarse breath sounds HEART: S1 S2 regular rate and rhythm , ABDOMEN: Soft , no tenderness EXTREMITIES: No edema feet - Labs CBC & Chem 7: 04/28/22 07:03 04/28/22 07:03 Labs: Abnormal Lab Results - Last 24 Hours (Table) 04/28/22 04/28/22 Range/Units 07:03 07:03 RBC 3.04 L (3.80-5.40) m/uL Hgb 9.6 L (11.4-16.0) gm/dL Hct 29.7 L (34.0-46.0) % RDW 18.1 H (11.5-15.5) % Sodium 134 L (137-145) mmol/L Potassium 2.6 L* (3.5-5.1) mmol/L Chloride 87 L (98-107) mmol/L Carbon Dioxide 38 H (22-30) mmol/L BUN 24 H (7-17) mg/dL Microbiology - Last 24 Hours (Table) 04/21/22 16:10 Blood Culture - Final Blood No Growth after 144 hours 04/21/22 16:25 Blood Culture - Final Blood No Growth after 144 hours 04/23/22 19:25 CSF Gram Stain - Preliminary Cerebral Spinal Fluid CSF Culture - Preliminary Presumptive Staph aureus Assessment and Plan (1) Pyrexia Current Visit: Yes Status: Acute Code(s): R50.9 - FEVER, UNSPECIFIED SNOMED Code(s): 486359882 Plan: 1Patient with persistent fever with initial concern for UTI this patient with a history of recurrent UTIs did have mildly positive UA however culture has been negative patient now with worsening of respiratory status and concern for aspiration pneumonia patient is currently on meropenem will be continued as the patient seemed to show some clinical improvement and chest x-ray completed this morning shows improvement 2patient did have a positive CSF culture with staph aureus in this patient with otherwise normal CSF examination with normal protein and normal white count question of contamination as the patient currently do not have any headache however Staphylococcus usually not a contaminant patient to continue with vancomycin while waiting for the culture to finalize and also waiting for repeat cultures on the CSF as the lab did have samples of her CSF Time with Patient: Less than 30
--- NOTE | 2022-04-28 16:53 | P.CONS ---
History of Present Illness - Reason for Consult Consult date: 04/28/22 [facility] Requesting physician: Melany Johnson - Chief Complaint Weakess - History of Present Illness This is an 82-year-old female who was admitted back on 04/21/22, patient is known to have history of anemia, history of COVID-19 pneumonia back in December of 2021, patient was admitted and treated at [facility]. Apparently since she was discharged until now, the patient has had multiple symptoms over the last few months including recurrent episodes of mucositis, weakness, intermittent episodes of confusion and altered mental status. Patient has been on multiple courses of antibiotics on outpatient basis, she also received steroids. And she was seen by ENT for her severe mucositis involving her whole oral mucosa. In February of 2022, patient was admitted to the hospital with UTI and sepsis. During that admission her hemoglobin was down to 5 and platelets were in the range of 50,000. Patient was seen by hematology/oncology on consultation, and she was tested for heparin-induced thrombocytopenia and his testing was negative. Patient received 2 units of packed RBCs, and she was treated for her UTI with rapid improvement of her hemoglobin. And her platelets normalized. Hematology felt that the patient may have had some component of myelodysplastic syndrome with worsening of her pancytopenia from medications. Add from her infections. On 04/21, patient was readmitted to the hospital with progressive weakness suprapubic discomfort, and she had significant mental status changes/confusion with fever as high as 103. Since admission 5 days ago, patient was seen by many consultants including hematology/oncology infectious disease, and neurology. During her initial admission, patient had a temp of 103.4. She was tachycardic, and she had normal white count but she had a left shift. Tested negative for COVID-19 infection. Chest x-ray showed posterior lateral left basilar infiltrate. Patient was seen by infectious disease and was treated for presumptive urinary tract infection and pneumonia. Patient has been receiving medical mostly because of her multiple ALLERGIES to different antibiotics including ALLERGIES to sulfa, cephalexin, and her list of ALLERGY is quite long. Please refer to the chart for list of ALLERGIES. Since admission her chest x-ray has been getting worse and she is now developing bilateral infiltrates consistent with aspiration pneumonia patient was seen by speech therapist for swallow evaluation. However according to her daughter when she came in she was having difficulty with swallowing and she was choking on liquids and certain foods. Review of Systems Constitutional: Reports as per HPI Past Medical History Past Medical History: Hyperlipidemia, Hypertension, Osteoarthritis (OA), Thyroid Disorder Additional Past Medical History / Comment(s): interstitial cystitis, constipation History of Any Multi-Drug Resistant Organisms: None Reported Year Discovered:: 07/28/20 MDRO Source:: Right Hip Past Surgical History: Heart Catheterization With Stent, Hysterectomy, Joint Replacement, Orthopedic Surgery Additional Past Surgical History / Comment(s): bilateral hips replaced, bladder suspension, cataracts, 05-17-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 Pt is independent. Pt drives a car. Smoking Status: Never smoker Past Alcohol Use History: None Reported Past Drug Use History: None Reported - Past Family History Mother Family Medical History: Cancer Additional Family Medical History / Comment(s): colon Father Family Medical History: Coronary Artery Disease (CAD), Musculoskeletal Disorder Additional Family Medical History / Comment(s): PARKINSONS AND HEART TROUBLE Medications and Allergies Home Medications Medication Instructions Recorded Confirmed Type Levothyroxine Sodium [Synthroid] 37.5 mcg PO DAILY 10/09/14 04/21/22 History Metoprolol Tartrate 25 mg PO BID 10/09/14 04/21/22 History Pentosan Polysulfate Sodium 100 mg PO Q48H 10/09/14 04/21/22 History [Elmiron] [place]-3 Fatty Acids/Fish Oil [Fish 1 cap PO DAILY 10/19/14 04/21/22 History Oil 1,000 mg Softgel] Cyanocobalamin [Vitamin B-12] 500 mcg PO DAILY 05/05/15 04/21/22 History Calcium Carbonate [Calcium] 600 mg PO DAILY 06/23/20 04/21/22 History Cholecalciferol [Vitamin D3 (25 50 mcg PO DAILY 06/23/20 04/21/22 History Mcg = 1000 Iu)] Pravastatin Sodium [Pravachol] 40 mg PO HS 07/27/20 04/21/22 History ARIPiprazole [Abilify] 10 mg PO DAILY 03/11/22 04/21/22 History Alpha Lipoic Acid 600 mg PO BID 03/11/22 04/21/22 History LORazepam [Ativan] 1 mg PO BID 03/11/22 04/21/22 History Melatonin 5 mg PO HS 03/11/22 04/21/22 History Multivitamins, Thera [Multivitamin 1 tab PO DAILY 03/11/22 04/21/22 History (formulary)] Omeprazole [PriLOSEC] 20 mg PO BID 03/11/22 04/21/22 History Triamcinolone 0.1% Paste [Oralone 1 applic MUCOUS MEM DAILY 03/11/22 04/21/22 History 0.1% Paste] Vortioxetine Hydrobromide 10 mg PO DAILY 03/11/22 04/21/22 History [Trintellix] amLODIPine [Norvasc] 5 mg PO DAILY 03/11/22 04/21/22 History traMADol HCL 50 mg PO HS PRN 03/11/22 04/21/22 History Furosemide [Lasix] 20 mg PO DAILY 04/21/22 04/21/22 History hydrOXYzine pamoate [hydrOXYzine 25 mg PO BID PRN 04/21/22 04/21/22 History PAMOATE] Allergies Allergy/AdvReac Type Severity Reaction Status Date / Time cephalexin [From Keflex] Allergy Rash/Hives Verified 04/21/22 17:17 cisapride monohydrate Allergy nasal Verified 04/21/22 17:17 [From Propulsid] congestion and cough Sulfa (Sulfonamide Allergy Unknown Verified 04/21/22 17:17 Antibiotics) amitriptyline AdvReac causes Verified 04/21/22 17:17 nervousness and sleepiness amylase [From Viokase] AdvReac jim Verified 04/21/22 17:17 bladder aspirin AdvReac jim Verified 04/21/22 17:17 bladder but able to tolerate low dose asa atenolol [From Tenoretic 50] AdvReac dry Verified 04/21/22 17:17 burning eyes bupropion HCl AdvReac jim Verified 04/21/22 17:17 [From Wellbutrin] bladder chlordiazepoxide AdvReac bladder Verified 04/21/22 17:17 [From Librax (with jim clidinium)] chlordiazepoxide HCl AdvReac bladder Verified 04/21/22 17:17 [From Librax (with jim methscopolamine)] chlorthalidone AdvReac dry Verified 04/21/22 17:17 [From Tenoretic 50] burning eyes clidinium bromide AdvReac bladder Verified 04/21/22 17:17 [From Librax (with jim clidinium)] cyclobenzaprine HCl AdvReac causes Verified 04/21/22 17:17 [From Flexeril] sleepiness and nervousness dextroamphetamine sulfate AdvReac jim Verified 04/21/22 17:17 [From Dexedrine] stomach and bladder dicyclomine HCl [From Bentyl] AdvReac dry Verified 04/21/22 17:17 mouth,constipation,jim bladder fluoxetine HCl [From Prozac] AdvReac stays awake Verified 04/21/22 17:17 gabapentin [From Neurontin] AdvReac jim Verified 04/21/22 17:17 bladder hydrocodone AdvReac jim Verified 04/21/22 17:17 bladder hyoscyamine sulfate AdvReac mades eyes Verified 04/21/22 17:17 [From Levsinex] and mouth dry lipase [From Viokase] AdvReac jim Verified 04/21/22 17:17 bladder lithium AdvReac jim Verified 04/21/22 17:17 bladder loratadine [From Claritin] AdvReac jim Verified 04/21/22 17:17 stomach and bladder methylphenidate HCl AdvReac joint pain Verified 04/21/22 17:17 [From Ritalin] methylprednisolone AdvReac jim Verified 04/21/22 17:17 bladder methylscopolamine nitrate AdvReac bladder Verified 04/21/22 17:17 [From Librax (with jim methscopolamine)] metoclopramide HCl AdvReac causes Verified 04/21/22 17:17 [From Reglan] sleepiness and nervousness nortriptyline HCl AdvReac severe Verified 04/21/22 17:17 [From Pamelor] sleepiness pemoline [From Cylert] AdvReac jim Verified 04/21/22 17:17 stomach and bladder prednisone AdvReac jim Verified 04/21/22 17:17 bladder protease [From Viokase] AdvReac jim Verified 04/21/22 17:17 bladder sucralfate AdvReac constipatio Verified 04/21/22 17:17 n tolmetin sodium AdvReac Nausea & Verified 04/21/22 17:17 [From Tolectin] Vomiting tramadol HCl [From Ultram] AdvReac jim Verified 04/21/22 17:17 bladder venlafaxine HCl AdvReac jim Verified 04/21/22 17:17 [From Effexor] bladder clescin AdvReac Nausea & Uncoded 03/11/22 18:35 Vomiting ruepar AdvReac jim Uncoded 03/11/22 18:35 bladder Physical Exam Vitals: Vital Signs Temp Pulse Pulse Pulse Resp BP BP 04/28/22 14:00 22 04/28/22 11:55 98.6 F 75 22 114/66 04/28/22 11:37 76 04/28/22 11:21 76 04/28/22 08:41 80 04/28/22 08:29 80 04/28/22 08:10 99.1 F 94 22 137/73 04/28/22 05:32 22 04/28/22 04:03 04/28/22 04:00 99.3 F 84 22 146/71 04/28/22 02:00 20 04/28/22 00:00 98.7 F 82 20 153/72 04/27/22 23:27 04/27/22 20:32 71 04/27/22 20:22 76 20 04/27/22 20:20 74 04/27/22 20:00 99.2 F 84 84 20 133/62 04/27/22 17:13 98.1 F 79 18 137/64 Pulse Ox FiO2 04/28/22 14:00 04/28/22 11:55 98 04/28/22 11:37 04/28/22 11:21 96 90 04/28/22 08:41 04/28/22 08:29 94 L 90 04/28/22 08:10 94 L 04/28/22 05:32 04/28/22 04:03 90 L 90 04/28/22 04:00 94 L 04/28/22 02:00 04/28/22 00:00 91 L 04/27/22 23:27 93 L 90 04/27/22 20:32 04/27/22 20:22 04/27/22 20:20 94 L 90 04/27/22 20:00 97 04/27/22 17:13 92 L 87 Intake and Output 04/28/22 04/28/22 04/28/22 06:59 14:59 22:59 Intake Total 120 Output Total 500 2300 Balance -500 -2180 Intake: Oral 120 Output: Urine 500 2300 Other: Voiding Method Indwelling Catheter Indwelling Catheter Weight 72.5 kg General: Well developed, well nourished, appears stated age. Chronically ill appearing HEENT: Head is atraumatic, normocephalic. Sclerae are clear. Pupils equal, round and reactive to light bilaterally. Mucus membranes moist. + [place] CV: Heart regular in rate and rhythm positive S1 and S2. No clicks, rubs or murmurs. Peripheral pulses equal. 2/4 Lungs: Crackles to bilateral bases. No wheezes rales or rhonchi. Respirations labored and shallow. Airvo 90% 60L Abdomen/GI: Soft. Bowel sounds present in all 4 quadrants.No guarding, rigidity, or abdominal tenderness. : Nuñez catheter Musculoskeletal/ Extremities: ROSALES, no joint deformity or swelling. No gross atrophy. + generalized weakness Vascular: Radial pulses equal. 2/4. No peripheral edema Skin: Warm and dry, No rash or lesions. Neurologic: Lethargic, oriented times 2. CN II-XII grossly intact. No focal deficits. Psychiatric: Appropriate mood and affect. Results CBC & Chem 7: 04/28/22 07:03 04/28/22 07:03 Labs: Abnormal Lab Results - Last 24 Hours (Table) 04/28/22 04/28/22 Range/Units 07:03 07:03 RBC 3.04 L (3.80-5.40) m/uL Hgb 9.6 L (11.4-16.0) gm/dL Hct 29.7 L (34.0-46.0) % RDW 18.1 H (11.5-15.5) % Sodium 134 L (137-145) mmol/L Potassium 2.6 L* (3.5-5.1) mmol/L Chloride 87 L (98-107) mmol/L Carbon Dioxide 38 H (22-30) mmol/L BUN 24 H (7-17) mg/dL Microbiology - Last 24 Hours (Table) 04/21/22 16:10 Blood Culture - Final Blood No Growth after 144 hours 04/21/22 16:25 Blood Culture - Final Blood No Growth after 144 hours Chest x-ray: report reviewed CT Scan - head: report reviewed Assessment and Plan Assessment: Social * 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, 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 * Marital status - * Children/grandchildren - 3 adult children, 2 sons and 1 daughter * Residence - house * Who do you reside with - alone * ETOH - No * Tobacco - Never smoked * Illicit drugs - No Spiritual/Cultural * A spiritual person - Yes * Christianity - Protestant * Belong to a particular pentecostalism - No * Beliefs a source of comfort and strength - Yes * Yazidi or cultural practices restrictions - No * EOL considerations/rituals -None Functional Assessment * Able to walk independently - Yees * Assistive devices - None * Able to use the bathroom independently - Yes * Continent - Yes * Require assistance bathing- No * Able to feed self - Yes * Who prepares meals - Patient * How many meals a day eaten - 2meals/day * Able to clean house/do laundry - Yes * Transportation - Patient still drove [employer] * Able to shop - Yes * Who manages medications -Daughter * Who manages finances - Daughter Psychological/Emotional * Dementia present - No * Insight and judgment - Not intact * Depression - Yes * Suicidal thoughts - No * Good support system - Yes * Patients goals - comfort * Frequent hospitalizations - No * Desire to keep coming back to the hospital for treatment - Unsure Symptoms * Pain - CPOT 0/10, Continue Tylenol, Motrin, Ultram, and [place] * Fatigue - Yes, generalized weakness and fatigue, Continue B12 * SOB - Yes, Continue Duoneb, Prednisone, Lasix, and Airvo * Insomnia - No, contnue Melatonin prn * N/V - No * Anxiety - Yes, Continue Ativan * Depression - Yes, continue Trintellix and Abilify * Confusion - Yes * Agitation - No * Hallucinations - No * Appetite/weight loss - + recent decreased appetite, no weight loss * Dysphagia -Yes, BAILIFF following, continue pureed diet * Constipation - No BM's documented, Start Senokot-S * Incontinence - Nuñez catheter, Continue Elmiron * Itch - No Plan: Summary/Goals - Patient resting in bed. Her daughter, Ginger, and son, Neal, are at the bedside. Information provided regarding palliative care philosophies and services. Education regarding patient's current condition and prognosis provided. They family states they have had discussions with their mother before and she stated she would never want to be put on life support. Code status discussed in detail. They decided that they would like her to be a DNR/DNI, but are ok with BiPAP short term if needed. They also believe their mother's goal would be for comfort. They would like to give her through the weekend to see if she improves, both her mental and respiratory status. Recommendations - Meet with family again on Tuesday 05/01, for further discussin Advanced Directives - None on file Code Status - DNR/DNI Thank you for this consult Paz Ara[facility]- Palliative Care Spectralink [id number] Email: [email or web address] Time with Patient: Greater than 30
[2022-04-28 17:40] LABS: Potassium 3.2 mmol/L (3.5-5.1)
[2022-04-28] MEDS: MELATONIN 5 MG TABLET PO SCH (21:09)
[2022-04-28] MEDS: PRAVASTATIN SODIUM 40 MG TAB PO SCH (21:09)
[2022-04-28] MEDS: SENNOSIDES-DOCUSATE SODIUM 1 EACH TAB PO SCH (22:21)
[2022-04-29] MEDS: POTASSIUM CHLORIDE ER 20 MEQ TAB.ER PO SCH ×3 (02:17→06:23)
[2022-04-29] MEDS: LORazepam 1 MG/0.5 ML VIAL IV PRN (03:36)
[2022-04-29] MEDS: traMADol 50 MG TAB PO PRN (06:23)
[2022-04-29] MEDS: LEVOTHYROXINE 75 MCG TAB PO SCH (06:23)
[2022-04-29] MEDS: PANTOPRAZOLE 40 MG TABLET PO SCH (06:23)
[2022-04-29] MEDS: IPRATROPIUM-ALBUTEROL 3 ML NEB INHALATION SCH ×4 (07:10→19:19)
[2022-04-29] MEDS: SENNOSIDES-DOCUSATE SODIUM 1 EACH TAB PO SCH ×2 (09:09→21:41)
[2022-04-29] MEDS: predniSONE 5 MG TAB PO SCH (09:09)
[2022-04-29] MEDS: FOLIC ACID 1 MG TAB PO SCH (09:09)
[2022-04-29] MEDS: amLODIPine 5 MG TAB PO SCH (09:09)
[2022-04-29] MEDS: LORazepam 0.5 MG TAB PO SCH ×2 (09:09→21:41)
[2022-04-29] MEDS: METOPROLOL TARTRATE 25 MG TAB PO SCH ×2 (09:09→21:41)
[2022-04-29] MEDS: VORTIOXETINE HYDROBROMIDE 10 MG TABLET PO SCH (09:09)
[2022-04-29] MEDS: ARIPiprazole 10 MG TAB PO SCH (09:09)
[2022-04-29] MEDS: FUROSEMIDE 10 MG/ML 4 ML VIAL IV SCH (09:10)
[2022-04-29] MEDS: TRIAMCINOLONE ACET 0.1% ORAL PASTE 5 GM TUBE MUCOUS MEM SCH (09:10)
[2022-04-29] MEDS: CYANOCOBALAMIN 500 MCG TAB PO SCH (09:10)
[2022-04-29] MEDS: MEROPENEM 1 GM in SODIUM CHLORIDE 0.9% 100 ML IVPB SCH ×3 (09:17→23:07)
[2022-04-29] MEDS: SODIUM CHLORIDE 0.9% 1,000 ML IV SCH (12:02)
[2022-04-29] MEDS: VANCOMYCIN 1,500 MG in SODIUM CHLORIDE 0.9% 250 ML IVPB SCH (12:02)
[2022-04-29] MEDS: HYDROcodone/APAP 5-325MG 1 EACH TAB PO PRN ×2 (12:58→23:06)
--- NOTE | 2022-04-29 14:02 | P.PN ---
Subjective Progress Note Date: 04/29/22 This is an 82-year-old female who was admitted back on 04/21/22, patient is known to have history of anemia, history of COVID-19 pneumonia back in December of 2021, patient was admitted and treated at [facility]. Apparently since she was discharged until now, the patient has had multiple symptoms over the last few months including recurrent episodes of mucositis, weakness, intermittent episodes of confusion and altered mental status. Patient has been on multiple courses of antibiotics on outpatient basis, she also received steroids. And she was seen by ENT for her severe mucositis involving her whole oral mucosa. In February of 2022, patient was admitted to the hospital with UTI and sepsis. During that admission her hemoglobin was down to 5 and platelets were in the range of 50,000. Patient was seen by hematology/oncology on consultation, and she was tested for heparin-induced thrombocytopenia and his testing was negative. Patient received 2 units of packed RBCs, and she was treated for her UTI with rapid improvement of her hemoglobin. And her platelets normalized. Hematology felt that the patient may have had some component of myelodysplastic syndrome with worsening of her pancytopenia from medications. Add from her infections. On 04/21, patient was readmitted to the hospital with progressive weakness suprapubic discomfort, and she had significant mental status changes/confusion with fever as high as 103. Since admission 5 days ago, patient was seen by many consultants including hematology/oncology infectious disease, and neurology. During her initial admission, patient had a temp of 103.4. She was tachycardic, and she had normal white count but she had a left shift. Tested negative for COVID-19 infection. Chest x-ray showed posterior lateral left basilar infiltrate. Patient was seen by infectious disease and was treated for presumptive urinary tract infection and pneumonia. Patient has been receiving medical mostly because of her multiple ALLERGIES to different antibiotics including ALLERGIES to sulfa, cephalexin, and her list of ALLERGY is quite long. Please refer to the chart for list of ALLERGIES. Since admission her chest x-ray has been getting worse and she is now developing bilateral infiltrates consistent with aspiration pneumonia patient was seen by speech therapist for swallow evaluation, and I don't see a final report on the chart at any rate the patient seems to be eating at present without any difficulty however according to her daughter when she came in she was having difficulty with swallowing and she was choking on liquids and certain foods. I witnessed the patient eating and she was not choking whatsoever. But remind you the patient's mental status has improved significantly in the last 5 days. And according to the daughter today is her best day, she seems to be more appropriate than she has been in the last 5 days. The patient is seen today 04/27/2022 in follow-up on the selective care unit. She is currently resting in bed. Confused at times. Currently on AirVo high flow oxygen at 60 L and 90% FiO2 with O2 saturation 93%. Cerebral spinal fluid is reported as presumptive staph aureus with final culture pending. Possibly contamination. She's been initiated on vancomycin in addition to the Invanz. W ani count 9.5. Hemoglobin 8.8. Platelets 294. Pro-calcitonin 0.38. ProBNP 2017. Remains on Lasix 40 mg IV daily. Currently in a -1.2 L balance. The patient is seen today 04/28/2022 in follow-up on the selective care unit. She is currently resting in bed. She remains on AirVo high flow oxygen at 60 L and 90% FiO2 in addition to a nonrebreather mask with saturations at 97%. She did receive additional Lasix today. Chest x-ray had revealed diffuse mixed interstitial and alveolar infiltrates persistent was slight improvement within the left upper lobe. Serial spinal fluid cultures are still pending. Blood cultures reveal no growth. White count 9.9. Hemoglobin 9.6. Platelet count 293. Sodium 134. Potassium 2.6. Chloride 87. Bicarb 38. BUN 24. Creatinine 0.82. She remains on DuoNeb inhalations, IV diuretics, antibiotics in the form of vancomycin and meropenem. The patient is seen today 04/29/2022 in follow-up in selective care unit. She is awake. Alert. Resting fairly comfortably in bed. Her family is at the bedside. She remains on AirVo high flow oxygen at 60 L and 90% FiO2 with O2 saturations in the mid 90s. She's afebrile. Hemodynamically stable. Potassium 4.2. She remains on DuoNeb inhalations, IV diuretics, antibiotics in the form of vancomycin and meropenem. Objective - Vital Signs Vital signs: Vital Signs Temp 98.5 F 04/29/22 11:57 Pulse 87 04/29/22 11:57 Resp 20 04/29/22 11:57 BP 121/73 04/29/22 11:57 Pulse Ox 99 04/29/22 11:57 FiO2 90 04/29/22 11:57 Intake & Output 04/28/22 04/29/22 04/29/22 18:59 06:59 18:59 Intake Total 120 Output Total 2650 550 1900 Balance -2530 -550 -1900 Intake: Oral 120 Output: Urine 2650 550 1900 Other: Voiding Method Indwelling Catheter Indwelling Catheter - Exam GENERAL EXAM: Alert, confused at times, 82-year-old female patient, and AirVo high flow oxygen at 60 L and 90% FiO2, comfortable in no apparent distress. HEAD: Normocephalic. EYES: Normal reaction of pupils, equal size. NOSE: Clear with pink turbinates. THROAT: No erythema or exudates. NECK: No masses, no JVD. CHEST: No chest wall deformity. LUNGS: Equal air entry with bilateral scattered rhonchi. CVS: S1 and S2 normal with no audible murmur, regular rhythm. ABDOMEN: No hepatosplenomegaly, normal bowel sounds, no guarding or rigidity. SPINE: No scoliosis or deformity SKIN: No rashes CENTRAL NERVOUS SYSTEM: No focal deficits, tone is normal in all 4 extremities. EXTREMITIES: There is 1+ peripheral edema. No clubbing, no cyanosis. Peripheral pulses are intact. - Labs CBC & Chem 7: 04/28/22 07:03 04/29/22 07:36 Labs: Abnormal Lab Results - Last 24 Hours (Table) 04/28/22 Range/Units 16:54 Potassium 3.2 L (3.5-5.1) mmol/L Microbiology - Last 24 Hours (Table) 04/23/22 19:25 CSF Gram Stain - Preliminary Cerebral Spinal Fluid CSF Culture - Preliminary Assessment and Plan Assessment: Acute hypoxic respiratory failure secondary to pneumonia, suspect aspiration pneumonia currently on meropenem and vancomycin Altered mental status status post spinal tap 04/23/2022 with cerebrospinal fluid revealing presumptive staph aureus, possible contaminant, vancomycin added to meropenem Recurrent urinary tract infections Recent history of COVID-19 pneumonia diagnosed in December 2021 at [facility] Hypothyroidism Hypertension Gastroesophageal reflux disease. Chronic anemia and thrombocytopenia Plan: The patient was seen and evaluated Continue meropenem and vancomycin for now AirVo high flow oxygen 60 L and 90% FiO2 Titrate down the FiO2 as tolerated Continue bronchodilators Prognosis is guarded The patient family are considering palliative/hospice care She is a DO NOT RESUSCITATE/DO NOT INTUBATE CODE STATUS I have personally seen and examined the patient, performed the documentation and the assessment and plan as written. Number of minutes spent on the visit: 10.
[2022-04-29] MEDS: MELATONIN 5 MG TABLET PO SCH (21:41)
[2022-04-29] MEDS: PRAVASTATIN SODIUM 40 MG TAB PO SCH (21:41)
[2022-04-30] MEDS: LORazepam 1 MG/0.5 ML VIAL IV PRN ×2 (00:36→23:17)
[2022-04-30] MEDS ORDERED: VANCOMYCIN TROUGH DUE 1 EACH MISC MISCELLANE ONE (02:00)
[2022-04-30 04:37] LABS: African American GFR (CKD) >90 (>60 ml/min/1.73 sqM); Non-African American GFR(CKD) 81 (>60 ml/min/1.73 sqM)
[2022-04-30] MEDS: LEVOTHYROXINE 75 MCG TAB PO SCH (06:49)
[2022-04-30] MEDS: PANTOPRAZOLE 40 MG TABLET PO SCH (06:50)
[2022-04-30] MEDS: IPRATROPIUM-ALBUTEROL 3 ML NEB INHALATION SCH ×4 (08:01→19:31)
[2022-04-30] MEDS: predniSONE 5 MG TAB PO SCH (09:09)
[2022-04-30] MEDS: SENNOSIDES-DOCUSATE SODIUM 1 EACH TAB PO SCH ×2 (09:09→20:10)
[2022-04-30] MEDS: FUROSEMIDE 10 MG/ML 4 ML VIAL IV SCH (09:09)
[2022-04-30] MEDS: ARIPiprazole 10 MG TAB PO SCH (09:09)
[2022-04-30] MEDS: VORTIOXETINE HYDROBROMIDE 10 MG TABLET PO SCH (09:09)
[2022-04-30] MEDS: LORazepam 0.5 MG TAB PO SCH ×2 (09:10→20:10)
[2022-04-30] MEDS: amLODIPine 5 MG TAB PO SCH (09:10)
[2022-04-30] MEDS: HYDROcodone/APAP 5-325MG 1 EACH TAB PO PRN ×2 (09:10→15:39)
[2022-04-30] MEDS: CYANOCOBALAMIN 500 MCG TAB PO SCH (09:10)
[2022-04-30] MEDS: METOPROLOL TARTRATE 25 MG TAB PO SCH ×2 (09:10→20:10)
[2022-04-30] MEDS: FOLIC ACID 1 MG TAB PO SCH (09:10)
[2022-04-30] MEDS: TRIAMCINOLONE ACET 0.1% ORAL PASTE 5 GM TUBE MUCOUS MEM SCH (09:11)
[2022-04-30] MEDS: MEROPENEM 1 GM in SODIUM CHLORIDE 0.9% 100 ML IVPB SCH ×3 (10:25→23:17)
[2022-04-30] MEDS: NON FORMULARY DRUG (Pentosan Polysulfate Sodium [Elmiron] 100 MG Capsule) PO SCH (12:07)
[2022-04-30] MEDS: SODIUM CHLORIDE 0.9% 1,000 ML IV SCH (19:50)
[2022-04-30] MEDS: traMADol 50 MG TAB PO PRN (20:08)
[2022-04-30] MEDS: PRAVASTATIN SODIUM 40 MG TAB PO SCH (20:10)
[2022-04-30] MEDS: MELATONIN 5 MG TABLET PO SCH (20:10)
--- NOTE | 2022-04-30 23:41 | P.PN ---
Subjective Progress Note Date: 04/29/22 Principal diagnosis: Fever Patient is a 82-year-old female with a past medical history significant for recurrent urinary tract infection has been brought into the hospital for evaluation of weakness and concern for another episode of UTI on today's evaluation that is 04/29/2022, The patient continues to be afebrile, the patient is breathing comfortably on a high flow nasal cannula oxygen, the patient denies having any chest pain , the patient did have occasional cough no sputum production no nausea no vomiting no abdominal pain no diarrhea Objective - Vital Signs Vital signs: Vital Signs Temp 98.5 F 04/29/22 11:57 Pulse 87 04/29/22 11:57 Resp 20 04/29/22 11:57 BP 121/73 04/29/22 11:57 Pulse Ox 99 04/29/22 11:57 FiO2 90 04/29/22 11:57 Intake & Output 04/28/22 04/29/22 04/29/22 18:59 06:59 18:59 Intake Total 120 Output Total 2650 550 1900 Balance -2530 -550 -1900 Intake: Oral 120 Output: Urine 2650 550 1900 Other: Voiding Method Indwelling Catheter Indwelling Catheter Indwelling Catheter - Exam GENERAL DESCRIPTION: An elderly female lying in bed in no distress RESPIRATORY SYSTEM: Unlabored breathing , Coarse breath sounds HEART: S1 S2 regular rate and rhythm , ABDOMEN: Soft , no tenderness EXTREMITIES: No edema feet - Labs CBC & Chem 7: 04/28/22 07:03 04/30/22 03:37 Labs: Abnormal Lab Results - Last 24 Hours (Table) 04/28/22 Range/Units 16:54 Potassium 3.2 L (3.5-5.1) mmol/L Microbiology - Last 24 Hours (Table) 04/23/22 19:25 CSF Gram Stain - Preliminary Cerebral Spinal Fluid CSF Culture - Preliminary Assessment and Plan (1) Pyrexia Current Visit: Yes Status: Acute Code(s): R50.9 - FEVER, UNSPECIFIED SNOMED Code(s): 088344784 Plan: 1Patient with persistent fever with initial concern for UTI this patient with a history of recurrent UTIs did have mildly positive UA however culture has been negative patient now with worsening of respiratory status and concern for aspiration pneumonia patient is currently on meropenem will be continued as the patient seemed to show some clinical improvement and chest x-ray repeated did shows improvement 2patient did have a positive CSF culture with staph aureus in this patient with otherwise normal CSF examination with normal protein and normal white count question of contamination as the CSF culture has now been updated by the micro-l ab as no growth and initial report was wrong we will discontinue vancomycin Time with Patient: Less than 30
--- NOTE | 2022-04-30 23:43 | P.PN ---
Subjective Progress Note Date: 04/30/22 Principal diagnosis: Fever Patient is a 82-year-old female with a past medical history significant for recurrent urinary tract infection has been brought into the hospital for evaluation of weakness and concern for another episode of UTI on today's evaluation that is 04/30/2022, The patient remains to be afebrile, the patient is breathing comfortably on a high flow nasal cannula oxygen, the patient denies having any chest pain , the patient denies any worsening cough or sputum production, the patient denies any nausea vomiting no abdominal pain and no diarrhea reported Objective - Vital Signs Vital signs: Vital Signs Temp 98.2 F 04/30/22 08:00 Pulse 77 04/30/22 12:00 Resp 20 04/30/22 12:00 BP 120/62 04/30/22 12:00 Pulse Ox 96 04/30/22 12:00 FiO2 70 04/30/22 12:00 Intake & Output 04/29/22 04/30/22 04/30/22 18:59 06:59 18:59 Intake Total 180 Output Total 1900 1000 1100 Balance -1900 -1000 -920 Intake: Oral 180 Output: Urine 1900 1000 1100 Other: Voiding Method Indwelling Catheter Indwelling Catheter Indwelling Catheter - Exam GENERAL DESCRIPTION: An elderly female lying in bed in no distress RESPIRATORY SYSTEM: Unlabored breathing , Coarse breath sounds HEART: S1 S2 regular rate and rhythm , ABDOMEN: Soft , no tenderness EXTREMITIES: No edema feet - Labs CBC & Chem 7: 04/28/22 07:03 04/30/22 03:37 Labs: Microbiology - Last 24 Hours (Table) 04/23/22 19:25 CSF Gram Stain - Preliminary Cerebral Spinal Fluid CSF Culture - Preliminary Assessment and Plan (1) Pyrexia Current Visit: Yes Status: Acute Code(s): R50.9 - FEVER, UNSPECIFIED SNOMED Code(s): 622564230 Plan: 1patient did have a positive CSF culture with staph aureus in this patient with otherwise normal CSF examination with normal protein and normal white count question of contamination as the CSF culture has now been updated by the micro- lab as no growth and initial report was wron, vancomycin was discontinued 2-Patient with fever likely source is aspiration pneumonia in this patient clinically responded to meropenem which will be continued because of her mult iple ALLERGIES and continue supportive care Time with Patient: Less than 30
--- NOTE | 2022-05-01 00:51 | P.PN ---
Subjective Progress Note Date: 04/30/22 Patient was seen for a follow-up. Patient is doing better. She appears more comfortable. She does have Airvo in place. Patient denies any headache, any visual disturbance. No dizziness. Patient is hard of hearing. Patient's daughter and son-in-law both were present today. Patient's family and the nurse, she was agitated yesterday and "out of it" but today is much better. Objective - Vital Signs Vital signs: Vital Signs Temp 98.9 F 04/30/22 23:51 Pulse 89 04/30/22 23:51 Resp 18 04/30/22 23:51 BP 121/58 04/30/22 23:51 Pulse Ox 93 L 05/01/22 00:01 FiO2 70 05/01/22 00:01 Intake & Output 04/30/22 04/30/22 05/01/22 06:59 18:59 06:59 Intake Total 180 Output Total 1000 1750 Balance -1000 -1570 Intake: Oral 180 Output: Urine 1000 1750 Other: Voiding Method Indwelling Catheter Indwelling Catheter Indwelling Catheter - Exam Patient is alert and awake. Patient appears much more comfortable. Her speech and language functions are normal. Patient knows her name, date of and that she lives in [facility]. She has difficulty remembering the month and the year. Per nurse, patient is feeding herself today, which is much improvement. Her cranial nerves are normal. Visual summers are full. Face is symmetric. Muscle strength is normal in the arms and legs. She is slightly tremulous. - Labs CBC & Chem 7: 04/28/22 07:03 04/30/22 03:37 Labs: Microbiology - Last 24 Hours (Table) 04/23/22 19:25 CSF Gram Stain - Preliminary Cerebral Spinal Fluid CSF Culture - Preliminary Assessment and Plan Assessment: * Altered mental status, probable acute delirium. * Acute pneumonia. Patient has recurrent high fevers. No evidence of intracranial infection. CSF completely benign. * Mucositis * Folate deficiency * Anemia * Thrombocytopenia Plan: * Patient's mentation has much improved. She still has some degree of metabolic encephalopathy due to pneumonia. * Patient being treated for pneumonia with meropenem. ID following. Pulmonary consult report noted. * Patient has borderline folate. We will start folate replacement. Continue B12 500 g orally daily. * CSF viral cultures negative. HSV-1 and HSV 2 PCR negative. CSF initially grew staph aureus. The lab repeated the culture on CSF and came back negative. The staph aureus was likely contaminant. * Discussed with patient's family in detail. * Neurologically, no other workup indicated. Neurology will sign off. Please reconsult neurology if any concerns.
[2022-05-01] MEDS: HYDROcodone/APAP 5-325MG 1 EACH TAB PO PRN ×2 (01:22→21:49)
--- NOTE | 2022-05-01 01:22 | P.PN ---
Subjective Progress Note Date: 04/29/22 Patient is a 82-year-old female with known history of recent COVID-19 pneumonia in December 2021 and anemia admitted to the hospital due to generalized weakness and confusion and altered mental status. 04/28/2022 sensorium improved, currently on 60 L airvo high flow/90% FiO2 in addition to nonrebreather mask, maintaining O2 sats in the high 90s. Reports "increased shortness of breath." Chest x-ray reporting persistent diffuse mixed interstitial and alveolar infiltrates with slight improvement of the left upper lobe. Maintained on vancomycin, Merrem. T-max 99.4, normal WBC. Receiving IV push diuretics with additional dose of Lasix; IV fluids pivl'd. Renal function stable. Bicarb 38. Potassium 2.6, receiving supplementation. 04/29/2022 Patient is currently awake alert and resting in bed comfortably. Currently on high flow oxygen at 6 L with 90% FiO2. Patient is afebrile. Currently on IV antibiotics in the form of vancomycin and meropenem. Also on IV Lasix. Laboratory to review. Sodium potassium level improved to 4.2. Pulmonary is on board. Current medications reviewed. Objective - Vital Signs Vital signs: Vital Signs Temp 97.7 F 04/29/22 16:35 Pulse 85 04/29/22 19:30 Resp 18 04/29/22 16:35 BP 125/66 04/29/22 16:35 Pulse Ox 98 04/29/22 19:21 FiO2 80 04/29/22 19:21 Intake & Output 04/29/22 04/29/22 04/30/22 06:59 18:59 06:59 Output Total 550 1900 Balance -550 -1900 Output: Urine 550 1900 Other: Voiding Method Indwelling Catheter Indwelling Catheter - Exam - Exam gen: Sitting up in bed,NAD, wearing airvo/highflow and nonrebreather mask, mucositis -lips improved CV: RRR, no murmur, positive edema Lungs: increased effort. scattered rhonchi Neuro: alert, oriented to self, place. No focal deficit - Labs CBC & Chem 7: 04/28/22 07:03 04/30/22 03:37 Labs: Microbiology - Last 24 Hours (Table) 04/23/22 19:25 CSF Gram Stain - Preliminary Cerebral Spinal Fluid CSF Culture - Preliminary Assessment and Plan Assessment: Sepsis secondary to Aspiration pneumonia, possible acute UTI Acute hypoxic respiratory failure secondary to the above Acute metabolic encephalopathy, secondary to all the above Recent COVID-19 pneumonia December 2021 Acute renal failure Myeloproliferative disorder, Mucositis prior admission History of Severe macrocytic anemia, hematology workup completed last admission suspecting medication and infection-induced Hypertension Hyperlipidemia Hypothyroidism No code, no CPR, no intubation; does want BiPAP. Plan: Continue on current medication regime ,monitoring and symptomatic treatment. Maintain diuretics. Antibiotics as per infectious disease. Close monitoring of renal function, electrolytes with repeat labs ordered for am. Aggressive pulmonary toileting with nebulized bronchodilators. Maintain Aspiration precautions. Family has chosen to proceed with no code, no CPR, no intubation with instructions. Hospice consult placed. Prognosis guarded given multiple complex medical issues. Time with Patient: Greater than 30
--- NOTE | 2022-05-01 01:25 | P.PN ---
Subjective Progress Note Date: 04/30/22 Patient is a 82-year-old female with known history of recent COVID-19 pneumonia in December 2021 and anemia admitted to the hospital due to generalized weakness and confusion and altered mental status. 04/28/2022 sensorium improved, currently on 60 L airvo high flow/90% FiO2 in addition to nonrebreather mask, maintaining O2 sats in the high 90s. Reports "increased shortness of breath." Chest x-ray reporting persistent diffuse mixed interstitial and alveolar infiltrates with slight improvement of the left upper lobe. Maintained on vancomycin, Merrem. T-max 99.4, normal WBC. Receiving IV push diuretics with additional dose of Lasix; IV fluids pivl'd. Renal function stable. Bicarb 38. Potassium 2.6, receiving supplementation. 04/29/2022 Patient is currently awake alert and resting in bed comfortably. Currently on high flow oxygen at 6 L with 90% FiO2. Patient is afebrile. Currently on IV antibiotics in the form of vancomycin and meropenem. Also on IV Lasix. Laboratory to review. Sodium potassium level improved to 4.2. Pulmonary is on board. 04/30/2022 Patient is awake alert. Currently requiring high flow oxygen and 60% FiO2 and saturating at 97%. Patient is being continued antibiotics in the form of meropenem and vancomycin has been discontinued. ID is on board. Continue with prednisone and duo nebs. Patient is also on Lasix 40 mg IV daily. No complaints of cough or sputum production. No nausea vomiting abdominal pain or diarrhea. CSF culture with staph aureus initially but reported as no growth now. Vancomycin has been discontinued. Current medications reviewed. Objective - Vital Signs Vital signs: Vital Signs Temp 98.4 F 04/30/22 20:00 Pulse 90 04/30/22 20:00 Resp 19 04/30/22 20:00 BP 120/59 04/30/22 20:00 Pulse Ox 97 04/30/22 20:00 FiO2 70 04/30/22 20:00 Intake & Output 04/30/22 04/30/22 05/01/22 06:59 18:59 06:59 Intake Total 180 Output Total 1000 1750 Balance -1000 -1570 Intake: Oral 180 Output: Urine 1000 1750 Other: Voiding Method Indwelling Catheter Indwelling Catheter Indwelling Catheter - Exam - Exam gen: Sitting up in bed,NAD, wearing airvo/highflow and nonrebreather mask, mucositis -lips improved CV: RRR, no murmur, positive edema Lungs: increased effort. scattered rhonchi Neuro: alert, oriented to self, place. No focal deficit - Labs CBC & Chem 7: 04/28/22 07:03 04/30/22 03:37 Labs: Microbiology - Last 24 Hours (Table) 04/23/22 19:25 CSF Gram Stain - Preliminary Cerebral Spinal Fluid CSF Culture - Preliminary Assessment and Plan Assessment: Sepsis secondary to Aspiration pneumonia, possible acute UTI Acute hypoxic respiratory failure secondary to the above Acute metabolic encephalopathy, secondary to all the above Recent COVID-19 pneumonia December 2021 Acute renal failure Myeloproliferative disorder, Mucositis prior admission History of Severe macrocytic anemia, hematology workup completed last admission suspecting medication and infection-induced Hypertension Hyperlipidemia Hypothyroidism No code, no CPR, no intubation; does want BiPAP. Plan: Continue on current medication regime ,monitoring and symptomatic treatment. Maintain diuretics. Antibiotics as per infectious disease. Close monitoring of renal function, electrolytes with repeat labs ordered for am. Aggressive pulmonary toileting with nebulized bronchodilators. Maintain Aspiration precautions. Family has chosen to proceed with no code, no CPR, no intubation with instructions. Hospice consult placed. Prognosis guarded given multiple complex medical issues.
[2022-05-01] MEDS: LORazepam 1 MG/0.5 ML VIAL IV PRN ×2 (06:25→22:41)
[2022-05-01] MEDS: LEVOTHYROXINE 75 MCG TAB PO SCH (06:28)
[2022-05-01] MEDS: PANTOPRAZOLE 40 MG TABLET PO SCH (06:28)
[2022-05-01] MEDS: IPRATROPIUM-ALBUTEROL 3 ML NEB INHALATION SCH ×4 (08:26→19:07)
[2022-05-01 09:37] LABS: Anisocytosis Slight; Basophils # (A) 0.1 k/uL (0-0.2); Basophils % (A) 1 %; Eosinophils # (A) 0.4 k/uL (0-0.7); Eosinophils % (A) 4 %; HCT 29.7 % (34.0-46.0); HGB 9.6 gm/dL (11.4-16.0); Hypochromasia Moderate; Lymphocytes # (A) 1.5 k/uL (1.0-4.8); Lymphocytes % (A) 15 %; MCH 32.7 pg (25.0-35.0); MCHC 32.4 g/dL (31.0-37.0); MCV 100.8 fL (80.0-100.0); Macrocytosis Moderate; Mean Platelet Volume 8.1; Monocytes # (A) 0.7 k/uL (0-1.0); Monocytes % (A) 7 %; Neutrophils # (A) 7.2 k/uL (1.3-7.7); Neutrophils % (A) 72 %; Platelet Count 303 k/uL (150-450); RBC 2.94 m/uL (3.80-5.40); RDW 18.1 % (11.5-15.5)
[2022-05-01] MEDS: FOLIC ACID 1 MG TAB PO SCH (10:01)
[2022-05-01] MEDS: SENNOSIDES-DOCUSATE SODIUM 1 EACH TAB PO SCH ×2 (10:01→20:06)
[2022-05-01] MEDS: VORTIOXETINE HYDROBROMIDE 10 MG TABLET PO SCH (10:02)
[2022-05-01] MEDS: CYANOCOBALAMIN 500 MCG TAB PO SCH (10:02)
[2022-05-01] MEDS: ARIPiprazole 10 MG TAB PO SCH (10:02)
[2022-05-01] MEDS: LORazepam 0.5 MG TAB PO SCH ×2 (10:02→20:05)
[2022-05-01] MEDS: METOPROLOL TARTRATE 25 MG TAB PO SCH ×2 (10:02→20:06)
[2022-05-01] MEDS: amLODIPine 5 MG TAB PO SCH (10:02)
[2022-05-01] MEDS: FUROSEMIDE 10 MG/ML 4 ML VIAL IV SCH (10:02)
[2022-05-01] MEDS: predniSONE 5 MG TAB PO SCH (10:02)
[2022-05-01] MEDS: MEROPENEM 1 GM in SODIUM CHLORIDE 0.9% 100 ML IVPB SCH ×2 (10:03→17:21)
[2022-05-01] MEDS: TRIAMCINOLONE ACET 0.1% ORAL PASTE 5 GM TUBE MUCOUS MEM SCH (10:04)
[2022-05-01 10:09] LABS: Calcium 9.4 mg/dL (8.4-10.2); Potassium 3.5 mmol/L (3.5-5.1)
--- NOTE | 2022-05-01 13:23 | P.PN ---
Subjective Progress Note Date: 05/01/22 Principal diagnosis: Pneumonia, UTI This is an 82-year-old female who was admitted back on 04/21/22, patient is known to have history of anemia, history of COVID-19 pneumonia back in December of 2021, patient was admitted and treated at [facility]. Apparently since she was discharged until now, the patient has had multiple symptoms over the last few months including recurrent episodes of mucositis, weakness, intermittent episodes of confusion and altered mental status. Patient has been on multiple courses of antibiotics on outpatient basis, she also received steroi ds. And she was seen by ENT for her severe mucositis involving her whole oral mucosa. In February of 2022, patient was admitted to the hospital with UTI and sepsis. During that admission her hemoglobin was down to 5 and platelets were in the range of 50,000. Patient was seen by hematology/oncology on consultation, and she was tested for heparin-induced thrombocytopenia and his testing was negative. Patient received 2 units of packed RBCs, and she was treated for her UTI with rapid improvement of her hemoglobin. And her platelets normalized. Hematology felt that the patient may have had some component of myelodysplastic syndrome with worsening of her pancytopenia from medications. Add from her infections. On 04/21, patient was readmitted to the hospital with progressive weakness suprapubic discomfort, and she had significant mental status changes/confusion with fever as high as 103. Since admission 5 days ago, patient was seen by many consultants including hematology/oncology infectious disease, and neurology. During her initial admission, patient had a temp of 103.4. She was tachycardic, and she had normal white count but she had a left shift. Tested negative for COVID-19 infection. Chest x-ray showed posterior lateral left basilar infiltrate. Patient was seen by infectious disease and was treated for presumptive urinary tract infection and pneumonia. Patient has been receiving medical mostly because of her multiple ALLERGIES to different antibiotics including ALLERGIES to sulfa, cephalexin, and her list of ALLERGY is quite long. Please refer to the chart for list of ALLERGIES. Since admission her chest x-ray has been getting worse and she is now developing bilateral infiltrates consistent with aspiration pneumonia patient was seen by speech therapist for swallow evaluation. However according to her daughter when she came in she was having difficulty with swallowing and she was choking on liquids and certain foods. 04/28 Patient resting in bed. Her daughter, Ginger, and son, Neal, are at the bedside. Information provided regarding palliative care philosophies and services. Education regarding patient's current condition and prognosis p kassandra. They family states they have had discussions with their mother before and she stated she would never want to be put on life support. Code status discussed in detail. They decided that they would like her to be a DNR/DNI, but are ok with BiPAP short term if needed. They also believe their mother's goal would be for comfort. They would like to give her through the weekend to see if she improves, both her mental and respiratory status. Objective - Vital Signs Vital signs: Vital Signs Temp 98.2 F 05/01/22 08:22 Pulse 84 05/01/22 12:01 Resp 18 05/01/22 08:22 BP 130/63 05/01/22 08:22 Pulse Ox 94 L 05/01/22 11:51 FiO2 70 05/01/22 11:51 Intake & Output 04/30/22 05/01/22 05/01/22 18:59 06:59 18:59 Intake Total 180 118 Output Total 1750 450 500 Balance -1570 -450 382 Intake: Oral 180 118 Output: Urine 1750 450 500 Other: Voiding Method Indwelling Catheter Indwelling Catheter Indwelling Catheter - Exam General: Well developed, well nourished, appears stated age. Chronically ill appearing HEENT: Head is atraumatic, normocephalic. Sclerae are clear. Pupils equal, round and reactive to light bilaterally. Mucus membranes moist. + [place] CV: Heart regular in rate and rhythm positive S1 and S2. No clicks, rubs or murmurs. Peripheral pulses equal. 2/4 Lungs: Scattered rhonch. No wheezes. Respirations labored and shallow. Airvo 70% FIO2, 60L Abdomen/GI: Soft. Bowel sounds present in all 4 quadrants. No guarding, rigidity, or abdominal tenderness. : Nuñez catheter Musculoskeletal/ Extremities: ROSALES, no joint deformity or swelling. No gross atrophy. + generalized weakness Vascular: Radial pulses equal. 2/4. No peripheral edema Skin: Warm and dry, No rash or lesions. Neurologic: Oriented times 1, to person only. CN II-XII grossly intact. No focal deficits. Psychiatric: Anxious, agitated, and confused - Labs CBC & Chem 7: 05/01/22 09:02 05/01/22 09:02 Labs: Abnormal Lab Results - Last 24 Hours (Table) 05/01/22 05/01/22 Range/Units 09: 09:02 RBC 2.94 L (3.80-5.40) m/uL Hgb 9.6 L (11.4-16.0) gm/dL Hct 29.7 L (34.0-46.0) % MCV 100.8 H (80.0-100.0) fL RDW 18.1 H (11.5-15.5) % Sodium 131 L (137-145) mmol/L Chloride 89 L (98-107) mmol/L Carbon Dioxide 36 H (22-30) mmol/L BUN 28 H (7-17) mg/dL Glucose 113 H (74-99) mg/dL Microbiology - Last 24 Hours (Table) 04/23/22 19:25 CSF Gram Stain - Final Cerebral Spinal Fluid CSF Culture - Final Assessment and Plan Assessment: Symptoms * Pain - CPOT 4/10, Continue Tylenol, Motrin, Ultram, and Tyler * Fatigue - Yes, generalized weakness and fatigue, Continue B12 * SOB - Yes, Continue Duoneb, Prednisone, Lasix, and Airvo * Insomnia - No, continue Melatonin prn * N/V - No * Anxiety - Yes, Continue Ativan * Depression - Yes, continue Trintellix and Abilify * Confusion - Yes * Agitation - No * Hallucinations - No * Appetite/weight loss - + recent decreased appetite, no weight loss * Dysphagia -Yes, MANAGER REGISTRATION following, continue Dysphagia I pureed/thin liquid diet * Constipation - No BM's documented, Continue Senokot-S * Incontinence - Nuñez catheter, Continue Elmiron * Itch - No Plan: Summary/Goals - Patient resting in bed. Her daughter, Ginger, and a patient health safety engineer is at the bedside. The patient in anxious and agitated. She wants to get dressed to go home. Ginger states that her mentation was better this morning. However, now it is the worst she has ever seen it. It was explained that the patient did not improve much in regards to her mental or respiratory status over the weekend. Inquired whether or not the family has gotten together to make any decisions moving forward. Ginger was surprised and stated they have no choice but to move forward. I reminded her of the discussion we had on Sunday about comfort care. It seemed like her and her brother, Neal, were in agreement that the patient's goal would be for comfort. Information provided regarding hospice/comfort care. They stated she would never want to live like this. Ginger stated she would talk to her older brother, Aj, when he comes t his afternoon. She would also like to talk to pulmonary today when they round. Attempted to call Aj via telephone, no answer. Advanced Directives - None on file Code Status - DNR/DNI Thank you for this consult Paz Arauz [facility]- Palliative Care [facility] [id number] Email: [email or web address] Time with Patient: Less than 30
[2022-05-01] MEDS ORDERED: Potassium Replacement Protocol 1 EACH MISC MISCELLANE PRN (16:11)
--- NOTE | 2022-05-01 16:25 | P.PN ---
Subjective Progress Note Date: 05/01/22 Maintained on aspiration precautions, Merrem . Pain controlled .Continues on Lasix IV push, diuresing well with 24-hour I&O reflecting a negative fluid balance .Maintaining O2 sats in the low 90s on 60L/min high flow cannula .vancomycin added to antibiotic regimen in addition to Invanz .T-max 101, WBC 9.5, hemoglobin 8.8, platelets 294. ProBNP 2070, pro-calcitonin 0.38. CSF reporting presumptive staph aureus, benign per neurology review. Denies chest pain, palpitations. Mild agitation, confusion, delirium, received a dose of Seroquel. 04/28/2022 sensorium improved, currently on 60 L airvo high flow/90% FiO2 in addition to nonrebreather mask, maintaining O2 sats in the high 90s. Reports " increased shortness of breath." Chest x-ray reporting persistent diffuse mixed interstitial and alveolar infiltrates with slight improvement of the left upper lobe. Maintained on vancomycin, Merrem. T-max 99.4, normal WBC. Receiving IV push diuretics with additional dose of Lasix; IV fluids pivl'd. Renal function stable. Bicarb 38. Potassium 2.6, receiving supplementation. 05/01/2022 currently appears more alert since admission; conversing, answering questions. Daughter at bedside reported patient required mittens last night to refrain from pulling at her oxygen and IV tubings, reported early this morning became significantly agitated, disoriented and family was called in. Sitrosenbaum urrently at bedside.maintained on Merrem.Afebrile, normal WBC. Continues diuresing on IV push Lasix . Sodium 131, potassium 3.5, supplements ordered, chloride 89, bicarb 36, BUN 28, creatinine 0.87. Requiring airvo at flow rate of 60 L/m, 70% FiO2, to maintain O2 sats of 90s. Objective - Vital Signs Vital signs: Vital Signs Temp 98.3 F 05/01/22 12:00 Pulse 84 05/01/22 15:55 Resp 20 05/01/22 14:00 BP 119/56 05/01/22 12:00 Pulse Ox 95 05/01/22 12:00 FiO2 70 05/01/22 15:45 Intake & Output 04/30/22 05/01/22 05/01/22 18:59 06:59 18:59 Intake Total 180 238 Output Total 9981 141 9483 Balance -6926 -366 -6357 Intake: Oral 180 238 Output: Urine 7485 168 2261 Other: Voiding Method Indwelling Catheter Indwelling Catheter Indwelling Catheter - Exam gen: Sitting up in bed,NAD, wearing airvo/highflow and nonrebreather mask, mucositis -lips resolved CV: RRR, no murmur, positive edema Lungs: increased effort. scattered rhonchi Neuro: alert, oriented to self, place. No focal deficits - Labs CBC & Chem 7: 05/01/22 09:02 05/01/22 09:02 Labs: Abnormal Lab Results - Last 24 Hours (Table) 05/01/22 05/01/22 Range/Units 09:02 09:02 RBC 2.94 L (3.80-5.40) m/uL Hgb 9.6 L (11.4-16.0) gm/dL Hct 29.7 L (34.0-46.0) % MCV 100.8 H (80.0-100.0) fL RDW 18.1 H (11.5-15.5) % Sodium 131 L (137-145) mmol/L Chloride 89 L (98-107) mmol/L Carbon Dioxide 36 H (22-30) mmol/L BUN 28 H (7-17) mg/dL Glucose 113 H (74-99) mg/dL Microbiology - Last 24 Hours (Table) 04/23/22 19:25 CSF Gram Stain - Final Cerebral Spinal Fluid CSF Culture - Final Assessment and Plan Assessment: Sepsis secondary to suspected Aspiration pneumonia Acute hypoxic respiratory failure secondary to the above Acute metabolic encephalopathy, secondary to all the above Recent COVID-19 pneumonia December 2021 Acute renal failure Myeloproliferative disorder, Mucositis prior admission History of Severe macrocytic anemia, hematology workup completed last admission suspecting medication and infection-induced Hypertension Hyperlipidemia Hypothyroidism No code, no CPR, no intubation; does want BiPAP. Plan: Continue on current medication regime ,monitoring and symptomatic treatment. Maintain diuretics. Continue antibiotics as per infectious disease. Close monitoring of renal function, electrolytes with repeat labs ordered for am. Aggressive pulmonary toileting with nebulized bronchodilators. Aspiration precautions. Patient continues to require significant amount of oxygen, which she would not be able to go home on. Palliative/hospice MEDICAL TECHNOLOGIST CHIEF continues to work with family/support given. Prognosis guarded given multiple complex medical issues. The impression and plan of care has been dictated as directed. : I performed a history and examination of this patient, discussed the same with the dictator. I agree with the dictator's note ,documented as a scribe. Any additional findings or plans will be noted.
[2022-05-01] MEDS: polyethylene glycoL 3350 17 GM POWD.PACK PO SCH (17:21)
[2022-05-01] MEDS: SODIUM CHLORIDE 0.9% 1,000 ML IV SCH (18:06)
[2022-05-01] MEDS: PRAVASTATIN SODIUM 40 MG TAB PO SCH (20:05)
[2022-05-01] MEDS: MELATONIN 5 MG TABLET PO SCH (20:06)
[2022-05-01] MEDS ORDERED: QUEtiapine 25 MG TAB PO SCH (21:00)
[2022-05-02 00:12] LABS: Glucose,Whole Blood 111 mg/dL (70-110)
[2022-05-02] MEDS: MEROPENEM 1 GM in SODIUM CHLORIDE 0.9% 100 ML IVPB SCH ×2 (00:27→09:32)
[2022-05-02] MEDS: traMADol 50 MG TAB PO PRN (03:17)
[2022-05-02] MEDS: LORazepam 1 MG/0.5 ML VIAL IV PRN (04:27)
[2022-05-02] MEDS: LEVOTHYROXINE 75 MCG TAB PO SCH (06:30)
[2022-05-02] MEDS: PANTOPRAZOLE 40 MG TABLET PO SCH (06:30)
[2022-05-02] MEDS: IPRATROPIUM-ALBUTEROL 3 ML NEB INHALATION SCH ×2 (09:03→11:47)
[2022-05-02 09:16] LABS: Potassium 3.7 mmol/L (3.5-5.1)
[2022-05-02] MEDS: VORTIOXETINE HYDROBROMIDE 10 MG TABLET PO SCH (09:33)
[2022-05-02] MEDS: METOPROLOL TARTRATE 25 MG TAB PO SCH (09:33)
[2022-05-02] MEDS: predniSONE 5 MG TAB PO SCH (09:33)
[2022-05-02] MEDS: FOLIC ACID 1 MG TAB PO SCH (09:33)
[2022-05-02] MEDS: CYANOCOBALAMIN 500 MCG TAB PO SCH (09:33)
[2022-05-02] MEDS: SENNOSIDES-DOCUSATE SODIUM 1 EACH TAB PO SCH (09:33)
[2022-05-02] MEDS: ARIPiprazole 10 MG TAB PO SCH (09:33)
[2022-05-02] MEDS: LORazepam 0.5 MG TAB PO SCH (09:33)
[2022-05-02] MEDS: polyethylene glycoL 3350 17 GM POWD.PACK PO SCH (09:33)
[2022-05-02] MEDS: amLODIPine 5 MG TAB PO SCH (09:33)
[2022-05-02] MEDS: TRIAMCINOLONE ACET 0.1% ORAL PASTE 5 GM TUBE MUCOUS MEM SCH (09:34)
[2022-05-02] MEDS: FUROSEMIDE 10 MG/ML 4 ML VIAL IV SCH (09:35)
[2022-05-02 11:48] VITALS: RESP 18; TEMP 98.6
--- NOTE | 2022-05-02 12:53 | P.PN ---
Subjective Progress Note Date: 05/02/22 Maintained on aspiration precautions, Merrem . Pain controlled .Continues on Lasix IV push, diuresing well with 24-hour I&O reflecting a negative fluid balance .Maintaining O2 sats in the low 90s on 60L/min high flow cannula .vancomycin added to antibiotic regimen in addition to Invanz .T-max 101, WBC 9.5, hemoglobin 8.8, platelets 294. ProBNP 2070, pro-calcitonin 0.38. CSF reporting presumptive staph aureus, benign per neurology review. Denies chest pain, palpitations. Mild agitation, confusion, delirium, received a dose of Seroquel. 04/28/2022 sensorium improved, currently on 60 L airvo high flow/90% FiO2 in addition to nonrebreather mask, maintaining O2 sats in the high 90s. Reports " increased shortness of breath." Chest x-ray reporting persistent diffuse mixed interstitial and alveolar infiltrates with slight improvement of the left upper lobe. Maintained on vancomycin, Merrem. T-max 99.4, normal WBC. Receiving IV push diuretics with additional dose of Lasix; IV fluids pivl'd. Renal function stable. Bicarb 38. Potassium 2.6, receiving supplementation. 05/01/2022 currently appears more alert since admission; conversing, answering questions. Daughter at bedside reported patient required mittens last night to refrain from pulling at her oxygen and IV tubings, reported early this morning became significantly agitated, disoriented and family was called in. Sitter c urrently at bedside.maintained on Merrem.Afebrile, normal WBC. Continues diuresing on IV push Lasix . Sodium 131, potassium 3.5, supplements ordered, chloride 89, bicarb 36, BUN 28, creatinine 0.87. Requiring airvo at flow rate of 60 L/m, 70% FiO2, to maintain O2 sats of 90s. 05/02/2022 respiratory status unchanged, continues to require 70% FiO2, 60 L/min airvo, to maintain O2 sats of 90s. Sitter at bedside, stating patient was up all night, hallucinating, required wearing mitts-family had been at bedside as well. Currently asleep. Maintained on Merrem, afebrile. Sodium 134, BUN 24, creatinine 0.93. Objective - Vital Signs Vital signs: Vital Signs Temp 98.6 F 05/02/22 08:00 Pulse 72 05/02/22 11:58 Resp 18 05/02/22 08:00 BP 128/62 05/02/22 08:00 Pulse Ox 96 05/02/22 08:00 FiO2 70 05/02/22 11:47 Intake & Output 05/01/22 05/02/22 05/02/22 18:59 06:59 18:59 Intake Total 358 140 Output Total 2350 1100 1250 Balance -1991 Intake: Intake, IV Titration 100 Amount Sodium Chloride 0.9% 1, 100 000 ml @ 20 mls/hr IV . Q24H [facility] Rx#:[id number] Oral 358 40 Output: Urine 2350 1100 1250 Other: Voiding Method Indwelling Catheter Indwelling Catheter # Bowel Movements 1 - Exam gen: Sitting up in bed,NAD, wearing airvo/highflow, currently sleeping CV: RRR, no murmur, positive edema Lungs: increased effort. scattered rhonchi Neuro: Limited exam .alert, oriented to self, No focal deficits. - Labs CBC & Chem 7: 05/01/22 09:02 05/02/22 08:04 Labs: Abnormal Lab Results - Last 24 Hours (Table) 05/02/22 05/02/22 Range/Units 00:10 08:04 Sodium 134 L (137-145) mmol/L Chloride 90 L (98-107) mmol/L Carbon Dioxide 38 H (22-30) mmol/L BUN 24 H (7-17) mg/dL POC Glucose (mg/dL) 111 H (70-110) mg/dL Assessment and Plan Assessment: Sepsis secondary to suspected Aspiration pneumonia Acute hypoxic respiratory failure secondary to the above Acute metabolic encephalopathy, secondary to all the above Recent COVID-19 pneumonia December 2021 Acute renal failure Myeloproliferative disorder, Mucositis prior admission History of Severe macrocytic anemia, hematology workup completed last admission suspecting medication and infection-induced Hypertension Hyperlipidemia Hypothyroidism No code, no CPR, no intubation; does want BiPAP. Plan: Continue on current medication regime ,monitoring and symptomatic treatment. Prognosis guarded, continues to require 70% FiO2. Family meeting with hospice EQUIPMENT MAN later this afternoon. Maintain aspiration precautions, supportive care. Antibiotics as per infectious disease. Aggressive pulmonary toileting with nebulized bronchodilators. The impression and plan of care has been dictated as directed. : I performed a history and examination of this patient, discussed the same with the dictator. I agree with the dictator's note ,documented as a scribe. Any additional findings or plans will be noted.
[2022-05-02] MEDS ORDERED: bisacodyL 10 MG SUPP RECTAL STA (13:23)
--- NOTE | 2022-05-02 14:36 | P.PN ---
Subjective Progress Note Date: 05/02/22 Principal diagnosis: Pneumonia, UTI This is an 82-year-old female who was admitted back on 04/21/22, patient is known to have history of anemia, history of COVID-19 pneumonia back in December of 2021, patient was admitted and treated at [facility]. Apparently since she was discharged until now, the patient has had multiple symptoms over the last few months including recurrent episodes of mucositis, weakness, intermittent episodes of confusion and altered mental status. Patient has been on multiple courses of antibiotics on outpatient basis, she also received steroids. And she was seen by ENT for her severe mucositis involving her whole oral mucosa. In February of 2022, patient was admitted to the hospital with UTI and sepsis. During that admission her hemoglobin was down to 5 and platelets were in the range of 50,000. Patient was seen by hematology/oncology on consultation, and she was tested for heparin-induced thrombocytopenia and his testing was negative. Patient received 2 units of packed RBCs, and she was treated for her UTI with rapid improvement of her hemoglobin. And her platelets normalized. Hematology felt that the patient may have had some component of myelodysplastic syndrome with worsening of her pancytopenia from medications. Add from her infections. On 04/21, patient was readmitted to the hospital with progressive weakness suprapubic discomfort, and she had significant mental status changes/confusion with fever as high as 103. Since admission 5 days ago, patient was seen by many consultants including hematology/oncology infectious disease, and neurology. During her initial admission, patient had a temp of 103.4. She was tachycardic, and she had normal white count but she had a left shift. Tested negative for COVID-19 infection. Chest x-ray showed posterior lateral left basilar infiltrate. Patient was seen by infectious disease and was treated for presumptive urinary tract infection and pneumonia. Patient has been receiving medical mostly because of her multiple ALLERGIES to different antibiotics including ALLERGIES to sulfa, cephalexin, and her list of ALLERGY is quite long. Please refer to the chart for list of ALLERGIES. Since admission her chest x-ray has been getting worse and she is now developing bilateral infiltrates consistent with aspiration pneumonia patient was seen by speech therapist for swallow evaluation. However according to her daughter when she came in she was having difficulty with swallowing and she was choking on liquids and certain foods. 04/28 Patient resting in bed. Her daughter, Ginger, and son, Neal, are at the bedside. Information provided regarding palliative care philosophies and services. Education regarding patient's current condition and prognosis p kassandra. They family states they have had discussions with their mother before and she stated she would never want to be put on life support. Code status discussed in detail. They decided that they would like her to be a DNR/DNI, but are ok with BiPAP short term if needed. They also believe their mother's goal would be for comfort. They would like to give her through the weekend to see if she improves, both her mental and respiratory status. 05/01 Patient resting in bed. Her daughter, Ginger, and a patient chief safety officer is at the bedside. The patient in anxious and agitated. She wants to get dressed to go home. Ginger states that her mentation was better this morning. However, now it is the worst she has ever seen it. It was explained that the patient did not improve much in regards to her mental or respiratory status over the weekend. Inquired whether or not the family has gotten together to make any decisions moving forward. Ginger was surprised and stated they have no choice but to move forward. I reminded her of the discussion we had on Sunday about comfort care. It seemed like her and her brother, Neal, were in agreement that the patient's goal would be for comfort. Information provided regarding hospice/comfort care. They stated she would never want to live like this. Ginger stated she would talk to her older brother, Aj, when he comes this afternoon. She would also like to talk to pulmonary today when they round. Attempted to call Aj via telephone, no answer. Objective - Vital Signs Vital signs: Vital Signs Temp 98.6 F 05/02/22 08:00 Pulse 72 05/02/22 11:58 Resp 18 05/02/22 08:00 BP 128/62 05/02/22 08:00 Pulse Ox 96 05/02/22 08:00 FiO2 70 05/02/22 11:47 Intake & Output 05/01/22 05/02/22 05/02/22 18:59 06:59 18:59 Intake Total 358 140 Output Total 2350 1100 1250 Balance -19917 1250 Intake: Intake, IV Titration 100 Amount Sodium Chloride 0.9% 1, 100 000 ml @ 20 mls/hr IV . Q24H [facility] Rx#:[id number] Oral 358 40 Output: Urine 2350 1100 1250 Other: Voiding Method Indwelling Catheter Indwelling Catheter # Bowel Movements 1 - Exam General: Well developed, well nourished, appears stated age. Chronically ill appearing HEENT: Head is atraumatic, normocephalic. Sclerae are clear. Pupils equal, round and reactive to light bilaterally. Mucus membranes moist. + [place] CV: Heart regular in rate and rhythm positive S1 and S2. No clicks, rubs or murmurs. Peripheral pulses equal. 2/4 Lungs: Scattered rhonch. No wheezes. Respirations labored and shallow. Airvo 70% FIO2, 60L Abdomen/GI: Soft. Bowel sounds present in all 4 quadrants. No guarding, rigidity, or abdominal tenderness. : Nuñez catheter Musculoskeletal/ Extremities: ROSALES, no joint deformity or swelling. No gross atrophy. + generalized weakness Vascular: Radial pulses equal. 2/4. No peripheral edema Skin: Warm and dry, No rash or lesions. Neurologic: Oriented times 1, to person only. CN II-XII grossly intact. No focal deficits. Psychiatric: Anxious, agitated, and confused - Labs CBC & Chem 7: 05/01/22 09:02 05/02/22 08:04 Labs: Abnormal Lab Results - Last 24 Hours (Table) 05/02/22 05/02/22 Range/Units 00:10 08:04 Sodium 134 L (137-145) mmol/L Chloride 90 L (98-107) mmol/L Carbon Dioxide 38 H (22-30) mmol/L BUN 24 H (7-17) mg/dL POC Glucose (mg/dL) 111 H (70-110) mg/dL Assessment and Plan Assessment: Symptoms * Pain - CPOT 4/10, Continue Tylenol, Motrin, Ultram, and [place] * Fatigue - Yes, generalized weakness and fatigue, Continue B12 * SOB - Yes, Continue Duoneb, Prednisone, Lasix, and Airvo * Insomnia - No, continue Melatonin prn * N/V - No * Anxiety - Yes, Continue Ativan * Depression - Yes, continue Trintellix and Abilify * Confusion - Yes, continue seroquel and chief safety officer * Agitation - Yes, continue seroquel and chief safety officer * Hallucinations - No * Appetite/weight loss - + recent decreased appetite, no weight loss * Dysphagia -Yes, HAND KISS SETTER following, continue Dysphagia I pureed/thin liquid diet * Constipation - No BM's documented, Continue Senokot-S, add Dulcolax * Incontinence - Nuñez catheter, Continue Elmiron * Itch - No Plan: Summary/Goals - The patient is more confused today. babysitter at bedside and mitts on. Met with the patient's daughter, Ginger, and 2 sons, Aj and Neal. Her son, Aj, stayed the night with her and stated she was up all night hallucinating and agitated. We discussed what they think the patient's wishes and goals would be moving forward. Her respiratory status is essentially unchanged. She is on Airvo 70%, 60L/min. She keeps taking her oxygen off and she desaturates quickly. She has no reserve and takes a while to recover. They all agreed that she would not want to live this way or be on life support. Hospice services explained in detail. They all agreed that would be the most appropriate for their mother. Hospice, social work, and attending notified of family's decision. Advanced Directives - None on file Code Status - DNR/DNI Thank you for this consult Paz Arauz [facility]- Palliative Care Spectralink [id number] Email: [email or web address] Time with Patient: Greater than 30
[2022-05-02 14:57] VITALS: BP 102/53; PULSE 74
--- NOTE | 2022-05-03 11:38 | P.DS ---
Providers Date of admission: 04/21/22 16:57 Expected date of discharge: 05/02/22 Attending physician: Navjot Loja MD Consults: 04/21/22 17:15 Consult Physician Urgent Consulting Provider: Molly Michelle Consult Reason/Comments: macrocytic anemia, thrombocytopenia Do you want consulting provider notified?: Yes 04/21/22 18:07 Consult Physician Urgent Consulting Provider: Toby Goodman Consult Reason/Comments: recurrent uti Do you want consulting provider notified?: Yes 04/22/22 13:53 Consult Physician Routine Consulting Provider: Lex Huffman Consult Reason/Comments: Urinary retention Do you want consulting provider notified?: Yes 04/23/22 12:35 Consult Physician Routine Consulting Provider: Ross Catalan Consult Reason/Comments: Confusion, choking with food. Do you want consulting provider notified?: Yes 04/23/22 15:06 Consult to Anesthesia Stat Consulting Provider: Anesthesia,Services Consult Reason/Comments: lumbar puncture for meningoencephalitis 04/26/22 08:53 Consult Physician Routine Consulting Provider: Jacky Hood Consult Reason/Comments: hypoxia Do you want consulting provider notified?: Yes 04/28/22 11:41 Consult to Palliative Care Stat Consulting Provider: Paz Arauz Consult Reason/Comments: COPD Do you want consulting provider notified?: Yes Primary care physician: Alexus Loja Hospital Course: Final Diagnoses: Sepsis secondary to suspected Aspiration pneumonia Acute hypoxic respiratory failure secondary to the above Acute metabolic encephalopathy, secondary to all the above Recent COVID-19 pneumonia December 2021 Acute renal failure Myeloproliferative disorder, Mucositis prior admission History of Severe macrocytic anemia, hematology workup completed last admission suspecting medication and infection-induced Hypertension Hyperlipidemia Hypothyroidism No code, no CPR, no intubation; does want BiPAP. Comfort Care, [facility] Hospice pending. Hospital course: This is an 82-year-old female admitted with sepsis secondary to suspected aspiration pneumonia, acute hypoxic respiratory failure, acute metabolic encephalopathy, acute renal failure and multiple other medical issues. Maintained on Merrem per ID. Continues to require significant amount of O2, 70% FiO2. Family deciding to proceed with hospice and patient was will be transitioned to [facility] hospice later tonight. The impression and plan of care has been dictated as directed. : I performed a history and examination of this patient, discussed the same with the dictator. I agree with the dictator's note ,documented as a scribe. Any additional findings or plans will be noted. Patient Condition at Discharge: Stable Plan - Discharge Summary Discharge Rx Participant: No New Discharge Prescriptions: No Action Levothyroxine Sodium [Synthroid] 37.5 mcg PO DAILY Metoprolol Tartrate 25 mg PO BID Pentosan Polysulfate Sodium [Elmiron] 100 mg PO Q48H [place]-3 Fatty Acids/Fish Oil [Fish Oil 1,000 mg Softgel] 1 cap PO DAILY Cyanocobalamin [Vitamin B-12] 500 mcg PO DAILY Cholecalciferol [Vitamin D3 (25 Mcg = 1000 Iu)] 50 mcg PO DAILY Calcium Carbonate [Calcium] 600 mg PO DAILY Pravastatin Sodium [Pravachol] 40 mg PO HS LORazepam [Ativan] 1 mg PO BID hydrOXYzine pamoate [hydrOXYzine PAMOATE] 25 mg PO BID PRN PRN Reason: Itching Furosemide [Lasix] 20 mg PO DAILY Triamcinolone 0.1% Paste [Oralone 0.1% Paste] 1 applic MUCOUS MEM DAILY Alpha Lipoic Acid 600 mg PO BID Melatonin 5 mg PO HS amLODIPine [Norvasc] 5 mg PO DAILY Omeprazole [PriLOSEC] 20 mg PO BID Multivitamins, Thera [Multivitamin (formulary)] 1 tab PO DAILY ARIPiprazole [Abilify] 10 mg PO DAILY traMADol HCL 50 mg PO HS PRN PRN Reason: Pain Vortioxetine Hydrobromide [Trintellix] 10 mg PO DAILY Discharge Medication List Levothyroxine Sodium [Synthroid] 37.5 mcg PO DAILY 10/09/14 [History] Metoprolol Tartrate 25 mg PO BID 10/09/14 [History] Pentosan Polysulfate Sodium [Elmiron] 100 mg PO Q48H 10/09/14 [History] [place]-3 Fatty Acids/Fish Oil [Fish Oil 1,000 mg Softgel] 1 cap PO DAILY 10/19/14 [History] Cyanocobalamin [Vitamin B-12] 500 mcg PO DAILY 05/05/15 [History] Calcium Carbonate [Calcium] 600 mg PO DAILY 06/23/20 [History] Cholecalciferol [Vitamin D3 (25 Mcg = 1000 Iu)] 50 mcg PO DAILY 06/23/20 [History] Pravastatin Sodium [Pravachol] 40 mg PO HS 07/27/20 [History] ARIPiprazole [Abilify] 10 mg PO DAILY 03/11/22 [History] Alpha Lipoic Acid 600 mg PO BID 03/11/22 [History] LORazepam [Ativan] 1 mg PO BID 03/11/22 [History] Melatonin 5 mg PO HS 03/11/22 [History] Multivitamins, Thera [Multivitamin (formulary)] 1 tab PO DAILY 03/11/22 [History] Omeprazole [PriLOSEC] 20 mg PO BID 03/11/22 [History] Triamcinolone 0.1% Paste [Oralone 0.1% Paste] 1 applic MUCOUS MEM DAILY 03/11/22 [History] Vortioxetine Hydrobromide [Trintellix] 10 mg PO DAILY 03/11/22 [History] amLODIPine [Norvasc] 5 mg PO DAILY 03/11/22 [History] traMADol HCL 50 mg PO HS PRN 03/11/22 [History] Furosemide [Lasix] 20 mg PO DAILY 04/21/22 [History] hydrOXYzine pamoate [hydrOXYzine PAMOATE] 25 mg PO BID PRN 04/21/22 [History] Follow up Appointment(s)/Referral(s): Alexus Loja DO [Primary Care Provider] - 1-2 days Discharge Disposition: DISCH TO [facility]
== END 2022-05-02 15:57 | disposition still patient (30) | DRG 871 ==
LOC: EC 14:23 → 3SCARD 16:57
PROVIDERS: ADMIT Family Medicine; ATTEND Family Medicine
PROC: 009U3ZX Drainage of Spinal Canal, Percutaneous Approach, Diagnostic (ICD-10-PCS; principal; 2022-04-23)
DX: A41.9 Sepsis, unspecified organism (principal); G04.90 Encephalitis and encephalomyelitis, unspecified; J96.01 Acute respiratory failure with hypoxia; J69.0 Pneumonitis due to inhalation of food and vomit; G93.41 Metabolic encephalopathy; J18.9 Pneumonia, unspecified organism; N17.9 Acute kidney failure, unspecified; D47.1 Chronic myeloproliferative disease; D69.6 Thrombocytopenia, unspecified; I10 Essential (primary) hypertension; F32.A Depression, unspecified; D46.9 Myelodysplastic syndrome, unspecified; D53.9 Nutritional anemia, unspecified; E03.9 Hypothyroidism, unspecified; E78.5 Hyperlipidemia, unspecified; M19.90 Unspecified osteoarthritis, unspecified site; R73.03 Prediabetes; Z51.5 Encounter for palliative care; Z66 Do not resuscitate; K12.1 Other forms of stomatitis; K12.30 Oral mucositis (ulcerative), unspecified; T50.905A Adverse effect of unspecified drugs, medicaments and biological substances, initial encounter; H91.90 Unspecified hearing loss, unspecified ear; K12.0 Recurrent oral aphthae; E53.8 Deficiency of other specified B group vitamins; F41.9 Anxiety disorder, unspecified; D75.89 Other specified diseases of blood and blood-forming organs; K59.00 Constipation, unspecified; M54.50 Low back pain, unspecified; K21.9 Gastro-esophageal reflux disease without esophagitis; Z20.822 Contact with and (suspected) exposure to COVID-19; Z96.651 Presence of right artificial knee joint; Z96.643 Presence of artificial hip joint, bilateral; Z79.899 Other long term (current) drug therapy; Z88.1 Allergy status to other antibiotic agents; Z88.8 Allergy status to other drugs, medicaments and biological substances; Z88.2 Allergy status to sulfonamides; Z88.6 Allergy status to analgesic agent; Z88.5 Allergy status to narcotic agent; Z87.440 Personal history of urinary (tract) infections; Z90.710 Acquired absence of both cervix and uterus; Z95.5 Presence of coronary angioplasty implant and graft; Z98.41 Cataract extraction status, right eye; Z98.42 Cataract extraction status, left eye; Z80.0 Family history of malignant neoplasm of digestive organs; Z82.0 Family history of epilepsy and other diseases of the nervous system; Z82.49 Family history of ischemic heart disease and other diseases of the circulatory system; Z79.890 Hormone replacement therapy; Z86.16 Personal history of COVID-19; Z87.01 Personal history of pneumonia (recurrent); Z86.14 Personal history of Methicillin resistant Staphylococcus aureus infection
CPT/HCPCS: 36410; 36415; 70450; 71045; 71046; 76857; 76937; 80048; 80053; 81001; 82565; 82945; 83010; 83605; 83735; 83880; 84132; 84145; 84157; 85025; 85027; 85045; 85610; 85730; 86140; 86592; 87040; 87070; 87205; 87252; 87496; 87498; 87529; 87635; 87798; 89050; 93005; 93306; 94640; 94760; 95816; 96361; 96365; 96366; 96375; 99285

== ENCOUNTER 2022-05-02 15:24 | Inpatient (IN) | payer MEDICAID ==
[2022-05-02] MEDS ORDERED: MORPHINE SULFATE 2 MG/ML SYRINGE IV PRN (15:34)
[2022-05-02] MEDS ORDERED: ACETAMINOPHEN SUPPOSITORY 650 MG SUPP RECTAL PRN (15:34)
[2022-05-02] MEDS ORDERED: ATROPINE OPHTH SOLN 1% 5ML BTL SUBLINGUAL PRN (15:34)
[2022-05-02] MEDS ORDERED: LORazepam 2 MG/ML INJ IV PRN (15:34)
[2022-05-02] MEDS ORDERED: SCOPOLAMINE 1 MG/72 HR PATCH TRANSDERM PRN (15:34)
[2022-05-02] MEDS ORDERED: ONDANSETRON 4 MG/2 ML VIAL IVP PRN (15:34)
[2022-05-02] MEDS: LORazepam 1 MG/0.5 ML VIAL IV PRN ×2 (16:29→19:50)
[2022-05-02] MEDS: MORPHINE SULFATE (100 MG/2 ML) 100 MG in SODIUM CHLORIDE 0.9% 100 ML IV SCH (18:26)
[2022-05-03] MEDS: LORazepam 1 MG/0.5 ML VIAL IV PRN (02:35)
--- NOTE | 2022-05-03 11:56 | P.HPIM ---
History of Present Illness H&P Date: 05/03/22 Chief Complaint: [facility] Hospice This is an 82-year-old female admitted with sepsis secondary to suspected aspiration pneumonia, acute hypoxic respiratory failure, acute metabolic encephalopathy, acute renal failure and multiple other medical issues. Maintained on Merrem per ID. Continues to require significant amount of O2, 70% FiO2. Family decidided to proceed with hospice and patient transitioned to [facility] hospice last night. Maintained on comfort care, morphine drip, 2 L nasal cannula. Appears comfortable. Review of Systems N/A Past Medical History Past Medical History: Hyperlipidemia, Hypertension, Osteoarthritis (OA), Thyroid Disorder Additional Past Medical History / Comment(s): interstitial cystitis, constipation History of Any Multi-Drug Resistant Organisms: None Reported Date of last positivie culture/infection: 07/28/20 MDRO Source:: Right Hip Past Surgical History: Heart Catheterization With Stent, Hysterectomy, Joint Replacement, Orthopedic Surgery Additional Past Surgical History / Comment(s): bilateral hips replaced, bladder suspension, cataracts, 05-17-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 Pt is independent. Pt drives a car. Smoking Status: Never smoker Past Alcohol Use History: None Reported Past Drug Use History: None Reported - Past Family History Mother Family Medical History: Cancer Additional Family Medical History / Comment(s): colon Father Family Medical History: Coronary Artery Disease (CAD), Musculoskeletal Disorder Additional Family Medical History / Comment(s): PARKINSONS AND HEART TROUBLE Medications and Allergies Home Medications Medication Instructions Recorded Confirmed Type Levothyroxine Sodium [Synthroid] 37.5 mcg PO DAILY 10/09/14 05/02/22 History Metoprolol Tartrate 25 mg PO BID 10/09/14 05/02/22 History Pentosan Polysulfate Sodium 100 mg PO Q48H 10/09/14 05/02/22 History [Elmiron] [place]-3 Fatty Acids/Fish Oil [Fish 1 cap PO DAILY 10/19/14 05/02/22 History Oil 1,000 mg Softgel] Cyanocobalamin [Vitamin B-12] 500 mcg PO DAILY 05/05/15 05/02/22 History Calcium Carbonate [Calcium] 600 mg PO DAILY 06/23/20 05/02/22 History Cholecalciferol [Vitamin D3 (25 50 mcg PO DAILY 06/23/20 05/02/22 History Mcg = 1000 Iu)] Pravastatin Sodium [Pravachol] 40 mg PO HS 07/27/20 05/02/22 History ARIPiprazole [Abilify] 10 mg PO DAILY 03/11/22 05/02/22 History Alpha Lipoic Acid 600 mg PO BID 03/11/22 05/02/22 History LORazepam [Ativan] 1 mg PO BID 03/11/22 05/02/22 History Melatonin 5 mg PO HS 03/11/22 05/02/22 History Multivitamins, Thera [Multivitamin 1 tab PO DAILY 03/11/22 05/02/22 History (formulary)] Omeprazole [PriLOSEC] 20 mg PO BID 03/11/22 05/02/22 History Triamcinolone 0.1% Paste [Oralone 1 applic MUCOUS MEM DAILY 03/11/22 05/02/22 History 0.1% Paste] Vortioxetine Hydrobromide 10 mg PO DAILY 03/11/22 05/02/22 History [Trintellix] amLODIPine [Norvasc] 5 mg PO DAILY 03/11/22 05/02/22 History traMADol HCL 50 mg PO HS PRN 03/11/22 05/02/22 History Furosemide [Lasix] 20 mg PO DAILY 04/21/22 05/02/22 History hydrOXYzine pamoate [hydrOXYzine 25 mg PO BID PRN 04/21/22 05/02/22 History PAMOATE] Allergies Allergy/AdvReac Type Severity Reaction Status Date / Time cephalexin [From Keflex] Allergy Rash/Hives Verified 04/21/22 17:17 cisapride monohydrate Allergy nasal Verified 04/21/22 17:17 [From Propulsid] congestion and cough Sulfa (Sulfonamide Allergy Unknown Verified 04/21/22 17:17 Antibiotics) amitriptyline AdvReac causes Verified 04/21/22 17:17 nervousness and sleepiness amylase [From Viokase] AdvReac jim Verified 04/21/22 17:17 bladder aspirin AdvReac jim Verified 04/21/22 17:17 bladder but able to tolerate low dose asa atenolol [From Tenoretic 50] AdvReac dry Verified 04/21/22 17:17 burning eyes bupropion HCl AdvReac jim Verified 04/21/22 17:17 [From Wellbutrin] bladder chlordiazepoxide AdvReac bladder Verified 04/21/22 17:17 [From Librax (with jim clidinium)] chlordiazepoxide HCl AdvReac bladder Verified 04/21/22 17:17 [From Librax (with jim methscopolamine)] chlorthalidone AdvReac dry Verified 04/21/22 17:17 [From Tenoretic 50] burning eyes clidinium bromide AdvReac bladder Verified 04/21/22 17:17 [From Librax (with jim clidinium)] cyclobenzaprine HCl AdvReac causes Verified 04/21/22 17:17 [From Flexeril] sleepiness and nervousness dextroamphetamine sulfate AdvReac jim Verified 04/21/22 17:17 [From Dexedrine] stomach and bladder dicyclomine HCl [From Bentyl] AdvReac dry Verified 04/21/22 17:17 mouth,constipation,jim bladder fluoxetine HCl [From Prozac] AdvReac stays awake Verified 04/21/22 17:17 gabapentin [From Neurontin] AdvReac jim Verified 04/21/22 17:17 bladder hydrocodone AdvReac jim Verified 04/21/22 17:17 bladder hyoscyamine sulfate AdvReac mades eyes Verified 04/21/22 17:17 [From Levsinex] and mouth dry lipase [From Viokase] AdvReac jim Verified 04/21/22 17:17 bladder lithium AdvReac jim Verified 04/21/22 17:17 bladder loratadine [From Claritin] AdvReac jim Verified 04/21/22 17:17 stomach and bladder methylphenidate HCl AdvReac joint pain Verified 04/21/22 17:17 [From Ritalin] methylprednisolone AdvReac jim Verified 04/21/22 17:17 bladder methylscopolamine nitrate AdvReac bladder Verified 04/21/22 17:17 [From Librax (with jim methscopolamine)] metoclopramide HCl AdvReac causes Verified 04/21/22 17:17 [From Reglan] sleepiness and nervousness nortriptyline HCl AdvReac severe Verified 04/21/22 17:17 [From Pamelor] sleepiness pemoline [From Cylert] AdvReac jim Verified 04/21/22 17:17 stomach and bladder prednisone AdvReac jim Verified 04/21/22 17:17 bladder protease [From Viokase] AdvReac jim Verified 04/21/22 17:17 bladder sucralfate AdvReac constipatio Verified 04/21/22 17:17 n tolmetin sodium AdvReac Nausea & Verified 04/21/22 17:17 [From Tolectin] Vomiting tramadol HCl [From Ultram] AdvReac jim Verified 04/21/22 17:17 bladder venlafaxine HCl AdvReac jim Verified 04/21/22 17:17 [From Effexor] bladder clescin AdvReac Nausea & Uncoded 03/11/22 18:35 Vomiting ruepar AdvReac jim Uncoded 03/11/22 18:35 bladder Physical Exam Vitals: Vital Signs Pulse Resp Pulse Ox 05/03/22 05:00 14 05/02/22 23:12 73 14 84 L 05/02/22 19:40 73 Intake and Output 05/02/22 05/03/22 05/03/22 22:59 06:59 14:59 Intake Total 5.529 14.9 33.048 Output Total 500 600 Balance -494.471 14.9 -566.952 Intake: Intake, IV Titration 5.529 14.9 33.048 Amount Morphine Sulfate (100 mg/ 5.529 14.9 33.048 2 ml) 100 mg In Sodium Chloride 0.9% 100 ml @ 1 MG/HR 1.02 mls/hr IV . Q24H [facility] Rx#:[id number] Output: Urine 500 600 Other: Voiding Method Indwelling Catheter Indwelling Catheter Weight 72.5 kg - Exam gen: Lying in bed, sedated on morphine drip, wearing 2 L nasal cannula O2 CV: RRR, no murmur Lungs: scattered rhonchi Assessment and Plan Assessment: Sepsis secondary to suspected Aspiration pneumonia Acute hypoxic respiratory failure secondary to the above Acute metabolic encephalopathy, secondary to all the above Recent COVID-19 pneumonia December 2021 Acute renal failure Myeloproliferative disorder, Mucositis prior admission History of Severe macrocytic anemia, hematology workup completed last admission suspecting medication and infection-induced Hypertension Hyperlipidemia Hypothyroidism No code, no CPR, no intubation; does want BiPAP. [facility] hosp[facility] Plan: Continue on comfort care/hospice regimen. Son is at bedside. Questions and concerns addressed. Support given. The impression and plan of care has been dictated as directed. : I performed a history and examination of this patient, discussed the same with the dictator. I agree with the dictator's note ,documented as a scribe. Any additional findings or plans will be noted.
[2022-05-03 12:13] VITALS: TEMP 98.2
[2022-05-03] MEDS: MORPHINE SULFATE (100 MG/2 ML) 100 MG in SODIUM CHLORIDE 0.9% 100 ML IV SCH ×2 (19:43→20:38)
[2022-05-04] MEDS: MORPHINE SULFATE (100 MG/2 ML) 100 MG in SODIUM CHLORIDE 0.9% 100 ML IV SCH (12:51)
[2022-05-04] MEDS: GLYCOPYRROLATE 0.2 MG/ML 2 ML VIAL IVP PRN (16:52)
[2022-05-05] MEDS: MORPHINE SULFATE (100 MG/2 ML) 100 MG in SODIUM CHLORIDE 0.9% 100 ML IV SCH ×2 (02:03→15:41)
[2022-05-05] MEDS: GLYCOPYRROLATE 0.2 MG/ML 2 ML VIAL IVP PRN (02:03)
[2022-05-05 12:58] VITALS: BMI 26.6
--- NOTE | 2022-05-05 14:00 | P.PN ---
Subjective Progress Note Date: 05/05/22 H&P Date: 05/03/22 Chief Complaint: [facility] This is an 82-year-old female admitted with sepsis secondary to suspected aspiration pneumonia, acute hypoxic respiratory failure, acute metabolic encephalopathy, acute renal failure and multiple other medical issues. Maintained on Merrem per ID. Continues to require significant amount of O2, 70% FiO2. Family decidided to proceed with hospice and patient transitioned to [facility] hospice last night. Maintained on comfort care, morphine drip, 2 L nasal cannula. Appears comfortable. 05/04/2022 maintained on morphine drip, increased rattling secretions. Unresponsive. Tachycardic, respiratory rate 3-4. Extremities warm. No family at bedside at this time. Objective - Vital Signs Vital signs: Vital Signs Temp 98.2 F 05/03/22 08:00 Pulse 120 H 05/04/22 14:00 Resp 4 L 05/04/22 14:00 BP 100/64 05/03/22 20:35 Pulse Ox 81 L 05/04/22 04:05 FiO2 Intake & Output 05/03/22 05/04/22 05/04/22 18:59 06:59 18:59 Intake Total 33.048 48.523 92.616 Output Total 700 175 100 Balance -666.952 -126.477 -7.384 Intake: Intake, IV Titration 33.048 48.523 92.616 Amount Morphine Sulfate (100 mg/ 33.048 48.523 92.616 2 ml) 100 mg In Sodium Chloride 0.9% 100 ml @ 1 MG/HR 1.02 mls/hr IV . Q24H [facility] Rx#:[id number] Output: Urine 700 175 100 Other: Voiding Method Indwelling Catheter Indwelling Catheter Indwelling Catheter - Exam - Exam gen: Lying in bed, sedated on morphine drip, wearing 2 L nasal cannula O2 CV: RRR, no murmur Lungs: Scattered rhonchi throughout Assessment and Plan Assessment: Sepsis secondary to suspected Aspiration pneumonia Acute hypoxic respiratory failure secondary to the above Acute metabolic encephalopathy, secondary to all the above Recent COVID-19 pneumonia December 2021 Acute renal failure Myeloproliferative disorder, Mucositis prior admission History of Severe macrocytic anemia, hematology workup completed last admission suspecting medication and infection-induced Hypertension Hyperlipidemia Hypothyroidism No code, no CPR, no intubation; does want BiPAP. [facility] hospice Plan: Continue on comfort care/hospice regimen. Morphine drip to be titrated to patient's comfort. No family at bedside at this time. The impression and plan of care has been dictated as directed. : I performed a history and examination of this patient, discussed the same with the dictator. I agree with the dictator's note ,documented as a scribe. Any additional findings or plans will be noted.
--- NOTE | 2022-05-05 14:03 | P.PN ---
Subjective Progress Note Date: 05/05/22 H&P Date: 05/03/22 Chief Complaint: [facility] Hospice This is an 82-year-old female admitted with sepsis secondary to suspected aspiration pneumonia, acute hypoxic respiratory failure, acute metabolic encephalopathy, acute renal failure and multiple other medical issues. Maintained on Merrem per ID. Continues to require significant amount of O2, 70% FiO2. Family decidided to proceed with hospice and patient transitioned to [facility] hospice last night. Maintained on comfort care, morphine drip, 2 L nasal cannula. Appears comfortable. 05/04/2022 maintained on morphine drip, increased rattling secretions. Unresponsive. Tachycardic, respiratory rate 3-4. Extremities warm. No family at bedside at this time. 05/05/22 appears comfortable on current med regimen /morphine drip. Respiratory rate remains at 3-4, tachycardic. No family at bedside. Objective - Vital Signs Vital signs: Vital Signs Temp 98.2 F 05/03/22 08:00 Pulse 136 H 05/05/22 11:33 Resp 4 L 05/05/22 11:33 BP 100/64 05/03/22 20:35 Pulse Ox 81 L 05/04/22 04:05 FiO2 Intake & Output 05/04/22 05/05/22 05/05/22 18:59 06:59 18:59 Intake Total 92.616 95.166 Output Total 100 150 Balance -7.384 -54.834 Weight 72.5 kg Intake: Intake, IV Titration 92.616 95.166 Amount Morphine Sulfate (100 mg/ 92.616 95.166 2 ml) 100 mg In Sodium Chloride 0.9% 100 ml @ 1 MG/HR 1.02 mls/hr IV . Q24H [facility] Rx#:[id number] Output: Urine 100 150 Other: Voiding Method Indwelling Catheter Indwelling Catheter Indwelling Catheter - Exam - Exam gen: Lying in bed, sedated on morphine drip, wearing 2 L nasal cannula O2 CV: RRR, no murmur Lungs: Scattered rhonchi throughout Assessment and Plan Assessment: Sepsis secondary to suspected Aspiration pneumonia Acute hypoxic respiratory failure secondary to the above Acute metabolic encephalopathy, secondary to all the above Recent COVID-19 pneumonia December 2021 Acute renal failure Myeloproliferative disorder, Mucositis prior admission History of Severe macrocytic anemia, hematology workup completed last admission suspecting medication and infection-induced Hypertension Hyperlipidemia Hypothyroidism No code, no CPR, no intubation; does want BiPAP. [facility] hosp[facility] Plan: Continue on comfort care/hospice regimen. Hospice/comfort care protocol. No family at bedside at this time. The impression and plan of care has been dictated as directed. : I performed a history and examination of this patient, discussed the same with the dictator. I agree with the dictator's note ,documented as a scribe. Any additional findings or plans will be noted.
[2022-05-05 19:51] LABS: Glucose,Whole Blood 160 mg/dL (70-110)
[2022-05-05 23:12] VITALS: BP 95/61
[2022-05-06] MEDS: MORPHINE SULFATE (100 MG/2 ML) 100 MG in SODIUM CHLORIDE 0.9% 100 ML IV SCH (02:23)
[2022-05-06 09:14] VITALS: PULSE 18; RESP 18
--- NOTE | 2022-05-07 11:02 | P.PN ---
Subjective Progress Note Date: 05/06/22 82-year-old female admitted with sepsis secondary to suspected aspiration pneumonia, acute hypoxic respiratory failure, acute metabolic encephalopathy, acute renal failure and multiple other medical issues. Maintained on Merrem per ID. Continues to require significant amount of O2, 70% FiO2. Family decidided to proceed with hospice and patient transitioned to [facility] hospice last night. Maintained on comfort care, morphine drip, 2 L nasal cannula. Appears comfortable. Objective - Vital Signs Vital signs: Vital Signs Temp 98.2 F 05/03/22 08:00 Pulse 18 L 05/06/22 09:00 Resp 18 05/06/22 09:00 BP 95/61 05/05/22 23:12 Pulse Ox 83 L 05/06/22 04:00 FiO2 Intake & Output 05/05/22 05/06/22 05/06/22 18:59 06:59 18:59 Intake Total 102.136 98.073 301.506 Output Total 30 Balance 102.136 68.073 301.506 Weight 72.5 kg Intake: Intake, IV Titration 102.136 98.073 61.506 Amount Morphine Sulfate (100 mg/ 102.136 98.073 61.506 2 ml) 100 mg In Sodium Chloride 0.9% 100 ml @ 1 MG/HR 1.02 mls/hr IV . Q24H [facility] Rx#:[id number] Oral 0 240 Output: Urine 30 Other: Voiding Method Indwelling Catheter Indwelling Catheter - Exam gen: Lying in bed, sedated on morphine drip, wearing 2 L nasal cannula O2 CV: RRR, no murmur Lungs: Scattered rhonchi throughout - Labs Labs: Abnormal Lab Results - Last 24 Hours (Table) 05/05/22 Range/Units 19:49 POC Glucose (mg/dL) 160 H (70-110) mg/dL Assessment and Plan Assessment: Sepsis secondary to suspected Aspiration pneumonia Acute hypoxic respiratory failure secondary to the above Acute metabolic encephalopathy, secondary to all the above Recent COVID-19 pneumonia December 2021 Acute renal failure Myeloproliferative disorder, Mucositis prior admission History of Severe macrocytic anemia, hematology workup completed last admission suspecting medication and infection-induced Hypertension Hyperlipidemia Hypothyroidism No code, no CPR, no intubation; does want BiPAP. [facility] hospice Plan: Continue on comfort care/hospice regimen. Hospice/comfort care protocol.
--- NOTE | 2022-05-07 11:05 | P.DS ---
Providers Date of admission: 05/02/22 16:02 Expected date of discharge: 05/06/22 Attending physician: Navjot Loja MD Primary care physician: Navjot Loja MD Hospital Course: 82-year-old female admitted with sepsis secondary to suspected aspiration pneumonia, acute hypoxic respiratory failure, acute metabolic encephalopathy, acute renal failure and multiple other medical issues. Maintained on Merrem per ID. Continues to require significant amount of O2, 70% FiO2. Family decidided to proceed with hospice and patient transitioned to [facility] hospice last night. Maintained on comfort care, morphine drip, 2 L nasal cannula. Appears comfortable. Sepsis secondary to suspected Aspiration pneumonia Acute hypoxic respiratory failure secondary to the above Acute metabolic encephalopathy, secondary to all the above Recent COVID-19 pneumonia December 2021 Acute renal failure Myeloproliferative disorder, Mucositis prior admission History of Severe macrocytic anemia, hematology workup completed last admission suspecting medication and infection-induced Hypertension Hyperlipidemia Hypothyroidism No code, no CPR, no intubation; does want BiPAP. [facility] hospice 05/06/2022; patient at 9:36 am Plan - Discharge Summary New Discharge Prescriptions: No Action Levothyroxine Sodium [Synthroid] 37.5 mcg PO DAILY Metoprolol Tartrate 25 mg PO BID Pentosan Polysulfate Sodium [Elmiron] 100 mg PO Q48H [place]-3 Fatty Acids/Fish Oil [Fish Oil 1,000 mg Softgel] 1 cap PO DAILY Cyanocobalamin [Vitamin B-12] 500 mcg PO DAILY Cholecalciferol [Vitamin D3 (25 Mcg = 1000 Iu)] 50 mcg PO DAILY Calcium Carbonate [Calcium] 600 mg PO DAILY Pravastatin Sodium [Pravachol] 40 mg PO HS LORazepam [Ativan] 1 mg PO BID hydrOXYzine pamoate [hydrOXYzine PAMOATE] 25 mg PO BID PRN PRN Reason: Itching Furosemide [Lasix] 20 mg PO DAILY Triamcinolone 0.1% Paste [Oralone 0.1% Paste] 1 applic MUCOUS MEM DAILY Alpha Lipoic Acid 600 mg PO BID Melatonin 5 mg PO HS amLODIPine [Norvasc] 5 mg PO DAILY Omeprazole [PriLOSEC] 20 mg PO BID Multivitamins, Thera [Multivitamin (formulary)] 1 tab PO DAILY ARIPiprazole [Abilify] 10 mg PO DAILY traMADol HCL 50 mg PO HS PRN PRN Reason: Pain Vortioxetine Hydrobromide [Trintellix] 10 mg PO DAILY Discharge Medication List Levothyroxine Sodium [Synthroid] 37.5 mcg PO DAILY 10/09/14 [History] Metoprolol Tartrate 25 mg PO BID 10/09/14 [History] Pentosan Polysulfate Sodium [Elmiron] 100 mg PO Q48H 10/09/14 [History] [place]-3 Fatty Acids/Fish Oil [Fish Oil 1,000 mg Softgel] 1 cap PO DAILY 10/19/14 [History] Cyanocobalamin [Vitamin B-12] 500 mcg PO DAILY 05/05/15 [History] Calcium Carbonate [Calcium] 600 mg PO DAILY 06/23/20 [History] Cholecalciferol [Vitamin D3 (25 Mcg = 1000 Iu)] 50 mcg PO DAILY 06/23/20 [History] Pravastatin Sodium [Pravachol] 40 mg PO HS 07/27/20 [History] ARIPiprazole [Abilify] 10 mg PO DAILY 03/11/22 [History] Alpha Lipoic Acid 600 mg PO BID 03/11/22 [History] LORazepam [Ativan] 1 mg PO BID 03/11/22 [History] Melatonin 5 mg PO HS 03/11/22 [History] Multivitamins, Thera [Multivitamin (formulary)] 1 tab PO DAILY 03/11/22 [History] Omeprazole [PriLOSEC] 20 mg PO BID 03/11/22 [History] Triamcinolone 0.1% Paste [Oralone 0.1% Paste] 1 applic MUCOUS MEM DAILY 03/11/22 [History] Vortioxetine Hydrobromide [Trintellix] 10 mg PO DAILY 03/11/22 [History] amLODIPine [Norvasc] 5 mg PO DAILY 03/11/22 [History] traMADol HCL 50 mg PO HS PRN 03/11/22 [History] Furosemide [Lasix] 20 mg PO DAILY 04/21/22 [History] hydrOXYzine pamoate [hydrOXYzine PAMOATE] 25 mg PO BID PRN 04/21/22 [History] Discharge Disposition: - Preliminary Cause of Preliminary Cause of : Acute hypoxic respiratory failure/aspiration pneumonia/sepsis
== END 2022-05-06 12:38 | disposition expired | DRG 951 ==
LOC: 3SCARD 16:02
PROVIDERS: ADMIT Family Medicine; ATTEND Family Medicine
DX: Z51.5 Encounter for palliative care (principal); A41.9 Sepsis, unspecified organism; J69.0 Pneumonitis due to inhalation of food and vomit; J96.01 Acute respiratory failure with hypoxia; G93.41 Metabolic encephalopathy; N17.9 Acute kidney failure, unspecified; C94.6 Myelodysplastic disease, not elsewhere classified; M19.90 Unspecified osteoarthritis, unspecified site; E78.1 Pure hyperglyceridemia; E03.9 Hypothyroidism, unspecified; E78.5 Hyperlipidemia, unspecified; F32.A Depression, unspecified; I10 Essential (primary) hypertension; N30.10 Interstitial cystitis (chronic) without hematuria; Z79.890 Hormone replacement therapy; Z79.899 Other long term (current) drug therapy; Z86.16 Personal history of COVID-19; Z87.01 Personal history of pneumonia (recurrent); Z90.710 Acquired absence of both cervix and uterus; Z96.643 Presence of artificial hip joint, bilateral; Z96.651 Presence of right artificial knee joint; Z98.42 Cataract extraction status, left eye; Z98.41 Cataract extraction status, right eye